=== PATIENT | female | born 1960 | race Caucasian/White ===

== ENCOUNTER 2022-10-20 10:44 | Outpatient (REF) | payer MEDICARE, MEDICAID, SELFPAY ==
--- NOTE | ~2022-10-20 | XR_ITS ---
EXAMINATION: XR LUMBOSACRAL SPINE WITH OBLIQUES CLINICAL INFORMATION: Lumbago with sciatica. COMPARISON: None available. TECHNIQUE: AP and lateral (neutral, flexion and extension) views of the lumbosacral spine are submitted. FINDINGS: There is mild bony demineralization. There is a slight lumbar levoscoliosis. At L4-L5, there is a 4 mm anterolisthesis. The remaining disc spaces are relatively well-maintained. No acute fracture or spondylolisthesis is seen. There is multi-level mild thoracic spondylosis. There is facet arthropathy at L4-L5 and L5-S1. There are aortoiliac atherosclerotic calcifications. XR/XR lumbar spine 4V min IMPRESSION: 1. There is mild degenerative disc disease at L4-L5. 2. There is facet arthropathy at L4-L5 and L5-S1. 3. There is a slight lumbar levoscoliosis.
== END 2022-10-20 10:45 | disposition home or self-care (01) ==
LOC: HO.HOSX 10:44
PROVIDERS: Visit Provider Physician Assistant
DX: M54.40 Lumbago with sciatica, unspecified side (principal); M71.30 Other bursal cyst, unspecified site; M71.9 Bursopathy, unspecified; Z79.891 Long term (current) use of opiate analgesic; Z79.899 Other long term (current) drug therapy
CPT/HCPCS: 72110; 99202

== ENCOUNTER 2022-11-09 | Outpatient (REF) | payer MEDICARE, MEDICAID, SELFPAY ==
--- NOTE | 2022-11-09 | ECG_ITS ---
Test Reason : palps, copd, preop Blood Pressure : / mmHG Vent. Rate : 088 BPM Atrial Rate : 088 BPM P-R Int : 112 ms QRS Dur : 068 ms QT Int : 374 ms P-R-T Axes : 045 050 056 degrees QTc Int : 452 ms Normal sinus rhythm Normal ECG No previous ECGs available Referred By: Dede Espinosa Electronically Signed By:Ibrahima Washington
[2022-11-09 12:15] VITALS: BP 119/66; PULSE 88; RESP 20; O2SAT 98; BMI 22.1
--- NOTE | 2022-11-09 12:43 | HO.ANESPROP2 ---
HPI - Anesthesia Eval Consult details Narrative: Pt no showed DOS 62yo F for Bilateral L4-L5 Laminectomy Lumbar Decompression,L4-L5 removal of snyoval cyst Follows [facility] for palps. Many missed appointments. Cardiac OV sched for 11/15/22. Case reviewed with Dr Dago MOSQUERA Active Problems Active Problems: All Active Problems (Updated 11/09/22 @ 12:09 by Joan Oliva, AJ) Back pain of lumbar region with sciatica (Acute) Past Medical History Medical History (Updated 11/09/22 @ 12:09 by Joan Oliva RN) Arthritis Back pain Bursitis Chronic headaches COPD (chronic obstructive pulmonary disease) Depression Hypothyroid IBS (irritable bowel syndrome) Palpitations Surgical History Surgical History (Updated 11/09/22 @ 12:11 by Joan Oliva RN) H/O colonoscopy History of esophagogastroduodenoscopy (EGD) Hx of tonsillectomy Social History Social History Are you a primary childbirth and infant care teacher to a significant other at home: No Do you presently have visiting nurse or other home services: No Patient Tobacco Use Status: Current everyday Tobacco user Tobacco use type: Cigarette Cigarettes Per Day: 4 Years Smoked: 45 Smoked in Last 30 Days: Yes Patient Interested in Nicotine Replacement: No Use of substances other than those prescribed or required for medical reasons: No Have you been hit, kicked, punched, or otherwise hurt by someone within the past year? If so, by whom?: No Are you DNR?: No Advance Directives: No Advance Directives Information Provided: Yes (brochure) Advance Directives on File: No Recently lost weight without trying: No Nutrition Risks: No Nutritional Risk Poor oral hygiene: No (4 missing teeth-molars) Narrative Narrative: No recent illness Rare palpitations with exertion. Follows cardiology. COPD at baseline without SOB Meds Allergies Allergy/AdvReac Type Severity Reaction Status Date / Time No Known Allergies Allergy Verified 05/31/22 10:41 Home Medications Medication Instructions Recorded Confirmed Last Taken Type albuterol sulfate 90 mcg/actuation 2 puff inhalation Q4H PRN wheezing 05/31/22 11/08/22 Unknown History aerosol inhaler betamethasone valerate 0.1 % 1 appl topical BID 05/31/22 11/08/22 Unknown History topical ointment naproxen 500 mg tablet 500 mg PO BID 05/31/22 11/08/22 Unknown History methimazole 5 mg tablet 2.5 mg PO DAILY 11/08/22 11/08/22 Unknown History polyethylene glycol 3350 17 gram 17 g PO DAILY 11/08/22 11/08/22 Unknown History oral powder packet (Miralax) verapamil 100 mg capsule 24hr 100 mg PO BEDTIME 11/08/22 11/08/[address],ext.release oxycodone-acetaminophen 5 mg-325 1 tab PO QID PRN Pain 11/09/22 11/09/22 Unknown History mg tablet Exam Exam Date and Time: November 09, 2022 1243 Height,Weight and Vital Signs: Height 5 ft 3 in Weight 56.699 kg Last Vital Signs Pulse 88 11/09/22 12:15 Resp 20 11/09/22 12:15 BP 119/66 11/09/22 12:15 Pulse Ox 98 11/09/22 12:15 O2 Del Method Room Air 11/09/22 12:15 Pertinent Lab Results Pertinent Lab Results: Lab Results 11/09/22 11/09/22 Range/Units 13:11 13:11 WBC 8.4 (4.8-10.8) X10*3/uL RBC 4.58 (4.20-5.50) X10*6/uL Hgb 14.1 (12.0-16.0) g/dl Hct 42.5 (37.0-47.0) % MCV 92.8 (80.0-98.0) fL MCH 30.8 (27.0-33.0) pg MCHC 33.2 (31.0-35.0) g/dl RDW 11.9 (11.0-16.0) % Plt Count 326 (160-400) X10*3/uL MPV 11.3 (9.4-12.3) fL Absolute Nucleated RBC 0.000 (0.0-0.012) X10*3/uL Nucleated RBC % (auto) 0.0 (0.0-0.2) /100WBC Sodium 143 (135-145) mmol/L Potassium 4.6 (3.3-5.1) mmol/L Chloride 106 (96-108) mmol/L Carbon Dioxide 29 (22-29) mmol/L Anion Gap 13 (12-20) BUN 19 H (9-16) mg/dL Creatinine 0.73 (0.5-1.4) mg/dL Estim Creat Clear Calc 66.9 Estimated GFR > 60 Random Glucose 81 (60-115) mg/dL Calcium 10.1 (8.4-10.2) mg/dL Narrative Narrative: EKG 10/2022 Vent. Rate : 088 BPM ? ? Atrial Rate : 088 BPM ?? P-R Int : 112 ms? QRS Dur : 068 ms ? ? QT Int : 374 ms ? ? ? P-R-T Axes : 045 050 056 degrees ?? QTc Int : 452 ms ? Normal sinus rhythm Normal ECG No previous ECGs available ? Airway Mallampati Class: I TM Dist: >3cm Neck ROM: Full Loose/Missing/Broken Teeth: Yes (4 x molars missing) Heart: RRR Lungs: CTAB Assessment and Plan Assessment Anesthesia Assessment: Anesthesia Plan Discussed, Smoking Cess. Discussed and PAT Visit
[2022-11-09 13:47] LABS: Hematocrit 42.5 % (37.0-47.0); Hemoglobin 14.1 g/dl (12.0-16.0); Mean Corpuscular HGB Conc 33.2 g/dl (31.0-35.0); Mean Corpuscular Hemoglobin 30.8 pg (27.0-33.0); Mean Corpuscular Volume 92.8 fL (80.0-98.0); Mean Platelet Volume 11.3 fL (9.4-12.3); Platelet Count 326 X10*3/uL (160-400); Red Blood Count 4.58 X10*6/uL (4.20-5.50); Red Cell Distribution Width 11.9 % (11.0-16.0); White Blood Count 8.4 X10*3/uL (4.8-10.8)
[2022-11-09 14:10] LABS: Anion Gap 13 (12-20); Blood Urea Nitrogen 19 mg/dL (9-16); Calcium 10.1 mg/dL (8.4-10.2); Carbon Dioxide 29 mmol/L (22-29); Chloride 106 mmol/L (96-108); Creatinine Clr Calc Pharmacy 66.9; Estimated Glomerular Filt Rate > 60; Glucose Random 81 mg/dL (60-115); Potassium 4.6 mmol/L (3.3-5.1); Sodium 143 mmol/L (135-145)
== END 2022-11-09 00:01 ==
LOC: HO.PAT
PROVIDERS: Nurse Practitioner; PCP Internal Medicine; Visit Provider Neurological Surgery
DX: Z01.818 Encounter for other preprocedural examination (principal); M54.40 Lumbago with sciatica, unspecified side
CPT/HCPCS: 36415; 80048; 85027; 93005

== ENCOUNTER 2023-04-11 14:33 | Outpatient (AMB) | payer MEDICARE, MEDICAID, SELFPAY ==
--- NOTE | 2023-04-11 14:43 | HO.SPINEOV ---
Intake Intake Visit Reasons: discuss surgery Intake Note: Ms. Garcia is here today to discuss surgery. Production Assembly Supervisor Required: No Allergies No Known Allergies Allergy (Verified 05/31/22 10:41) Assessment & Plan Assessment & Plan (1) Back pain of lumbar region with sciatica: Code(s): M54.40 - Lumbago with sciatica, unspecified side (2) Synovial cyst of lumbar facet joint: Code(s): M71.38 - Other bursal cyst, other site Plan Dear Colleague On 04/11/2023, I saw for preoperative visit Marielos Garcia. She has a large synovial cyst arising from the left L4-5 facet joint, which obliterates the spinal canal. She was originally scheduled to undergo surgery in October which had to be postponed. She states that her symptoms have somewhat improved. It is merely back pain currently. She wonders if the cyst resolved. I do think it's a good idea ear to have a new MRI to make sure that the cyst is still present before we schedule a surgical date. I will see the patient after the MRI is done to finalize the plan. Adrian Agarwal MD, PhD Spine Fellowship Trained Neurosurgeon Director, [facility] Orders: Orders MR lumbar spine wo con Today M54.40 - Lumbago with sciatica, unspecified side, M71.38 - Other bursal cyst, other site Coding Level of Care Code Est Pt Level 2 (49668) Diagnoses Back pain of lumbar region with sciatica M54.40 Synovial cyst of lumbar facet joint M71.38
== END 2023-04-11 14:52 | disposition home or self-care (01) ==
PROVIDERS: PCP Internal Medicine; Visit Provider Neurological Surgery
DX: M54.40 Lumbago with sciatica, unspecified side (principal); M71.38 Other bursal cyst, other site
CPT/HCPCS: 99212

== ENCOUNTER → 2023-04-11 14:33 | Outpatient (BNVA) | payer OTHER, SELFPAY | PROVIDERS: PCP Internal Medicine; Visit Provider Neurological Surgery | DX: M54.40 Lumbago with sciatica, unspecified side (principal); M71.38 Other bursal cyst, other site | CPT/HCPCS: 99212 ==

== ENCOUNTER 2023-05-19 14:23 | Outpatient (REF) | payer MEDICARE, SELFPAY ==
--- NOTE | ~2023-05-19 | MR_ITS ---
EXAMINATION: MR LUMBAR SPINE WITHOUT CONTRAST CLINICAL INFORMATION: Facet joint cyst. COMPARISON: Lumbar spine radiographs from 10/20/2022. TECHNIQUE: MRI of the lumbar spine was obtained using routine sequences without contrast. FINDINGS: Degenerative grade 1 anterolisthesis of L4 on L5. Otherwise, normal anatomic alignment. Moderate degenerative disc disease at L4-L5. Mild degenerative disc disease at all additional levels. Associated mild mixed Modic type discogenic endplate changes. Moderate marrow edema within the posterior elements of L4-S1 consistent with degenerative stress reaction. No additional suspicious marrow edema. The vertebral body heights are well-maintained. The conus medullaris terminates at the level of L2. Slight prominence of the central spinal canal at the levels of T11-L1, measuring up to 0.1 cm in diameter without overt syrinx formation. Otherwise, the distal spinal cord is normal in appearance. No significant abnormalities of the paraspinal musculature. Limited evaluation of the intra-abdominal structures without significant abnormalities. The abdominal aorta is of normal contour and caliber. AXIAL SPINAL LEVELS: L1-L2: Shallow diffuse disc bulge. There is mild left and no right facet joint arthropathy. There is no neural foraminal stenosis. There is no spinal canal stenosis. L2-L3: Mild diffuse disc bulge with superimposed shallow left foraminal disc protrusion. There is mild bilateral facet joint arthropathy. There is mild bilateral neural foraminal stenosis. There is no spinal canal stenosis. L3-L4: Shallow diffuse disc bulge. There is moderate left and mild right facet joint arthropathy. There is mild bilateral neural foraminal stenosis. There is no spinal canal stenosis. L4-L5: Moderate diffuse disc bulge exacerbated by uncovering from anterolisthesis. There is severe bilateral facet joint arthropathy with ligamentum flavum hypertrophy. There is a 0.3 cm T2 hyperintense synovial cyst medial to the right facet joint. There is a 0.15 cm faintly T2 hyperintense synovial cyst medial to the left facet joint. There is moderate bilateral neural foraminal stenosis. There is stenosis of the subarticular zones with mild spinal canal stenosis centrally. L5-S1: Shallow diffuse disc bulge. There is moderate left and mild right facet joint arthropathy. There is mild bilateral neural foraminal stenosis. There is no spinal canal stenosis. MR/MR lumbar spine wo con IMPRESSION: Moderate multilevel degenerative spondyloarthropathy of the lumbar spine as described in detail above. Most notably, there is grade 1 anterolisthesis of L4 on L5 associated with advanced facet joint arthropathy at this level. Associated stenoses of the subarticular zones and mild spinal canal stenosis centrally at L4-L5. There are 2 small synovial cysts associated with the bilateral L4-L5 facet joints. Otherwise, mild to moderate neural foraminal stenoses from L2-S1. No additional spinal canal stenosis or nerve root compression. Slight prominence of the central spinal canal at the levels of T11-L1, measuring up to 0.1 cm in diameter without overt syrinx formation.
== END 2023-05-19 14:24 | disposition home or self-care (01) ==
LOC: HO.MRI 14:23
PROVIDERS: PCP Internal Medicine; Visit Provider Neurological Surgery
DX: M71.38 Other bursal cyst, other site (principal); M54.40 Lumbago with sciatica, unspecified side
CPT/HCPCS: 72148

== ENCOUNTER 2023-06-13 14:04 | Outpatient (AMB) | payer MEDICARE, SELFPAY ==
--- NOTE | 2023-06-13 14:08 | A.SPINEOV_ITS ---
Intake Intake Visit Reasons: Discuss MRI results Intake Note: Ms. Garcia is here today to discuss the results of her MRI. Sales Service Assistant Required: No Allergies No Known Allergies Allergy (Verified 05/31/22 10:41) Assessment & Plan Assessment & Plan (1) Synovial cyst of lumbar facet joint: Code(s): M71.38 - Other bursal cyst, other site (2) Back pain of lumbar region with sciatica: Code(s): M54.40 - Lumbago with sciatica, unspecified side Plan Dear colleague, On 06/14/2023, I saw for re-evaluation Marielos Garcia. She is suffering from back pain and neurogenic claudication. The last time I saw her she had improvement of her back pain and therefore she was wondering if the synovial cyst popped. We obtain a new MRI of the lumbar spine which unfortunately still shows a large extradural mass obliterating the spinal canal and causing severe spinal stenosis and compression of the nerve roots. On questioning, she still suffers from a fair amount of neurogenic claudication symptoms. She can hardly walk or stand and constantly has to sit down. We therefore decided to book her for a removal of the extradural mass(synovial cyst) to decompress the spinal canal. The procedure complications were explained. She is scheduled for 09/10/2023. I spent 30 minutes in this consult in preparation and discussing the new images and surgical plan Thank you for allowing me take care of your patient. Adrian Agarwal MD, PhD Spine Fellowship Trained Neurosurgeon Director, [facility] Coding Level of Care Code Est Pt Level 4 (16983) Diagnoses Synovial cyst of lumbar facet joint M71.38 Back pain of lumbar region with sciatica M54.40
== END 2023-06-13 14:46 | disposition home or self-care (01) ==
PROVIDERS: PCP Internal Medicine; Visit Provider Neurological Surgery
DX: M71.38 Other bursal cyst, other site (principal); M54.40 Lumbago with sciatica, unspecified side
CPT/HCPCS: 99214

== ENCOUNTER → 2023-06-13 14:04 | Outpatient (BNVA) | payer MEDICARE, SELFPAY | PROVIDERS: PCP Internal Medicine; Visit Provider Neurological Surgery | DX: M71.38 Other bursal cyst, other site (principal); M54.40 Lumbago with sciatica, unspecified side | CPT/HCPCS: 99212 ==

== ENCOUNTER 2023-11-14 05:48 | Day surgery (SDC) | payer OTHER, SELFPAY ==
[2023-09-04 12:13] VITALS: BP 141/66; PULSE 82; RESP 20; O2SAT 100; BMI 22.4
--- NOTE | 2023-11-13 13:30 | P.CONAN_ITS ---
HPI - Anesthesia Eval Consult details Narrative: 63yo F for Right L4-5 Resection of Synovial Cyst Medically cleared via telehealth 09/2023 Cardiac cleared via office visit 01/2023 MRI with white matter changes. Noted by neurosurgeon. Recent cocaine use. Utox DOS. PMFSH Active Problems Active Problems: All Active Problems Synovial cyst of lumbar facet joint (Acute) Back pain of lumbar region with sciatica (Acute) Past Medical History Medical History Pulmonary nodules Back pain Depression Arthritis Palpitations Bursitis IBS (irritable bowel syndrome) Hypothyroid Chronic headaches COPD (chronic obstructive pulmonary disease) Surgical History Surgical History History of esophagogastroduodenoscopy (EGD) H/O colonoscopy Hx of tonsillectomy Social History Social History Are you a primary palliative care nurse to a significant other at home: No Do you presently have visiting nurse or other home services: No Patient Tobacco Use Status: Former Tobacco user Quit Date: 09/03/23 Tobacco use type: Cigarette Cigarettes Per Day: 3 Years Smoked: 46 Second Hand Smoke Exposure: No Meds Allergies Allergy/AdvReac Type Severity Reaction Status Date / Time No Known Allergies Allergy Verified 05/31/22 10:41 Home Medications ?Medication ?Instructions ?Recorded ?Confirmed ?Last Taken ?Type albuterol sulfate 90 mcg/actuation 2 puff inhalation Q4H PRN wheezing 05/31/22 08/31/23 Unknown History aerosol inhaler betamethasone valerate 0.1 % 1 appl topical BID 05/31/22 08/31/23 Unknown History topical ointment polyethylene glycol 3350 17 gram 17 g PO DAILY 11/08/22 08/31/23 Unknown History oral powder packet (Miralax) verapamil 100 mg capsule 24hr 100 mg PO BEDTIME 11/08/22 08/31/[address],ext.release oxycodone-acetaminophen 5 mg-325 1 tab PO QID PRN Pain 11/09/22 09/04/23 Unknown History mg tablet Exam Height,Weight and Vital Signs: Height 5 ft 3 in Weight 57.3 kg Last Vital Signs Pulse 82 09/04/23 12:13 Resp 20 09/04/23 12:13 BP 141/66 H 09/04/23 12:13 Pulse Ox 100 09/04/23 12:13 O2 Del Method Room Air 09/04/23 12:13 Narrative Narrative: EKG 2022 SR with short IA @ 88 Possible LAE ECHO 2020 1. Nml LV size and wall thickness. No RWMA. 2. Nml LV sys function. LVEF 55-60%. E-A reversal consistent with mild diastolic relaxation abn. 3. RV nl in size and systolic function 4. No signif valve disease Assessment and Plan Assessment Anesthesia Assessment: Chart Reviewed
[2023-11-14] VITALS (8 sets, daily range): BP systolic 131–151; BP diastolic 62–90; PULSE 78–89; RESP 16; TEMP 36.1–37.2; O2SAT 96–99; BMI 22.9
--- NOTE | ~2023-11-14 | FL_ITS ---
EXAMINATION: XR FLUOROSCOPY WITH IMAGES CLINICAL INFORMATION: L4-L5 resection of synovial cyst COMPARISON: None available. TECHNIQUE: Fluoroscopy Supervised By: Dr. Agarwal. Fluoroscopy Time: 2.9 seconds. Cumulative Dose: 0.8673 mGy. DAP: 0.2463 Gycm2. Images: 1. FINDINGS: Fluoroscopic guidance provided for procedure performed by Dr. Agarwal. Surgical hardware overlies the lower lumbar spine on image provided. Please refer to operative report for more detailed evaluation. FL/FL guidance in OR IMPRESSION: Fluoroscopic guidance provided for procedure performed by Dr. Agarwal Please refer to operative report for more detailed evaluation.
[2023-11-14] MEDS: methocarbamoL 750 MG TABLET PO (06:48)
[2023-11-14] MEDS: Lactated Ringers 1,000 ML 100 ML IVCONT (06:48)
[2023-11-14] MEDS: Gabapentin 300 MG CAPSULE PO (06:48)
[2023-11-14 06:53] LABS: Amphetamine Screen Urine Not Detected (Not Detect); Barbiturates, Urine Not Detected (Not Detect); Benzodiazepines Screen Urine Not Detected (Not Detect); Buprenorphine Scr Not Detected (Not Detect); Cannabinoid Screen Urine Not Detected (Not Detect); Cocaine Screen Urine POSITIVE (Not Detect); Fentanyl, urine Not Detected (Not Detect); Methadone Screen, Urine Not Detected (Not Detect); Opiate Screen Urine Not Detected (Not Detect); Oxycodone Screen Urine Not Detected (Not Detect); Phencyclidine Screen Urine Not Detected (Not Detect)
--- NOTE | 2023-11-14 06:57 | MHC.SHP ---
Pre-Procedural Eval Section A - 24 Hr Update-Section A only Date of Service: 11/14/23 Section B - Complete if H&P > 30 days Chief Complaint: Lumbago with sciatica,Other bursal cyst, other sit Allergies: Allergies Allergy/AdvReac Type Severity Reaction Status Date / Time No Known Allergies Allergy Verified 05/31/22 10:41 Review of Systems Sugical H&P ROS: Negative: Constitution, Cardiovascular, Respiratory, Neurological, Psychiatric, Hem-Onc, Allergic/Immunologic, Gastrointestinal, Genitourinary, Musculoskeletal, Integumentary, Endocrine and Eyes/Ears/Nose/Throat Exam Surgical H&P Exam: Not Evaluated: HEENT, Not Evaluated: Heart, Not Evaluated: Lungs, Not Evaluated: Extremities, Not Evaluated: Abdomen, Not Evaluated: Skin and Not Evaluated: Neurological Plan I have reviewed the history and physical and performed a pertinent physical examination on my patient. No changes have occurred unless specified. The plan remains the same, L4-5 lumbar decompression, synovial cyst resection. Time Spent With Patient Time: Total time managing care of this patient today _10__ minutes.
--- NOTE | 2023-11-14 07:08 | PC.NURSE ---
Patient urine tox positive for cocaine, Dr. Narvaez Anesthesiologist aware. Dr. Agarwal aware. no new orders at this time.
--- NOTE | 2023-11-14 07:26 | P.CONAN_ITS ---
COUNTS INCLUDE 234 BEDS AT THE [facility] Active Problems Active Problems: All Active Problems Synovial cyst of lumbar facet joint (Acute) Back pain of lumbar region with sciatica (Acute) Past Medical History Medical History Pulmonary nodules Back pain Depression Arthritis Palpitations Bursitis IBS (irritable bowel syndrome) Hypothyroid Chronic headaches COPD (chronic obstructive pulmonary disease) Functional capacity: independent ambulation Patient : No Family History Family history of problems with anesthesia: No Surgical History Surgical History History of esophagogastroduodenoscopy (EGD) H/O colonoscopy Hx of tonsillectomy History of Problems with Anesthesia: No Social History Social History Are you a primary customer care associate to a significant other at home: No Do you presently have visiting nurse or other home services: No Patient Tobacco Use Status: Former Tobacco user Quit Date: 09/03/23 Tobacco use type: Cigarette Cigarettes Per Day: 3 Years Smoked: 46 Smoked in Last 30 Days: Yes Patient Interested in Nicotine Replacement: No Second Hand Smoke Exposure: No Use of substances other than those prescribed or required for medical reasons: No Substance Use Type Other:: last cocaine 3 weeks ago-states quit 09/03/23 Substance Use Frequency: Occasionally Have you been hit, kicked, punched, or otherwise hurt by someone within the past year? If so, by whom?: No Are you DNR?: No Advance Directives: No Advance Directives Information Provided: Yes Advance Directives on File: No Recently lost weight without trying: No Eating poorly because of decreased appetite: No Nutrition Risks: No Nutritional Risk Poor oral hygiene: No (4 missing teeth) Meds Allergies Allergy/AdvReac Type Severity Reaction Status Date / Time No Known Allergies Allergy Verified 05/31/22 10:41 Active Medications: Current Medications Albuterol Sulfate (Albuterol Sulfate (0.083%) 2.5 Mg/3 Ml Vial.Neb) 2.5 mg INHALE ONCE PRN PRN Reason: Shortness of Breath/Wheezing Lactated Ringer's (Lr) 1,000 mls @ 100 mls/hr IVCONT .Q10H KEVIN Last Admin: 11/14/23 06:48 Dose: 100 mls/hr Home Medications ?Medication ?Instructions ?Recorded ?Confirmed ?Last Taken ?Type albuterol sulfate 90 mcg/actuation 2 puff inhalation Q4H PRN wheezing 05/31/22 08/31/23 Unknown History aerosol inhaler betamethasone valerate 0.1 % 1 appl topical BID 05/31/22 08/31/23 Unknown History topical ointment polyethylene glycol 3350 17 gram 17 g PO DAILY 11/08/22 08/31/23 Unknown History oral powder packet (Miralax) verapamil 100 mg capsule 24hr 100 mg PO BEDTIME 11/08/22 08/31/[address],ext.release oxycodone-acetaminophen 5 mg-325 1 tab PO QID PRN Pain 11/09/22 09/04/23 Unknown History mg tablet Exam Height,Weight and Vital Signs: Height 5 ft 3 in Weight 58.57 kg Last Vital Signs Temp 98.9 F 11/14/23 06:29 Pulse 78 11/14/23 06:29 Resp 16 11/14/23 06:29 BP 149/72 H 11/14/23 06:29 Pulse Ox 99 11/14/23 06:29 O2 Del Method Room Air 11/14/23 06:29 Pertinent Lab Results Pertinent Lab Results: Laboratory Tests 11/14/23 06:25 Urine Opiates Screen Not Detected Ur Buprenorphine Scrn Not Detected Ur Oxycodone Screen Not Detected Urine Methadone Screen Not Detected Urine Fentanyl Screen Not Detected Ur Barbiturates Screen Not Detected Ur Phencyclidine Scrn Not Detected Ur Amphetamines Screen Not Detected U Benzodiazepines Scrn Not Detected Urine Cocaine Screen POSITIVE H U Marijuana (THC) Screen Not Detected Airway Mallampati Class: II TM Dist: >3cm Neck ROM: Full Heart: RRR Lungs: CTA Assessment and Plan Assessment Anesthesia Assessment: Anesthesia Plan Discussed and Smoking Cess. Discussed Final Anesthetic Review Family History of Problems with Anesthesia: No History of Problems with Anesthesia: No NPO: Yes ASA Class: II Final Preanesthetic Review: Meds/Allgs Chart Reviewed, Consent Obtained/Reviewed and Anes Risks/Benef Reviewed Patient Risk: Intermediate Procedure Risk: Intermediate Anesthetic Plan Anesthetic Plan: GA Disposition: Standard PACU
--- NOTE | 2023-11-14 09:09 | P.OP_ITS ---
Operative Note Operative Note Date of Service: 11/14/23 Narrative: Preoperative Diagnosis: Extradural benign mass (synovial cyst) compressing the left L5 nerve root Operation: Left L4-5 Laminotomy for removal of extradural benign mass with use of microscope Consent Informed Consent was obtained for this operation. I have explained the nature, purpose and benefits of the operation. I have discussed the risks and benefit of the operation including possible complications or adverse events with patient/family. Alternative(s) were discussed with the patient with their relative benefits and risks as well as the consequences of not accepting the operation were included in obtaining consent. Surgeon: ABDI CERVANTES MD, PHD Procedure Assisted By: Gurdeep roman Description of Procedure This patient is suffering pain radiating down her left hip and thigh. She also has back pain. Her history has changed multiple times during visits. I made clear to the patient that this surgery is not for back pain. It might help for her left leg pain. MRI shows a large extra dural benign mass compressing the L5 nerve root. The patient was offered a removal of the mass to decompress the nervous structure. The procedure complications were explained. The patient was consented. The patient was brought to the operating room and endotracheally intubated. The patient was turned in prone position on the Bossman frame. Prep and drape was done followed by timeout. Physician professional nursing assistant provided access. A mid lumbar incision was made followed by release of the paravertebral muscle on the left side to expose the L4-5 lamina and facet joint. An intraoperative x-ray was obtained to confirm the correct level. The microscope was brought in. I took over the procedure. The high-speed drill was used to do a L4-5 laminotomy. The flavum ligament was opened to expose the underlying thecal sac and start of the [] nerve root. The view was obscured by a large cystic mass that was scarred to the thecal sac and L5 nerve root. I carefully resected the mass from the nervous structures and create a plane after which I was able to remove the mass from the thecal sac and L5 nerve root. Most likely we are dealing with a synovial cyst. A long the nerve root could be easily passed, a sign of adequate decompression of the nerve root . The microscope was removed. Hemostasis was done. Incision was closed in 2 layers. Steri-Strips were used to approximate incision. An OpSite with Tegaderm was used to cover the incision. All sponge needle counts were correct. Patient was extubated and transported in stable is to recovery room. Anesthesia: General Estimated Blood Loss (ml): Minimal Duration of Surgery: Under 60 Minutes Postoperative Plan: Discharge to home
--- NOTE | 2023-11-14 09:10 | PM.DS ---
DS: Providers Provider Date of Service: 11/14/23 Primary care physician: Dimas Mcnair III, MD DS: Summary Time Attestation Discharge Coordination Time (in mins): 15 Quality: Safe Use of Opioids Does Pt have an Active Cancer Diagnosis on the Problem List?: No Quality: Stroke Does the patient have a stroke diagnosis?: No Physical Exam Vital Signs: Vital Signs: Last Vital Signs Temp 98.9 F 11/14/23 06:29 Pulse 78 11/14/23 06:29 Resp 16 11/14/23 06:29 BP 149/72 H 11/14/23 06:29 Pulse Ox 99 11/14/23 06:29 O2 Del Method Room Air 11/14/23 06:29 BMI result Body Mass Index 22.9 DS: Data Data Completed and Pending Labs on day of discharge: Laboratory Results - last 24 hr 11/14/23 06:25 Urine Opiates Screen Not Detected Ur Buprenorphine Scrn Not Detected Ur Oxycodone Screen Not Detected Urine Methadone Screen Not Detected Urine Fentanyl Screen Not Detected Ur Barbiturates Screen Not Detected Ur Phencyclidine Scrn Not Detected Ur Amphetamines Screen Not Detected U Benzodiazepines Scrn Not Detected Urine Cocaine Screen POSITIVE H U Marijuana (THC) Screen Not Detected Discharge Plan Discharge Patient Disposition: Home, Self-Care Referrals: Dimas Mcnair III, MD [Primary Care Provider] - 1 Week Discharge Medications: New hydrocodone-acetaminophen 5-325 mg tablet 1 tab PO Q6H PRN (Reason: severe pain (scale score 7-10)) Qty: 30 0RF Rx Instructions: Partial Fill upon patient request. No Action polyethylene glycol 3350 [Miralax] 17 gram Powder In Packet 17 g PO DAILY verapamil 100 mg capsule, [address] 100 mg PO BEDTIME oxycodone-acetaminophen 5-325 mg tablet 1 tab PO QID PRN (Reason: Pain) betamethasone valerate 0.1 % ointment 1 appl topical BID albuterol sulfate 90 mcg/actuation HFA aerosol inhaler 2 puff inhalation Q4H PRN (Reason: wheezing) Discharge Orders: Discharge Order (Routine); Ordered 11/14/23 Ordered By: Ryan Pimentel Diet: Advance to usual diet Activity on Discharge: As tolerated Activity Restrictions/Additional Instructions: After your spinal surgery we ask you to observe the following restrictions/guidelines: Activity: It is normal to feel some discomfort as you increase your activity, but that will improve with time. We ask you avoid heavy lifting or acitivities that cause pain. As a general rule, 8lbs is a safe limit for lifting right after surgery. Walk as much as you feel comfortable but not to exhaustion. You will feel extra tired the first few days after surgery. Stay well hydrated. It is OK to walk up and down stairs You may return to driving when you are off narcotics (such as vicodin, oxycodone, dilaudid, etc), and you are back to normal functional capacity. If you have any concerns please check with office before driving. Return to work is specific to each patient and each surgery, so please speak with your doctor/PA at first follow up. Please bring paperwork such as FMLA at that time if you need it filled out. Medications: We will give you a short supply of narcotics after surgery (usually one weeks worth). If you need more please call the office but do not use more than prescribed. You will need to give our office 48 hours notice if you need narcotics refilled and we do not fill narcotics on weekends or evenings. If you are on a narcotic, it is a good idea to take a stool softener such as colace or senna to avoid constipation If you take blood thinner such as aspirin, Plavix, Coumadin, Effient, Eliquis etc for conditions such as Afib, DVT, Pulmonary embolus, coronary disease, stents etc please speak with your surgeon about specific details as to when you can resume these medications. You can resume NSAIDs on post op day 1 (eg: Motrin, Naproxen, etc). Follow up: Please call the office, , after surgery to arrange a 3 week follow up for wound check. Wound Care: You may remove your dressing on the first day after surgery. ?You may ?leave open to air. Please do not remove the steri strips underneath. they will fall off on their own in one week. IT IS NORMAL FOR THE WOUND TO OOZE OR BE BLOODY FOR A FEW DAYS AFTER SURGERY. ?IF THIS HAPPENS JUST PLACE NEW DRESSING OVER IT TO AVOID STAINING CLOTHES. You may shower on post op day # 1 We ask that you do not let the water soak the wound. If it does get wet, just towel dry lightly. Please do not scrub your incision or place any type of chemical/ointment on the wound. No tub baths, pools or jacuzzis for one month. If you have any leaking or redness from your wound, or fevers, please call the office. Print Language: Japanese
== END 2023-11-14 10:54 | disposition home or self-care (01) ==
PROVIDERS: Nurse Practitioner; PCP Internal Medicine; Visit Provider Neurological Surgery
PROC: (CPT 63267; principal; 2023-11-14 07:30)
DX: M71.38 Other bursal cyst, other site (principal); M54.40 Lumbago with sciatica, unspecified side; M25.552 Pain in left hip; M79.652 Pain in left thigh; R26.2 Difficulty in walking, not elsewhere classified; G89.29 Other chronic pain; R51.9 Headache, unspecified; R90.82 White matter disease, unspecified; J44.9 Chronic obstructive pulmonary disease, unspecified; R91.8 Other nonspecific abnormal finding of lung field; F14.90 Cocaine use, unspecified, uncomplicated; Z79.899 Other long term (current) drug therapy; F17.210 Nicotine dependence, cigarettes, uncomplicated
CPT/HCPCS: 63267; 80307; J0131; J0690; J1100; J1170; J1596; J1885; J2250; J2371; J2405; J2704; J3010

== ENCOUNTER → 2023-11-14 05:48 | Outpatient (BNV) | payer OTHER, SELFPAY | PROVIDERS: PCP Internal Medicine; Visit Provider Neurological Surgery | DX: M71.38 Other bursal cyst, other site (principal); M54.40 Lumbago with sciatica, unspecified side | CPT/HCPCS: 63267; 99499 ==

== ENCOUNTER 2023-12-07 14:34 | Outpatient (AMB) | payer OTHER, SELFPAY ==
--- NOTE | 2023-12-07 14:38 | HO.SPINEOV ---
Intake Visit Reasons: 1st post op Intake Note: Ms. Garcia is here today for her 1st Post-op appointment. 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 She is 3 weeks out from her left L4-5 decompression removal synovial cyst. She is pleased with how the surgery went in the improvement in her pain. Her wound is healed up nicely. At this point, the main thing that is bothering her now that the radiculopathy is improved is the left hip pain. She has been battling with this for years and has been followed by [facility] for years. There is an old x-ray done at [place] from 2022 showing a severely arthritic hip on the left side. She knows she is likely going to need a hip replacement. She currently does not have an orthopedic surgeon that she follows with. I offered to get her an updated x-ray and I told her she can see who can handle any surgery she might need down the road. She has not sure if she is ready to undergo the hip replacement yet but I told her would be meaningful just have a conversation with him and establish care. From the standpoint of her back, she has no restrictions and can follow up with us on an as-needed basis. Gurdeep Agarwal MD, PhD [facility] Orders: Orders XR hip LT min 2V Today M16.12 - Unilateral primary osteoarthritis, left hip Referrals Orthopedics Referral M16.12 - Unilateral primary osteoarthritis, left hip Coding Level of Care Code Global (27608) Diagnoses Arthritis of left hip M16.12 Synovial cyst of lumbar facet joint M71.38
== END 2023-12-07 15:00 | disposition home or self-care (01) ==
PROVIDERS: PCP Internal Medicine; Visit Provider Physician Assistant
DX: M16.12 Unilateral primary osteoarthritis, left hip (principal); M71.38 Other bursal cyst, other site
CPT/HCPCS: 99024

== ENCOUNTER 2023-12-07 14:34 | Outpatient (REF) | payer OTHER, SELFPAY | END 2023-12-07 14:35 | disposition home or self-care (01) | LOC: HO.HOSX 14:34 | PROVIDERS: PCP Internal Medicine; Visit Provider Physician Assistant | DX: M16.12 Unilateral primary osteoarthritis, left hip (principal); Z47.89 Encounter for other orthopedic aftercare; Z87.2 Personal history of diseases of the skin and subcutaneous tissue; Z87.39 Personal history of other diseases of the musculoskeletal system and connective tissue | CPT/HCPCS: 99212 ==

== ENCOUNTER 2024-01-04 06:33 | Outpatient (REF) | payer OTHER, SELFPAY | END 2024-01-04 06:34 | disposition home or self-care (01) | LOC: HO.HOSX 06:33 | PROVIDERS: Visit Provider Orthopaedic Surgery | DX: Z13.89 Encounter for screening for other disorder (principal) ==

== ENCOUNTER 2024-04-10 13:04 | Outpatient (AMB) | payer MEDICARE, SELFPAY ==
--- NOTE | 2024-04-10 13:17 | A.OFFVIS_ITS ---
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 Patient was referred by Family Physiatry- Dr. Rai. Hx of L4-5 Laminotomy with good relief. She continues to have left hip pain s/p back procedure, has tried an intra-articular steroid injection in the past with no relief. She is taking Percocet PRN pain. Her pain is felt on the lateral aspect and posterior aspect of the hip. She has pain all the time but worsened with laying on. She is looking to discuss possible BUDDY. 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 Patient was referred by Family Physiatry- Dr. Rai. Hx of L4-5 Laminotomy with good relief. She continues to have left hip pain s/p back procedure, has tried an intra-articular steroid injection in the past with minimal relief. She is taking Percocet PRN pain. Her pain is felt on the lateral aspect and posterior aspect of the hip. She has pain all the time but worsened with laying on. She is looking to discuss possible BUDDY. She describes pain with almost all activities. The pain is in her left groin. She did have temporary relief from an intra-articular injection but it was not sustained. [facility], [facility] Medical History Pulmonary nodules Back pain Depression Arthritis Palpitations Bursitis IBS (irritable bowel syndrome) Hypothyroid Chronic headaches COPD (chronic obstructive pulmonary disease) Surgical History History of esophagogastroduodenoscopy (EGD) H/O colonoscopy Hx of tonsillectomy Social History Are you a primary behavioral health care manager to a significant other at home: No Do you presently have visiting nurse or other home services: No Patient Tobacco Use Status: Former Tobacco user Tobacco use type: Cigarette Cigarettes Per Day: 3 Years Smoked: 46 Second Hand Smoke Exposure: No Physical Exam Vital Signs: BMI result Body Mass Index 21.3 Extrem Other: Gait antalgia with positive Trendelenburg gait. Impingement test positive on the left. She has excellent range of motion on the right and this is restricted internally on the left with reproducible groin pain. Results Reviewed Results Reviewed: Left hip osteoarthritis, severe Assessment & Plan Assessment & Plan (1) Arthritis of left hip: Code(s): M16.12 - Unilateral primary osteoarthritis, left hip Category: Medical Plan: This is a very pleasant 63-year-old active and healthy woman with severe osteoarthritis of the left hip. Her quality of life is severely diminished and I recommend hip arthroplasty.I discussed the risks benefits and alternatives including but not limited to the risk of pain, infection, stiffness, need for further surgery as well as potential medical complications such as blood clots, pulmonary embolism and cardiac complications. I discussed with her the timeframe and our preoperative requirements including dental health. I think she will require some dental extractions prior to surgery. I discussed this with her. I will have her speak with our nurse navigator and begin the preoperative clearance process. Coding Level of Care Code New Pt Level 4 (32708) Diagnoses Arthritis of left hip M16.12
[2024-04-10 13:19] VITALS: BMI 21.3
== END 2024-04-10 13:59 | disposition home or self-care (01) ==
PROVIDERS: PCP Internal Medicine; Visit Provider Orthopaedic Surgery
DX: M16.12 Unilateral primary osteoarthritis, left hip (principal)
CPT/HCPCS: 99204

== ENCOUNTER → 2024-04-10 13:04 | Outpatient (BNVA) | payer OTHER, SELFPAY | PROVIDERS: PCP Internal Medicine; Visit Provider Orthopaedic Surgery | DX: M16.12 Unilateral primary osteoarthritis, left hip (principal) | CPT/HCPCS: 99202 ==

== ENCOUNTER 2024-06-30 08:51 | Outpatient (REF) | payer MEDICARE, SELFPAY | END 2024-06-30 08:52 | disposition home or self-care (01) | LOC: HO.HOSX 08:51 | PROVIDERS: Visit Provider Physician Assistant | DX: Z13.89 Encounter for screening for other disorder (principal) ==

== ENCOUNTER → 2024-07-01 13:02 | Outpatient (BNVA) | payer MEDICARE, SELFPAY | PROVIDERS: PCP Internal Medicine | DX: Z01.818 Encounter for other preprocedural examination (principal) ==

== ENCOUNTER 2024-07-22 13:20 | Outpatient (REF) | payer MEDICARE, SELFPAY ==
--- NOTE | ~2024-07-22 | XR_ITS ---
EXAMINATION: AP pelvis and left hip 3 views. CLINICAL INDICATION: Left hip pain. COMPARISON: MRI lumbar spine 05/19/2023. FINDINGS: AP pelvis: There is AP view of the pelvis reveals severe loss of left hip joint with subchondral cystic changes. The right hip joint space and the articular surface of the right femoral head and the acetabulum is normal. SI joints are symmetrical. No lytic or sclerotic process involving the pelvic bones. Left: AP and frog-leg views left hip reveal severe loss of left hip joint space with subchondral cystic changes along the acetabulum and the femoral head consistent with advanced degenerative changes. There are no loose bodies seen. There is moderate and is about along the medial femoral head. There are no loose bodies. The soft tissues are normal. XR/XR hip LT min 2V w/wo pel IMPRESSION: Advanced degenerative arthritic changes left hip joint with subchondral cystic changes and periarticular spurring. No acute fracture seen. Electronically signed by: Daren Lane MD 07/22/2024 02:07 PM AIDA
== END 2024-07-22 13:21 | disposition home or self-care (01) ==
LOC: HO.XRAY 13:20
PROVIDERS: PCP Internal Medicine; Visit Provider Physician Assistant
DX: M25.552 Pain in left hip (principal)
CPT/HCPCS: 73502

== ENCOUNTER → 2024-07-22 13:25 | Outpatient (BNV) | payer MEDICARE, SELFPAY | PROVIDERS: PCP Internal Medicine; Visit Provider Radiology Diagnostic Radiology | DX: M25.552 Pain in left hip (principal) | CPT/HCPCS: 73502 ==

== ENCOUNTER 2024-08-07 10:15 | Outpatient (AMB) | payer MEDICARE, SELFPAY ==
--- NOTE | 2024-08-07 10:18 | A.OFFVIS_ITS ---
Vital Signs 08/07/24 10:30 Height 5 ft 3 in Weight 120 lb BMI 21.3 Intake Visit Reasons: Pre-Op: L BUDDY w/NE 08/12/24 Intake Note: Marielos is a 64 year old female who presents today for a preoperative LT BUDDY, DOS 08/12/24 NE. Pain management agreement reviewed and signed. Allergies No Known Allergies Allergy (Verified 08/07/24 10:30) Medication List - Last Reconciled 08/07/24 by Mariely Preston PA-C albuterol sulfate 90 mcg/actuation 2 puffs inhalation Q4H PRN betamethasone valerate 0.1% 1 appl topical BID PRN oxycodone-acetaminophen 5-325 mg 1 tab PO QID PRN verapamil ER 100 mg PO BEDTIME walker Folding Front wheeled walker DURATION 99 DAYS HPI Comments Details: Ms Garcia presents to the office today for preop visit. She is scheduled for left total hip arthroplasty with Dr. Porras. She continues to have ongoing pain and difficulty with ambulation in the left hip, which is affecting her quality of life; therefore, she has elected to move forward with surgery. [facility] Medical History (Updated 07/22/24 @ 12:27 by Solange Gar RN) Hypercholesteremia Vitamin D deficiency Trochanteric bursitis of left hip Subclinical hyperthyroidism Mild emphysema Thyroid nodule History of headache Skin lesion Psoriasis Bacterial vaginosis Left groin pain Cocaine use Tubular adenoma of breast Pulmonary nodules Back pain Depression Arthritis Palpitations Bursitis IBS (irritable bowel syndrome) Hypothyroid Chronic headaches COPD (chronic obstructive pulmonary disease) Surgical History History of lumbar surgery History of esophagogastroduodenoscopy (EGD) H/O colonoscopy Hx of tonsillectomy Social History Are you a primary career and technology education teacher to a significant other at home: No Do you presently have visiting nurse or other home services: Yes (nurse twice a year) Patient Tobacco Use Status: Current everyday Tobacco user Tobacco use type: Cigarette Cigarettes Per Day: 3 Years Smoked: 46 Second Hand Smoke Exposure: No Review of Systems Const All systems reviewed & are unremarkable except as noted in HPI and below Physical Exam Vital Signs: BMI result Body Mass Index 21.3 Const General: cooperative, healthy appearing, comfortable, no acute distress, well developed and alert Orientation/consciousness: patient oriented x3 HEENT Head: Yes normal to inspection, Yes normocephalic and Yes atraumatic Eyes General: appearance normal, both eyes and all related structures Neck Neck: Yes normal visual inspection and Yes no lymphadenopathy Resp Effort & Inspection: normal respiratory effort and able to speak in complete sentences Cardio Rate: regular rate Peripheral pulses: Peripheral pulses 2+ throughout GI Inspection: Yes normal to inspection Palpation (GI): Soft to palpation Skin General skin exam: no rashes or lesions noted Neuro General: patient oriented x3 Extrem Other: No open wounds or abraisons. Gait antalgia with positive Trendelenburg gait. Impingement test positive on the left. She has excellent range of motion on the right and this is restricted internally on the left with reproducible groin pain. Psych Appearance: grossly normal Mental Status: mental status grossly normal Results Reviewed Results Reviewed: Xrays were obtained in the office today and personally reviewed by me of the left hip for pre op planning. Assessment & Plan Assessment & Plan (1) Arthritis of left hip: Code(s): M16.12 - Unilateral primary osteoarthritis, left hip Category: Medical Plan: I discussed in detail the procedure and what to expect pre and post operatively. We discussed the risks, benefits and alternatives to the surgery as well as the rehabilitation course. The risks; which include, but are not limited to infection, bleeding, nerve injury, ongoing pain, swelling, and stiffness, perioperative risk of injury to bones and soft tissues, and blood clots. I?ve answered all questions and with their understanding they have consented to move forward with Left total hip arthroplasty with Dr. Porras Orders: Orders XR hip LT min 2V Today M25.552 - Pain in left hip Medications: Refilled walker Folding Front wheeled walker DURATION 99 DAYS 1 ea 0RF DURATION 99 DAYS M16.12 - Unilateral primary osteoarthritis, left hip Coding Level of Care Code Est Pt Level 3 (52145) Complex EM visit Add On G2211 Diagnoses Arthritis of left hip M16.12
[2024-08-07 10:30] VITALS: BMI 21.3
== END 2024-08-07 10:45 | disposition home or self-care (01) ==
PROVIDERS: PCP Internal Medicine; Visit Provider Physician Assistant
DX: M16.12 Unilateral primary osteoarthritis, left hip (principal)
CPT/HCPCS: 99213; G2211

== ENCOUNTER → 2024-08-07 10:21 | Outpatient (BNV) | payer MEDICARE, SELFPAY | PROVIDERS: Visit Provider Radiology Diagnostic Radiology | DX: M16.12 Unilateral primary osteoarthritis, left hip (principal) | CPT/HCPCS: 73502 ==

== ENCOUNTER 2024-08-07 13:54 | Outpatient (REF) | payer MEDICARE, SELFPAY ==
--- NOTE | ~2024-08-07 | XR_ITS ---
EXAMINATION: XR HIP 2 OR MORE VIEWS LEFT HISTORY: M25.552 - Pain in left hip COMPARISON: Comparison is made with the prior examination dated 07/22/2024. FINDINGS: A single AP view of the pelvis and two views of the left hip are submitted. Osseous mineralization is normal. There is no fracture or dislocation. There is severe osteoarthritis with joint space narrowing, osteophyte formation, and subchondral cyst formation. The soft tissues are unremarkable. XR/XR hip LT min 2V IMPRESSION: Severe osteoarthritis of the left hip as described. Electronically signed by: Iraj Isaac MD 08/07/2024 02:49 PM AIDA
--- OUTSIDE RECORDS SUMMARY | 2024-08-08 15:36 | XMS_ITS | Clinical Summary ---
Author Organization [facility] Address [address] [place] [address] Care Team Providers Care Compliance Field Technician Name Role Phone Dimas Mcnair MD Primary Care Provider [phone] Allergies No known active allergies Medications Medication Sig Dispensed Refills Start Date End Date Status naproxen (NAPROSYN) 500 MG tablet Take 500 mg by mouth 2 (two) times a day with meals. 0 Active methIMAzole (TAPAZOLE) tablet 5 mg Take 5 mg by mouth 3 (three) times a day. 0 Active hyoscyamine (LEVSIN/SL) 0.125 MG SL tablet Take 0.125 mg by mouth every 4 (four) hours as needed for cramping. 0 Active verapamil (CALAN) 80 MG tablet Take 100 mg by mouth. 0 Active albuterol 108 (90 Base) MCG/ACT inhaler Inhale 2 puffs into the lungs every 6 (six) hours as needed for wheezing. 0 Active meloxicam (MOBIC) 15 MG tablet TAKE 1 TABLET BY MOUTH DAILY NEEDED FOR PAIN. 30 tablet 0 06/20/2022 Active Family History Medical History Relation Name Comments Cancer Brother Cancer Daughter Cancer Father Cancer Maternal Grandmother Relation Name Status Comments Brother Daughter Father Maternal Grandmother Social History Tobacco Use Types Packs/Day Years Used Date Smoking Tobacco: Every Day Cigarettes 0.3 15 Smokeless Tobacco: Never Tobacco Cessation:Ready to Q uit: No; Counseling Given: No Alcohol Use Standard Drinks/Week Comments Not Currently 0 (1 standard drink = 0.6 oz pur e alcohol) Sex and Gender Information Value Date Recorded Sex Assigned at Not on file Gender Identity Not on file Sexual Orientation Not on file Job Start Date Occupation Industry Not on file Not on file Not on file Last Filed Vital Signs Vital Sign Reading Time Taken Comments Blood Pressure 136/75 11/14/2021 11:38 AM EDT Pulse 82 11/14/2021 11:38 AM EDT Temperature 36.5 ??C (97.7 ??F) 11/14/2021 11:38 AM E DT Respiratory Rate - - Oxygen Saturation 98% 11/14/2021 11:38 AM EDT Inhaled Oxygen Concentration - - Weight 51.3 kg (113 lb) 11/11/2021 1:50 PM EDT Height 162.6 cm (5' 4 ) 11/11/2021 1:50 PM EDT Body Mass Index 19.4 11/11/2021 1:50 PM EDT Plan of Treatment Health Maintenance Due Date Last Done Comments Hepatitis C Screening 1961 COVID-19 Vaccine (#1) 1961 Pneumococcal Vaccine (1 of 2 - PCV) 1967 Depression Screening 1973 Preventative Health Evaluation 1979 DTap / Tdap / Td (1 - Tdap) 1980 Cervical Cancer Screening (P ap Smear) 1982 Colon Cancer Screening (Colonoscopy) 2006 Breast Cancer Screening (Mammogram) 2011 Shingrix-Zoster Vaccine (1 of 2) 2011 Influenza Vaccine (#1) 2024 RSV Adult > 60+ Yrs or Pregn ant (1 - 1-dose 75+ series) 2036 Hepatitis B Vaccines Aged Out No long er eligible based on patient's age to complete this topic RSV Ped < 20 months Aged Out No longe r eligible based on patient's age to complete this topic Care Teams Compliance Field Technician Relationship Specialty Start Date End Date Dimas Mcnair MD PCP - General Internal Medicine 10/28/21
--- OUTSIDE RECORDS SUMMARY | 2024-08-08 15:37 | XMS_ITS | Encounter Summary ---
Author Organization [facility] Address [address] [place] [address] Care Team Providers Care End User Consultant Name Role Phone Dimas Mcnair MD Primary Care Provider [phone] Reason for Visit * Cardiac Stress Testing (Routine) - Authorized Specialty Diagnoses / Procedures Referred By Contac t Referred To Contact Cardiology Diagnoses Chest pain, unspecified type Procedures Nuclear stress test with myocardial perfusion SD MYOCARDIAL PERFUSION IMAGING TOMOGRAPHIC MULTI STUDIES AT REST OR STRESS SD MYOCARDIAL PERFUSION IMAGING TOMOGRAPHIC SINGLE STUDY AT REST OR STRESS SD CARDIOVASCULAR STRESS TEST GLOBAL SD CV TMST/BIKE MAX/SUBMAX CONTINUOUS ECG MON/PHARM STRESS SUPVSR ONLY SD CV STRESS TEST/BIKE CONT ECG MON/PHARM STRESS INTERP & REPORT ONLY SD TEST STRESS CARDIOVASCULAR TRACING ONLY Dimas Mcnair MD [address] [place] [address] [facility] Referral ID Status Reason Start Date Expiration Date V isits Requested Visits Authorized [id number] Authorized 07/02/2024 12/29/2024 3 3 Encounter Details Date Type Department Care Team (Latest Contact Info) Description 07/23/2024 12:00 PM EST Ancillary Procedure [facility] [address] [place] [address] Chest pain, unspecified type Social History Tobacco Use Types Packs/Day Years Used Date Smoking Tobacco: Every Day Cigarettes Smokeless Tobacco: Never Alcohol Use Standard Drinks/Week Comments Yes 0 (1 standard drink = 0.6 oz pur e alcohol) Sex and Gender Information Value Date Recorded Sex Assigned at Female 05/17/2024 3:04 PM EDT Gender Identity Female 05/17/2024 3:04 PM EDT Sexual Orientation Straight 05/17/2024 3: 04 PM EDT Job Start Date Occupation Industry Not on file Not on file Not on file documented as of this encounter Last Filed Vital Signs Vital Sign Reading Time Taken Comments Blood Pressure 148/90 07/23/2024 12:32 PM EST Pulse - - Temperature - - Respiratory Rate - - Oxygen Saturation - - Inhaled Oxygen Concentration - - Weight 54.4 kg (120 lb) 07/23/2024 12:16 PM EST Height 160 cm (5' 3 ) 07/23/2024 12:16 PM EST Body Mass Index 21.26 07/23/2024 12:16 PM EST documented in this encounter Plan of Treatment Not on file documented as of this encounter Procedures Procedure Name Priority Date/Time Associated Diagnosis Comments NM DOBUTAMINE STRESS TEST W/ MYOCARDIAL PERFUSION Routine 07/29/2024 3:35 PM EST Chest pain, unspecified type documented in this encounter Results * NM DOBUTAMINE STRESS TEST W/ MYOCARDIAL PERFUSION (07/29/2024 3:35 PM EST) Exercise/injec tion duration (min) 0 CV PACS STRESS Exercise/injec tion duration (sec) 51 CV PACS STRESS Peak SBP 150 mmHg CV PACS STRESS Peak DBP 80 mmHg CV PACS STRESS Peak HR 129 bpm CV PACS STRESS Baseline HR 93 bpm CV PACS STRESS Baseline SBP 142 mmHg CV PACS STRESS Baseline DBP 74 mmHg CV PACS STRESS Estimated workload 1.0 METS CV PACS STRESS Percent HR 82 % CV PACS STRESS Rate Pressure Product 19,350.0 mmHg*bpm CV PACS STRESS Target HR 133 bpm CV PACS STRESS TID 0.97 CV PACS STRESS Nuc Stress EF 88 % CV PAC S STRESS Nuc Rest EF 72 % CV PACS STRESS BSA 1.56 m2 CV PACS STRESS Anatomical Region Laterality Modality Nuclear Medicine 07/29/2024 1:01 PM EST 07/29/2024 1:27 PM EST Impressions 07/30/2024 11:15 PM EST 1. ??Abnormal pharmacological nuclear stress test. 2. Symptoms: No chest pain during the regadenoson infusion 3. Stress ECG: The patient developed 0.5 mm - [address] segment depressions in the inferior leads during the regadenoson infusion which is borderline diagnostic for ischemia. 4. Myocardial perfusion imaging: - Myocardial perfusion imaging revealed a small in size and mild in intensity reversible perfusion defect in the basal inferior wall, which is suggestive of ischemia. - No evidence of an infarct on the myocardial perfusion images. 5. TID was normal at 0.97. 6. Gated images revealed normal LV wall motion and thickening; with a normal LV systolic function (LVEF 72%). 7. ??There is evidence of coronary artery calcification in the LAD which was noted on the CT scan images obtained for attenuation correction. Narrative 07/30/2024 11:15 PM EST Stress Findings A pharmacological stress test was performed using regadenoson, 0.4 mg IV over 10-15 seconds, followed by radiopharmacological injection 10 seconds post infusion. Total stress time was 0 min and 51 sec. The patient reached the end of the protocol. Blood pressure demonstrated a normal response. Heart rate demonstrated a normal response. The patient reported nausea during the stress test. Symptoms resolved quickly in recovery. ECG 64 yo female preoperative evaluation prior to planned hip surgery. Atypical chest pain. A dobutamine nuclear stress test was ordered by PCP, however patient has no contraindication to regadenoson. The ECG shows normal sinus rhythm There were no arrhythmias during stress. Stress EKG showed 0.5 mm - [address] segment depressions in the inferior leads which are borderline diagnostic for ischemia. There were no arrhythmias during recovery. The result of the stress ECG was borderline diagnostic for ischemia. Nuclear Study Quality Study technique: MPI, SPECT, multi, rest and stress, 1 day and MPI, SPECT, multi, rest and stress, 2 day. Overall image quality is good. CT attenuation correction was utilized. No radiopharmaceutical dose was extravasated. Stress Function Comments Stress ejection fraction is 88%. Rest Function Comments Resting ejection fraction was 72%. Stress Combined Conclusion SCAN FINDINGS: Nuclear imaging of the left ventricle reveals normal cavity size at rest with no change with stress imaging. Myocardial perfusion imaging of the left ventricle reveals a small in size and moderate intensity reversible perfusion defect in the basal inferior wall. No fixed perfusion defects. Gated SPECT imaging was performed which demonstrated normal LV function and thickening with a calculated LVEF of 72% CT Findings There is evidence of coronary artery calcification in the LAD which was noted on the CT scan images obtained for attenuation correction. Perfusion Scoring Resting Summed Score: 0 Percent Normal: 0.00% The left ventricular perfusion is normal. Perfusion Scoring Stress Summed Score: 1 Percent Normal: 1.47% Mild count reduction in the following segments: basal inferior. All other segments are normal. Perfusion Scores: SRS Score: 0 Percentage Abnormal: 0.00% Perfusion Scores: SSS Score: 1 Percentage Abnormal: 1.47% Perfusion Scores: SDS Score: 1 Percentage Abnormal: 1.47% Dimas Mcnair MD CV STRESS PROCEDURES documented in this encounter Visit Diagnoses Diagnosis Chest pain, unspecified type documented in this encounter Administered Medications Inactive Administered Medications - up to 3 most recent administrations Medication Order MAR Action Action Date Dose Rate Site TC-99M tetrofosmin P radio-isotope injection 10.1 millicurie 10.1 millicurie, intravenous, Once in imaging, Starting on Sun07/23/24 at 1227, For 1 dose Given 07/23/2024 12:28 PM EST 10.1 millicuries Right Antecubital documented in this encounter Care Teams End User Consultant Relationship Specialty Start Date End Date Dimas Mcnair MD [address] [place] [id number] PCP - General Internal Medicine 05/17/24 documented as of this encounter
--- OUTSIDE RECORDS SUMMARY | 2024-08-08 15:37 | XMS_ITS | Encounter Summary ---
Author Organization [facility] Address [address] [place] [address] Care Team Providers Care Nail Welter Name Role Phone Neli Gutierrez MD Primary Care Provider Unavail able Dimas Mcnair MD Primary Care Provider [phone] Vel Merino PA-C Unavailable [phone] Encounter Details Date Type Department Care Team Description 12/21/2016 Transfer Records Medical Records [address] [place] [address] Abstract, Provider Social History Tobacco Use Types Packs/Day Years Used Date Smoking Tobacco: Every Day Cigarettes 0.1 40 Alcohol Use Standard Drinks/Week Comments Yes 0 (1 standard drink = 0.6 oz pur e alcohol) occasional Sex Assigned at Date Recorded Not on file Job Start Date Occupation Industry Not on file Not on file Not on file documented as of this encounter Plan of Treatment Not on file documented as of this encounter Visit Diagnoses Not on filedocumented in this encounter Care Teams Nail Welter Relationship Specialty Start Date End Date Neli Gutierrez MD PCP - General Internal Medicine 12/13/16 03/31/19 Dimas Mcnair MD [address] [place] [address] PCP - General Internal Medicine 04/01/19 Vel Merino PA-C [address] [place] [phone] Specialist Thoracic Surgery 04/09/24 documented as of this encounter
--- OUTSIDE RECORDS SUMMARY | 2024-08-08 15:37 | XMS_ITS | Encounter Summary ---
Author Organization [facility] Address [address] [place] [address] Care Team Providers Care Polymer Engineer Name Role Phone Dimas Mcnair MD Primary Care Provider [phone] Reason for Visit * Cardiac Stress Testing (Routine) - Authorized Specialty Diagnoses / Procedures Referred By Contac t Referred To Contact Cardiology Diagnoses Chest pain, unspecified type Procedures Nuclear stress test with myocardial perfusion IN MYOCARDIAL PERFUSION IMAGING TOMOGRAPHIC MULTI STUDIES AT REST OR STRESS IN MYOCARDIAL PERFUSION IMAGING TOMOGRAPHIC SINGLE STUDY AT REST OR STRESS IN CARDIOVASCULAR STRESS TEST GLOBAL IN CV TMST/BIKE MAX/SUBMAX CONTINUOUS ECG MON/PHARM STRESS SUPVSR ONLY IN CV STRESS TEST/BIKE CONT ECG MON/PHARM STRESS INTERP & REPORT ONLY IN TEST STRESS CARDIOVASCULAR TRACING ONLY Dimas Mcnair MD [address] [place] [address] [facility] Referral ID Status Reason Start Date Expiration Date V isits Requested Visits Authorized [id number] Authorized 07/02/2024 12/29/2024 3 3 Encounter Details Date Type Department Care Team (Late st Contact Info) Description 07/29/2024 12:00 PM EST Ancillary Procedure [facility] - [address] [place] [address] Social History Tobacco Use Types Packs/Day Years [...] Sign Reading Time Taken Comments Blood Pressure 142/74 07/29/2024 1:01 PM EST Pulse - - Temperature - - Respiratory Rate - - Oxygen Saturation - - Inhaled Oxygen Concentration - - Weight 54.4 kg (120 lb) 07/29/2024 12:41 PM EST Height 160 cm (5' 3 ) 07/29/2024 12:41 PM EST Body Mass Index 21.26 07/29/2024 12:41 PM EST documented in this encounter Plan of Treatment Not on file documented as of this encounter Procedures Procedure Name Priority Date/Time Associated Diagnosis Comments NM DOBUTAMINE STRESS TEST W/ MYOCARDIAL PERFUSION Routine 07/29/2024 3:35 PM EST Chest pain, unspecified type documented in this encounter Visit Diagnoses Not on filedocumented in this encounter Administered Medications Inactive Administered Medications - up to 3 most recent administrations Medication Order MAR Action Action Date Dose Rate Site regadenoson (LEXISCAN) injection 0.4 mg 0.4 mg, intravenous, Once in imaging, Starting on Sun07/29/24 at 1315, For 1 dose Given 07/29/2024 3:47 PM EST 0.4 mg TC-99M tetrofosmin P radio-isotope injection 29 millicurie 29 millicurie, intravenous, Once in imaging, Starting on Sun07/29/24 at 1315, For 1 dose Given 07/29/2024 1:15 PM EST 29 millicuries Left Antecubital documented in this encounter Care Teams Polymer Engineer Relationship Specialty Start Date End Date Dimas Mcnair MD [address] [place] [id number] PCP - General Internal Medicine 05/17/24 documented as of this encounter
--- OUTSIDE RECORDS SUMMARY | 2024-08-08 15:37 | XMS_ITS | Encounter Summary ---
Author Organization [facility] Address [address] [place] [address] Care Team Providers Care Electric Range Preparer Name Role Phone Neli Gutierrez MD Primary Care Provider Unavail Dimas Westfall MD Primary Care Provider [phone] Vel Merino PA-C Unavailable [phone] Encounter Details Date Type Department Care Team Description 02/13/2017 Telephone Gastroenterology - [address] [id number] Naseem Heller PA-C Social History Tobacco Use Types Packs/Day Years Used Date Smoking Tobacco: Every Day Cigarettes 0.1 40 Comments:5 cigs per day Alcohol Use Standard Drinks/Week Comments Yes 0 (1 standard drink = 0.6 oz pur e alcohol) occasional, h/o abuse Sex Assigned at Date Recorded Not on file Job Start Date Occupation Industry Not on file Not on file Not on file documented as of this encounter Miscellaneous Notes * Telephone Encounter - Shira Banks - 02/13/2017 1:35 PM EDT Per Naseem Heller she did speak with the patient regarding the colonoscopy to be added on. I spoke with the patient, she will need to call gastroenterology department back to reschedule whenshe knows her work schedule. A follow up with Naseem Heller will need to be rescheduled as well once the Colon/EGD are scheduled. * Telephone Encounter - Aditi Castro - 02/13/2017 12:51 PM EDT Is the patient aware that this is going to be a double procedure? * Telephone Encounter - Naseem Heller PA-C - 02/13/2017 12:42 PM EDT Pt scheduled for an EGD. She actually needs both EGD and colonoscopy. Please r/s and give her prep instructions. Thanks. documented in this encounter Plan of Treatment Not on file documented as of this encounter Visit Diagnoses Not on filedocumented in this encounter Care Teams Electric Range Preparer Relationship Specialty Start Date End Date Neli Gutierrez MD PCP - General Internal Medicine 12/13/16 03/31/19 Dimas Mcnair MD [address] [place] [id number] PCP - General Internal Medicine 04/01/19 Vel Merino PA-C [address] [place] [phone] Specialist Thoracic Surgery 04/09/24 documented as of this encounter
--- OUTSIDE RECORDS SUMMARY | 2024-08-08 15:37 | XMS_ITS | Encounter Summary ---
Author Organization [facility] Address [address] [place] [address] Care Team Providers Care Cow Tender Name Role Phone Neli Gutierrez MD Primary Care Provider Unavail Dimas Westfall MD Primary Care Provider [phone] Vel Merino PA-C Unavailable Reason for Visit * Reason Onset Date Comments Prior Authorization 04/10/2017 Encounter Details Date Type Department Care Team Description 04/10/2017 Telephone Gastroenterology - [address] [address] Stephen Stevenson MD Prior Authorization Social History Tobacco Use Types Packs/Day Years [...] encounter Miscellaneous Notes * Telephone Encounter - Lina Kurtz - 04/10/2017 12:53 PM EDT [place]- no auth required * Telephone Encounter - Isabella Amaral - 04/10/2017 9:28 AM EDT Pre-auth needed Patient is scheduled for an Colonoscopy/Endoscopy on 04/26/17 Patients insurance: Payor: [employer] / Plan: HMO $0 [place] [id number] / Product Type: HMO [id number] Appointment is with Stephen Stevenson MD Code to process pre-auth for: [id number] Location of procedure: [facility] documented in this encounter Plan of Treatment Not on file documented as of this encounter Visit Diagnoses Not on filedocumented in this encounter Care Teams Cow Tender Relationship Specialty Start Date End Date Neli Gutierrez MD PCP - General Internal Medicine 12/13/16 03/31/19 Dimas Mcnair MD [address] [place] [address] PCP - General Internal Medicine 04/01/19 Vel Merino PA-C [address] [place] [phone] Specialist Thoracic Surgery 04/09/24 documented as of this encounter
--- OUTSIDE RECORDS SUMMARY | 2024-08-08 15:38 | XMS_ITS | Encounter Summary ---
Author Organization [facility] Address [address] [place] [address] Care Team Providers Care Animal Attendants And Trainers Name Role Phone Neli Gutierrez MD Primary Care Provider [facility] Dimas Westfall MD Primary Care Provider [phone] Vel Merino PA-C Unavailable [phone] Reason for Visit * Reason Onset Date Comments TEST RESULTS 11/21/2018 result notes Encounter Details Date Type Department Care Team Description 11/21/[address] [address] Neli Gutierrez MD TEST RESULTS (result notes) Social History Tobacco Use Types Packs/Day Years Used Date Smoking Tobacco: Every Day Cigarettes 0.2 40 Smokeless Tobacco: Never Comments:3-5 cigs per day Alcohol Use Standard Drinks/Week Comments Yes 0 (1 standard drink = 0.6 oz pur e alcohol) occasional, h/o abuse Sex Assigned at Date Recorded Not on file Job Start Date Occupation Industry Not on file Not on file Not on file documented as of this encounter Miscellaneous Notes * Telephone Encounter - Rita Mcqueen M.A. - 11/21/2018 2:34 PM EDT Left message for patient to return call. Please let patient know that her x-ray of the knee was normal documented in this encounter Plan of Treatment Not on file documented as of this encounter Visit Diagnoses Not on filedocumented in this encounter Care Teams Animal Attendants And Trainers Relationship Specialty Start Date End Date Neli Gutierrez MD PCP - General Internal Medicine 12/13/16 03/31/19 Dimas Mcnair MD [address] [place] [address] PCP - General Internal Medicine 04/01/19 Vel Merino PA-C [address] [place] [phone] Specialist Thoracic Surgery 04/09/24 documented as of this encounter
--- OUTSIDE RECORDS SUMMARY | 2024-08-08 15:38 | XMS_ITS | Encounter Summary ---
Author Organization [facility] Address [address] [place] [address] Care Team Providers Care Pattern Grader Cutter Name Role Phone Neli Gutierrez MD Primary Care Provider Unavail able Dimas Mcnair MD Primary Care Provider [phone] Vel Merino PA-C Unavailable [phone] Encounter Details Date Type Department Care Team Description 03/12/2019 Orders Only Gastroenterology - [facility] [address] [facility] [address] [place] [address] Naseem Heller PA-C Social History Tobacco Use Types Packs/Day Years Used Date Smoking Tobacco: Every Day Cigarettes 0.2 40 Smokeless Tobacco: Never Comments:3-5 cigs per day, t rying to quit Alcohol Use Standard Drinks/Week Comments Yes 0 [...] on filedocumented in this encounter Care Teams Pattern Grader Cutter Relationship Specialty Start Date End Date Neli Gutierrez MD PCP - General Internal Medicine 12/13/16 03/31/19 Dimas Mcnair MD [address] [place] [phone] PCP - General Internal Medicine 04/01/19 Vel Merino PA-C [address] [facility] [address] [place] [address] Specialist Thoracic Surgery 04/09/24 documented as of this encounter
--- OUTSIDE RECORDS SUMMARY | 2024-08-08 15:38 | XMS_ITS | Encounter Summary ---
Author Organization [facility] Address [address] [place] [address] Care Team Providers Care Highway Safety Engineer Name Role Phone Neli Gutierrez MD Primary Care Provider Unavail able Dimas Mcnair MD Primary Care Provider [phone] Vel Merino PA-C Unavailable [phone] Encounter Details Date Type Department Care Team Description 11/19/2018 Chief Of Vital Statistics Report Medical Records [address] [place] [address] Hyacinth Mendez PA-C [address] [address] Social History Tobacco Use Types Packs/Day Years [...] on filedocumented in this encounter Care Teams Highway Safety Engineer Relationship Specialty Start Date End Date Neli Gutierrez MD PCP - General Internal Medicine 12/13/16 03/31/19 Dimas Mcnair MD [address] [place] [address] PCP - General Internal Medicine 04/01/19 Vel Merino PA-C [address] [phone] Specialist Thoracic Surgery 04/09/24 documented as of this encounter
--- OUTSIDE RECORDS SUMMARY | 2024-08-08 15:38 | XMS_ITS | Encounter Summary ---
Author Organization [facility] Address [address] [place] [address] Care Team Providers Care Tiedown Operator Name Role Phone Dimas Mcnair MD Primary Care Provider [phone] Vel Merino PA-C Unavailable [phone] Encounter Details Date Type Department Care Team Description 04/10/2024 [facility] Director Report Medical Records [address] [place] [address] Kem Porras MD Social History Tobacco Use Types Packs/Day Years Used Date Smoking Tobacco: Every Day Cigarettes 0.2 45 Smokeless Tobacco: Never Comments:started age 18; max 3/4 PPD; now 3-4 cigs QD (10/2023 Alcohol Use Standard Drinks/Week Comments Yes 0 (1 standard drink = 0.6 oz pure alcohol) history of abuse; 1-2 drinks per month now Education Answer Date Recorded What is the highest level of school you have completed or the highest degree you have received? GED or equivalent Sex Assigned at Date Recorded Not on file Job Start Date Occupation Industry Not on file Not on file Not on file documented as of this encounter Plan of Treatment Not on file documented as of this encounter Visit Diagnoses Not on filedocumented in this encounter Care Teams Tiedown Operator Relationship Specialty Start Date End Date Dimas Mcnair MD [address] [place] [address] [phone] PCP - General Internal Medicine 04/01/19 Vel Merino PA-C [address] [place] [phone] Specialist Thoracic Surgery 04/09/24 documented as of this encounter
--- OUTSIDE RECORDS SUMMARY | 2024-08-08 15:38 | XMS_ITS | Encounter Summary ---
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 No / Unsure 07/05/2021 10:47 AM EST documented as of this encounter Plan of Treatment Not on file documented as of this encounter Visit Diagnoses Not on filedocumented in this encounter Care Teams Manager Universal Relationship Specialty Start Date End Date Dimas Mcnair MD [address] [place] [address] PCP - General Internal Medicine 04/01/19 Vel Merino PA-C [address] [phone] Specialist Thoracic Surgery 04/09/24 documented as of this encounter
--- OUTSIDE RECORDS SUMMARY | 2024-08-08 15:38 | XMS_ITS | Encounter Summary ---
Author Organization [facility] Address [address] [place] [address] Care Team Providers Care Travel Clerk Name Role Phone Dimas Mcnair MD Primary Care Provider [phone] Vel Merino PA-C Unavailable [phone] Encounter Details Date Type Department Care Team Description 12/07/2023 Mid Level Practitioner Report Medical Records [address] [place] [address] Gurdeep Dickerson PA-C [address] [facility] [address] [place] [address] Social History Tobacco Use Types Packs/Day Years [...] on filedocumented in this encounter Care Teams Travel Clerk Relationship Specialty Start Date End Date Dimas Mcnair MD [address] [place], [place] [phone] PCP - General Internal Medicine 04/01/19 Vel Merino PA-C [address] [phone] Specialist Thoracic Surgery 04/09/24 documented as of this encounter
--- OUTSIDE RECORDS SUMMARY | 2024-08-08 15:38 | XMS_ITS | Encounter Summary ---
Author Organization [facility]ly [facility] Address [address] [place] [address] Care Team Providers Care Log Manager Name Role Phone Dimas Mcnair MD Primary Care Provider [phone] Vel Merino PA-C Unavailable [phone] Encounter Details Date Type Department Care Team Description 11/13/2023 Airplane Fueler Report Medical Records [address] [place] [id number] Adrian Agarwal MD, PHD Social History Tobacco Use Types Packs/Day Years [...] on filedocumented in this encounter Care Teams Log Manager Relationship Specialty Start Date End Date Dimas Mcnair MD [address] [place], [place] [id number] PCP - General Internal Medicine 04/01/19 Vel Merino PA-C [address] [place] [phone] Specialist Thoracic Surgery 04/09/24 documented as of this encounter
--- OUTSIDE RECORDS SUMMARY | 2024-08-08 15:38 | XMS_ITS | Encounter Summary ---
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 No / Unsure 11/09/2021 11:36 AM EDT documented as of this encounter Plan of Treatment Not on file documented as of this encounter Visit Diagnoses Not on filedocumented in this encounter Care Teams Chief Scientific Officer Relationship Specialty Start Date End Date Dimas Mcnair MD [address] [place] [phone] PCP - General Internal Medicine 04/01/19 Vel Merino PA-C [address] [phone] Specialist Thoracic Surgery 04/09/24 documented as of this encounter
--- OUTSIDE RECORDS SUMMARY | 2024-08-08 15:38 | XMS_ITS | Encounter Summary ---
Author Organization [facility] Address [address] [place] [address] Care Team Providers Care Billet Shearer Name Role Phone Dimas Mcnair MD Primary Care Provider [phone] Vel Merino PA-C Unavailable [phone] Encounter Details Date Type Department Care Team Description 07/13/2021 Orders Only Endocrinology - [address] [id number] Tonie Ceja PA-C [address] [place] [id number] Subclinical hyperthyroidism (Primary Dx) Social History Tobacco Use Types Packs/Day Years [...] on file documented as of this encounter Results * THYROID PROFILE W/TSH (09/05/2021 4:27 PM EST) TSH CASCADE 0.99 0.40 - 4.00 uIU/ml 09/05/2021 6:47 PM EST [facility] [employer] 09/05/2021 4:27 PM EST 09/05/2021 4:27 PM EST Narrative [facility] - 09/05/2021 6:47 PM EST Release to patient->Immediate Tonie Ceja PA-C LAB [facility] documented in this encounter Visit Diagnoses Diagnosis Subclinical hyperthyroidism- Primary Thyrotoxicosis without mention of goiter or other cause, without mention of thyrotoxic crisis or storm Subclinical hyperthyroidism Thyrotoxicosis without mention of goiter or other cause, without mention of thyrotoxic crisis or storm documented in this encounter Care Teams Billet Shearer Relationship Specialty Start Date End Date Dimas Mcnair MD [address] [place] [address] PCP - General Internal Medicine 04/01/19 Vel Merino PA-C [address] [place] [phone] Specialist Thoracic Surgery 04/09/24 documented as of this encounter
--- OUTSIDE RECORDS SUMMARY | 2024-08-08 15:38 | XMS_ITS | Clinical Summary ---
Author Organization [facility] [address] [facility] Address [address] [place], [place] Phone Care Team Providers Care Tank Builder Supervisor Name Role Phone Dimas Mcnair MD Primary Care Provider [phone] Allergies No known active allergies Medications Medication Sig Dispensed Refills Start Date End Date Status albuterol HFA (PROAIR HFA ; PROVENTIL HFA ; VENTOLIN HFA) 90 mcg/actuation inhaler Inhale 2 Puffs into the lungs every 6 hours as needed for Cough, Wheezing or Shortness of Breath. 10/25/2023 Active betamethasone valerate (VALISONE) 0.1 % ointment APPLY TO THE AFFECTED AREAS TWICE A DAY X 2 WEEKS THEN PRN FLARES. 05/05/2024 Active oxyCODONE-acetaminoph en (PERCOCET) 5-325 mg per tablet TAKE ONE TABLET BY MOUTH FOUR TIMES A DAY FOR 7 DAYS 09/07/2022 Active verapamil ER (VERELAN PM) 100 mg 24 hr capsule Take 1 Capsule by mouth at bedtime. 05/05/2024 Active polyethylene glycol (MIRALAX) 17 gram packet MIX 17 GRAMS IN BEVERAGE DIRECTED AND TAKE BY MOUTH ONCE DAILY 01/23/2024 Active Hospital, Clinic, or Other Facility Administered Medication Ordered Dose Route Frequency Start Date End Date Status TC-99M tetrofosmin P radio-isotope injection 10.1 millicurie 10.1 millicurie IV Once in imaging 07/23/2024 07/23/2024 Ende d regadenoson (LEXISCAN) injection 0.4 mg 0.4 mg IV Once in imaging 07/29/2024 07/29/2024 End ed TC-99M tetrofosmin P radio-isotope injection 29 millicurie 29 millicurie IV Once in imaging 07/29/2024 07/29/2024 Ended Active Problems Problem Noted Date Diagnosed Date Cocaine use 05/12/2024 Tubular adenoma 10/25/2023 Bacterial vaginosis 12/28/2022 Overview (05/12/2024): Last Assessment & Plan: Rx for Flagyl ePrescribed to pharmacy. RTO if symptoms do not improve following treatment. GC/CT collected, will treat as indicated Left groin pain 06/01/2022 Overview (05/12/2024): Last Assessment & Plan: I explained that based on her exam, this pain represents pain in the area of her inguinal ligament. It could be related to progression of her arthritis. There is no evidence of Fleet [employer] etiology of her pain. I recommended she follow up with her PCP for imaging or other recommendations and consider NSAIDs in the meantime. She agreed. Low back pain 06/01/2022 Overview (05/12/2024): Last Assessment & Plan: I referred her to her PCP for further evaluation. Psoriasis 12/20/2021 Overview (05/12/2024): Last Assessment & Plan: Referral placed to dermatology Skin lesion 12/20/2021 Overview (05/12/2024): Last Assessment & Plan: Referral placed to dermatology Palpitations 10/06/2020 Pulmonary nodules 02/12/2020 Overview (05/12/2024): Follows with thoracic surgery. CT chest 02-25-21 showed no malignancy. Chronic headache disorder 05/06/2019 Overview (05/12/2024): Childhood onset. Thyroid nodule 02/25/2019 Overview (05/12/2024): Repeat US for follow up 02/2020 Mild emphysema 11/20/2018 Overview (05/12/2024): S/p LDCT 10/2018 Subclinical hyperthyroidism 10/24/2018 OA (osteoarthritis) of hip 09/24/2018 Overview (05/12/2024): Left; follows with physiatry Trochanteric bursitis of left hip 09/24/2018 Overview (05/12/2024): Follows with physiatry s/p corticosteroid injections IBS (irritable bowel syndrome) 02/13/2017 Overview (05/12/2024): Childhood onset, alternating C/D. Vitamin D deficiency 12/29/2016 Hypercholesteremia 12/19/2016 Encounters Date Type Department Care Team Description 07/29/2024 12:00 PM EST Ancillary Procedure [facility] [address] [address] 07/23/2024 12:00 PM EST Ancillary Procedure [facility] [address] [facility] [address] [place] [address] Chest pain, unspecified type 06/19/2024 10:00 AM EST Consult Adult Medicine [address] [phone] Dimas Mcnair MD Preop examination (Primary Dx); Urinary frequency; Chest pain, unspecified type; Sore throat; Closed fracture of tooth, initial encounter; Post-nasal drip 06/03/2024 11:18 AM EST - 06/03/2024 11:59 PM EST Hospital Encounter [facility] Ultrasound [address] [place] [phone] Thyroid nodule Discharge Disposition: Home or Self Care 05/13/2024 7:03 AM EDT - 05/13/2024 11:59 PM EDT Hospital Encounter [address] [place] [phone] Aric Beard MD Discharge Disposition: Home or Self Care from Last 3 Months Immunizations Name Administration Dates Next Due Pneumococcal polysaccharide 23 valent (Pneumovax 23) 2yo and older 03/14/2022 Tdap Tetanus diptheria acell ular pertussis (Boostrix; Adacel) 7yo and older 03/14/2022 Surgical History Surgery Date Site/Laterality Comments TONSILLECTOMY PROCEDURE: HISTORICAL TONSILLECTOMY COLONOSCOPY 01/2015 PROCEDURE: OUTSIDE COLONOSCOPY; COMMENT: tubular adenoma OTHER SURGICAL HISTORY 01/2015 PROCEDURE: OUTSIDE ENDOSCOPY; COMMENT: active erosive gastritis, small hiatal hernia COLONOSCOPY 01/27 [facility] PROCEDURE: HISTORICAL COLONOSCOPY; COMMENT: adenoma and poor bowel prep; tics and hemorrhoids COLONOSCOPY 04/26/2017 PROCEDURE: HISTORICAL COLONOSCOPY; COMMENT: normal; repeat in 5 yrs ESOPHAGOGASTRODUODENOSCOPY 01/27 [facility] PROCEDURE: CT ESOPHAGOGASTRODUODENOSCOPY TRANSORAL DIAGNOSTIC; COMMENT: HH and erosive gastritis and H. pylori ESOPHAGOGASTRODUODENOSCOPY 04/26/2017 PROCEDURE: CT EGD TRANSORAL BIOPSY SINGLE/MULTIPLE; COMMENT: Normal esophagus with normal esoph. bxys; foveolar gastric hyperplasia with focal intestinal metaplasia; no H. pylori; nl duodenal bxys Medical History Medical History Date Comments Tobacco abuse DX:Tobacco abuse Vitamin D deficiency 12/29/2016 DX:Vitamin D deficiency IBS (irritable bowel syndrome) 02/13/2017 D X:IBS (irritable bowel syndrome) History of cocaine use DX:Histor y of cocaine use Hypercholesteremia 12/19/2016 DX:Hyperchole steremia History of Helicobacter pylo ri infection DX:History of Helicobacter p ylori infection; COMMENT: Normal EGD 04/2017 OA (osteoarthritis) of hip 09/24/2018 DX:OA (osteoarthritis) of hip; COMMENT: Left; follows with physiatry Trochanteric bursitis of left hip 09/24/2018 DX:Trochanteric bursitis of left hip; COMMENT: Follows with physiatry s/p corticosteroid injections Subclinical hyperthyroidism 10/24/2018 DX:S ubclinical hyperthyroidism Mild emphysema (CMS/HCC) 11/20/2018 DX:Mild emphysema (HCC); COMMENT: S/p LDCT 10/2018 Mild emphysema (CMS/HCC) 11/20/2018 DX:Mild emphysema (HCC) Thyroid nodule 02/25/2019 DX:Thyroid nodul e; COMMENT: Repeat US for follow up 02/2020 Chronic headache disorder 05/06/2019 DX:Chr onic headache disorder; COMMENT: Childhood onset. Family History Medical History Relation Name Comments Other: unknown cancer Brother x 1 Colon cancer Daughter Lung cancer Father at 56 (+sm oker) Lung cancer Maternal Grandmother (+smoke r) Coronary artery disease Mother w/ s tenting; HTN, HLD Hyperlipidemia Sister x 1 Breast cancer Neg Hx Relation Name Status Comments Brother x 1 Alive Daughter Alive Father (Age 57) Maternal Grandfather Maternal Grandmother Mother Alive Paternal Grandfather Paternal Grandmother Sister x 1 Alive Social History Tobacco Use Types Packs/Day Years [...] file Not on file Not on file Obstetrics History Last Filed Vital Signs Vital Sign Reading Time Taken Comments Blood Pressure 142/74 07/29/2024 1:01 PM EST Pulse 86 06/19/2024 10:23 AM EST Temperature 36.7 ??C (98 ??F) 06/19/2024 10:23 AM EST Respiratory Rate 12 06/19/2024 10:23 AM EST Oxygen Saturation - - Inhaled Oxygen Concentration - - Weight 54.4 kg (120 lb) 07/29/2024 12:41 PM EST Height 160 cm (5' 3 ) 07/29/2024 12:41 PM EST Body Mass Index 21.26 07/29/2024 12:41 PM EST Plan of Treatment Health Maintenance Due Date Last Done Comments Hepatitis A Vaccines (1 of 2 - Risk 2-dose series) 1980 Zoster Vaccines (1 of 2) 2011 RSV Immunization Patients 60+ Years Old (1 - Risk 60-74 years 1-dose series) 2021 Colorectal Cancer Screening: Colonoscopy 06/24/2022 04/26/2017 HIV Screening 06/24/2022 Medicare Annual Wellness Visit 06/24/2022 Social Influencers of Health Screening 06/24/2022 Pneumococcal Vaccine: Pediatrics (0 to 5 Years) and At-Risk Patients (6 to 64 Years) (2 of 2 - PCV) 03/14/2023 03/14/2022, 10/01/2008 COVID-19 Vaccine (3 - season) 2024 12/16/2020, 11/16/2020 Influenza Vaccine (#1) 2024 Breast Cancer Screening 01/02/2025 01/03/20, 12/07/2022, 11/09/2021, Additional history exists Depression Screening 05/05/2025 05/05/2024 Cervical Cancer Screening: HPV 12/20/2026 12/20/2021 Cholesterol Screening (Lipid Panel) 08/30/2027 08/30/2022, 07/17/2014 DTaP,Tdap,and Td Vaccines (4 - Td or Tdap) 03/14/2032 03/14/2022, 01/17/2014, 12/14/2000 Hepatitis C Screening Completed 12/18/2016 HIB Vaccines Aged Out No longer eligi ble based on patient's age to complete this topic HPV Vaccines Aged Out No longer eligi ble based on patient's age to complete this topic Hepatitis B Vaccines Aged Out No long er eligible based on patient's age to complete this topic IPV Vaccines Aged Out No longer eligi ble based on patient's age to complete this topic MMR Vaccines Aged Out No longer eligi ble based on patient's age to complete this topic Meningococcal ACWY Vaccine Aged Out N o longer eligible based on patient's age to complete this topic RSV Immunization Patients Under 20 months Aged Out No longer eligible based on patient's age to complete this topic Varicella Vaccines Aged Out No longer eligible based on patient's age to complete this topic Procedures Procedure Name Priority Date/Time Associated Diagnosis Comments NM DOBUTAMINE STRESS TEST W/ MYOCARDIAL PERFUSION Routine 07/29/2024 3:35 PM EST Chest pain, unspecified type EXTERNAL XRAY REPORT 07/22/2024 URINALYSIS WITH REFLEX MICROSCOPIC Routine 06/19/2024 11:17 AM EST Urinary frequency CBC WITH AUTO DIFFERENTIAL Routine 06/19/2024 11:17 AM EST Preop examination PROTHROMBIN TIME WITH INR Routine 06/19/2024 11:17 AM EST Preop examination BASIC METABOLIC PANEL Routine 06/19/2024 11:17 AM EST Pre-operative examination URINALYSIS WITH REFLEX MICROSCOPIC Routine 06/19/2024 11:17 AM EST Urinary frequency CBC AND DIFFERENTIAL Routine 06/19/2024 11:17 AM EST Preop examination CULTURE URINE Routine 06/19/2024 11:17 AM EST Urinary frequency US HEAD NECK SOFT TISSUE Routine 06/03/2024 11:44 AM EST Thyroid nodule HM DEPRESSION SCREENING Routine 05/05/2024 DIAGNOSTIC MAMMOGRAPHY WITH CAD UNILATERAL Routine 01/02/2023 3:05 PM EDT Other abnormal and inconclusive findings on diagnostic imaging of breast LIPID PANEL Routine 08/30/2022 HM HPV Routine 12/20/2021 HM COLONOSCOPY Routine 04/26/2017 HM HEPATITIS C SCREENING Routine 12/18/2016 from Last 3 Months or Most Recently Relevant to Health Maintenance Results * NM DOBUTAMINE STRESS TEST W/ [...] 1.47% Dimas Mcnair MD CV STRESS PROCEDURES * External Xray Report (07/22/2024) Anatomical Region Laterality Modality Radiographic Sarah ging Provider Onbase IMG XR PROCEDURES * Urinalysis with reflex microscopic (06/19/2024 11:17 AM EST) Specific [place] Urine 1.025 1.003 - 1.030 LAB URINALYSIS - AUTOMATED METHOD 06/19/2024 2:18 PM [facility] pH, Urine 6.0 5.0 - 8.0 pH LAB URINALYSIS - AUTOMATED METHOD 06/19/2024 2:18 PM [facility] Leukocytes, Urine Negative Negative LAB URINALYSIS - AUTOMATED METHOD 06/19/2024 2:18 PM [facility] Nitrite, Urine Negative Negative LAB URINALYSIS - AUTOMATED METHOD 06/19/2024 2:18 PM [facility] Protein, Urine Negative <=Trace mg/dL LAB URINALYSIS - AUTOMATED METHOD 06/19/2024 2:18 PM EST [facility] Glucose, Urine Negative Negative mg/dL LAB URINALYSIS - AUTOMATED METHOD 06/19/2024 2:18 PM [facility] Ketones, Urine Negative Negative mg/dL LAB URINALYSIS - AUTOMATED METHOD 06/19/2024 2:18 PM [facility] Urobilinogen, Urine 1.0 0.2 - 1.0 mg/dL LAB URINALYSIS - AUTOMATED METHOD 06/19/2024 2:18 PM [facility] Bilirubin, Urine Negative Negative LAB URINALYSIS - AUTOMATED METHOD 06/19/2024 2:18 PM [facility] Blood, Urine Negative Negative LAB URINALYSIS - AUTOMATED METHOD 06/19/2024 2:18 PM [facility] Urine Urine specimen obtained by clean catch procedure / Unknown Non-blood Collection / Unknown 06/19/2024 11:17 AM EST 06/19/2024 11:17 AM EST Dimas Mcnair MD LAB URINE ORDERABLES [facility] [address] [place] [address], * (ABNORMAL) CBC auto differential (06/19/2024 11:17 AM EST) WBC 9.9 4.8 - 10.8 K/mcL LAB HEMETOLOGY METHOD 06/19/2024 2:27 PM [facility] RBC 4.30 3.80 - 4.80 M/mcL LAB HEMETOLOGY METHOD 06/19/2024 2:27 PM [facility] Hemoglobin 13.0 11.5 - 16.0 g/dL LAB HEMETOLOGY METHOD 06/19/2024 2:27 PM [facility] Hematocrit 40.9 35.0 - 47.0 % LAB HEMETOLOGY METHOD 06/19/2024 2:27 PM [facility] MCV 94.9 79.0 - 98.0 FL LAB HEMETOLOGY METHOD 06/19/2024 2:27 PM [facility] MCH 30.2 27.0 - 32.0 pcg LAB HEMETOLOGY METHOD 06/19/2024 2:27 PM [facility] MCHC 31.8(L) 32.0 - 37.0 g/dL LAB HEMETOLOGY METHOD 06/19/2024 2:27 PM [facility] RDW 11.9 11.0 - 15.0 % LAB HEMETOLOGY METHOD 06/19/2024 2:27 PM [facility] Platelets 310 130 - 400 K/mcL LAB HEMETOLOGY METHOD 06/19/2024 2:27 PM [facility] MPV 11.9(H) 7.0 - 11.0 FL LAB HEMETOLOGY METHOD 06/19/2024 2:27 PM [facility] NRBC 0.0 <1.0 % LAB HEMETOLOGY METHOD 06/19/2024 2:27 PM [facility] NRBC Absolute 0.00 <0.10 K/mcL LAB HEMETOLOGY METHOD 06/19/2024 2:27 PM [facility] Neutrophils Relative 72.5 % LAB HEMETOLOGY METHOD 06/19/2024 2:27 PM [facility] Lymphocytes Relative 20.8 % LAB HEMETOLOGY METHOD 06/19/2024 2:27 PM [facility] Monocytes Relative 5.1 % LAB HEMETOLOGY METHOD 06/19/2024 2:27 PM [facility] Eosinophils Relative 0.7 % LAB HEMETOLOGY METHOD 06/19/2024 2:27 PM [facility] Basophils Relative 0.5 % LAB HEMETOLOGY METHOD 06/19/2024 2:27 PM EST [facility] Immature Granulocytes Relative 0.4 % LAB HEMETOLOGY METHOD 06/19/2024 2:27 PM [facility] Neutrophils Absolute 7.18(H) 1.50 - 7.00 K/mcL LAB HEMETOLOGY METHOD 06/19/2024 2:27 PM [facility] Lymphocytes Absolute 2.06 1.00 - 5.00 K/mcL LAB HEMETOLOGY METHOD 06/19/2024 2:27 PM [facility] Monocytes Absolute 0.51 0.20 - 1.00 K/mcL LAB HEMETOLOGY METHOD 06/19/2024 2:27 PM [facility] Eosinophils Absolute 0.07 0.00 - 0.50 K/mcL LAB HEMETOLOGY METHOD 06/19/2024 2:27 PM [facility] Basophils Absolute 0.05 0.00 - 0.20 K/mcL LAB HEMETOLOGY METHOD 06/19/2024 2:27 PM [facility] Immature Granulocytes Absolute 0.04(H) 0.00 - 0.03 K/mcL LAB HEMETOLOGY METHOD 06/19/2024 2:27 PM [facility] Blood Venous blood specimen / Unknown Venipuncture / Unknown 06/19/2024 11:17 AM EST 06/19/2024 11:17 AM EST Dimas Mcnair MD LAB BLOOD ORDERABLES [facility] [address] [place] [address], * Prothrombin time with INR (06/19/2024 11:17 AM EST) Protime 11.8 10.6 - 13.9 sec LAB COAGULATION METHOD 06/19/2024 2:41 PM EST [facility] INR 0.9 LAB COAGULATION METHOD 06/19/2024 2:41 PM [facility] Blood Venous blood specimen / Unknown Venipuncture / Unknown 06/19/2024 11:17 AM EST 06/19/2024 11:17 AM EST Dimas Mcnair MD LAB BLOOD ORDERABLES Performing Organization Address City/[facility]/ZIP Co de Phone Number [facility] [address] [place] [address], [place] [phone] * Culture urine (06/19/2024 11:17 AM EST) Pathologist [facility] Culture, Urine No growth 06/20/2024 11:28 AM [facility] Urine Urine specimen / Unknown Non-blood Collection / Unknown 06/19/2024 11:17 AM EST 06/19/2024 11:17 AM EST Dimas Mcnair MD LAB MICROBIOLOGY - G ENERAL ORDERABLES Performing Organization Address [facility]/ZIP Co de Phone Number [facility] [address] [place] [address], [place] [phone] * Basic metabolic panel (06/19/2024 11:17 AM EST) Sodium 142 133 - 145 mmol/L LAB CHEMISTRY METHOD 06/19/2024 3:01 PM [facility] Potassium 4.2 3.5 - 5.5 mmol/L LAB CHEMISTRY METHOD 06/19/2024 3:01 PM [facility] Chloride 108 96 - 110 mmol/L LAB CHEMISTRY METHOD 06/19/2024 3:01 PM [facility] CO2 29 21 - 32 mmol/L LAB CHEMISTRY METHOD 06/19/2024 3:01 PM [facility] Anion Gap 5 3 - 11 LAB CHEMISTRY METHOD 06/19/2024 3:01 PM [facility] Glucose 75 70 - 100 mg/dL LAB CHEMISTRY METHOD 06/19/2024 3:01 PM [facility] BUN 16 5 - 25 mg/dL LAB CHEMISTRY METHOD 06/19/2024 3:01 PM [facility] Creatinine 0.69 0.50 - 1.10 mg/dL LAB CHEMISTRY METHOD 06/19/2024 3:01 PM [facility] eGFR 98 >=60 mL/min/1. 73m2 LAB CHEMISTRY METHOD 06/19/2024 3:01 PM [facility] Comment:Calculation based on the??Chronic Kidney Disease Epidemiology Collaboration (CKD-EPI) equation refit??without adjustment for race. BUN/Creatinine Ratio 23.2 LAB CHEMISTRY METHOD 06/19/2024 3:01 PM [facility] Calcium 9.7 8.5 - 10.5 mg/dL LAB CHEMISTRY METHOD 06/19/2024 3:01 PM [facility] Blood Venous blood specimen / Unknown Venipuncture / Unknown 06/19/2024 11:17 AM EST 06/19/2024 11:17 AM EST Dimas Mcnair MD LAB BLOOD ORDERABLES [facility] [address] [place] [address], * US Head Neck Soft Tissue (06/03/2024 11:44 AM EST) Anatomical Region Laterality Modality Head and Neck Ultrasound 06/05/2024 12:4 8 PM EST Impressions 06/05/2024 12:56 PM EST Subcentimeter nodules bilaterally with spongiform appearance on the left side. -------- FINAL REPORT -------- Dictated By: Ketan Piper Dictated Date: 06/05/2024 12:48 ET Assigned Physician: Ketan Piper Reviewed and Electronically Signed By: Ketan Piper Signed Date: 06/05/2024 12:56 ET Workstation ID: [id number] Transcribed By: Self Edit Transcribed Date: 06/05/2024 12:49 ET Narrative 06/05/2024 12:56 PM EST INDICATION: Thyroid nodule FINDINGS: Ultrasound of the thyroid gland performed. No prior studies available for comparison. Right lobe measures: 5 cm x 1.7 cm x 1.8 cm Left lobe measures: ??4.6 cm x 1.4 cm x 1.7 cm Isthmus measures: 9 mm in width. Subcentimeter nodules on the right side measuring 3 to 4 mm. Within the mid to lower gland on the left side 8 mm x 7 mm x 5 mm nodule is hypoechoic with somewhat striated/multiple appearance. Similar-appearing 6 mm nodule noted superiorly. Procedure Note Ketan Piper MD - 06/05/2024 INDICATION: Thyroid nodule FINDINGS: Ultrasound of the thyroid gland performed. No prior studiesavailable for comparison. Right lobe measures: 5 cm x 1.7 cm x 1.8 cm Left lobe measures: 4.6 cm x 1.4 cm x 1.7 cm Isthmus measures: 9 mm in width. Subcentimeter nodules on the right side measuring 3 to 4 mm. Within the mid to lower gland on the left side 8 mm x 7 mm x 5 mm noduleis hypoechoic with somewhat striated/multiple appearance.Similar-appearing 6 mm nodule noted superiorly. IMPRESSION: Subcentimeter nodules bilaterally with spongiform appearance on the leftside. -------- FINAL REPORT -------- Dictated By: Ketan Piper Dictated Date: 06/05/2024 12:48 ET Assigned Physician: Ketan Piper Reviewed and Electronically Signed By: Ketan Piper Signed Date: 06/05/2024 12:56 ET Workstation ID: [id number] Transcribed By: Self Edit Transcribed Date: 06/05/2024 12:49 ET Dimas Mcnair MD IM US PROCEDURES * Depression Screening (05/05/2024) Depression Screening abstracted Historical Provider MD GAVIOTA NGUYNE E * DIAGNOSTIC MAMMOGRAPHY WITH CAD UNILATERAL (01/02/2023 3:05 PM EDT) Anatomical Region Laterality Modality Mammography 12/12/2022 9:01 AM EDT Narrative 01/02/2023 3:29 PM EDT This is a summary report. The complete report is available in the patient's medical record. If you cannot access the medical record, please contact the sending organization for a detailed fax or copy. Right breast mammogram, additional views. ??Limited right breast ultrasound. Tomosynthesis straight lateral and spot compression views of the right breast in CC and MLO projections were obtained to follow 12/07/2022 exam. Breast tissue is dense limiting sensitivity of mammography. The densitiy of concern in the medial right breast was noted confirmed on the spot compression views. ??No new suspicious abnormalities were identified. Limited ultrasound of the right breast was performed with attention to the medial breast, approached from the upper inner and lower inner quadrants. ??No cystic or solid masses or acoustic shadowing identified. ??There are regions of fibroglandular tissues as well as prominent ducts. Conclusions: No evidence of malignancy in the right breast. ??Findings were explained to the patient. ??Follow-up examination at the time of the next annual screening. BI-RADS 1, negative. Procedure Note Katherine Johnson MD - 08/20/2023 This is a summary report. The complete report is available in thepatient's medical record. If you cannot access the medical record, pleasecontact the sending organization for a detailed fax or copy. Right breast mammogram, additional views. Limited right breastultrasound. Tomosynthesis straight lateral and spot compression views of the rightbreast in CC and MLO projections were obtained to follow 12/07/2022exam. Breast tissue is dense limiting sensitivity of mammography. The densitiy of concern in the medial right breast was noted confirmed onthe spot compression views. No new suspicious abnormalities wereidentified. Limited ultrasound of the right breast was performed with attention to themedial breast, approached from the upper inner and lower inner quadrants.No cystic or solid masses or acoustic shadowing identified. There areregions of fibroglandular tissues as well as prominent ducts. Conclusions: No evidence of malignancy in the right breast. Findings wereexplained to the patient. Follow-up examination at the time of the nextannual screening. BI-RADS 1, negative. Dimas Mcnair MD IMG BI PROCEDURES * (ABNORMAL) Lipid panel (08/30/2022) [facility] LDL/HDL Ratio 4 0 - 4 Triglycerides 204(A) 0 - 150 mg/dL Cholesterol 210(A) 0 - 200 mg/dL HDL 51 40 mg/dL LDL Cholesterol 119(A) 0 - 100 mg/dL Blood Venous blood specimen / Unknown Historical Provider LAB BLOOD ORDERAB [facility] Cervical Cancer Screening: HPV (12/20/2021) [facility] Cervical Cancer Screening: HPV Abstracted ,negative Historical Provider [facility] * Colonoscopy (04/26/2017) [facility] Colonoscopy No interpreta tion,abstr acted Anatomical Region Laterality Modality Other Historical Provider [facility] * Hepatitis C Screening (12/18/2016) [facility] Hepatitis C Screening abstracted Historical Provider [facility] from Last 3 Months or Most Recently Relevant to Health Maintenance Care Teams Tank Builder Supervisor Relationship Specialty Start Date End Date Dimas Mcnair MD [address] [place] [phone] PCP - General Internal Medicine 05/17/24
--- OUTSIDE RECORDS SUMMARY | 2024-08-08 15:38 | XMS_ITS | Encounter Summary ---
Author Organization [facility] Address [address] [place] [address] Care Team Providers Care Supervisor Ditching Name Role Phone Dimas Mcnair MD Primary Care Provider [phone] Vel Merino PA-C Unavailable [phone] Encounter Details Date Type Department Care Team Description 11/11/2021 Business Doc Medical Records [address] [place] [id number] Abstract, Provider Social History Tobacco Use Types [...] on filedocumented in this encounter Care Teams Supervisor Ditching Relationship Specialty Start Date End Date Dimas Mcnair MD [address] [place] [phone] PCP - General Internal Medicine 04/01/19 Vel Merino PA-C [address] [phone] Specialist Thoracic Surgery 04/09/24 documented as of this encounter
--- OUTSIDE RECORDS SUMMARY | 2024-08-08 15:38 | XMS_ITS | Encounter Summary ---
Author Organization [facility] Address [address] [place] [address] Care Team Providers Care Computer Education Professor Name Role Phone Dimas Mcnair MD Primary Care Provider [phone] Vel Merino PA-C Unavailable [phone] Encounter Details Date Type Department Care Team Description 11/14/2023 Hospital Medical Records [address] [place] [address] [facility] Social History Tobacco Use Types Packs/Day Years [...] on filedocumented in this encounter Care Teams Computer Education Professor Relationship Specialty Start Date End Date Dimas Mcnair MD [address] [place] [address] [phone] PCP - General Internal Medicine 04/01/19 Vel Merino PA-C [address] [place] [phone] Specialist Thoracic Surgery 04/09/24 documented as of this encounter
--- OUTSIDE RECORDS SUMMARY | 2024-08-08 15:38 | XMS_ITS | Encounter Summary ---
Author Organization [facility] Address [address] [place] [address] Care Team Providers Care Pool Manager Name Role Phone Dimas Mcnair MD Primary Care Provider [phone] Vel Merino PA-C Unavailable [phone] Reason for Visit * Reason Comments E-prescribe Rx Request Encounter Details Date Type Department Care Team Description 12/12/2021 Refill Endocrinology - [address] [address] Tonie Ceja PA-C [address] [place] [address] E-prescribe Rx Request Social History Tobacco Use Types Packs/Day Years [...] encounter Miscellaneous Notes * Telephone Encounter - Vanessa Aden - 12/13/2021 10:46 AM EDT Patient would like script to be: E-PRESCRIBED/FAXED TO PHARMACY WHEN WAS THE PATIENT'S LAST APPOINTMENT IN ADULT MEDICINE? 07/05/21 WHEN WAS THE LAST TIME THE PATIENT SAW THEIR PCP? Same as above Does patient have an upcoming appointment? (THE MEDICATION REQUESTED IS ON THE MED LIST ABOVE) All of the medications requested were on the CURRENT MEDS list Did you check the Pharmacy information above?: YES Patient wants: 90 -day supply Is this a mail order prescription request ? NO If the refill is from a FAXED refill request what is the RX # listed on the fax? N/A Patients current insurance carrier is: Payor: MEDICARE-[employer] / Plan[place] / Product Type: MEDICARE [id number] documented in this encounter Plan of Treatment Not on file documented as of this encounter Visit Diagnoses Not on filedocumented in this encounter Care Teams Pool Manager Relationship Specialty Start Date End Date Dimas Mcnair MD [address] [place] [address] PCP - General Internal Medicine 04/01/19 Vel Merino PA-C [address] [place] [phone] Specialist Thoracic Surgery 04/09/24 documented as of this encounter
--- OUTSIDE RECORDS SUMMARY | 2024-08-08 15:38 | XMS_ITS | Encounter Summary ---
Author Organization [facility] Address [address] [place] [address] Care Team Providers Care Bookseamer Blindstitch Name Role Phone Dimas Mcnair MD Primary Care Provider [phone] Vel Merino PA-C Unavailable [phone] Encounter Details Date Type Department Care Team Description 04/10/2024 Orders Only [facility] Lung Screening Program [facility] [address] [facility] [address] [place] [phone] Aditya Zavala MD 299 [facility] [place] [address] [place] [address] [phone] Encounter for screening for lung cancer Social History Tobacco Use Types Packs/Day Years [...] Procedure Name Priority Date/Time Associated Diagnosis Comments CT LOW DOSE LUNG SCREEN ANNUAL Routine 04/09/2024 Encounter for screening for lung cancer documented in this encounter Results * CT LOW DOSE LUNG SCREEN ANNUAL (04/09/2024) Aditya Zavala MD CT SCANS documented in this encounter Visit Diagnoses Diagnosis Encounter for screening for lung cancer documented in this encounter Care Teams Bookseamer Blindstitch Relationship Specialty Start Date End Date Dimas Mcnair MD [address] [place] [address] PCP - General Internal Medicine 04/01/19 Vel Merino PA-C [address] [place] [phone] Specialist Thoracic Surgery 04/09/24 documented as of this encounter
--- OUTSIDE RECORDS SUMMARY | 2024-08-08 15:38 | XMS_ITS | Encounter Summary ---
Author Organization [facility] Address [address] [place] [address] Care Team Providers Care Care Technician Name Role Phone Dimas Mcnair MD Primary Care Provider [phone] Vel Merino PA-C Unavailable [phone] Encounter Details Date Type Department Care Team Description 11/14/2023 Hospital Medical Records [address] [place] [address] Adrian Agarwal MD, PHD Social History Tobacco [...] on filedocumented in this encounter Care Teams Care Technician Relationship Specialty Start Date End Date Dimas Mcnair MD [address] [place], [place] [phone] PCP - General Internal Medicine 04/01/19 Vel Merino PA-C [address] [place] [phone] Specialist Thoracic Surgery 04/09/24 documented as of this encounter
--- OUTSIDE RECORDS SUMMARY | 2024-08-08 15:39 | XMS_ITS | Encounter Summary ---
Author Organization [facility] Address [address] [place] [address] Care Team Providers Care Shell Trim Operator Name Role Phone Dimas Mcnair MD Primary Care Provider [phone] Vel Merino PA-C Unavailable [phone] Encounter Details Date Type Department Care Team Description 04/26/2023 Ear Machine Operator Report Medical Records [address] [place] [address] Hammad Alanis PA-C Social History Tobacco Use Types Packs/Day [...] on filedocumented in this encounter Care Teams Shell Trim Operator Relationship Specialty Start Date End Date Dimas Mcnair MD [address] [place], [place] [phone] PCP - General Internal Medicine 04/01/19 Vel Merino PA-C [address] [place] [phone] Specialist Thoracic Surgery 04/09/24 documented as of this encounter
--- OUTSIDE RECORDS SUMMARY | 2024-08-08 15:39 | XMS_ITS | Encounter Summary ---
Author Organization [facility] Address [address] [place] [address] Care Team Providers Care Database Report Writer Name Role Phone Dimas Mcnair MD Primary Care Provider [phone] Vel Merino PA-C Unavailable [phone] Encounter Details Date Type Department Care Team Description 03/14/2021 Orders Only Adult Medicine [address] [phone] Tonie Ceja PA-C [address] [place] [address] [phone] Subclinical hyperthyroidism (Primary Dx) Social History Tobacco Use Types Packs/Day Years Used Date Smoking Tobacco: Every Day Cigarettes 0.2 40 Smokeless Tobacco: Never Comments:4-5 cigs per day, t rying to quit [...] have Coronavirus / COVID-19? No / Unsure 03/11/2021 1:20 PM EDT documented as of this encounter Plan of Treatment Not on file documented as of this encounter Results * (ABNORMAL) THYROID PROFILE W/TSH (07/05/2021 11:19 AM EST) TSH CASCADE 0.31(L) 0.40 - 4.00 uIU/ml 07/05/2021 3:34 PM EST [facility] 07/05/2021 11:1 9 AM EST 07/05/2021 11:19 AM EST Narrative [facility] - 07/05/2021 3:34 PM EST Release to patient->Immediate Tonie Ceja PA-C LAB [facility] documented in this encounter Visit Diagnoses Diagnosis Subclinical hyperthyroidism- Primary Thyrotoxicosis without mention of goiter or other cause, without mention of thyrotoxic crisis or storm Subclinical hyperthyroidism Thyrotoxicosis without mention of goiter or other cause, without mention of thyrotoxic crisis or storm documented in this encounter Care Teams Database Report Writer Relationship Specialty Start Date End Date Dimas Mcnair MD [address] [place] [address] PCP - General Internal Medicine 04/01/19 Vel Merino PA-C [address] [place] [phone] Specialist Thoracic Surgery 04/09/24 documented as of this encounter
--- OUTSIDE RECORDS SUMMARY | 2024-08-08 15:39 | XMS_ITS | Encounter Summary ---
Author Organization [facility] Address [address] [place] [address] Care Team Providers Care Isolation Washer Name Role Phone Dimas Mcnair MD Primary Care Provider Vel Merino PA-C Unavailable [phone] Encounter Details Date Type Department Care Team Description 02/22/2023 Crop Grain Or Livestock Farm Manager Report Medical Records [address] [place] [address] Hammad Alanis PA-C Social History Tobacco Use [...] suspected to have Coronavirus/COVID-19? No / Unsure 02/06/2023 12:58 PM EDT documented as of this encounter Plan of Treatment Not on file documented as of this encounter Visit Diagnoses Not on filedocumented in this encounter Care Teams Isolation Washer Relationship Specialty Start Date End Date Dimas Mcnair MD [address] [place] [address] PCP - General Internal Medicine 04/01/19 Vel Merino PA-C [address] [place] [phone] Specialist Thoracic Surgery 04/09/24 documented as of this encounter
--- OUTSIDE RECORDS SUMMARY | 2024-08-08 15:39 | XMS_ITS | Encounter Summary ---
Author Organization [facility] Address [address] [place] [address] Care Team Providers Care Convertible Power Shovel Operator Name Role Phone Dimas Mcnair MD Primary Care Provider Vel Merino PA-C Unavailable [phone] Encounter Details Date Type Department Care Team Description 03/29/2020 Wedding Photographer Report Medical Records [address] [place] [address] Social History Tobacco Use Types Packs/Day Years [...] have Coronavirus / COVID-19? No / Unsure 03/31/2020 11:28 AM EDT documented as of this encounter Plan of Treatment Not on file documented as of this encounter Visit Diagnoses Not on filedocumented in this encounter Care Teams Convertible Power Shovel Operator Relationship Specialty Start Date End Date Dimas Mcnair MD [address] [place] [phone] PCP - General Internal Medicine 04/01/19 Vel Merino PA-C [address] [phone] Specialist Thoracic Surgery 04/09/24 documented as of this encounter
--- OUTSIDE RECORDS SUMMARY | 2024-08-08 15:39 | XMS_ITS | Encounter Summary ---
Author Organization [facility] Address [address] [place] [address] Care Team Providers Care Escrow Closer Name Role Phone Dimas Mcnair MD Primary Care Provider [phone] Vel Merino PA-C Unavailable [phone] Encounter Details Date Type Department Care Team Description 02/26/2021 Picture Framer Report Medical Records [address] [place] [address] [facility] [address] [place] [address] Social History Tobacco Use Types Packs/Day Years [...] have Coronavirus / COVID-19? No / Unsure 01/27/2021 10:27 AM EDT documented as of this encounter Plan of Treatment Not on file documented as of this encounter Visit Diagnoses Not on filedocumented in this encounter Care Teams Escrow Closer Relationship Specialty Start Date End Date Dimas Mcnair MD [address] [place] [address] PCP - General Internal Medicine 04/01/19 Vel Merino PA-C [address] [phone] Specialist Thoracic Surgery 04/09/24 documented as of this encounter
--- OUTSIDE RECORDS SUMMARY | 2024-08-08 15:39 | XMS_ITS | Encounter Summary ---
Author Organization [facility] Address [address] [place] [address] Care Team Providers Care Customer Retention Representative Name Role Phone Dimas Mcnair MD Primary Care Provider [phone] Vel Merino PA-C Unavailable [phone] Encounter Details Date Type Department Care Team Description 12/22/2022 Vice President Diversity Report Medical Records [address] [place] [address] Hammad Alanis PA-C Social History Tobacco Use [...] suspected to have Coronavirus/COVID-19? No / Unsure 12/07/2022 6:13 PM EDT documented as of this encounter Plan of Treatment Not on file documented as of this encounter Visit Diagnoses Not on filedocumented in this encounter Care Teams Customer Retention Representative Relationship Specialty Start Date End Date Dimas Mcnair MD [address] [place] [address] PCP - General Internal Medicine 04/01/19 Vel Merino PA-C [address] [place] [phone] Specialist Thoracic Surgery 04/09/24 documented as of this encounter
--- OUTSIDE RECORDS SUMMARY | 2024-08-08 15:39 | XMS_ITS | Encounter Summary ---
Author Organization [facility] Address [address] [place] [address] Care Team Providers Care Dog Food Shredder Operator Name Role Phone Dimas Mcnair MD Primary Care Provider [phone] Vel Merino PA-C Unavailable [phone] Encounter Details Date Type Department Care Team Description 05/31/2021 Refill Adult Medicine [address] [phone] Dimas Mcnair MD [address] [place] [address] [phone] Social History Tobacco Use Types Packs/Day Years [...] have Coronavirus / COVID-19? No / Unsure 05/10/2021 5:36 PM EDT documented as of this encounter Plan of Treatment Not on file documented as of this encounter Visit Diagnoses Not on filedocumented in this encounter Care Teams Dog Food Shredder Operator Relationship Specialty Start Date End Date Dimas Mcnair MD [address] [place] [address] PCP - General Internal Medicine 04/01/19 Vel Merino PA-C [address] [place] [phone] Specialist Thoracic Surgery 04/09/24 documented as of this encounter
--- OUTSIDE RECORDS SUMMARY | 2024-08-08 15:39 | XMS_ITS | Encounter Summary ---
Author Organization [facility] Address [address] [place] [address] Care Team Providers Care Renal Nurse Name Role Phone Dimas Mcnari MD Primary Care Provider [phone] Vel Merino PA-C Unavailable [phone] Encounter Details Date Type Department Care Team Description 05/31/2020 Orders Only Adult Medicine [facility] [address] [place] [address] Chivo Martinez MD Subclinical hyperthyroidism (Primary Dx) Social History Tobacco [...] have Coronavirus / COVID-19? No / Unsure 05/13/2020 10:32 AM EDT documented as of this encounter Plan of Treatment Not on file documented as of this encounter Results * (ABNORMAL) CBC (AUTO DIFF PLATELET) (01/27/2021 11:54 AM EDT) WHITE BLOOD COUNT 7.2 4.8 - 10.8 x10-3/uL 01/27/2021 2:46 PM EDT [facility] RED BLOOD COUNT 4.4 3.8 - 4.8 x10-6/uL 01/27/2021 2:46 PM EDT [facility] Hemoglobin 13.4 11.5 - 16.0 g/dL 01/27/2021 2:46 PM EDT [facility] Hematocrit 41.1 35 - 47 % 01/27/2021 2:46 PM EDT [facility] MEAN CORPUSCULAR VOLUME 94.5 79 - 98 fL 01/27/2021 2:46 PM EDT [facility] MEAN CORPUSCULAR HEMOGLOBIN 30.8 27 - 32 pg 01/27/2021 2:46 PM EDT [facility] MEAN CORPUSCULAR HGB CONC 32.6 32 - 37 g/dL 01/27/2021 2:46 PM EDT [facility] RED CELL DISTRIBUTION WIDTH 12.2 11 - 15 % 01/27/2021 2:46 PM EDT [facility] PLT COUNT 241 130 - 400 x10-3/uL 01/27/2021 2:46 PM EDT [facility] MEAN PLATELET VOLUME 12.0(H) 7 - 11 fL 01/27/2021 2:46 PM EDT [facility] NRBC % AUTO 0.0 <1 % 01/27/2021 2:46 PM EDT [facility] NEUTROPHILS % 58.7 % 01/27/2021 2:46 PM EDT [facility] LYMPH % 32.2 % 01/27/2021 2:46 PM EDT [facility] MONO % 7.5 % 01/27/2021 2:46 PM EDT [facility] EOS % 0.7 % 01/27/2021 2:46 PM EDT [facility] BASO % 0.6 % 01/27/2021 2:46 PM EDT [facility] IMMATURE GRANULOCYTES % 0.3 % 01/27/2021 2:46 PM EDT [facility] NRBC # AUTO 0.00 <0.1 x10-3/uL 01/27/2021 2:46 PM EDT [facility] NEUT # 4.23 1.5 - 7.0 x10-3/uL 01/27/2021 2:46 PM EDT [facility] LYMPH # 2.32 1 - 5.0 x10-3/uL 01/27/2021 2:46 PM EDT [facility] MONO # 0.54 0.2 - 1.0 x10-3/uL 01/27/2021 2:46 PM EDT [facility] EOS # 0.05 0 - 0.5 x10-3/uL 01/27/2021 2:46 PM EDT [facility] BASO # 0.04 0 - 0.2 x10-3/uL 01/27/2021 2:46 PM EDT [facility] IMMATURE GRANULOCYTES # 0.02 0 - 0.03 x10-3/uL 01/27/2021 2:46 PM EDT [facility] 01/27/2021 11:5 4 AM EDT 01/27/2021 11:54 AM EDT Chivo Martinez MD LAB [facility] * TRANSAMINASE (SGPT)(ALT) UV- (01/27/2021 11:54 AM EDT) SGPT 22 10 - 60 U/L 01/27/2021 3:05 PM EDT [facility] 01/27/2021 11:5 4 AM EDT 01/27/2021 11:54 AM EDT [facility]ivo Martinez MD [facility] * TRANSAMINASE (SGOT)(AST) UV- (01/27/2021 11:54 AM EDT) SGOT 15 10 - 42 U/L 01/27/2021 3:05 PM EDT [facility] 01/27/2021 11:5 4 AM EDT 01/27/2021 11:54 AM EDT Chivo Martinez MD LAB [facility] * TSH (01/27/2021 11:54 AM EDT) TSH 0.61 0.40 - 4.00 uIU/ml 01/27/2021 3:17 PM EDT [facility] 01/27/2021 11:5 4 AM EDT 01/27/2021 11:54 AM EDT Chivo Martinez MD LAB [facility] documented in this encounter Visit Diagnoses Diagnosis Subclinical hyperthyroidism- Primary Thyrotoxicosis without mention of goiter or other cause, without mention of thyrotoxic crisis or storm documented in this encounter Care Teams Renal Nurse Relationship Specialty Start Date End Date Dimas Mcnair MD [address] [place] [address] PCP - General Internal Medicine 04/01/19 Vel Merino PA-C [address] [place] [phone] Specialist Thoracic Surgery 04/09/24 documented as of this encounter
--- OUTSIDE RECORDS SUMMARY | 2024-08-08 15:39 | XMS_ITS | Encounter Summary ---
Author Organization [facility] Address [address] [place] [address] Care Team Providers Care Pompom Maker Name Role Phone Dimas Mcnair MD Primary Care Provider [phone] Vel Merino PA-C Unavailable [phone] Encounter Details Date Type Department Care Team Description 09/14/2020 Orders Only Radiology - [place] [address] [place], [place] [phone] Chivo Martinez MD Social History Tobacco Use Types Packs/Day [...] on filedocumented in this encounter Care Teams Pompom Maker Relationship Specialty Start Date End Date Dimas Mcnair MD [address] [place], [place] [phone] PCP - General Internal Medicine 04/01/19 Vel Merino PA-C [address] [place] [phone] Specialist Thoracic Surgery 04/09/24 documented as of this encounter
--- OUTSIDE RECORDS SUMMARY | 2024-08-08 15:39 | XMS_ITS | Encounter Summary ---
Author Organization [facility] Address [address] [place] [address] Care Team Providers Care Apartment Leasing Manager Name Role Phone Dimas Mcnair MD Primary Care Provider [phone] Vel Merino PA-C Unavailable [phone] Encounter Details Date Type Department Care Team Description 02/18/2020 Orders Only Medical Records [address] [place] [address] Caitlyn Alonzo PA Social History Tobacco Use Types Packs/Day Years [...] Procedure Name Priority Date/Time Associated Diagnosis Comments OUTSIDE VASCULAR STUDY Routine 02/13/2020 documented in this encounter Results * OUTSIDE VASCULAR STUDY (02/13/2020) Caitlyn HEATH CARDIOLOGY documented in this encounter Visit Diagnoses Not on filedocumented in this encounter Care Teams Apartment Leasing Manager Relationship Specialty Start Date End Date Dimas Mcnair MD [address] [place], [place] [phone] PCP - General Internal Medicine 04/01/19 Vel Merino PA-C [address] [place] [phone] Specialist Thoracic Surgery 04/09/24 documented as of this encounter
--- OUTSIDE RECORDS SUMMARY | 2024-08-08 15:39 | XMS_ITS | Encounter Summary ---
Author Organization [facility] Address [address] [place] [address] Care Team Providers Care Box Car Checker Name Role Phone Dimas Mcnair MD Primary Care Provider [phone] Vel Merino PA-C Unavailable [phone] Reason for Visit * Reason Comments E-prescribe Rx Request Encounter Details Date Type Department Care Team Description 08/25/2022 Refill Endocrinology - [address] [address] Tonie Ceja PA-C [address] [place] [address] E-prescribe Rx Request Social History Tobacco Use [...] encounter Miscellaneous Notes * Telephone Encounter - Estephania Meza - 08/29/2022 9:39 AM EST Patient would like script to be: E-PRESCRIBED/FAXED TO PHARMACY (THE MEDICATION REQUESTED IS ON THE MED LIST ABOVE) All of the medications requested were on the CURRENT MEDS list Did you check the Pharmacy information above?: YES Patient wants: 30 -day supply Is this a mail order prescription request ? NO If the refill is from a FAXED refill request what is the RX # listed on the fax? [id number] Patients current insurance carrier is: Payor: [employer] / Plan: [employer] / Product Type: MEDICARE [id number] documented in this encounter Plan of Treatment Not on file documented as of this encounter Visit Diagnoses Not on filedocumented in this encounter Care Teams Box Car Checker Relationship Specialty Start Date End Date Dimas Mcnair MD [address] [place] [address] [phone] PCP - General Internal Medicine 04/01/19 Vel Merino PA-C [address] [place] [phone] Specialist Thoracic Surgery 04/09/24 documented as of this encounter
--- OUTSIDE RECORDS SUMMARY | 2024-08-08 15:39 | XMS_ITS | Encounter Summary ---
Author Organization [facility] Address [address] [place] [address] Care Team Providers Care Fitness Teacher Name Role Phone Community, Pcp Primary Care Provider Neli Trujillo MD Primary Care Provider Unavail Ryan Hou MD Primary Care Provider UnavailNeli Mai MD Primary Care Provider Unavail able Dimas Mcnair MD Primary Care Provider [phone] Vel Merino PA-C Unavailable [phone] Encounter Details Date Type Department Care Team Description 01/25/2013 Hospital Medical Records [address] [place], [place] [phone] [place] [address] Social History Tobacco Use Types Packs/Day Years [...] on filedocumented in this encounter Care Teams Fitness Teacher Relationship Specialty Start Date End Date Community, Pcp PCP - General Internal Medicine 07/16/12 09/17/16 Neli Gutierrez MD PCP - General Internal Medicine 09/18/16 10/13/16 Ryan Ramos MD PCP - General Internal Medicine 10/14/16 12/12/16 Neli Gutierrez MD PCP - General Internal Medicine 12/13/16 03/31/19 Dimas Mcnair MD [address] [place] [address] PCP - General Internal Medicine 04/01/19 Vel Merino PA-C [address] [place] [phone] Specialist Thoracic Surgery 04/09/24 documented as of this encounter
--- OUTSIDE RECORDS SUMMARY | 2024-08-08 15:39 | XMS_ITS | Encounter Summary ---
Author Organization [facility] Address [address] [place] [address] Care Team Providers Care Auditor/Quality Name Role Phone Dimas Mcnair MD Primary Care Provider [phone] Vel Merino PA-C Unavailable Encounter Details Date Type Department Care Team Description 05/30/2020 Telephone Adult Medicine [address] [address] Chivo Martinez MD Social History Tobacco Use [...] AM EDT documented as of this encounter Miscellaneous Notes * Telephone Encounter - Chivo Martinez MD - 05/30/2020 5:13 PM EST I called the patient today and left a message on the machine. Patient instructed to return my call.Re: Suppressed TSH documented in this encounter Plan of Treatment Not on file documented as of this encounter Visit Diagnoses Not on filedocumented in this encounter Care Teams Auditor/Quality Relationship Specialty Start Date End Date Dimas Mcnair MD [address] [place] [address] PCP - General Internal Medicine 04/01/19 Vel Merino PA-C [address] [phone] Specialist Thoracic Surgery 04/09/24 documented as of this encounter
--- OUTSIDE RECORDS SUMMARY | 2024-08-08 15:39 | XMS_ITS | Encounter Summary ---
Author Organization [facility] Address [address] [place] [address] Care Team Providers Care High Pressure Firer Name Role Phone Dimas Mcnair MD Primary Care Provider [phone] Vel Merino PA-C Unavailable Reason for Visit * Reason Comments E-prescribe Rx Request Encounter Details Date Type Department Care Team Description 07/27/2022 Refill Endocrinology - [address] [address] Tonie Ceja PA-C [address] [place] [address] E-prescribe Rx Request Social History Tobacco Use [...] suspected to have Coronavirus/COVID-19? No / Unsure 07/04/2022 10:19 AM EST documented as of this encounter Plan of Treatment Not on file documented as of this encounter Visit Diagnoses Not on filedocumented in this encounter Care Teams High Pressure Firer Relationship Specialty Start Date End Date Dimas Mcnair MD 4 [place] [address] PCP - General Internal Medicine 04/01/19 Vel Merino PA-C [address] [phone] Specialist Thoracic Surgery 04/09/24 documented as of this encounter
--- OUTSIDE RECORDS SUMMARY | 2024-08-08 15:39 | XMS_ITS | Clinical Summary ---
Author Organization [facility] Address [address] [place] [address] Care Team Providers Care Manager Financial Services Name Role Phone Unavailable Primary Care Provider Unavailabl e Source Comments PLEASE NOTE, if this patient is a minor, it may be UNLAWFUL to discuss sensitive information that is contained in these records (such as FAMILY PLANNING, MENTAL HEALTH or SUBSTANCE ABUSE) with the minor patient's parent or other person without the patient's specific authorization.[facility] Allergies No known active allergies Medications arm brace (WRIST BRACE)Indications:Ca rpal tunnel syndrome of right wrist Kindly dispense one brace for the right wrist. Dx code 354.0 1 Each 0 06/18/20 14 Active vitamin D3 1,000 unit capsuleIndications:V itamin D deficiency Take 2 Caps by mouth once daily. 60 Cap 3 07/27/19 15 Active fish oil-dha-epa 1,200-144-216 mg per capsuleIndications:H ypertriglyceridemia Take 1 Cap by mouth 3 (three) times daily. 90 Cap 3 07/27/19 15 Active naproxen (NAPROSYN) 500 mg tabletIndications:Ch ronic back pain Take 1 Tab by mouth 2 (two) times daily with a meal. 60 Tab 1 12/19/19 15 Active methocarbamol (ROBAXIN) 500 mg tabletIndications:Ch ronic back pain Take 1 Tab by mouth 3 (three) times daily. 90 Tab 1 12/19/19 15 Active pantoprazole (PROTONIX) 40 mg EC tabletIndications:Ga stroesophageal reflux disease, esophagitis presence not specified Take 1 Tab by mouth every morning before breakfast. Swallow whole. Do not crush or chew. 30 Tab 6 11/26/19 16 Active meclizine (BONINE) 25 mg tabletIndications:Di zziness Take 1 Tab by mouth 2 (two) times daily as needed for dizziness. 60 Tab 1 11/26/19 16 Active ibuprofen (ADVIL,MOTRIN) 600 mg tabletIndications:He adache, unspecified headache type Take 1 Tab by mouth 4 (four) times daily as needed for fever, headaches or pain. 40 Tab 0 02/18/20 16 Active amitriptyline (ELAVIL) 25 mg tabletIndications:He adache, unspecified headache type Take 1 Tab by mouth nightly at bedtime. 30 Tab 0 02/18/20 16 Active betamethasone valerate (VALISONE) 0.1 % ointmentIndications: Psoriasis Apply topically 2 (two) times daily 45 g 0 10/29/19 17 Active fluoride, sodium, (SF 5000 PLUS) 1.1 % creaIndications:Toot h demineralization Apply to toothbrush and brush twice daily. Expectorate after use. Do not eat or drink 30 minutes after. Do not swallow 51 g 3 06/02/20 19 Active albuterol sulfate 90 mcg/actuation inhalerIndications:W heezing Inhale 2 Puffs into the lungs every 4 (four) hours as needed for wheezing 8 g 07/14/20 19 Active Active Problems Problem Noted Date Diagnosed Date Psoriasis 10/28/2016 History of Papanicolaou smear of cervix 01/08/20 15 Overview (01/07/2015): Done negative for squamous intraepithelial lesion and malignancy. Carpal tunnel syndrome 04/21/2014 Alcohol abuse Opiate abuse, episodic ([facility]) Social History Tobacco Use Types Packs/Day Years Used Date Smoking Tobacco: Every Day Cigarettes Smokeless Tobacco: Never Tobacco Cessation:Ready to Q uit: Yes Alcohol Use Standard Drinks/Week Comments Yes 0 (1 standard drink = 0.6 oz pur e alcohol) occassional Social Connections Answer Date Recorded Connectedness 0 04/02/2024 Financial Resource Strain Answer Date R ecorded Financial Resource Strain 0 2018 Stress Answer Date Recorded Stress 0 03/08/2019 Physical Activity Answer Date Recorded Physical Activity 0 03/08/2019 Food Insecurity Answer Date Recorded Food 0 04/10/2024 Transportation Needs Answer Date Record ed Transportation 0 03/08/2019 Housing Stability Answer Date Recorded Housing 0 03/08/2019 Safety and Environment Answer Date Maulik rded Safety 0 03/08/2019 Utilities Answer Date Recorded Utilities 0 03/08/2019 Employment Answer Date Recorded Stress 0 04/02/2024 Comments No Sex and Gender Information Value Date Recorded Sex Assigned at Female 03/25/2021 10:30 AM PDT Legal Sex Female 11:36 AM PDT Gender Identity Female 03/25/2021 10:30 AM PDT Sexual Orientation Don't know 03/25/2021 10 :30 AM PDT Last Filed Vital Signs Vital Sign Reading Time Taken Comments Blood Pressure 100/70 03/25/2021 1:09 PM EDT Pulse 90 03/25/2021 1:09 PM EDT Temperature 36.7 ??C (98.1 ??F) 03/25/2021 1:09 PM ED T Respiratory Rate 16 03/25/2021 1:09 PM EDT Oxygen Saturation 98% 03/25/2021 1:09 PM EDT Inhaled Oxygen Concentration - - Weight 50.3 kg (111 lb) 03/25/2021 1:09 PM EDT Height 160 cm (5' 3 ) 03/25/2021 1:09 PM EDT Body Mass Index 19.66 03/25/2021 1:09 PM EDT Plan of Treatment Health Maintenance Due Date Last Done Comments HPV Screening 1960 Hepatitis C Screening 1960 Pap + HPV 1960 Tobacco Cessation Counseling (#1) 1960 Tobacco Screening [address] Colonography 2006 Colonoscopy 2006 Colorectal Cancer Screening 2006 FIT/gFOBT 2006 Fecal DNA 2006 Flexible Sigmoidoscopy 2006 Imm-Zoster, Recombinant (1 of 2) 2011 Medicare Annual Wellness Visit 07/27/2015 07/27/2014 Breast Cancer Screening (Mammogram) 09/01/2015 09/01/2014, 08/20/2014 (Managed by Outside Provider) Diabetes Screening 07/17/2017 07/17/2014 Cervical Cancer Screening 12/18/2017 Pap Smear 12/18/2017 12/18/2014 Lipid Screening 07/17/2019 07/17/2014 Hypertension Screening (#1) 03/25/2022 Imm-Pneumococcal (2 of 2 - PCV) 03/14/2023 [id number] (3 - 2023- season) 2024 021, 11/16/2020 Imm-Influenza (#1) 2024 Alcohol and Drug Screen 07/16/2024 03/25/20 21, 11/26/2015, 11/26/2015 Depression Annual Screen 07/16/2024 11/26/2015 Imm-DTaP/Tdap/Td (2 - Td or Tdap) 03/14/2032 022 Cervical Ablation/Cold-Knife Conization Discontinued Cervical Cryotherapy Discontinued Colposcopy Discontinued Endometrial Biopsy Discontinued Excision/Leep Discontinued HPV Genotyping Discontinued Vaginal Pap Discontinued Vulvoscopy Discontinued Procedures Procedure Name Priority Date/Time Associated Diagnosis Comments COMPREHENSIVE METABOLIC PANEL Routine 07/17/2014 11:43 AM EST Routine adult health maintenance LIPID PANEL Routine 07/17/2014 11:43 AM EST Routine adult health maintenance from Last 3 Months or Most Recently Relevant to Health Maintenance Results * (ABNORMAL) LIPID PANEL (07/17/2014 11:43 AM EST) CHOLESTEROL 189 0 - 200 mg/dL [facility] TRIGLYCERIDES 195(H) 0 - 150 mg/dL [facility] HDL CHOLESTEROL 48 >40 mg/dL [facility] LDL CALCULATED 102(H) 0 - 100 mg/dL [facility] TC-HDLC RATIO 3.9 0 - 4.4 mg/dL [facility] Blood specimen (specimen) Blood / Unknown 07/17/2014 11:43 AM EST 07/17/2014 3:31 PM EST Narrative [facility] - 07/17/2014 6:10 PM EST [facility] [address] [place] [address] [place] ID [id number] ORD# [id number] Shaila Arredondo NP LAB - BLOOD DRAW Final Result [facility] [address] [place] [address], * COMPRE METAB PANEL (07/17/2014 11:43 AM EST) GLUCOSE 90 70 - 100 mg/dL [facility] Comment:Reference range appl icable to fasting specimens only BUN 16 5 - 25 mg/dL [facility] CREAT 0.67 0.5 - 1.1 mg/dL [facility] GLOMERULAR FILTRATION RATE > 60 [facility] Comment: If patient is -Malawian, multiply result by 1.21 Chronic Kidney Disease: < 60 ml/min/1.73 square meters Kidney Failure: < 15 ml/min/1.73 square meters SODIUM 143 133 - 145 mEq/L [facility] POTASSIUM 4.1 3.5 - 5.5 mEq/L [facility] CHLORIDE 109 96 - 110 mEq/L [facility] CO2 29 21 - 32 mEq/L [facility] ANION GAP 5 3 - 11 [facility] CALCIUM 9.7 8.5 - 10.5 mg/dL [facility] TOTAL PROTEIN 6.6 6.0 - 8.0 G/dL [facility] ALBUMIN 4.4 3.2 - 5.0 G/dL [facility] BILI, TOTAL 0.4 0.0 - 1.4 mg/dL [facility] SGOT 19 10 - 42 U/L [facility] SGPT 15 10 - 60 U/L [facility] ALK PHOS 65 42 - 121 U/L [facility] Blood specimen (specimen) Blood / Unknown 07/17/2014 11:43 AM EST 07/17/2014 3:31 PM EST Narrative [facility] - 07/17/2014 6:10 PM EST [employer] [address] [place] [address] PT ID [id number] ORD# [id number] Shaila Arnulfo JULIO LAB - BLOOD DRAW Final Result [facility] [address] [place] [address], from Last 3 Months or Most Recently Relevant to Health Maintenance [place] [facility]
--- OUTSIDE RECORDS SUMMARY | 2024-08-08 15:39 | XMS_ITS | Encounter Summary ---
Author Organization [facility] Address [address] [place] [address] Care Team Providers Care Aged Or Disabled Carer Name Role Phone Dimas Mcnair MD Primary Care Provider [phone] Vel Merino PA-C Unavailable [phone] Reason for Visit * Reason Onset Date Comments refill request 03/22/2021 Encounter Details Date Type Department Care Team Description 03/22/2021 Refill Gastroenterology - [address] [place] [phone] Naseem Heller PA-C refill request Social History Tobacco Use Types Packs/Day Years [...] PM EDT documented as of this encounter Miscellaneous Notes * Telephone Encounter - Sulema Rodriguez - 03/22/2021 4:20 PM EDT CHET 03/31/20 No future appt. 30 day supply. documented in this encounter Plan of Treatment Not on file documented as of this encounter Visit Diagnoses Not on filedocumented in this encounter Care Teams Aged Or Disabled Carer Relationship Specialty Start Date End Date Dimas Mcnair MD [address] [place] [address] PCP - General Internal Medicine 04/01/19 Vel Merino PA-C [address] [phone] Specialist Thoracic Surgery 04/09/24 documented as of this encounter
--- OUTSIDE RECORDS SUMMARY | 2024-08-08 15:39 | XMS_ITS | Encounter Summary ---
Author Organization [facility] Address [address] [place] [address] Care Team Providers Care Telecine Operator Name Role Phone Dimas Mcnair MD Primary Care Provider [phone] Vel Merino PA-C Unavailable [phone] Encounter Details Date Type Department Care Team Description 08/21/2022 Bullet Swaging Machine Operator Report Medical Records [address] [place] [address] Walter Rai DO Social History Tobacco Use Types Packs/Day Years [...] on filedocumented in this encounter Care Teams Telecine Operator Relationship Specialty Start Date End Date Dimas Mcnair MD [address] [place], [place] [phone] PCP - General Internal Medicine 04/01/19 Vel Merino PA-C [address] [place] [phone] Specialist Thoracic Surgery 04/09/24 documented as of this encounter
--- OUTSIDE RECORDS SUMMARY | 2024-08-08 15:39 | XMS_ITS | Encounter Summary ---
Author Organization [facility] Address [address] [place] [address] Care Team Providers Care Commissioning Editor Name Role Phone Dimas Mcnair MD Primary Care Provider [phone] Vel Merino PA-C Unavailable [phone] Encounter Details Date Type Department Care Team Description 09/03/2020 SCAN Medical Records [address] [place] [id number] Abstract, Provider Social History Tobacco Use Types [...] or suspected to have Coronavirus / COVID-19? Unable to assess 08/04/2020 7:07 AM EST documented as of this encounter Plan of Treatment Not on file documented as of this encounter Visit Diagnoses Not on filedocumented in this encounter Care Teams Commissioning Editor Relationship Specialty Start Date End Date Dimas Mcnair MD [address] [place] [address] PCP - General Internal Medicine 04/01/19 Vel Merino PA-C [address] [phone] Specialist Thoracic Surgery 04/09/24 documented as of this encounter
--- OUTSIDE RECORDS SUMMARY | 2024-08-08 15:39 | XMS_ITS | Encounter Summary ---
Author Organization [facility] Address [address] [place] [address] Care Team Providers Care Manager Utilization Review Name Role Phone Dimas Mcnair MD Primary Care Provider [phone] Vel Merino PA-C Unavailable [phone] Encounter Details Date Type Department Care Team Description 04/11/2023 Sales Planner Report Medical Records [address] [place] [id number] Adrian Agarwal MD, PHD Social History Tobacco [...] filedocumented in this encounter Care Teams Manager Utilization Review Relationship Specialty Start Date End Date Dimas Mcnair MD [address] [place], [place] [phone] PCP - General Internal Medicine 04/01/19 Vel Merino PA-C [address] [place] [phone] Specialist Thoracic Surgery 04/09/24 documented as of this encounter
--- OUTSIDE RECORDS SUMMARY | 2024-08-08 15:39 | XMS_ITS | Encounter Summary ---
Author Organization [facility] Address [address] [place] [address] Care Team Providers Care Sign Hanger Name Role Phone Neli Gutierrez MD Primary Care Provider Unavail able Dimas Mcnair MD Primary Care Provider Vel Merino PA-C Unavailable [phone] Encounter Details Date Type Department Care Team Description 04/24/2018 Release of Information Medical Records [address] [place] [address] Abstract, Provider Social History Tobacco Use Types [...] on filedocumented in this encounter Care Teams Sign Hanger Relationship Specialty Start Date End Date Neli Gutierrez MD PCP - General Internal Medicine 12/13/16 03/31/19 Dimas Mcnair MD [address] [place] [phone] PCP - General Internal Medicine 04/01/19 Vel Merino PA-C [address] [phone] Specialist Thoracic Surgery 04/09/24 documented as of this encounter
--- OUTSIDE RECORDS SUMMARY | 2024-08-08 15:39 | XMS_ITS | Encounter Summary ---
Author Organization [facility] Address [address] [place] [address] Care Team Providers Care Quill Stripper Name Role Phone Dimas Mcnair MD Primary Care Provider [phone] Vel Merino PA-C Unavailable [phone] Reason for Visit * Reason Comments E-prescribe Rx Request Verapamil Encounter Details Date Type Department Care Team Description 09/02/2022 Refill Cardio PVC POC [address] [address] Vel Rivers MD [address] [address] E-prescribe Rx Request (Verapamil ) Social History Tobacco Use Types Packs/Day Years [...] suspected to have Coronavirus/COVID-19? No / Unsure 08/30/2022 11:00 AM EST documented as of this encounter Miscellaneous Notes * Telephone Encounter - Elva Connie C.M.A. - 09/05/2022 1:37 PM EST Upcoming appt 10/23/2022 Franko armstrong/ Dr CASTELLANOS 11/2020 Labs 08/2022 documented in this encounter Plan of Treatment Not on file documented as of this encounter Visit Diagnoses Not on filedocumented in this encounter Care Teams Quill Stripper Relationship Specialty Start Date End Date Dimas Mcnair MD [address] [place] [address] PCP - General Internal Medicine 04/01/19 Vel Merino PA-C [address] [place] [phone] Specialist Thoracic Surgery 04/09/24 documented as of this encounter
--- OUTSIDE RECORDS SUMMARY | 2024-08-08 15:39 | XMS_ITS | Encounter Summary ---
Author Organization [facility] Address [address] [place] [address] Care Team Providers Care Power Transformer Repairer Name Role Phone Dimas Mcnair MD Primary Care Provider [phone] Vel Merino PA-C Unavailable [phone] Encounter Details Date Type Department Care Team Description 08/14/2022 Boiler Shop Mechanic Report Medical Records [address] [place] [address] Walter Rai DO Social History Tobacco Use [...] on filedocumented in this encounter Care Teams Power Transformer Repairer Relationship Specialty Start Date End Date Dimas Mcnair MD [address] [place], [place] [phone] PCP - General Internal Medicine 04/01/19 Vel Merino PA-C [address] [place] [phone] Specialist Thoracic Surgery 04/09/24 documented as of this encounter
== END 2024-08-07 13:55 | disposition home or self-care (01) ==
LOC: HO.HOSX 13:54
PROVIDERS: Visit Provider Physician Assistant
DX: Z01.818 Encounter for other preprocedural examination (principal); M25.552 Pain in left hip; M16.12 Unilateral primary osteoarthritis, left hip; R26.2 Difficulty in walking, not elsewhere classified
CPT/HCPCS: 73502; 99212

== ENCOUNTER → 2024-08-12 12:51 | Outpatient (REF) | payer MEDICARE, SELFPAY ==
--- NOTE | 2024-08-12 12:56 | CA_ITS ---
Transthoracic Echocardiogram Patient (Last, First, Middle): Marielos Garcia M Gender: Female Date of : 1960 Age: 64 Procedure Date: 08/12/2024 Procedure Type: Transthoracic Echocardiogram Location: OP Height: 160.02 cm Weight: 54.43 kg BSA: 1.56 m2 Heart Rate: bpm BP: 128 / 70 mmHg Pediatric Immunologist: TO Referring MD: Kem Porras MD Symptoms: R94.39 - Abnormal result of other cardiovascular function study Study Quality: Fair/Contrast ECG Rhythm: Sinus Conclusions: - The left ventricular systolic function is normal. The calculated ejection fraction is 57% by biplane method. - The basal inferior segment is hypokinetic. - No obvious valvular pathology seen on this study. Findings Procedure Information Contrast agent, definity, is being given per protocol without apparent complications. Left Ventricle Normal left ventricular cavity size. The left ventricular systolic function is normal. The calculated ejection fraction is 57% by biplane method. There is no evidence of regional wall motion abnormalities. Diastolic function is normal for age. There is mild septal asymmetric hypertrophy. Wall Motion Rest Echo Findings The basal inferior segment is hypokinetic. Right Ventricle Normal right ventricular cavity size and systolic function. Atria Both atria are normal in size. Aortic Valve There is a normal trileaflet aortic valve. There is mild calcification of the aortic valve. There is no aortic valve stenosis. There is no aortic valve regurgitation. Mitral Valve The mitral valve appears normal. There is no mitral valve regurgitation. There is no mitral valve stenosis. Pulmonic Valve The pulmonic valve is likely normal. Tricuspid Valve There is mild tricuspid valve regurgitation. There is no evidence of pulmonary hypertension. Great Vessels The asc aorta is normal in size. Venous The inferior vena cava is normal in size and collapses greater than 50% with inspiration. Pericardium/Pleural There is no evidence of pericardial effusion. Prior Study Comparison No prior study available for comparison. Recommendations, Care & Conclusions No obvious valvular pathology seen on this study. Measurements 2D Linear Measurements IVSd: 1.07 0.6-0.9/0.6-1.0 cm LVIDd: 4.41 3.9-5.3/4.2-5.9 cm LVIDd Index: 2.83 2.4-3.2/2.2-3.1 cm/m2 LVIDs: 2.77 2.0-3.6 cm LVPWd: 0.63 0.7-1.1 cm LA Diam: 3.30 2.7-3.8/3.0-4.0 cm LAIDs Index: 2.12 1.5-2.3 cm/m2 LV Mass: 148.03 67-162/88-224 g LV Mass Index: 94.89 43-95/49-115 g/m2 LVOT Diam: 2.00 3.0+(-)1.3 cm 2D Systolic Function EF 4C: 57.20 >55% EF 2C: 58.60 >55% EF BiP: 56.70 >55% Mitral Valve MV Pk E: 0.60 MV PK A: 0.73 MV Decel Time: 158.00 E/A: 0.80 E'Lateral: 5.44 E'Medial: 4.57 E/E' Med: 13.20 E/E' Lat: 11.10 PHT: 46.00 MVA PHT: 4.78 Decel Riley: 3.80 Aortic Valve AoV Pk Milan: 1.25 AoV Mn Milan: 0.77 AoV VTI: 0.19 AoV Pk Grad: 6.00 Aov Mn Grad: 3.00 LYNNE Cont.VTI: 2.46 LVOT LVOT Pk Milan: 1.07 LVOT Mn Milan: 0.62 LVOT VTI: 0.15 LVOT Pk Grad: 5.00 LVOT Mn Grad: 2.00 LVOT Diam: 2.00 LVOT Area: 3.14 Diastolic Function MV Pk E: 0.60 MV Pk A: 0.73 E/A: 0.80 E'Medial: 4.57 E/E' Med: 13.20 E' Laterial: 5.44 E/E' Lat: 11.10 Right Ventricle TAPSE (mm): 21.80 TVS' Milan: 12.80 Tricuspid Valve TR Pk Milan: 2.20 TR Pk Grad: 19.00 RA Press: 3.00 RVSP: 22.00 Great Vessels Aorta Sinus of Valsalva: 2.89 2.0-3.[address] Ridge: 2.38 1.7-3.4 cm Ao Asc: 2.70 2.1-3.4 cm Updated in Other Vendor System with Status of Final Osiel Long MD electronically signed on 08/13/2024 11:18:53 AM with status of Final
--- OUTSIDE RECORDS SUMMARY | 2024-08-12 13:42 | XMS_ITS | Encounter Summary ---
Author Organization [facility] Address [address] [place] [address] Care Team Providers Care Translator Deaf Name Role Phone Dimas Mcnair MD Primary Care Provider [phone] Reason for Visit * Cardiac Stress Testing (Routine) - Authorized Specialty Diagnoses / Procedures Referred By Contac t Referred To Contact Cardiology Diagnoses Chest pain, unspecified type Procedures Nuclear stress test with myocardial perfusion CT MYOCARDIAL PERFUSION IMAGING TOMOGRAPHIC MULTI STUDIES AT REST OR STRESS CT MYOCARDIAL PERFUSION IMAGING TOMOGRAPHIC SINGLE STUDY AT REST OR STRESS CT CARDIOVASCULAR STRESS TEST GLOBAL CT CV TMST/BIKE MAX/SUBMAX CONTINUOUS ECG MON/PHARM STRESS SUPVSR ONLY CT CV STRESS TEST/BIKE CONT ECG MON/PHARM STRESS INTERP & REPORT ONLY CT TEST STRESS CARDIOVASCULAR TRACING ONLY Dimas Mcnair MD [address] [place] [address] [facility] Referral ID Status Reason Start Date Expiration Date V isits Requested Visits Authorized [id number] Authorized 07/02/2024 12/29/2024 3 3 Encounter Details Date Type Department Care Team (Latest Contact Info) Description 07/23/2024 12:00 PM EST Ancillary Procedure [facility] [address] [place] [address] Chest pain, unspecified type Social [...] Antecubital documented in this encounter Care Teams Translator Deaf Relationship Specialty Start Date End Date Dimas Mcnair MD [address] [place] [address] PCP - General Internal Medicine 05/17/24 documented as of this encounter
--- OUTSIDE RECORDS SUMMARY | 2024-08-12 13:42 | XMS_ITS | Encounter Summary ---
Author Organization [facility] Address [address] [place] [address] Care Team Providers Care Fleet Administrator Name Role Phone Neli Gutierrez MD Primary Care Provider Unavail Dimas Westfall MD Primary Care Provider [phone] Vel Merino PA-C Unavailable [phone] Reason for Visit * Reason Onset Date Comments Prior Authorization 04/10/2017 Encounter Details Date Type Department Care Team Description 04/10/2017 Telephone Gastroenterology - [address] [address] Stephen Stevenson MD Prior Authorization Social History [...] an Colonoscopy/Endoscopy on 04/26/17 Patients insurance: Payor: [employer] [facility] / Plan: HMO $0 [id number] / Product Type: HMO [id number] Appointment is with Stephen Stevenson MD Code to process pre-auth for: [id number] and [id number] Location of procedure: [facility] documented in this encounter Plan of Treatment Not on file documented as of this encounter Visit Diagnoses Not on filedocumented in this encounter Care Teams Fleet Administrator Relationship Specialty Start Date End Date Neli Gutierrez MD PCP - General Internal Medicine 12/13/16 03/31/19 Dimas Mcnair MD [address] [place] [address] PCP - General Internal Medicine 04/01/19 Vel Merino PA-C [address] [place] [phone] Specialist Thoracic Surgery 04/09/24 documented as of this encounter
--- OUTSIDE RECORDS SUMMARY | 2024-08-12 13:42 | XMS_ITS | Clinical Summary ---
Author Organization [facility] [address] [facility] Address [address] [place], [place] Phone Care Team Providers Care Silverware Assembler Name Role Phone Dimas Mcnair MD Primary Care Provider [phone] Allergies No known active allergies Medications Medication [...] her arthritis. There is no evidence of Recruitment Manager etiology of her pain. I recommended she [...] Encounters Date Type Department Care Team Description 08/11/2024 Telephone Adult Medicine [address] [address] Dimas Mcnair MD doctors ([facility]) 07/29/2024 12:00 PM EST Ancillary Procedure [facility] [address] [address] 07/23/2024 12:00 PM EST Ancillary Procedure [facility] Cardiology [facility] [address] [address] Chest pain, unspecified type 06/19/2024 10:00 AM EST Consult Adult Medicine [address] [address] Dimas Mcnair MD Preop examination (Primary Dx); Urinary frequency; Chest pain, unspecified type; Sore throat; Closed fracture of tooth, initial encounter; Post-nasal drip 06/03/2024 11:18 AM EST - 06/03/2024 11:59 PM EST Hospital Encounter [facility] Ultrasound [address] [place] [phone] Thyroid nodule Discharge Disposition: Home or Self Care 05/13/2024 7:03 AM EDT - 05/13/2024 11:59 PM EDT Hospital Encounter [facility] Cardiology [facility] [address] [place] [address] Aric Beard MD Discharge Disposition: Home or [...] erosive gastritis, small hiatal hernia COLONOSCOPY 01/27 [facility] PROCEDURE: HISTORICAL COLONOSCOPY; COMMENT: adenoma and poor bowel prep; tics and hemorrhoids COLONOSCOPY 04/26/2017 PROCEDURE: HISTORICAL COLONOSCOPY; COMMENT: normal; repeat in 5 yrs ESOPHAGOGASTRODUODENOSCOPY 01/27 [facility] PROCEDURE: MO ESOPHAGOGASTRODUODENOSCOPY TRANSORAL DIAGNOSTIC; COMMENT: HH and erosive gastritis and H. pylori ESOPHAGOGASTRODUODENOSCOPY 04/26/2017 PROCEDURE: MO EGD TRANSORAL BIOPSY SINGLE/MULTIPLE; COMMENT: Normal esophagus [...] HPV Routine 12/20/2021 HM COLONOSCOPY Routine 04/26/2017 HEPATITIS C SCREENING Routine 12/18/2016 from Last [...] reflex microscopic (06/19/2024 11:17 AM EST) Specific [facility] Urine 1.025 1.003 - 1.030 LAB URINALYSIS - AUTOMATED METHOD 06/19/2024 2:18 PM EST [facility] LAB pH, Urine 6.0 5.0 - 8.0 pH LAB URINALYSIS - AUTOMATED METHOD 06/19/2024 2:18 PM EST [facility] LAB Leukocytes, Urine Negative Negative LAB URINALYSIS - AUTOMATED METHOD 06/19/2024 2:18 PM [facility] Nitrite, Urine Negative Negative LAB URINALYSIS - AUTOMATED METHOD 06/19/2024 2:18 PM [facility] Protein, Urine Negative <=Trace mg/dL LAB URINALYSIS - AUTOMATED METHOD 06/19/2024 2:18 PM [facility] Glucose, Urine Negative Negative mg/dL LAB URINALYSIS - AUTOMATED METHOD 06/19/2024 2:18 PM [facility] Ketones, Urine Negative Negative mg/dL LAB URINALYSIS - AUTOMATED METHOD 06/19/2024 2:18 PM [facility] Urobilinogen, Urine 1.0 0.2 - 1.0 mg/dL LAB URINALYSIS - AUTOMATED METHOD 06/19/2024 2:18 PM [facility] Bilirubin, Urine Negative Negative LAB URINALYSIS - AUTOMATED METHOD 06/19/2024 2:18 PM [facility] Blood, Urine Negative Negative LAB URINALYSIS - AUTOMATED METHOD 06/19/2024 2:18 PM [facility] Urine Urine specimen obtained by clean catch procedure / Unknown Non-blood Collection / Unknown 06/19/2024 11:17 AM EST 06/19/2024 11:17 AM EST Dimas Mcnair MD LAB URINE ORDERABLES [facility] [address] [place] [address], * (ABNORMAL) CBC auto differential (06/19/2024 11:17 AM EST) WBC 9.9 4.8 - 10.8 K/mcL LAB HEMETOLOGY METHOD 06/19/2024 2:27 PM [facility] RBC 4.30 3.80 - 4.80 M/mcL LAB HEMETOLOGY METHOD 06/19/2024 2:27 PM [facility] Hemoglobin 13.0 11.5 - 16.0 g/dL LAB HEMETOLOGY METHOD 06/19/2024 2:27 PM [facility] Hematocrit 40.9 35.0 - 47.0 % LAB HEMETOLOGY METHOD 06/19/2024 2:27 PM [facility] MCV 94.9 79.0 - 98.0 FL LAB HEMETOLOGY METHOD 06/19/2024 2:27 PM [facility] MCH 30.2 27.0 - 32.0 pcg LAB HEMETOLOGY METHOD 06/19/2024 2:27 PM [facility] MCHC 31.8(L) 32.0 - 37.0 g/dL LAB HEMETOLOGY METHOD 06/19/2024 2:27 PM [facility] RDW 11.9 11.0 - 15.0 % LAB HEMETOLOGY METHOD 06/19/2024 2:27 PM [facility] Platelets 310 130 - 400 K/mcL LAB HEMETOLOGY METHOD 06/19/2024 2:27 PM [facility] MPV 11.9(H) 7.0 - 11.0 FL LAB HEMETOLOGY METHOD 06/19/2024 2:27 PM [facility] NRBC 0.0 <1.0 % LAB HEMETOLOGY METHOD 06/19/2024 2:27 PM [facility] NRBC Absolute 0.00 <0.10 K/mcL LAB HEMETOLOGY METHOD 06/19/2024 2:27 PM [facility] Neutrophils Relative 72.5 % LAB HEMETOLOGY METHOD 06/19/2024 2:27 PM [facility] Lymphocytes Relative 20.8 % LAB HEMETOLOGY METHOD 06/19/2024 2:27 PM [facility] Monocytes Relative 5.1 % LAB HEMETOLOGY METHOD 06/19/2024 2:27 PM [facility] Eosinophils Relative 0.7 % LAB HEMETOLOGY METHOD 06/19/2024 2:27 PM [facility] Basophils Relative 0.5 % LAB HEMETOLOGY METHOD 06/19/2024 2:27 PM [facility] Immature Granulocytes Relative 0.4 % LAB HEMETOLOGY METHOD 06/19/2024 2:27 PM [facility] Neutrophils Absolute 7.18(H) 1.50 - 7.00 K/mcL LAB HEMETOLOGY METHOD 06/19/2024 2:27 PM [facility] Lymphocytes Absolute 2.06 1.00 - 5.00 K/mcL LAB HEMETOLOGY METHOD 06/19/2024 2:27 PM [facility] Monocytes Absolute 0.51 0.20 - 1.00 K/mcL LAB HEMETOLOGY METHOD 06/19/2024 2:27 PM [facility] Eosinophils Absolute 0.07 0.00 - 0.50 K/mcL LAB HEMETOLOGY METHOD 06/19/2024 2:27 PM [facility] Basophils Absolute 0.05 0.00 - 0.20 K/mcL LAB HEMETOLOGY METHOD 06/19/2024 2:27 PM [facility] Immature Granulocytes Absolute 0.04(H) 0.00 - 0.03 K/mcL LAB HEMETOLOGY METHOD 06/19/2024 2:27 PM [facility] Blood Venous blood specimen / Unknown Venipuncture / Unknown 06/19/2024 11:17 AM EST 06/19/2024 11:17 AM EST Dimas Mcnair MD LAB BLOOD ORDERABLES [facility] [address] [place] [address], * Prothrombin time with INR (06/19/2024 11:17 AM EST) Pathologist [facility] Protime 11.8 10.6 - 13.9 sec LAB COAGULATION METHOD 06/19/2024 2:41 PM EST [facility] INR 0.9 LAB COAGULATION METHOD 06/19/2024 2:41 PM EST [facility] Blood Venous blood specimen / Unknown Venipuncture / Unknown 06/19/2024 11:17 AM EST 06/19/2024 11:17 AM EST Dimas Mcnair MD LAB BLOOD ORDERABLES Performing Organization Address City/[facility]/ZIP Co de Phone Number [facility] [address] [place] [address], [place] [phone] * Culture urine (06/19/2024 11:17 AM EST) [facility] Culture, Urine No growth 06/20/2024 11:28 AM EST [facility] Urine Urine specimen / Unknown Non-blood Collection / Unknown 06/19/2024 11:17 AM EST 06/19/2024 11:17 AM EST Dimas Mcnair MD LAB MICROBIOLOGY - G ENERAL ORDERABLES [facility] [address] [place] [address], [place] [phone] * Basic metabolic panel (06/19/2024 11:17 AM EST) [facility] [address] Sodium 142 133 - 145 mmol/L LAB CHEMISTRY METHOD 06/19/2024 3:01 PM [facility] Potassium 4.2 3.5 - 5.5 mmol/L LAB CHEMISTRY METHOD 06/19/2024 3:01 PM [facility] Chloride 108 96 - 110 mmol/L LAB CHEMISTRY METHOD 06/19/2024 3:01 PM [facility] CO2 29 21 - 32 mmol/L LAB CHEMISTRY METHOD 06/19/2024 3:01 PM [facility] Anion Gap 5 3 - 11 LAB CHEMISTRY METHOD 06/19/2024 3:01 PM [facility] Glucose 75 70 - 100 mg/dL LAB CHEMISTRY METHOD 06/19/2024 3:01 PM [facility] BUN 16 5 - 25 mg/dL LAB CHEMISTRY METHOD 06/19/2024 3:01 PM [facility] Creatinine 0.69 0.50 - 1.10 mg/dL LAB CHEMISTRY METHOD 06/19/2024 3:01 PM [facility] eGFR 98 >=60 mL/min/1. 73m2 LAB CHEMISTRY METHOD 06/19/2024 3:01 PM [facility] Comment:Calculation based on the??Chronic Kidney Disease Epidemiology Collaboration (CKD-EPI) equation refit??without adjustment for race. BUN/Creatinine Ratio 23.2 LAB CHEMISTRY METHOD 06/19/2024 3:01 PM [facility] Calcium 9.7 8.5 - 10.5 mg/dL LAB CHEMISTRY METHOD 06/19/2024 3:01 PM [facility] Blood Venous blood specimen / Unknown Venipuncture / Unknown 06/19/2024 11:17 AM EST 06/19/2024 11:17 AM EST Dimas Mcnair MD LAB BLOOD ORDERABLES [facility] [address] [place] [address], * US Head Neck Soft Tissue (06/03/2024 [...] Signed Date: 06/05/2024 12:56 ET Workstation ID: [id number] Transcribed By: Self Edit Transcribed Date: 06/05/2024 [...] Signed Date: 06/05/2024 12:56 ET Workstation ID: [id number] Transcribed By: Self Edit Transcribed Date: 06/05/2024 12:49 ET Dimas Mcnair MD IMG US PROCEDURES * Hm Depression Screening (05/05/2024) Depression Screening abstracted Historical Provider MD GAVIOTA Poole * DIAGNOSTIC MAMMOGRAPHY WITH CAD UNILATERAL (01/02/2023 [...] BI PROCEDURES * (ABNORMAL) Lipid panel (08/30/2022) [facility] LDL/HDL Ratio 4 0 - 4 Triglycerides 204(A) 0 - 150 mg/dL Cholesterol 210(A) 0 - 200 mg/dL HDL 51 40 mg/dL LDL Cholesterol 119(A) 0 - 100 mg/dL Blood Venous blood specimen / Unknown Historical Provider LAB BLOOD ORDERAB LES [facility] Cervical Cancer Screening: HPV (12/20/2021) [facility] Cervical Cancer Screening: HPV Abstracted ,negative Historical Provider [facility] * Colonoscopy (04/26/2017) [facility] Colonoscopy No interpreta tion,abstr acted Anatomical Region Laterality Modality Other [facility] Provider [facility] * Hepatitis C Screening (12/18/2016) [facility] Hepatitis C Screening abstracted Historical Provider [facility] from Last 3 Months or Most Recently Relevant to Health Maintenance Care Teams Silverware Assembler Relationship Specialty Start Date End Date Dimas Mcnair MD [address] [place] [address] PCP - General Internal Medicine 05/17/24
--- OUTSIDE RECORDS SUMMARY | 2024-08-12 13:42 | XMS_ITS | Encounter Summary ---
Author Organization [facility] Address [address] [place] [address] Care Team Providers Care Metal Forger'S Assistant Name Role Phone Neli Gutierrez MD Primary Care Provider Unavail Dimas [place]fall MD Primary Care Provider [phone] Vel Merino PA-C Unavailable [phone] Reason for Visit * Reason Onset Date Comments Prior Authorization 02/06/2019 Encounter Details Date Type Department Care Team Description 02/06/2019 Telephone Adult Medicine [address] [address] Neli Gutierrez MD Prior Authorization Social History Tobacco Use [...] encounter Miscellaneous Notes * Telephone Encounter - Marielos Arteaga M.A. - 02/24/2019 8:49 AM EDT Medication was changed on 02/06/19 To albuterol. * Telephone Encounter - Tiffany Landin'Neill - 02/06/2019 12:41 PM EDT Pre Authorization for Medication-do not complete and send this encounter unless you have the fax from the pharmacy. Is this a Cover My Meds request: Eclectic of Medication Albuterol Sulfate 108 (90 BASE) MCG/ACT AEROSOL POWDER,BREATH ACTIVATED - PROAIRRESPI AER Dose of Medication as stated above What is the RX # from the faxed refill? [id number] How does patient take this med? Inhale 2 Puffs into the lungs every 6 hours as needed (Cough, Wheezing or Shortness of Breath). - Inhalation What Pharmacy did the fax come from: [facility] fax #: [phone] [employer] Party Information from fax: What Prescription Plan does the patient have? [employer] - [facility] BIN/PCN if applicable: not stated on fax Cardholder ID: [id number] Person Code: not stated on fax Relationship Code: not stated on fax Help desk phone: [phone] documented in this encounter Plan of Treatment Not on file documented as of this encounter Visit Diagnoses Not on filedocumented in this encounter Care Teams Metal Forger'S Assistant Relationship Specialty Start Date End Date Neli Gutierrez MD PCP - General Internal Medicine 12/13/16 03/31/19 Dimas Mcnair MD [address] [place] [address] PCP - General Internal Medicine 04/01/19 Vel Merino PA-C [address] [place] [address] Specialist Thoracic Surgery 04/09/24 documented as of this encounter
--- OUTSIDE RECORDS SUMMARY | 2024-08-12 13:42 | XMS_ITS | Encounter Summary ---
Author Organization [facility] Address [address] [place] [address] Care Team Providers Care Glue Cook Name Role Phone Neli Gutierrez MD Primary Care Provider Unavail able Dimas Mcnair MD Primary Care Provider [phone] Vel Merino PA-C Unavailable [phone] Encounter Details Date Type Department Care Team Description 03/12/2019 Orders Only Gastroenterology - [place] [address] [facility] [address] [place] [address] Naseem Heller PA-C Social History [...] on filedocumented in this encounter Care Teams Glue Cook Relationship Specialty Start Date End Date Neli Gutierrez MD PCP - General Internal Medicine 12/13/16 03/31/19 Dimas Mcnair MD [address] [place] [id number] PCP - General Internal Medicine 04/01/19 Vel Merino PA-C [address] [facility] [address] [place] [address] Specialist Thoracic Surgery 04/09/24 documented as of this encounter
--- OUTSIDE RECORDS SUMMARY | 2024-08-12 13:42 | XMS_ITS | Encounter Summary ---
Author Organization [facility] Address [address] [place] [address] Care Team Providers Care Bait Digger Name Role Phone Dimas Mcnair MD Primary Care Provider [phone] Vel Merino PA-C Unavailable [phone] Encounter Details Date Type Department Care Team Description 12/15/2021 Highway Painter Helper Report Medical Records [address] [place] [address] Gurdeep Marques MD Social History Tobacco Use [...] on filedocumented in this encounter Care Teams Bait Digger Relationship Specialty Start Date End Date Dimas Mcnair MD [address] [place] [address] PCP - General Internal Medicine 04/01/19 Vel Merino PA-C [address] [place] [address] Specialist Thoracic Surgery 04/09/24 documented as of this encounter
--- OUTSIDE RECORDS SUMMARY | 2024-08-12 13:42 | XMS_ITS | Encounter Summary ---
Author Organization [facility] Address [address] [place] [address] Care Team Providers Care Interventional Pain Physician Name Role Phone Dimas Mcnair MD Primary Care Provider [phone] Vel Merino PA-C Unavailable [phone] Reason for Visit * Reason Comments E-prescribe Rx Request Encounter Details Date Type Department Care Team Description 12/12/2021 Refill Endocrinology - [address] [address] Tonie Ceja PA-C [address] [place] [address] E-prescribe Rx Request Social History Tobacco Use [...] N/A Patients current insurance carrier is: Payor: MEDICARE-[employer] / Plan[place] / Product Type: MEDICARE [id number] documented in this encounter Plan of Treatment Not on file documented as of this encounter Visit Diagnoses Not on filedocumented in this encounter Care Teams Interventional Pain Physician Relationship Specialty Start Date End Date Dimas Mcnair MD [address] [place] [address] PCP - General Internal Medicine 04/01/19 Vel Merino PA-C [address] [place] [address] Specialist Thoracic Surgery 04/09/24 documented as of this encounter
--- OUTSIDE RECORDS SUMMARY | 2024-08-12 13:42 | XMS_ITS | Encounter Summary ---
Author Organization [facility] Address [address] [place] [address] Care Team Providers Care Cooler Service Supervisor Name Role Phone Dimas Mcnair MD Primary Care Provider [phone] Reason for Visit * Reason Onset Date Comments doctors 08/11/2024 [facility] calling Encounter Details Date Type Department Care Team ([facility] st Contact Info) Description 08/11/2024 Telephone Adult Medicine [address] [address] Dimas Mcnair MD [address] [place] [address] doctors ([facility] calling) Social History Tobacco Use Types Packs/Day Years [...] on file documented as of this encounter Progress Notes * Janelle Hall RN - 08/11/2024 10:16 AM EST Pt had a pre op clearance appointment with Dr. Mcnair on 06/19/24. During the appointment she reported chest pain. A dobutamine stress test was ordered by Dr. Mcnair. She had the stress test on 07/23/24; 64 yo female preoperative evaluation prior to planned hip surgery. Atypical chest pain. A dobutamine nuclear stress test was ordered by PCP, however patient has no contraindication to regadenoson. The ECG shows normal sinus rhythm There were no arrhythmias during stress. Stress EKG showed 0.5 mm- [address] segment depressions in the inferior leads which are borderline diagnostic for ischemia. There were no arrhythmias during recovery. The result of the stress ECG was borderline diagnostic for ischemia. Josiane, a nurse from [facility] is requesting an addendum from PCP stating that pt is clear for surgery or is not r/t stress test results. * Giuliano Diaz LPN - 08/11/2024 10:00 AM EST [facility] called see message * Angella Baltazar - 08/11/2024 8:44 AM EST [facility] CALL Which [facility] office is calling? [facility] Full name of caller: josiane The caller is A nurse Is the caller at the patients home?: no Reason for call: Nurse from [facility] is calling stating they need and addendum from Provider stating that patient is clear for surgery or isn't per her stress test results. Does caller need an urgent call back? yes Was CONTACT Telephone # obtained above?: yes Fax #: [phone] documented in this encounter Plan of Treatment Not on file documented as of this encounter Visit Diagnoses Not on filedocumented in this encounter Care Teams Cooler Service Supervisor Relationship Specialty Start Date End Date Dimas Mcnair MD [address] [place] [address] PCP - General Internal Medicine 05/17/24 documented as of this encounter
--- OUTSIDE RECORDS SUMMARY | 2024-08-12 13:42 | XMS_ITS | Clinical Summary ---
Author Organization [facility] Address [address] [place] [address] Care Team Providers Care Fur Vault Attendant Name Role Phone Dimas Mcnair MD Primary Care Provider [phone] Allergies No known active allergies Medications Medication [...] age to complete this topic Care Teams Fur Vault Attendant Relationship Specialty Start Date End Date Dimas Mcnair MD PCP - General Internal Medicine 10/28/21
--- OUTSIDE RECORDS SUMMARY | 2024-08-12 13:42 | XMS_ITS | Encounter Summary ---
Author Organization [facility] Address [address] [place] [address] Care Team Providers Care Regulatory Compliance Director Name Role Phone Dimas Mcnair MD Primary Care Provider [phone] Reason for Visit * Cardiac Stress Testing (Routine) - Authorized Specialty Diagnoses / Procedures Referred By Contac t Referred To Contact Cardiology Diagnoses Chest pain, unspecified type Procedures Nuclear stress test with myocardial perfusion FL MYOCARDIAL PERFUSION IMAGING TOMOGRAPHIC MULTI STUDIES AT REST OR STRESS FL MYOCARDIAL PERFUSION IMAGING TOMOGRAPHIC SINGLE STUDY AT REST OR STRESS FL CARDIOVASCULAR STRESS TEST GLOBAL FL CV TMST/BIKE MAX/SUBMAX CONTINUOUS ECG MON/PHARM STRESS SUPVSR ONLY FL CV STRESS TEST/BIKE CONT ECG MON/PHARM STRESS INTERP & REPORT ONLY FL TEST STRESS CARDIOVASCULAR TRACING ONLY Dimas Mcnair MD [address] [place] [address] [facility] Referral ID Status Reason Start Date Expiration Date V isits Requested Visits Authorized [id number] Authorized 07/02/2024 12/29/2024 3 3 Encounter Details Date Type Department Care Team (Late st Contact Info) Description 07/29/2024 12:00 PM EST Ancillary Procedure [facility] [address] [place] [address] Social History Tobacco Use Types [...] Antecubital documented in this encounter Care Teams Regulatory Compliance Director Relationship Specialty Start Date End Date Dimas Mcnair MD [address] [place] [address] PCP - General Internal Medicine 05/17/24 documented as of this encounter
--- OUTSIDE RECORDS SUMMARY | 2024-08-12 13:42 | XMS_ITS | Encounter Summary ---
Author Organization [facility] Address [address] [place] [address] Care Team Providers Care Electric Stove Mechanic Name Role Phone Neli Gutierrez MD Primary Care Provider Unavail able Dimas Mcnair MD Primary Care Provider [phone] Vel Merino PA-C Unavailable [phone] Encounter Details Date Type Department Care Team Description 11/19/2018 Visiting Nurse Report Medical Records [address] [place] [address] Hyacinth Mendez PA-C [address] [address] Social History Tobacco Use Types [...] filedocumented in this encounter Care Teams Electric Stove Mechanic Relationship Specialty Start Date End Date Neli Gutierrez MD PCP - General Internal Medicine 12/13/16 03/31/19 Dimas Mcnair MD [address] [place] [address] PCP - General Internal Medicine 04/01/19 Vel Merino PA-C [address] [address] Specialist Thoracic Surgery 04/09/24 documented as of this encounter
--- OUTSIDE RECORDS SUMMARY | 2024-08-12 13:42 | XMS_ITS | Clinical Summary ---
Author Organization [facility] Address [address] [place] [address] Care Team Providers Care Refrigeration Service Inspector Name Role Phone Dimas Mcnair MD Primary Care Provider [phone] Vel eMrino PA-C Unavailable [phone] Allergies No known active allergies Medications Medication Sig Dispensed Refills Start Date End Date Status oxycodone-acetamino phen (PERCOCET) 5-325 MG per tablet TAKE ONE TABLET BY MOUTH FOUR TIMES A DAY FOR 7 DAYS 0 09/07/2022 Active ALBUTEROL SULFATE 108 (90 Base) MCG/ACT Aero Soln Inhale 2 Puffs into the lungs every 6 hours as needed for Cough, Wheezing or Shortness of Breath. 8.5 g 1 10/25/2023 Active verapamil (VERELAN) 100 MG 24 hr capsule Take 1 Capsule by mouth at bedtime. 90 Capsule 1 05/05/2024 Active polyethylene glycol (GLYCOLAX) 17 GM/SCOOP powder Take 17 g by mouth daily. 510 g 1 05/05/2024 Active betamethasone valerate (VALISONE) 0.1 % ointment APPLY TO THE AFFECTED AREAS TWICE A DAY X 2 WEEKS THEN PRN FLARES. 30 g 4 05/05/2024 Active Active Problems Problem Noted Date Tubular adenoma 10/25/2023 Preoperative cardiovascular examination 02/06/2023 Bacterial vaginosis 12/28/2022 Last Assessment & Plan: Rx for Flagyl ePrescribed to pharmacy. RTO if symptoms do not improve following treatment. GC/CT collected, will treat as indicated Left groin pain 06/01/2022 Last Assessment & Plan: I explained that based on her exam, this pain represents pain in the area of her inguinal ligament. It could be related to progression of her arthritis. There is no evidence of Stove Installer etiology of her pain. I recommended she follow up with her PCP for imaging or other recommendations and consider NSAIDs in the meantime. She agreed. Low back pain 06/01/2022 Last Assessment & Plan: I referred her to her PCP for further evaluation. Psoriasis 12/20/2021 Last Assessment & Plan: Referral placed to dermatology Skin lesion 12/20/2021 Last Assessment & Plan: Referral placed to dermatology Palpitations 10/06/2020 Pulmonary nodules 02/12/2020 Overview: Follows with thoracic surgery. CT chest 02-25-21 showed no malignancy. Chronic headache disorder 05/06/2019 Overview: Childhood onset. Thyroid nodule 02/25/2019 Overview: Repeat US for follow up 02/2020 Mild emphysema 11/20/2018 Overview: S/p LDCT 10/2018 Subclinical hyperthyroidism 10/24/2018 OA (osteoarthritis) of hip 09/24/2018 Overview: Left; follows with physiatry Trochanteric bursitis of left hip 2018 Overview: Follows with physiatry s/p corticosteroid injections IBS (irritable bowel syndrome) 7 Overview: Childhood onset, alternating C/D. Vitamin D deficiency 12/29/2016 Hypercholesteremia 12/19/2016 Tobacco abuse Last Assessment & Plan: Patient states she has made the decision to quit after she finishes this pack. Encouraged to quit. History of Helicobacter pylori infection Overview: Normal EGD 04/2017 Cocaine use Resolved Problems Problem Noted Date Resolved Date Depression 12/29/2016 01/30/2017 Chronic back pain 12/29/2016 01/30/2017 Elevated fasting glucose 12/19/2016 017 Vertigo 04/26/2017 Encounters Date Type Specialty Care Team Description 05/13/2024 Cardiology Procedure Cardiology Chica l artery aneurysm (HCC) 05/13/2024 Travel from Last 3 Months Immunizations Name Administration Dates Next Due COVID-19 (Moderna) 12/16/2020,11/16/2020 Pneumoccoccal(Adult) Polysaccharide PPSV23 03/14 Tdap 03/14/2022 Family History Medical History Relation Name Comments unknown cancer Brother x 1 Cancer of the Colon Daughter Cancer of the Lung Father at 5 6 (+smoker) Cancer of the Lung Maternal Grandmother ( +smoker) CAD Mother w/ stenting; HT N, HLD Hypercholesterolemia Sister x 1 CA Breast Negative Hx Relation Name Status Comments Brother x [...] Sign Reading Time Taken Comments Blood Pressure 122/76 05/05/2024 2:34 PM EDT Pulse 84 05/05/2024 2:34 PM EDT Temperature 36.7 ??C (98.1 ??F) 05/05/2024 2:34 PM ED T Respiratory Rate 12 05/05/2024 2:34 PM EDT Oxygen Saturation 94% 02/06/2023 1:07 PM EDT Inhaled Oxygen Concentration - - Weight 56.2 kg (124 lb) 05/05/2024 2:34 PM EDT Height 160 cm (5' 3 ) 05/05/2024 2:34 PM EDT Body Mass Index 21.97 05/05/2024 2:34 PM EDT Plan of Treatment Health Maintenance Due Date Last Done Comments COLON CANCER SCREENING 04/26/2022 04/26/2017, 2014 DEPRESSION SCREEN 03/14/2023 03/14/2022, (Completed) BASELINE HEALTH EXAM 40-64 05/09/202305/09, 12/18/2016, 12/13/2016, Additional history exists MAMMOGRAM 01/03/2024 01/02/2023, 11/14, 11/09/2021, Additional history exists Covid-19 Vaccine (2022- season) 2024 12/16/2020, 11/16/2020 INFLUENZA (#1) 2024 09/24/2018 (Refu sed), 08/15/2017 (Refused) DEPRESSION SCREENING/FOLLOWUP 07/16/2024 05/05/2024, 01/24/2023, 01/03/2023, Additional history exists SOCIAL NEEDS SCREENING 07/16/2024 07/22/2020, 2018 SHINGLES VACCINE (1 of 2) 10/24/2024 Po stponed from 2011 (Other Circumstances) CERVICAL CANCER SCREENING 12/20/20242021, 01/30/2017, 12/18/2014 (External Completion), Additional history exists Lung Cancer Screening (Low Dose CT) 04/09/2025 04/09/2024, 02/25/2021, 02/21/2020, Additional history exists TOBACCO CHECK/ADVISE 10/24/2025 10/25/2023 (Completed), 06/13/2018, 03/25/2018 PNEUMOCOCCAL VACCINE FOR HIGH RISK PATIENTS (#2) 03/14/2027 03/14/2022 CHOLESTEROL SCREENING 08/30/2027 08/30/2022 , 08/30/2022, 07/05/2021, Additional history exists DTAP/TDAP/TD (3 - Td or Tdap) 03/14/2032 03/14/2022, 11/18/2011 (External Completion) HEPATITIS C SCREENING Completed 12/18/2016 Procedures Procedure Name Priority Date/Time Associated Diagnosis Comments NV DUP-SCAN ARTL SADIE ABDL/PEL/SCROT&/RPR ORGN COM Routine 05/13/2024 Renal artery aneurysm (HCC) from Last 3 Months Results * RENAL ARTERY DUPLEX (05/13/2024) Dimas Mcnair MD OUTSIDE CARDIOLOGY [facility] from Last 3 Months Care Teams Refrigeration Service Inspector Relationship Specialty Start Date End Date Dimas Mcnair MD [address] [place] [phone] PCP - General Internal Medicine 04/01/19 Vel Merino PA-C [address] [place] [phone] Specialist Thoracic Surgery 04/09/24
--- OUTSIDE RECORDS SUMMARY | 2024-08-12 13:42 | XMS_ITS | Encounter Summary ---
Author Organization [facility] Address [address] [place] [address] Care Team Providers Care House Painter Helper Name Role Phone Neli Gutierrez MD Primary Care Provider Unavail able Dimas Mcnair MD Primary Care Provider [phone] Vel Merino PA-C Unavailable [phone] Encounter Details Date Type Department Care Team Description 12/21/2016 Transfer Records Medical Records [address] [place] [address] Abstract, Provider Social History Tobacco Use Types [...] on filedocumented in this encounter Care Teams House Painter Helper Relationship Specialty Start Date End Date Neli Gutierrez MD PCP - General Internal Medicine 12/13/16 03/31/19 Dimas Mcnair MD [address] [place] [address] PCP - General Internal Medicine 04/01/19 Vel Merino PA-C [address] [place] [phone] Specialist Thoracic Surgery 04/09/24 documented as of this encounter
--- OUTSIDE RECORDS SUMMARY | 2024-08-12 13:43 | XMS_ITS | Encounter Summary ---
Author Organization [facility] Address [address] [place] [address] Care Team Providers Care Biodiesel Processing Technician Name Role Phone Dimas Mcnair MD Primary Care Provider [phone] Vel Merino PA-C Unavailable [phone] Reason for Visit * Reason Onset Date Comments Error 08/04/2020 Encounter Details Date Type Department Care Team Description 08/04/2020 Telephone Adult [address] [phone] Dimas Mcnair MD [address] [place] [phone] Error Social History Tobacco Use Types Packs/Day Years [...] on filedocumented in this encounter Care Teams Biodiesel Processing Technician Relationship Specialty Start Date End Date Dimas Mcnair MD [address] [place] [address] PCP - General Internal Medicine 04/01/19 Vel Merino PA-C [address] [place] [phone] Specialist Thoracic Surgery 04/09/24 documented as of this encounter
--- OUTSIDE RECORDS SUMMARY | 2024-08-12 13:43 | XMS_ITS | Encounter Summary ---
Author Organization [facility] Address [address] [place] [address] Care Team Providers Care Hardwood Flooring Specialist Name Role Phone Dimas Mcnair MD Primary Care Provider [phone] Vel Merino PA-C Unavailable [phone] Encounter Details Date Type Department Care Team Description 02/22/2023 Reconciliation Clerk Report Medical Records [address] [place] [address] Hammad Alanis PA-C Social History Tobacco Use [...] on filedocumented in this encounter Care Teams Hardwood Flooring Specialist Relationship Specialty Start Date End Date Dimas Mcnair MD [address] [place] [address] PCP - General Internal Medicine 04/01/19 Vel Merino PA-C [address] [place] [phone] Specialist Thoracic Surgery 04/09/24 documented as of this encounter
--- OUTSIDE RECORDS SUMMARY | 2024-08-12 13:43 | XMS_ITS | Encounter Summary ---
Author Organization [facility] Address [address] [place] [address] Care Team Providers Care Door Core Assembler Name Role Phone Neli Gutierrez MD Primary Care Provider Unavail able Dimas Mcnair MD Primary Care Provider [phone] Vel Merino PA-C Unavailable [phone] Encounter Details Date Type Department Care Team Description 04/24/2018 Release of Information Medical Records [address] [place] [id number] Abstract, Provider Social History Tobacco Use Types [...] on filedocumented in this encounter Care Teams Door Core Assembler Relationship Specialty Start Date End Date Neli Gutierrez MD PCP - General Internal Medicine 12/13/16 03/31/19 Dimas Mcnair MD [address] [place] [address] [phone] PCP - General Internal Medicine 04/01/19 eVl Merino PA-C [address] [phone] Specialist Thoracic Surgery 04/09/24 documented as of this encounter
--- OUTSIDE RECORDS SUMMARY | 2024-08-12 13:43 | XMS_ITS | Encounter Summary ---
Author Organization [facility] Address [address] [place] [address] Care Team Providers Care Accreditation Coordinator Name Role Phone Dimas Mcnair MD Primary Care Provider [phone] Vel Merino PA-C Unavailable [phone] Encounter Details Date Type Department Care Team Description 12/22/2022 Skiver Machine Operator Report Medical Records [address] [place] [address] Hammad Alanis PA-C Social History Tobacco Use [...] on filedocumented in this encounter Care Teams Accreditation Coordinator Relationship Specialty Start Date End Date Dimas Mcnair MD [address] [place] [address] PCP - General Internal Medicine 04/01/19 Vel Merino PA-C [address] [place] [phone] Specialist Thoracic Surgery 04/09/24 documented as of this encounter
--- OUTSIDE RECORDS SUMMARY | 2024-08-12 13:43 | XMS_ITS | Encounter Summary ---
Author Organization [facility] Address [address] [place] [address] Care Team Providers Care Construction Code Administrator Name Role Phone Dimas Mcnair MD Primary Care Provider [phone] Vel Merino PA-C Unavailable [phone] Encounter Details Date Type Department Care Team Description 11/14/2023 Hospital Medical Records [address] [place] [address] [facility] Social History Tobacco Use Types Packs/Day [...] on filedocumented in this encounter Care Teams Construction Code Administrator Relationship Specialty Start Date End Date Dimas Mcnair MD [address] [place] [address] [phone] PCP - General Internal Medicine 04/01/19 Vel Merino PA-C [address] [place] [phone] Specialist Thoracic Surgery 04/09/24 documented as of this encounter
--- OUTSIDE RECORDS SUMMARY | 2024-08-12 13:43 | XMS_ITS | Encounter Summary ---
Author Organization [facility] Address [address] [place] [address] Care Team Providers Care Front End Software Developer Name Role Phone Dimas Mcnair MD Primary Care Provider [phone] Vel Merino PA-C Unavailable [phone] Encounter Details Date Type Department Care Team Description 08/31/2022 Orders Only Adult Medicine [address] [phone] Yajaira Goodwin PA-C [address] [place] [address] [phone] Social History Tobacco Use Types Packs/Day Years [...] on filedocumented in this encounter Care Teams Front End Software Developer Relationship Specialty Start Date End Date Dimas Mcnair MD [address] [place] [address] PCP - General Internal Medicine 04/01/19 Vel Merino PA-C [address] [place] [phone] Specialist Thoracic Surgery 04/09/24 documented as of this encounter
--- OUTSIDE RECORDS SUMMARY | 2024-08-12 13:43 | XMS_ITS | Encounter Summary ---
Author Organization [facility] Address [address] [place] [address] Care Team Providers Care Hide Sorter Name Role Phone Dimas Mcnair MD Primary Care Provider [phone] Vel Merino PA-C Unavailable [phone] Encounter Details Date Type Department Care Team Description 02/21/2020 Dial Polisher Report Medical Records [address] [place] [address] [facility] [address] [place] [address] Social History Tobacco Use Types Packs/Day Years [...] on filedocumented in this encounter Care Teams Hide Sorter Relationship Specialty Start Date End Date Dimas Mcnair MD [address] [place] [address] PCP - General Internal Medicine 04/01/19 Vel Merino PA-C [address] [phone] Specialist Thoracic Surgery 04/09/24 documented as of this encounter
--- OUTSIDE RECORDS SUMMARY | 2024-08-12 13:43 | XMS_ITS | Encounter Summary ---
Author Organization [facility] Address [address] [place] [address] Care Team Providers Care Independent Consultant Name Role Phone Dimas Mcnair MD Primary Care Provider [phone] Vel Merino PA-C Unavailable [phone] Reason for Visit * Reason Comments E-prescribe Rx Request Encounter Details Date Type Department Care Team Description 08/25/2022 Refill Endocrinology - [address] [address] Tonie Ceja PA-C [address] [place] [address] E-prescribe Rx Request Social History Tobacco Use [...] the RX # listed on the fax? [id number] Patients current insurance carrier is: Payor: MEDICARE-VCV / Plan: MEDICARE-VCV / Product Type: MEDICARE [id number] documented in this encounter Plan of Treatment Not on file documented as of this encounter Visit Diagnoses Not on filedocumented in this encounter Care Teams Independent Consultant Relationship Specialty Start Date End Date Dimas Mcnair MD [address] [place] [address] [phone] PCP - General Internal Medicine 04/01/19 Vel Merino PA-C [address] [place] [phone] Specialist Thoracic Surgery 04/09/24 documented as of this encounter
--- OUTSIDE RECORDS SUMMARY | 2024-08-12 13:43 | XMS_ITS | Encounter Summary ---
Author Organization [facility] Address [address] [place] [address] Care Team Providers Care Broaching Machine Set Up Operator Name Role Phone Dimas Mcnair MD Primary Care Provider [phone] Vel Merino PA-C Unavailable [phone] Encounter Details Date Type Department Care Team Description 11/14/2023 Hospital Medical Records [address] [place] [address] Adrian Agarwal MD, PHD Social History Tobacco [...] on filedocumented in this encounter Care Teams Broaching Machine Set Up Operator Relationship Specialty Start Date End Date Dimas Mcnair MD [address] [place], [place] [phone] PCP - General Internal Medicine 04/01/19 Vel Merino PA-C [address] [place] [phone] Specialist Thoracic Surgery 04/09/24 documented as of this encounter
--- OUTSIDE RECORDS SUMMARY | 2024-08-12 13:43 | XMS_ITS | Encounter Summary ---
Author Organization [facility] Address [address] [place] [address] Care Team Providers Care Lead Software Test Engineer Name Role Phone Dimas Mcnair MD Primary Care Provider [phone] Vel Merino PA-C Unavailable [phone] Encounter Details Date Type Department Care Team Description 04/11/2023 Shuttle Preparation Supervisor Report Medical Records [address] [place] [address] Adrian Agarwal MD, PHD Social History Tobacco [...] on filedocumented in this encounter Care Teams Lead Software Test Engineer Relationship Specialty Start Date End Date Dimas Mcnair MD [address] [place], [place] [phone] PCP - General Internal Medicine 04/01/19 Vel Merino PA-C [address] [place] [phone] Specialist Thoracic Surgery 04/09/24 documented as of this encounter
--- OUTSIDE RECORDS SUMMARY | 2024-08-12 13:43 | XMS_ITS | Encounter Summary ---
Author Organization [facility] Address [address] [place] [address] Care Team Providers Care Buncher Machine Name Role Phone Dimas Mcnair MD Primary Care Provider [phone] Vel Merino PA-C Unavailable [phone] Encounter Details Date Type Department Care Team Description 06/13/2023 Neon Sign Erector Report Medical Records [address] [place] [address] Adrian Agarwal MD, PHD Social History Tobacco [...] on filedocumented in this encounter Care Teams Buncher Machine Relationship Specialty Start Date End Date Dimas Mcnair MD [address] [place], [place] [phone] PCP - General Internal Medicine 04/01/19 Vel Merino PA-C [address] [place] [phone] Specialist Thoracic Surgery 04/09/24 documented as of this encounter
--- OUTSIDE RECORDS SUMMARY | 2024-08-12 13:43 | XMS_ITS | Encounter Summary ---
Author Organization [facility] Address [address] [place] [address] Care Team Providers Care Chair Mechanic Name Role Phone Neli Gutierrez MD Primary Care Provider Unavail able Dimas Mcnair MD Primary Care Provider [phone] Vel Merino PA-C Unavailable Encounter Details Date Type Department Care Team Description 08/16/2018 Release of Information Medical Records [address] [place] [address] Abstract, Provider Social History Tobacco Use Types [...] on filedocumented in this encounter Care Teams Chair Mechanic Relationship Specialty Start Date End Date Neli Gutierrez MD PCP - General Internal Medicine 12/13/16 03/31/19 Dimas Mcnair MD [address] [place] [address] [phone] PCP - General Internal Medicine 04/01/19 Vel Merino PA-C [address] [phone] Specialist Thoracic Surgery 04/09/24 documented as of this encounter
--- OUTSIDE RECORDS SUMMARY | 2024-08-12 13:43 | XMS_ITS | Encounter Summary ---
Author Organization [facility] Address [address] [place] [address] Care Team Providers Care Solution Maker Name Role Phone Dimas Mcnair MD Primary Care Provider [phone] Vel Merino PA-C Unavailable [phone] Encounter Details Date Type Department Care Team Description 04/10/2020 Hospital Medical Records [address] [place] [address] Social History Tobacco Use Types Packs/Day Years [...] have Coronavirus / COVID-19? No / Unsure 04/06/2020 10:18 AM EDT documented as of this encounter Plan of Treatment Not on file documented as of this encounter Procedures Procedure Name Priority Date/Time Associated Diagnosis Comments OUTSIDE EKG Routine 04/10/2020 OUTSIDE PLAIN FILM Routine 04/10/2020 OUTSIDE LAB Routine 04/10/2020 documented in this encounter Results * OUTSIDE PLAIN FILM (04/10/2020) Provider Abstract RADIOLOGY * OUTSIDE LAB (04/10/2020) Provider Abstract LAB * OUTSIDE EKG (04/10/2020) Provider Abstract CARDIOLOGY documented in this encounter Visit Diagnoses Not on filedocumented in this encounter Care Teams Solution Maker Relationship Specialty Start Date End Date Dimas Mcnair MD [address] [place] [address] PCP - General Internal Medicine 04/01/19 Vel Merino PA-C [address] [phone] Specialist Thoracic Surgery 04/09/24 documented as of this encounter
--- OUTSIDE RECORDS SUMMARY | 2024-08-12 13:43 | XMS_ITS | Encounter Summary ---
Author Organization [facility] Address [address] [place] [address] Care Team Providers Care Tablet Repair Name Role Phone Dimas Mcnair MD Primary Care Provider [phone] Vel Merino PA-C Unavailable [phone] Encounter Details Date Type Department Care Team Description 08/14/2022 Nutrition Worker Report Medical Records [address] [place] [address] Walter Rai DO Social History Tobacco Use [...] on filedocumented in this encounter Care Teams Tablet Repair Relationship Specialty Start Date End Date Dimas Mcnair MD [address] [place], [place] [phone] PCP - General Internal Medicine 04/01/19 Vel Merino PA-C [address] [place] [phone] Specialist Thoracic Surgery 04/09/24 documented as of this encounter
--- OUTSIDE RECORDS SUMMARY | 2024-08-12 13:43 | XMS_ITS | Encounter Summary ---
Author Organization [facility] Address [address] [place] [address] Care Team Providers Care Chief Nursing Officer Name Role Phone Community, Pcp Primary Care Provider Neli Trujillo MD Primary Care Provider Unavail Ryan Hou MD Primary Care Provider UnavailNeli Mai MD Primary Care Provider Unavail able Dimas Mcnair MD Primary Care Provider [phone] Vel Merino PA-C Unavailable [phone] Encounter Details Date Type Department Care Team Description 01/25/2013 Hospital Medical Records [address] [place], [place] [phone] [place] [address] Social History Tobacco Use Types Packs/Day Years [...] filedocumented in this encounter Care Teams Chief Nursing Officer Relationship Specialty Start Date End Date Community, Pcp PCP - General Internal Medicine 07/16/12 09/17/16 Neli Gutierrez MD PCP - General Internal Medicine 09/18/16 10/13/16 Ryan Ramos MD PCP - General Internal Medicine 10/14/16 12/12/16 Neli Gutierrez MD PCP - General Internal Medicine 12/13/16 03/31/19 Dimas Mcnair MD [address] [place] [address] PCP - General Internal Medicine 04/01/19 Vel Merino PA-C [address] [place] [phone] Specialist Thoracic Surgery 04/09/24 documented as of this encounter
--- OUTSIDE RECORDS SUMMARY | 2024-08-12 13:43 | XMS_ITS | Encounter Summary ---
Author Organization [facility] Address [address] [place] [address] Care Team Providers Care Photo Finish Photographer Name Role Phone Dimas Mcnair MD Primary Care Provider [phone] Vel Merino PA-C Unavailable [phone] Encounter Details Date Type Department Care Team Description 05/30/2020 Telephone Adult Medicine [address] [address] Chivo Martinez MD Social History Tobacco Use [...] on filedocumented in this encounter Care Teams Photo Finish Photographer Relationship Specialty Start Date End Date Dimas Mcnair MD [address] [place] [address] PCP - General Internal Medicine 04/01/19 Vel Merino PA-C [address] [phone] Specialist Thoracic Surgery 04/09/24 documented as of this encounter
--- OUTSIDE RECORDS SUMMARY | 2024-08-12 13:43 | XMS_ITS | Encounter Summary ---
Author Organization [facility] Address [address] [place] [address] Care Team Providers Care Small Arms Artillery Repairer Name Role Phone Dimas Mcnair MD Primary Care Provider [phone] Vel Merino PA-C Unavailable [phone] Encounter Details Date Type Department Care Team Description 02/26/2021 Materials Engineering Technician Report Medical Records [address] [place] [address] [facility] [address] [place] [address] Social History Tobacco Use Types Packs/Day Years [...] on filedocumented in this encounter Care Teams Small Arms Artillery Repairer Relationship Specialty Start Date End Date Dimas Mcnair MD [address] [place] [address] PCP - General Internal Medicine 04/01/19 Vel Merino PA-C [address] [phone] Specialist Thoracic Surgery 04/09/24 documented as of this encounter
--- OUTSIDE RECORDS SUMMARY | 2024-08-12 13:43 | XMS_ITS | Encounter Summary ---
Author Organization [facility] Address [address] [place] [address] Care Team Providers Care Asbestos Surveyor Name Role Phone Dimas Mcnair MD Primary Care Provider [phone] Vel Merino PA-C Unavailable [phone] Encounter Details Date Type Department Care Team Description 05/31/2020 Orders Only Adult Medicine [facility] [address] [place] [address] Chivo Martinez MD Subclinical hyperthyroidism (Primary Dx) [...] 10.8 x10-3/uL 01/27/2021 2:46 PM EDT [facility] RED BLOOD COUNT 4.4 3.8 - 4.8 x10-6/uL 01/27/2021 2:46 PM EDT [facility] Hemoglobin 13.4 11.5 - 16.0 g/dL 01/27/2021 2:46 PM EDT [facility] Hematocrit 41.1 35 - 47 % 01/27/2021 2:46 PM EDT [facility] MEAN CORPUSCULAR VOLUME 94.5 79 - 98 fL 01/27/2021 2:46 PM EDT [facility] MEAN CORPUSCULAR HEMOGLOBIN 30.8 27 - 32 pg 01/27/2021 2:46 PM EDT [facility] CORPUSCULAR HGB CONC 32.6 32 - 37 g/dL 01/27/2021 2:46 PM EDT [facility] RED CELL DISTRIBUTION WIDTH 12.2 11 - 15 % 01/27/2021 2:46 PM EDT [facility] PLT COUNT 241 130 - 400 x10-3/uL 01/27/2021 2:46 PM [facility]T [facility] MEAN PLATELET VOLUME 12.0(H) 7 - 11 fL 01/27/2021 2:46 PM EDT [facility] NRBC % AUTO 0.0 <1 % 01/27/2021 2:46 PM EDT [facility] NEUTROPHILS % 58.7 % 01/27/2021 2:46 PM EDT [facility] LYMPH % 32.2 % 01/27/2021 2:46 PM EDT [facility] MONO % 7.5 % 01/27/2021 2:46 PM EDT [facility] EOS % 0.7 % 01/27/2021 2:46 PM EDT [facility] BASO % 0.6 % 01/27/2021 2:46 PM EDT [facility] IMMATURE GRANULOCYTES % 0.3 % 01/27/2021 2:46 PM EDT [facility] NRBC # AUTO 0.00 <0.1 x10-3/uL 01/27/2021 2:46 PM EDT [facility] NEUT # 4.23 1.5 - 7.0 x10-3/uL 01/27/2021 2:46 PM EDT [facility] LYMPH # 2.32 1 - 5.0 x10-3/uL [...] AM EDT 01/27/2021 11:54 AM EDT Chivo Martniez MD LAB [facility] * TRANSAMINASE (SGPT)(ALT) UV- (01/27/2021 11:54 AM EDT) SGPT 22 10 - 60 U/L 01/27/2021 3:05 PM EDT [facility] 01/27/2021 11:5 4 AM EDT 01/27/2021 11:54 AM EDT [facility]ivo Martinez [facility] * TRANSAMINASE (SGOT)(AST) UV- (01/27/2021 11:54 AM EDT) SGOT 15 10 - 42 U/L 01/27/2021 3:05 PM EDT [facility] 01/27/2021 11:5 4 AM EDT 01/27/2021 11:54 AM EDT Chivo Martinez MD LAB [facility] * TSH (01/27/2021 11:54 AM EDT) TSH 0.61 0.40 - 4.00 uIU/ml 01/27/2021 3:17 PM EDT [facility] 01/27/2021 11:5 4 AM EDT 01/27/2021 11:54 AM EDT Chivo Martinez MD LAB [facility] documented in this encounter Visit Diagnoses Diagnosis Subclinical hyperthyroidism- Primary Thyrotoxicosis without mention of goiter or other cause, without mention of thyrotoxic crisis or storm documented in this encounter Care Teams Asbestos Surveyor Relationship Specialty Start Date End Date Dimas Mcnair MD [address] [place] [address] PCP - General Internal Medicine 04/01/19 Vel Merino PA-C [address] [place] [phone] Specialist Thoracic Surgery 04/09/24 documented as of this encounter
--- OUTSIDE RECORDS SUMMARY | 2024-08-12 13:43 | XMS_ITS | Clinical Summary ---
Author Organization [facility] Address [address] [place] [address] Care Team Providers Care Maple Products Maker Name Role Phone Unavailable Primary Care Provider [...] syndrome 04/21/2014 Alcohol abuse Opiate abuse, episodic ([facility]) Social History Tobacco Use Types Packs/Day Years [...] Imm-Pneumococcal (2 of 2 - PCV) 03/14/2023 [id number] (3 - 2023- season) 2024 021, 11/16/2020 [...] EST) CHOLESTEROL 189 0 - 200 mg/dL [facility] TRIGLYCERIDES 195(H) 0 - 150 mg/dL [facility] HDL CHOLESTEROL 48 >40 mg/dL [facility] LDL CALCULATED 102(H) 0 - 100 mg/dL [facility] TC-HDLC RATIO 3.9 0 - 4.4 mg/dL [facility] Blood specimen (specimen) Blood / Unknown 07/17/2014 11:43 AM EST 07/17/2014 3:31 PM EST Narrative [facility] [place] 07/17/2014 6:10 PM EST [employer] [address] [place] [address] PT ID [id number] ORD# [id number] Shaila Arredondo NP LAB - BLOOD DRAW Final Result [facility] [address] [place] [address], * COMPRE METAB PANEL (07/17/2014 11:43 AM EST) GLUCOSE 90 70 - 100 mg/dL [facility] Comment:Reference range appl icable to fasting specimens only BUN 16 5 - 25 mg/dL [facility] CREAT 0.67 0.5 - 1.1 mg/dL [facility] GLOMERULAR FILTRATION RATE > [address] [facility] Comment: If patient is -Canadian, multiply result by 1.21 Chronic Kidney Disease: < 60 ml/min/1.73 square meters Kidney Failure: < 15 ml/min/1.73 square meters SODIUM 143 133 - 145 mEq/L [facility] POTASSIUM 4.1 3.5 - 5.5 mEq/L [facility] CHLORIDE 109 96 - 110 mEq/L [facility] CO2 29 21 - 32 mEq/L [facility] ANION GAP 5 3 - [address] [facility] CALCIUM 9.7 8.5 - 10.5 mg/dL [facility] TOTAL PROTEIN 6.6 6.0 - 8.0 G/dL [facility] ALBUMIN 4.4 3.2 - 5.0 G/dL [facility] BILI, TOTAL 0.4 0.0 - 1.4 mg/dL [facility] SGOT 19 10 - 42 U/L [facility] SGPT 15 10 - 60 U/L [facility] ALK PHOS 65 42 - 121 U/L [facility] Blood specimen (specimen) Blood / Unknown 07/17/2014 11:43 AM EST 07/17/2014 3:[address] [facility] - 07/17/2014 6:10 PM EST [employer] [address] [place] [address] PT ID [id number] ORD# [id number] Shaila Arnulfo JULIO LAB - BLOOD DRAW Final Result [facility] [address] [place] [address], from Last 3 Months or Most Recently Relevant to Health Maintenance Insurance [place] TREPLACED BY [facility]
--- OUTSIDE RECORDS SUMMARY | 2024-08-12 13:43 | XMS_ITS | Encounter Summary ---
Author Organization [facility] Address [address] [place] [address] Care Team Providers Care Company Truck Driver Name Role Phone Dimas Mcnair MD Primary Care Provider [phone] Vel Merino PA-C Unavailable [phone] Encounter Details Date Type Department Care Team Description 09/03/2020 SCAN Medical Records [address] [place] [id number] Abstract, Provider Social History Tobacco Use Types [...] on filedocumented in this encounter Care Teams Company Truck Driver Relationship Specialty Start Date End Date Dimas Mcnair MD [address] [place] [address] PCP - General Internal Medicine 04/01/19 Vel Merino PA-C [address] [phone] Specialist Thoracic Surgery 04/09/24 documented as of this encounter
--- OUTSIDE RECORDS SUMMARY | 2024-08-12 13:43 | XMS_ITS | Encounter Summary ---
Author Organization [facility] Address [address] [place] [address] Care Team Providers Care Sleeve Setter Lockstitch Name Role Phone Dimas Mcnair MD Primary Care Provider [phone] Vel Merino PA-C Unavailable [phone] Encounter Details Date Type Department Care Team Description 01/05/2023 Party Plan Sales Consultant Report Medical Records [address] [place] [address] Walter Rai DO Social History Tobacco Use [...] suspected to have Coronavirus/COVID-19? No / Unsure 01/02/2023 2:58 PM EDT documented as of this encounter Plan of Treatment Not on file documented as of this encounter Visit Diagnoses Not on filedocumented in this encounter Care Teams Sleeve Setter Lockstitch Relationship Specialty Start Date End Date Dimas Mcnair MD [address] [place] [address] PCP - General Internal Medicine 04/01/19 Vel Merino PA-C [address] [phone] Specialist Thoracic Surgery 04/09/24 documented as of this encounter
--- OUTSIDE RECORDS SUMMARY | 2024-08-12 13:43 | XMS_ITS | Encounter Summary ---
Author Organization [facility] Address [address] [place] [address] Care Team Providers Care Ring Sewer Name Role Phone Neli Gutierrez MD Primary Care Provider Unavail able Dimas Mcnair MD Primary Care Provider [phone] Vel Merino PA-C Unavailable [phone] Encounter Details Date Type Department Care Team Description 12/15/2016 Release of Information Medical Records [address] [place] [address] Abstract, Provider Social History Tobacco Use Types [...] on filedocumented in this encounter Care Teams Ring Sewer Relationship Specialty Start Date End Date Neli Gutierrez MD PCP - General Internal Medicine 12/13/16 03/31/19 Dimas Mcnair MD [address] [place] [address] PCP - General Internal Medicine 04/01/19 Vel Merino PA-C [address] [place] [phone] Specialist Thoracic Surgery 04/09/24 documented as of this encounter
--- OUTSIDE RECORDS SUMMARY | 2024-08-12 13:43 | XMS_ITS | Encounter Summary ---
Author Organization [facility] Address [address] [place] [address] Care Team Providers Care Tin Worker Name Role Phone Dimas Mcnair MD Primary Care Provider [phone] Vel Merino PA-C Unavailable [phone] Reason for Visit * Reason Comments E-prescribe Rx Request Encounter Details Date Type Department Care Team Description 07/27/2022 Refill Endocrinology - [address] [address] Tonie Ceja PA-C [address] [place] [address] E-prescribe Rx Request Social History Tobacco Use [...] on filedocumented in this encounter Care Teams Tin Worker Relationship Specialty Start Date End Date Dimas Mcnair MD [address] [place] [address] PCP - General Internal Medicine 04/01/19 Vel Merino PA-C [address] [phone] Specialist Thoracic Surgery 04/09/24 documented as of this encounter
--- OUTSIDE RECORDS SUMMARY | 2024-08-12 13:43 | XMS_ITS | Encounter Summary ---
Author Organization [facility] Address [address] [place] [address] Care Team Providers Care Blow Torch Burner Name Role Phone Dimas Mcnair MD Primary Care Provider [phone] Vel Merino PA-C Unavailable [phone] Encounter Details Date Type Department Care Team Description 07/13/2021 Orders Only Endocrinology - [address] [id number] Tonie Ceja PA-C [address] [place] [address] Subclinical hyperthyroidism (Primary Dx) Social History Tobacco [...] 4.00 uIU/ml 09/05/2021 6:47 PM EST [facility] 09/05/2021 4:27 PM EST 09/05/2021 4:27 PM EST Narrative [facility] - 09/05/2021 6:47 PM EST Release to patient->Immediate Tonie Ceja PA-C LAB [facility] documented in this encounter Visit Diagnoses Diagnosis Subclinical hyperthyroidism- Primary Thyrotoxicosis without mention of goiter or other cause, without mention of thyrotoxic crisis or storm Subclinical hyperthyroidism Thyrotoxicosis without mention of goiter or other cause, without mention of thyrotoxic crisis or storm documented in this encounter Care Teams Blow Torch Burner Relationship Specialty Start Date End Date Dimas Mcnair MD [address] [place] [address] PCP - General Internal Medicine 04/01/19 Vel Merino PA-C [address] [place] [phone] Specialist Thoracic Surgery 04/09/24 documented as of this encounter
== END ==
LOC: HO.CARD 12:51
PROVIDERS: Visit Provider Orthopaedic Surgery
DX: R94.39 Abnormal result of other cardiovascular function study (principal)
CPT/HCPCS: 93306; Q9957

== ENCOUNTER 2024-08-19 13:53 | Outpatient (AMB) | payer MEDICARE, SELFPAY ==
--- NOTE | 2024-08-19 13:54 | A.OFFVIS_ITS ---
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 She needs preoperative risk stratification for hip surgery. Apparently, PCP had ordered a stress test which was abnormal but we do not have the actual results. Patient denies any history of coronary disease or myocardial infarction or cardiomyopathy. It seems that she has seen [facility] in the past for palpitations. Per notes, noted have PACs and it seems that she is on verapamil for that. Currently, she gets occasional palpitations but she is also describing nonspecific chest discomfort. Asked her numerous times and it is difficult to say if she is mainly talking about palpitations versus some discomfort. However, nothing clearly exertional. History of smoking. She also intermittently used some cocaine. She states she has used once the last 3 months or so. [facility] Medical History (Updated 08/19/24 @ 14:50 by Osiel Long MD) Hypercholesteremia Vitamin D deficiency Trochanteric bursitis of left hip Subclinical hyperthyroidism Mild emphysema Thyroid nodule History of headache Skin lesion Psoriasis Bacterial vaginosis Left groin pain Cocaine use Tubular adenoma of breast Pulmonary nodules Back pain Depression Arthritis Palpitations Bursitis IBS (irritable bowel syndrome) Hypothyroid Chronic headaches COPD (chronic obstructive pulmonary disease) Surgical History History of lumbar surgery History of esophagogastroduodenoscopy (EGD) H/O colonoscopy Hx of tonsillectomy Family History (Updated 08/19/24 @ 14:12 by Aicha Fulton) Brother Heart attack Mother High blood pressure Father Lung cancer Social History (Updated 08/19/24 @ 14:12 by Aicha Fulton) Are you a primary adult daycare coordinator to a significant other at home: No Do you presently have visiting nurse or other home services: No Alcohol intake: current Alcohol intake frequency: holidays/special occasions only Patient Tobacco Use Status: Current someday Tobacco user Tobacco use type: Cigarette Cigarettes Per Day: 3 Years Smoked: 46 Second Hand Smoke Exposure: No Review of Systems Const Denies weakness ENT Denies dizziness Card Denies chest pain, Denies chest pain with activity, Denies syncope, Denies rapid heart rate, Denies pedal edema, Denies edema, Denies leg edema, Denies lightheadedness, Reports palpitations, Denies dyspnea, Denies dyspnea on exert ion and Denies orthopnea Resp Denies cough, Denies dyspnea and Denies dyspnea on exertion GI Denies hematochezia and Denies change in stool character Musc Denies abnormal gait, Denies muscle cramps, Denies muscle weakness, Denies numbness, Denies radiating pain into limb and Denies tingling Neuro Denies abnormal gait, Denies dizziness, Denies syncope, Denies numbness, Denies tingling and Denies weakness Endo Reports palpitations Physical Exam Vital Signs: Last Vital Signs Pulse 95 08/19/24 13:57 BP 138/78 08/19/24 13:57 BMI result Body Mass Index 20.7 Const General: comfortable and no acute distress Orientation/consciousness: patient oriented x3 HEENT Other: Unremarkable Head: Yes normal to inspection Neck Neck: Yes normal visual inspection Chest Chest palpation & inspection: normal inspection of the chest Resp Auscultation: clear to auscultation bilaterally Cardio Palpation: normal PMI Heart sounds: S1 normal heart sound present, S2 normal heart sound present, no gallops, no murmurs and no rubs GI Palpation (GI): Soft to palpation Back/Spine/Pelvis Other: unremarkable Skin General skin exam: no rashes or lesions noted Neuro General: patient oriented x3 Extrem General: Yes normal to inspection Psych Mental Status: mental status grossly normal Office Procedures EKG Details: EKG with underlying sinus rhythm at 95/Min; inferior as well as anterolateral ST depression; [place]. [id number], Complete Assessment & Plan Assessment & Plan (1) Preoperative cardiovascular examination: Code(s): Z01.810 - Encounter for preprocedural cardiovascular examination Category: Medical Plan EKG shows sinus rhythm and inferior/anterolateral ST depression. Unclear etiology. In the echocardiogram, LVEF 57%. Basal inferior hypokinesis. In the nuclear stress from Jasmin, there is description of LAD calcification; small size, moderate intensity reversible basal inferior defect. In the Lexiscan portion, horizontal ST depression in inferior leads. Overall, suspect underlying CAD. Recommend diagnostic catheterization. Will try to expedite as she has ortho surgery coming up, but not clear if manufacturing laborer schedule will permit, but will try. Orders: Orders Cardiac Cath LT Diagnostic Today I25.10 - Atherosclerotic heart disease of [place] coronary artery without angina pectoris, Z01.810 - Encounter for preprocedural cardiovascular examination Basic Metabolic Panel Today Z01.810 - Encounter for preprocedural cardiovascular examination Prothrombin Time INR Today I25.10 - Atherosclerotic heart disease of [place] coronary artery without angina pectoris, Z01.810 - Encounter for preprocedural cardiovascular examination Complete Blood Count no Diff Today Z01.810 - Encounter for preprocedural cardiovascular examination Coding Level of Care Code New Pt Level 5 (82470) Diagnoses Preoperative cardiovascular examination Z01.810 CPT Codes EKG - CPT: 83584-[id number], Complete ([id number])
[2024-08-19 13:57] VITALS: BP 138/78; PULSE 95; BMI 20.7
--- OUTSIDE RECORDS SUMMARY | 2024-08-19 14:02 | XMS_ITS | Encounter Summary ---
Author Organization [facility] Address [address] [place] [address] Care Team Providers Care Welding Supervisor Name Role Phone Dimas Mcnair MD Primary Care Provider [phone] Vel Merino PA-C Unavailable [phone] Encounter Details Date Type Department Care Team Description 01/26/2022 Orders Only [facility] Lung Screening Program [place] [address] [facility] [address] [place] [id number] Aditya Zavala MD [address] [facility] [address] [place] [address] [phone] History of tobacco use, presenting hazards to health (Primary Dx) Social History Tobacco Use Types [...] suspected to have Coronavirus/COVID-19? No / Unsure 01/23/2022 3:46 PM EDT documented as of this encounter Plan of Treatment Not on file documented as of this encounter Visit Diagnoses Diagnosis History of tobacco use, presenting hazards to health- Primary Personal history of tobacco use, presenting hazards to health documented in this encounter Care Teams Welding Supervisor Relationship Specialty Start Date End Date Dimas Mcnair MD [address] [place] [address] PCP - General Internal Medicine 04/01/19 Vel Merino PA-C [address] [place] [phone] Specialist Thoracic Surgery 04/09/24 documented as of this encounter
--- OUTSIDE RECORDS SUMMARY | 2024-08-19 14:02 | XMS_ITS | Encounter Summary ---
Author Organization [facility] Address [address] [place] [address] Care Team Providers Care Head Teacher Name Role Phone Dimas Mcnair MD Primary Care Provider [phone] Vel Merino PA-C Unavailable [phone] Reason for Visit * Reason Comments E-prescribe Rx Request Encounter Details Date Type Department Care Team Description 08/25/2022 Refill Endocrinology - [address] [address] Tonie Ceja PA-C [address] [place] [address] E-prescribe Rx Request Social History Tobacco Use [...] the RX # listed on the fax? [id number] Patients current insurance carrier is: Payor: MEDICARE-easyfolio / Plan: MEDICARE-easyfolio / Product Type: MEDICARE [id number] documented in this encounter Plan of Treatment Not on file documented as of this encounter Visit Diagnoses Not on filedocumented in this encounter Care Teams Head Teacher Relationship Specialty Start Date End Date Dimas Mcnair MD [address] [place] [phone] PCP - General Internal Medicine 04/01/19 Vel Merino PA-C [address] [place] [phone] Specialist Thoracic Surgery 04/09/24 documented as of this encounter
--- OUTSIDE RECORDS SUMMARY | 2024-08-19 14:02 | XMS_ITS | Encounter Summary ---
Author Organization [facility] Address [address] [place] [address] Care Team Providers Care Call Center Specialist Name Role Phone Dimas Mcnair MD Primary Care Provider [phone] Vel Merino PA-C Unavailable [phone] Encounter Details Date Type Department Care Team Description 11/14/2023 Hospital Medical Records [address] [place] [address] [facility] Social History Tobacco Use Types Packs/Day Years [...] on filedocumented in this encounter Care Teams Call Center Specialist Relationship Specialty Start Date End Date Dimas Mcnair MD [address] [place] [address] [phone] PCP - General Internal Medicine 04/01/19 eVl Merino PA-C [address] [place] [phone] Specialist Thoracic Surgery 04/09/24 documented as of this encounter
--- OUTSIDE RECORDS SUMMARY | 2024-08-19 14:02 | XMS_ITS | Encounter Summary ---
Author Organization [facility] Address [address] [place] [address] Care Team Providers Care Screen Repairer Crusher Name Role Phone Dimas Mcnair MD Primary Care Provider [phone] Vel Merino PA-C Unavailable [phone] Encounter Details Date Type Department Care Team Description 11/11/2021 Business Doc Medical Records [address] [place] [address] Abstract, Provider Social History Tobacco Use Types [...] on filedocumented in this encounter Care Teams Screen Repairer Crusher Relationship Specialty Start Date End Date Dimas Mcnair MD [address] [place] [address] PCP - General Internal Medicine 04/01/19 Vel Merino PA-C [address] [phone] Specialist Thoracic Surgery 04/09/24 documented as of this encounter
--- OUTSIDE RECORDS SUMMARY | 2024-08-19 14:02 | XMS_ITS | Encounter Summary ---
Author Organization [facility] Address [address] [place] [address] Care Team Providers Care Metal Fabrication Supervisor Name Role Phone Neli Gutierrez MD Primary Care Provider Unavail Dimas Westfall MD Primary Care Provider [phone] Vel Merino PA-C Unavailable [phone] Reason for Visit * Reason Onset Date Comments APPOINTMENT 04/26/2017 Encounter Details Date Type Department Care Team Description 04/26/2017 Telephone Gastroenterology - [address] [phone] [place] MD APPOINTMENT Social History Tobacco Use Types Packs/Day Years [...] encounter Miscellaneous Notes * Telephone Encounter - Rosie Smallwood RN - 04/26/2017 12:14 PM EDT GI schedulers please call pt for requested follow-up appt per Dr. Stevenson after colonscopy with Cam. Thank you. documented in this encounter Plan of Treatment Not on file documented as of this encounter Visit Diagnoses Not on filedocumented in this encounter Care Teams Metal Fabrication Supervisor Relationship Specialty Start Date End Date Neli Gutierrez MD PCP - General Internal Medicine 12/13/16 03/31/19 Dimas Mcnair MD [address] [place] [address] PCP - General Internal Medicine 04/01/19 Vel Merino PA-C [address] [place] [phone] Specialist Thoracic Surgery 04/09/24 documented as of this encounter
--- OUTSIDE RECORDS SUMMARY | 2024-08-19 14:02 | XMS_ITS | Encounter Summary ---
Author Organization Formerly [facility] Address [address] [place] [address] Care Team Providers Care Color Maker Dyer Name Role Phone Dimas Mcnair MD Primary Care Provider [phone] Vel Merino PA-C Unavailable [phone] Encounter Details Date Type Department Care Team Description 04/11/2023 Funds Transfer Clerk Report Medical Records [address] [place] [phone] Adrian Agarwal MD, PHD Social History Tobacco [...] on filedocumented in this encounter Care Teams Color Maker Dyer Relationship Specialty Start Date End Date Dimas Mcnair MD [address] [place], [place] [phone] PCP - General Internal Medicine 04/01/19 Vel Merino PA-C [address] [place] [address] Specialist Thoracic Surgery 04/09/24 documented as of this encounter
--- OUTSIDE RECORDS SUMMARY | 2024-08-19 14:02 | XMS_ITS | Clinical Summary ---
Author Organization [facility] Address [address] [place], [place] Phone Care Team Providers Care Sports Agent Name Role Phone iDmas Mcnair MD Primary Care Provider [phone] Allergies No known active allergies Medications Medication [...] her arthritis. There is no evidence of Choker Setter etiology of her pain. I recommended she [...] Care Team Description 08/11/2024 Telephone Adult Medicine [address] [address] Dimas Mcnair MD doctors ([facility]) 07/29/2024 12:00 PM EST Ancillary Procedure [facility] [address] [address] 07/23/2024 12:00 PM EST Ancillary Procedure [facility] [address] [address] Chest pain, unspecified type 07/22/2024 Telephone [facility] [place] [address] [place] [address] Dimas Mcnair MD Medical Records 06/19/2024 10:00 AM EST Consult Adult Medicine [address] [phone] Dimas Mcnair MD Preop examination (Primary Dx); Urinary frequency; Chest pain, unspecified type; Sore throat; Closed fracture of tooth, initial encounter; Post-nasal drip 06/03/2024 11:18 AM EST - 06/03/2024 11:59 PM EST Hospital Encounter [facility] Ultrasound [address] [place] [address] Thyroid nodule Discharge Disposition: Home or Self Care from [...] erosive gastritis, small hiatal hernia COLONOSCOPY 01/27 [facility] PROCEDURE: HISTORICAL COLONOSCOPY; COMMENT: adenoma and poor bowel prep; tics and hemorrhoids COLONOSCOPY 04/26/2017 PROCEDURE: HISTORICAL COLONOSCOPY; COMMENT: normal; repeat in 5 yrs ESOPHAGOGASTRODUODENOSCOPY 01/27 [facility] PROCEDURE: DC ESOPHAGOGASTRODUODENOSCOPY TRANSORAL DIAGNOSTIC; COMMENT: HH and erosive gastritis and H. pylori ESOPHAGOGASTRODUODENOSCOPY 04/26/2017 PROCEDURE: DC EGD TRANSORAL BIOPSY SINGLE/MULTIPLE; COMMENT: Normal esophagus [...] 07/29/2024 12:41 PM EST Plan of Treatment Upcoming Encounters Date Type Department Care Team (Late st Contact Info) Description 11/03/2024 1:30 PM EDT Consult Vascular Surgery - [place] [address] [facility] [address] [place] [address] Areli Petty PA 300 [facility] [address] [place] [address] (work) Health Maintenance Due Date Last Done Comments [...] - PCV) 03/14/2023 03/14/2022, 10/01/2008 COVID-19 Vaccine ( - season) 2024 12/16/2020, 11/16/2020 Influenza Vaccine (#1) 2024 Breast Cancer Screening 01/02/2025 01/03/20 23, 12/07/2022, 11/09/2021, Additional history exists Depression Screening [...] reflex microscopic (06/19/2024 11:17 AM EST) Specific [place] Urine 1.025 1.003 - 1.030 LAB URINALYSIS - AUTOMATED METHOD 06/19/2024 2:18 PM EST [facility] pH, Urine 6.0 5.0 - 8.0 pH LAB URINALYSIS - AUTOMATED METHOD 06/19/2024 2:18 PM [facility] Leukocytes, Urine Negative Negative LAB URINALYSIS - AUTOMATED METHOD 06/19/2024 2:18 PM [facility] Nitrite, Urine Negative Negative LAB URINALYSIS - AUTOMATED METHOD 06/19/2024 2:18 PM [facility] Protein, Urine Negative <=Trace mg/dL LAB URINALYSIS - AUTOMATED METHOD 06/19/2024 2:18 PM [facility] Glucose, Urine Negative Negative mg/dL LAB URINALYSIS - AUTOMATED METHOD 06/19/2024 2:18 PM [facility] Ketones, Urine Negative Negative mg/dL LAB URINALYSIS - AUTOMATED METHOD 06/19/2024 2:18 PM [facility] Urobilinogen, Urine 1.0 0.2 - 1.0 mg/dL LAB URINALYSIS - AUTOMATED METHOD 06/19/2024 2:18 PM [facility] Bilirubin, Urine Negative Negative LAB URINALYSIS - AUTOMATED METHOD 06/19/2024 2:18 PM [facility] Blood, Urine Negative Negative LAB URINALYSIS - AUTOMATED METHOD 06/19/2024 2:18 PM [facility] Urine Urine specimen obtained by clean catch procedure / Unknown Non-blood Collection / Unknown 06/19/2024 11:17 AM EST 06/19/2024 11:17 AM EST Dimas Mcnair MD LAB URINE ORDERABLES [facility] [address] [place] [address], * (ABNORMAL) CBC auto differential (06/19/2024 11:17 AM EST) WBC 9.9 4.8 - 10.8 K/mcL LAB HEMETOLOGY METHOD 06/19/2024 2:27 PM [facility] RBC 4.30 3.80 - 4.80 M/mcL LAB HEMETOLOGY METHOD 06/19/2024 2:27 PM [facility] Hemoglobin 13.0 11.5 - 16.0 g/dL LAB HEMETOLOGY METHOD 06/19/2024 2:27 PM [facility] Hematocrit 40.9 35.0 - 47.0 % LAB HEMETOLOGY METHOD 06/19/2024 2:27 PM [facility] MCV 94.9 79.0 - 98.0 FL LAB HEMETOLOGY METHOD 06/19/2024 2:27 PM [facility] MCH 30.2 27.0 - 32.0 pcg LAB HEMETOLOGY METHOD 06/19/2024 2:27 PM [facility] MCHC 31.8(L) 32.0 - 37.0 g/dL LAB HEMETOLOGY METHOD 06/19/2024 2:27 PM [facility] RDW 11.9 11.0 - 15.0 % LAB HEMETOLOGY METHOD 06/19/2024 2:27 PM [facility] Platelets 310 130 - 400 K/mcL LAB HEMETOLOGY METHOD 06/19/2024 2:27 PM [facility] MPV 11.9(H) 7.0 - 11.0 FL LAB HEMETOLOGY METHOD 06/19/2024 2:27 PM [facility] NRBC 0.0 <1.0 % LAB HEMETOLOGY METHOD 06/19/2024 2:27 PM [facility] NRBC Absolute 0.00 <0.10 K/mcL LAB HEMETOLOGY METHOD 06/19/2024 2:27 PM [facility] Neutrophils Relative 72.5 % LAB HEMETOLOGY METHOD 06/19/2024 2:27 PM [facility] Lymphocytes Relative 20.8 % LAB HEMETOLOGY METHOD 06/19/2024 2:27 PM [facility] Monocytes Relative 5.1 % LAB HEMETOLOGY METHOD 06/19/2024 2:27 PM [facility] Eosinophils Relative 0.7 % LAB HEMETOLOGY METHOD 06/19/2024 2:27 PM [facility] Basophils Relative 0.5 % LAB HEMETOLOGY METHOD 06/19/2024 2:27 PM [facility] Immature Granulocytes Relative 0.4 % LAB HEMETOLOGY METHOD 06/19/2024 2:27 PM [facility] Neutrophils Absolute 7.18(H) 1.50 - 7.00 K/mcL LAB HEMETOLOGY METHOD 06/19/2024 2:27 PM [facility] Lymphocytes Absolute 2.06 1.00 - 5.00 K/mcL LAB HEMETOLOGY METHOD 06/19/2024 2:27 PM [facility] Monocytes Absolute 0.51 0.20 - 1.00 K/mcL LAB HEMETOLOGY METHOD 06/19/2024 2:27 PM [facility] Eosinophils Absolute 0.07 0.00 - 0.50 K/mcL LAB HEMETOLOGY METHOD 06/19/2024 2:27 PM [facility] Basophils Absolute 0.05 0.00 - 0.20 K/mcL LAB HEMETOLOGY METHOD 06/19/2024 2:27 PM [facility] Immature Granulocytes Absolute 0.04(H) 0.00 - 0.03 K/mcL LAB HEMETOLOGY METHOD 06/19/2024 2:27 PM [facility] Blood Venous blood specimen / Unknown Venipuncture / Unknown 06/19/2024 11:17 AM EST 06/19/2024 11:17 AM EST Dimas Mcnair MD LAB BLOOD ORDERABLES [facility] [address] [place] [address], * Prothrombin time with INR (06/19/2024 11:17 AM EST) Pathologist [facility] Protime 11.8 10.6 - 13.9 sec LAB COAGULATION METHOD 06/19/2024 2:41 PM EST [facility] INR 0.9 LAB COAGULATION METHOD 06/19/2024 2:41 PM EST [facility] Blood Venous blood specimen / Unknown Venipuncture / Unknown 06/19/2024 11:17 AM EST 06/19/2024 11:17 AM EST Dimas Mcnair MD LAB BLOOD ORDERABLES Performing Organization Address City/[facility]/ZIP Co de Phone Number [facility] [address] [place] [address], * Culture urine (06/19/2024 11:17 AM EST) [facility] Culture, Urine No growth 06/20/2024 11:28 AM EST [facility] Urine Urine specimen / Unknown Non-blood Collection / Unknown 06/19/2024 11:17 AM EST 06/19/2024 11:17 AM EST Dimas Mcnair MD LAB MICROBIOLOGY - G ENERAL ORDERABLES [facility] [address] [place] [address], [place] [phone] * Basic metabolic panel (06/19/2024 11:17 AM EST) [facility] Sodium 142 133 - 145 mmol/L LAB CHEMISTRY METHOD 06/19/2024 3:01 PM EST [facility] Potassium 4.2 3.5 - 5.5 mmol/L LAB CHEMISTRY METHOD 06/19/2024 3:01 PM [facility] Chloride 108 96 - 110 mmol/L LAB CHEMISTRY METHOD 06/19/2024 3:01 PM [facility] CO2 29 21 - 32 mmol/L LAB CHEMISTRY METHOD 06/19/2024 3:01 PM [facility] Anion Gap 5 3 - 11 LAB CHEMISTRY METHOD 06/19/2024 3:01 PM [facility] Glucose 75 70 - 100 mg/dL LAB CHEMISTRY METHOD 06/19/2024 3:01 PM [facility] BUN 16 5 - 25 mg/dL LAB CHEMISTRY METHOD 06/19/2024 3:01 PM [facility] Creatinine 0.69 0.50 - 1.10 mg/dL LAB CHEMISTRY METHOD 06/19/2024 3:01 PM [facility] eGFR 98 >=60 mL/min/1. 73m2 LAB CHEMISTRY METHOD 06/19/2024 3:01 PM [facility] Comment:Calculation based on the??Chronic Kidney Disease Epidemiology Collaboration (CKD-EPI) equation refit??without adjustment for race. BUN/Creatinine Ratio 23.2 LAB CHEMISTRY METHOD 06/19/2024 3:01 PM [facility] Calcium 9.7 8.5 - 10.5 mg/dL LAB CHEMISTRY METHOD 06/19/2024 3:01 PM [facility] Blood Venous blood specimen / Unknown Venipuncture / Unknown 06/19/2024 11:17 AM EST 06/19/2024 11:17 AM EST Dimas Mcnair MD LAB BLOOD ORDERABLES [facility] [address] [place] [address], * US Head Neck Soft Tissue (06/03/2024 [...] Signed Date: 06/05/2024 12:56 ET Workstation ID: [id number] Transcribed By: Self Edit Transcribed Date: 06/05/2024 [...] Signed Date: 06/05/2024 12:56 ET Workstation ID: [id number] Transcribed By: Self Edit Transcribed Date: 06/05/2024 12:49 ET Dimas Mcnair MD IMG US PROCEDURES * Depression Screening (05/05/2024) Depression Screening abstracted Historical Provider MD GAVIOTA NGUYEN E * DIAGNOSTIC MAMMOGRAPHY WITH CAD UNILATERAL [...] BI PROCEDURES * (ABNORMAL) Lipid panel (08/30/2022) [facility] LDL/HDL Ratio 4 0 - 4 Triglycerides 204(A) 0 - 150 mg/dL Cholesterol 210(A) 0 - 200 mg/dL HDL 51 40 mg/dL LDL Cholesterol 119(A) 0 - 100 mg/dL Blood Venous blood specimen / Unknown Historical Provider LAB BLOOD ORDERAB [facility] Cervical Cancer Screening: HPV (12/20/2021) [facility] Cervical Cancer Screening: HPV Abstracted ,negative Historical Provider MD GAVIOTA NGUYEN * Colonoscopy (04/26/2017) [facility] Colonoscopy No interpreta tion,abstr acted Anatomical Region Laterality Modality Other Historical Provider MD GAVIOTA NGUYEN * Hepatitis C Screening (12/18/2016) [facility] Hepatitis C Screening abstracted Historical Provider MD GAVIOTA Poole from Last 3 Months or Most Recently Relevant to Health Maintenance Care Teams Sports Agent Relationship Specialty Start Date End Date Dimas Mcnair MD [address] [place] [phone] PCP - General Internal Medicine 05/17/24
--- OUTSIDE RECORDS SUMMARY | 2024-08-19 14:02 | XMS_ITS | Encounter Summary ---
Author Organization [facility] Address [address] [place] [address] Care Team Providers Care Manufacturing Production Manager Name Role Phone Neli Gutierrez MD Primary Care Provider Unavail able Dimas Mcnair MD Primary Care Provider [phone] Vel Merino PA-C Unavailable [phone] Encounter Details Date Type Department Care Team Description 03/19/2019 Release of Information Medical Records [address] [place] [id number] Abstract, Provider Social History Tobacco Use Types [...] on filedocumented in this encounter Care Teams Manufacturing Production Manager Relationship Specialty Start Date End Date Neli Gutierrez MD PCP - General Internal Medicine 12/13/16 03/31/19 Dimas Mcnair MD [address] [place] [address] PCP - General Internal Medicine 04/01/19 Vel Merino PA-C [address] [phone] Specialist Thoracic Surgery 04/09/24 documented as of this encounter
--- OUTSIDE RECORDS SUMMARY | 2024-08-19 14:02 | XMS_ITS | Encounter Summary ---
Author Organization [facility] Address [address] [place] [address] Care Team Providers Care Logistics Planner Name Role Phone Dimas Mcnair MD Primary Care Provider [phone] Reason for Visit * Cardiac Stress Testing (Routine) - Authorized Specialty Diagnoses / Procedures Referred By Contac t Referred To Contact Cardiology Diagnoses Chest pain, unspecified type Procedures Nuclear stress test with myocardial perfusion UT MYOCARDIAL PERFUSION IMAGING TOMOGRAPHIC MULTI STUDIES AT REST OR STRESS UT MYOCARDIAL PERFUSION IMAGING TOMOGRAPHIC SINGLE STUDY AT REST OR STRESS UT CARDIOVASCULAR STRESS TEST GLOBAL UT CV TMST/BIKE MAX/SUBMAX CONTINUOUS ECG MON/PHARM STRESS SUPVSR ONLY UT CV STRESS TEST/BIKE CONT ECG MON/PHARM STRESS INTERP & REPORT ONLY UT TEST STRESS CARDIOVASCULAR TRACING ONLY Dimas Mcnair MD [address] [place] [address] [facility] Referral ID Status Reason Start Date Expiration Date V isits Requested Visits Authorized [id number] Authorized 07/02/2024 12/29/2024 3 3 Encounter Details Date Type Department Care Team (Late st Contact Info) Description 07/29/2024 12:00 PM EST Ancillary Procedure [facility] [address] [place] [address] Social History Tobacco Use Types [...] documented in this encounter Plan of Treatment Upcoming Encounters Date Type Department Care Team (Late st Contact Info) Description 11/03/2024 1:30 PM EDT Consult Vascular Surgery - [place] [address] [facility] [address] [place] [phone] Areli Petty PA 300 [facility] [address] [place] [address] documented as of this encounter Procedures Procedure [...] Antecubital documented in this encounter Care Teams Logistics Planner Relationship Specialty Start Date End Date Dimas Mcnair MD [address] [place] [address] PCP - General Internal Medicine 05/17/24 documented as of this encounter
--- OUTSIDE RECORDS SUMMARY | 2024-08-19 14:02 | XMS_ITS | Encounter Summary ---
Author Organization [facility] Address [address] [place] [address] Care Team Providers Care Bag Sorter Name Role Phone Dimas Mcnair MD Primary Care Provider [phone] Vel Merino PA-C Unavailable [phone] Encounter Details Date Type Department Care Team Description 11/14/2023 Hospital Medical Records [address] [place] [address] Adrian Agarwal MD, PHD Social History Tobacco [...] on filedocumented in this encounter Care Teams Bag Sorter Relationship Specialty Start Date End Date Dimas Mcnair MD [address] [place], [place] [phone] PCP - General Internal Medicine 04/01/19 Vel Merino PA-C [address] [place] [phone] Specialist Thoracic Surgery 04/09/24 documented as of this encounter
--- OUTSIDE RECORDS SUMMARY | 2024-08-19 14:02 | XMS_ITS | Encounter Summary ---
Author Organization [facility] Address [address] [place] [address] Care Team Providers Care Joint Runner Name Role Phone Dimas Mcnair MD Primary Care Provider [phone] Vel Merino PA-C Unavailable [phone] Encounter Details Date Type Department Care Team Description 03/14/2021 Orders Only Adult Medicine [address] [phone] Tonie Ceja PA-C [address] [place] [phone] Subclinical hyperthyroidism (Primary Dx) Social History Tobacco [...] storm documented in this encounter Care Teams Joint Runner Relationship Specialty Start Date End Date Dimas Mcnair MD [address] [place] [address] PCP - General Internal Medicine 04/01/19 Vel Merino PA-C [address] [place] [phone] Specialist Thoracic Surgery 04/09/24 documented as of this encounter
--- OUTSIDE RECORDS SUMMARY | 2024-08-19 14:02 | XMS_ITS | Encounter Summary ---
Author Organization [facility] Address [address] [place] [address] Care Team Providers Care Stock Checker Name Role Phone Dimas Mcnair MD Primary Care Provider [phone] Vel Merino PA-C Unavailable [phone] Encounter Details Date Type Department Care Team Description 04/26/2023 Supplies Packer Report Medical Records [address] [place] [address] Hammad Alanis PA-C Social History Tobacco Use [...] on filedocumented in this encounter Care Teams Stock Checker Relationship Specialty Start Date End Date Dimas Mcnair MD [address] [place], [place] [phone] PCP - General Internal Medicine 04/01/19 Vel Merino PA-C [address] [place] [phone] Specialist Thoracic Surgery 04/09/24 documented as of this encounter
--- OUTSIDE RECORDS SUMMARY | 2024-08-19 14:02 | XMS_ITS | Encounter Summary ---
Author Organization [facility] Address [address] [place] [address] Care Team Providers Care Bioanalyst Name Role Phone Dimas Mcnair MD Primary Care Provider [phone] Vel Merino PA-C Unavailable [phone] Reason for Visit * Reason Onset Date Comments refill request 03/22/2021 Encounter Details Date Type Department Care Team Description 03/22/2021 Refill Gastroenterology - [address] [place] [address] [place] [phone] Naseem Heller PA-C refill request Social History [...] on filedocumented in this encounter Care Teams Bioanalyst Relationship Specialty Start Date End Date Dimas Mcnair MD [address] [place] [address] PCP - General Internal Medicine 04/01/19 Vel Merino PA-C [address] [phone] Specialist Thoracic Surgery 04/09/24 documented as of this encounter
--- OUTSIDE RECORDS SUMMARY | 2024-08-19 14:02 | XMS_ITS | Encounter Summary ---
Author Organization [facility] Address [address] [place] [address] Care Team Providers Care Bag Loader Machine Operator Name Role Phone Dimas Mcnair MD Primary Care Provider [phone] Reason for Visit * Cardiac Stress Testing (Routine) - Authorized Specialty Diagnoses / Procedures Referred By Contac t Referred To Contact Cardiology Diagnoses Chest pain, unspecified type Procedures Nuclear stress test with myocardial perfusion ID MYOCARDIAL PERFUSION IMAGING TOMOGRAPHIC MULTI STUDIES AT REST OR STRESS ID MYOCARDIAL PERFUSION IMAGING TOMOGRAPHIC SINGLE STUDY AT REST OR STRESS ID CARDIOVASCULAR STRESS TEST GLOBAL ID CV TMST/BIKE MAX/SUBMAX CONTINUOUS ECG MON/PHARM STRESS SUPVSR ONLY ID CV STRESS TEST/BIKE CONT ECG MON/PHARM STRESS INTERP & REPORT ONLY ID TEST STRESS CARDIOVASCULAR TRACING ONLY Dimas Mcnair MD [address] [place] [address] [facility] Referral ID Status Reason Start Date Expiration Date V isits Requested Visits Authorized [id number] Authorized 07/02/2024 12/29/2024 3 3 Encounter Details Date Type Department Care Team (Latest Contact Info) Description 07/23/2024 12:00 PM EST Ancillary Procedure [facility] [address] [place] [address] Chest pain, unspecified type Social [...] 1:30 PM EDT Consult Vascular Surgery - [place] [address] [place] [address] Areli Petty PA [address] [place] [address] documented as of this encounter Procedures Procedure [...] Antecubital documented in this encounter Care Teams Bag Loader Machine Operator Relationship Specialty Start Date End Date Dimas Mcnair MD [address] [place] [address] PCP - General Internal Medicine 05/17/24 documented as of this encounter
--- OUTSIDE RECORDS SUMMARY | 2024-08-19 14:02 | XMS_ITS | Encounter Summary ---
Author Organization [facility] Address [address] [place] [address] Care Team Providers Care Carriage Setter Name Role Phone Dimas Mcnair MD Primary Care Provider [phone] Vel Merino PA-C Unavailable [phone] Reason for Visit * Reason Onset Date Comments TEST RESULTS 09/18/2022 Encounter Details Date Type Department Care Team Description 09/18/2022 Telephone Adult Medicine [address] [phone] Js Melissa PA-C [address] [place] [phone] TEST RESULTS Social History Tobacco Use Types Packs/Day Years [...] suspected to have Coronavirus/COVID-19? No / Unsure 09/15/2022 10:00 AM EST documented as of this encounter Miscellaneous Notes * Telephone Encounter - Malissa Christopher M.A. - 09/18/2022 8:53 AM EST Read Js's message to pt. She understands. * Telephone Encounter - Js Melissa PA-C - 09/18/2022 7:48 AM EST Please call pt. Inform her while the x-ray does show significant arthritis, there was no fracture or dislocation. She should continue to follow up with orthopedics. documented in this encounter Plan of Treatment Not on file documented as of this encounter Visit Diagnoses Not on filedocumented in this encounter Care Teams Carriage Setter Relationship Specialty Start Date End Date Dimas Mcnair MD [address] [place] [address] PCP - General Internal Medicine 04/01/19 Vel Merino PA-C [address] [place] [phone] Specialist Thoracic Surgery 04/09/24 documented as of this encounter
--- OUTSIDE RECORDS SUMMARY | 2024-08-19 14:02 | XMS_ITS | Encounter Summary ---
Author Organization [facility] Address [address] [place] [address] Care Team Providers Care Senior Etl Developer Name Role Phone Dimas Mcnair MD Primary Care Provider [phone] Vel Merino PA-C Unavailable [phone] Reason for Visit * Reason Onset Date Comments Error 08/04/2020 Encounter Details Date Type Department Care Team Description 08/04/2020 Telephone Adult [address] [phone] Dimas Mcnair MD [address] [place] [phone] Error Social History Tobacco Use Types [...] on filedocumented in this encounter Care Teams Senior Etl Developer Relationship Specialty Start Date End Date Dimas Mcnair MD [address] [place] [address] PCP - General Internal Medicine 04/01/19 Vel Merino PA-C [address] [place] [phone] Specialist Thoracic Surgery 04/09/24 documented as of this encounter
--- OUTSIDE RECORDS SUMMARY | 2024-08-19 14:02 | XMS_ITS | Encounter Summary ---
Author Organization [facility] Address [address] [place] [address] Care Team Providers Care Ceramic Painter Name Role Phone Dimas Mcnair MD Primary Care Provider [phone] Vel Merino PA-C Unavailable [phone] Encounter Details Date Type Department Care Team Description 05/31/2021 Refill Adult Medicine [address] [phone] Dimas Mcnair MD [address] [place] [address] [phone] Social History Tobacco Use Types Packs/Day Years [...] on filedocumented in this encounter Care Teams Ceramic Painter Relationship Specialty Start Date End Date Dimas Mcnair MD [address] [place] [address] PCP - General Internal Medicine 04/01/19 Vel Merino PA-C [address] [place] [phone] Specialist Thoracic Surgery 04/09/24 documented as of this encounter
--- OUTSIDE RECORDS SUMMARY | 2024-08-19 14:02 | XMS_ITS | Encounter Summary ---
Author Organization [facility] Address [address] [place] [address] Care Team Providers Care Senior Reactor Operator Name Role Phone Neli Gutierrez MD Primary Care Provider Unavail Dimas Westfall MD Primary Care Provider [phone] Vel Merino PA-C Unavailable [phone] Reason for Visit * Reason Onset Date Comments REFERRAL 12/25/2016 obgyn Encounter Details Date Type Department Care Team Description 12/25/2016 Telephone Adult Medicine [address] [phone] Neli Gutierrez MD REFERRAL (obgyn) Social History Tobacco Use Types Packs/Day Years [...] encounter Miscellaneous Notes * Telephone Encounter - Dinora Nguyen - 12/26/2016 2:18 PM EDT Patient stopped by the [facility] office today and scheduled her annual exam. * Telephone Encounter - Elisabet Hirsch - 12/25/2016 2:40 PM EDT FYI to referring provider; We have attempted to contact this patient for the order placed to see [facility] for routine exam, however, patient has not responded to any of our attempts and for this reason patients order will be closed. If patient changes her mind please have her contact [facility] for an appointment Thank you documented in this encounter Plan of Treatment Not on file documented as of this encounter Visit Diagnoses Not on filedocumented in this encounter Care Teams Senior Reactor Operator Relationship Specialty Start Date End Date Neli Gutierrez MD PCP - General Internal Medicine 12/13/16 03/31/19 Dimas Mcnair MD [address] [place] [address] PCP - General Internal Medicine 04/01/19 Vel Merino PA-C [address] [place] [phone] Specialist Thoracic Surgery 04/09/24 documented as of this encounter
--- OUTSIDE RECORDS SUMMARY | 2024-08-19 14:02 | XMS_ITS | Encounter Summary ---
Author Organization [facility] Address [address] [place] [address] Care Team Providers Care Ventilating Equipment Installer Name Role Phone Dimas Mcnair MD Primary Care Provider [phone] Vel Merino PA-C Unavailable [phone] Encounter Details Date Type Department Care Team Description 11/14/2021 Electrician Marine Report Medical Records [address] [place] [address] Sulaiman Duron MD Social History Tobacco Use [...] on filedocumented in this encounter Care Teams Ventilating Equipment Installer Relationship Specialty Start Date End Date Dimas Mcnair MD [address] [place] [address] PCP - General Internal Medicine 04/01/19 Vel Merino PA-C [address] [phone] Specialist Thoracic Surgery 04/09/24 documented as of this encounter
--- OUTSIDE RECORDS SUMMARY | 2024-08-19 14:02 | XMS_ITS | Encounter Summary ---
Author Organization [facility] Address [address] [place] [address] Care Team Providers Care Technical Services Librarian Name Role Phone Dimas Mcnair MD Primary Care Provider [phone] Vel Merino PA-C Unavailable [phone] Encounter Details Date Type Department Care Team Description 04/17/2024 Soccer Referee Report Medical Records [address] [place] [address] [facility] Social History Tobacco Use Types Packs/Day Years [...] on filedocumented in this encounter Care Teams Technical Services Librarian Relationship Specialty Start Date End Date Dimas Mcnair MD [address] [place], [place] [phone] PCP - General Internal Medicine 04/01/19 Vel Merino PA-C [address] [place] [phone] Specialist Thoracic Surgery 04/09/24 documented as of this encounter
--- OUTSIDE RECORDS SUMMARY | 2024-08-19 14:02 | XMS_ITS | Encounter Summary ---
Author Organization [facility] Address [address] [place] [address] Care Team Providers Care Split Leather Mosser Name Role Phone Dimas Mcnair MD Primary Care Provider [phone] Vel Merino PA-C Unavailable [phone] Encounter Details Date Type Department Care Team Description 08/31/2022 Orders Only Adult Medicine [address] [phone] Yajaira Goodwin PA-C [address] [place] [address] [phone] Social History Tobacco Use Types Packs/Day Years [...] on filedocumented in this encounter Care Teams Split Leather Mosser Relationship Specialty Start Date End Date Dimas Mcnair MD [address] [place] [address] PCP - General Internal Medicine 04/01/19 Vel Merino PA-C [address] [place] [phone] Specialist Thoracic Surgery 04/09/24 documented as of this encounter
--- OUTSIDE RECORDS SUMMARY | 2024-08-19 14:02 | XMS_ITS | Encounter Summary ---
Author Organization [facility] Address [address] [place] [address] Care Team Providers Care Online Merchandising Specialist Name Role Phone Dimas Mcnair MD Primary Care Provider Vel Merino PA-C Unavailable [phone] Encounter Details Date Type Department Care Team Description 12/07/2023 Guest Relations Representative Report Medical Records [address] [place] [address] Gurdeep Dickerson PA-C [address] [facility] [address] [place] [address] Social History Tobacco Use Types Packs/Day Years [...] on filedocumented in this encounter Care Teams Online Merchandising Specialist Relationship Specialty Start Date End Date Dimas Mcnair MD [address] [place], [place] [phone] PCP - General Internal Medicine 04/01/19 Vel Merino PA-C [address] [phone] Specialist Thoracic Surgery 04/09/24 documented as of this encounter
--- OUTSIDE RECORDS SUMMARY | 2024-08-19 14:02 | XMS_ITS | Encounter Summary ---
Author Organization [facility] Address [address] [place] [address] Care Team Providers Care Family Medicine Physician Assistant Name Role Phone Dimas Mcnair MD Primary Care Provider [phone] Vel Merino PA-C Unavailable Encounter Details Date Type Department Care Team Description 05/30/2020 Telephone Adult Medicine [address] [address] Chivo Martinez MD Social History Tobacco Use [...] on filedocumented in this encounter Care Teams Family Medicine Physician Assistant Relationship Specialty Start Date End Date Dimas Mcnair MD [address] [place] [address] PCP - General Internal Medicine 04/01/19 Vel Merino PA-C [address] [phone] Specialist Thoracic Surgery 04/09/24 documented as of this encounter
--- OUTSIDE RECORDS SUMMARY | 2024-08-19 14:02 | XMS_ITS | Encounter Summary ---
Author Organization [facility] Address [address] [place] [address] Care Team Providers Care Criminal Defense Lawyer Name Role Phone Dimas Mcnair MD Primary Care Provider [phone] Vel Merino PA-C Unavailable [phone] Reason for Visit * Reason Comments E-prescribe Rx Request Encounter Details Date Type Department Care Team Description 12/12/2021 Refill Endocrinology - [address] [address] Tonie Ceja PA-C [address] [place] [address] E-prescribe Rx Request Social History Tobacco Use [...] N/A Patients current insurance carrier is: Payor: MEDICARE-[employer] / [place] / Product Type: MEDICARE [id number] documented in this encounter Plan of Treatment Not on file documented as of this encounter Visit Diagnoses Not on filedocumented in this encounter Care Teams Criminal Defense Lawyer Relationship Specialty Start Date End Date Dimas Mcnair MD [address] [place] [address] PCP - General Internal Medicine 04/01/19 Vel Merino PA-C [address] [place] [phone] Specialist Thoracic Surgery 04/09/24 documented as of this encounter
--- OUTSIDE RECORDS SUMMARY | 2024-08-19 14:02 | XMS_ITS | Encounter Summary ---
Author Organization [facility] Address [address] [place] [address] Care Team Providers Care Tax Director Name Role Phone Dimas Mcnair MD Primary Care Provider [phone] Reason for Visit * Reason Onset Date Comments doctors 08/11/2024 [facility] calling Encounter Details Date Type Department Care Team ([facility] st Contact Info) Description 08/11/2024 Telephone Adult Medicine [address] [address] Dimas Mcnair MD [address] [place] [address] doctors ([facility] calling) Social History Tobacco Use Types Packs/Day [...] diagnostic for ischemia. Josiane, a nurse from [facility] is requesting an addendum from PCP stating that pt is clear for surgery or is not r/t stress test results. * Giuliano Diaz LPN - 08/11/2024 10:00 AM EST [facility] called see message * Angella Baltazar - 08/11/2024 8:44 AM EST [facility] CALL Which [facility] office is calling? [facility] Full name of caller: josiane The caller is A nurse Is the caller at the patients home?: no Reason for call: Nurse from [facility] is calling stating they need and addendum from Provider stating that patient is clear for surgery or isn't per her stress test results. Does caller need an urgent call back? yes Was CONTACT Telephone # obtained above?: yes Fax #: [phone] documented in this encounter Plan of Treatment Upcoming Encounters Date Type Department Care Team (Late st Contact Info) Description 11/03/2024 1:30 PM EDT Consult Vascular Surgery - [place] [address] [place] [phone] Areli Petty PA [address] [place] [address] documented as of this encounter Visit Diagnoses Not on filedocumented in this encounter Care Teams Tax Director Relationship Specialty Start Date End Date Dimas Mcnair MD [address] [place] [address] PCP - General Internal Medicine 05/17/24 documented as of this encounter
--- OUTSIDE RECORDS SUMMARY | 2024-08-19 14:02 | XMS_ITS | Encounter Summary ---
Author Organization [facility] Address [address] [place] [address] Care Team Providers Care Wafer Batter Mixer Name Role Phone Neli Gutierrez MD Primary Care Provider Unavail Dimas Westfall MD Primary Care Provider [phone] Vel Merino PA-C Unavailable [phone] Encounter Details Date Type Department Care Team Description 02/13/2017 Telephone Gastroenterology - [address] [phone] Naseem Heller PA-C Social History Tobacco Use [...] on filedocumented in this encounter Care Teams Wafer Batter Mixer Relationship Specialty Start Date End Date Neli Gutierrez MD PCP - General Internal Medicine 12/13/16 03/31/19 Dimas Mcnair MD [address] [place] [address] PCP - General Internal Medicine 04/01/19 Vel Merino PA-C [address] [place] [phone] Specialist Thoracic Surgery 04/09/24 documented as of this encounter
--- OUTSIDE RECORDS SUMMARY | 2024-08-19 14:02 | XMS_ITS | Clinical Summary ---
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 Alcohol abuse Opiate abuse, episodic ([facility]) Social History Tobacco Use Types Packs/Day Years [...] Imm-Pneumococcal (2 of 2 - PCV) 03/14/2023 [id number] (3 - 2023- season) 2024 021, 11/16/2020 [...] EST) CHOLESTEROL 189 0 - 200 mg/dL [facility] TRIGLYCERIDES 195(H) 0 - 150 mg/dL [facility] HDL CHOLESTEROL 48 >40 mg/dL [facility] LDL CALCULATED 102(H) 0 - 100 mg/dL [facility] TC-HDLC RATIO 3.9 0 - 4.4 mg/dL [facility] Blood specimen (specimen) Blood / Unknown 07/17/2014 11:43 AM EST 07/17/2014 3:31 PM EST Narrative [email or web address] - 07/17/2014 6:10 PM EST Turned On Digital [address] [place] [address] PT ID [id number] ORD# [id number] Shaila Arredondo NP LAB - BLOOD DRAW Final Result [facility] [address] [place] [address], * COMPRE METAB PANEL (07/17/2014 11:43 AM EST) GLUCOSE 90 70 - 100 mg/dL [facility] Comment:Reference range appl icable to fasting specimens only BUN 16 5 - 25 mg/dL [facility] CREAT 0.67 0.5 - 1.1 mg/dL [facility] GLOMERULAR FILTRATION RATE > 60 [facility] Comment: If patient is -[place], multiply result by 1.21 Chronic Kidney Disease: < 60 ml/min/1.73 square meters Kidney Failure: < 15 ml/min/1.73 square meters SODIUM 143 133 - 145 mEq/L [facility] POTASSIUM 4.1 3.5 - 5.5 mEq/L [facility] CHLORIDE 109 96 - 110 mEq/L [facility] CO2 29 21 - 32 mEq/L [facility] ANION GAP 5 3 - 11 [facility] CALCIUM 9.7 8.5 - 10.5 mg/dL [facility] TOTAL PROTEIN 6.6 6.0 - 8.0 G/dL [facility] ALBUMIN 4.4 3.2 - 5.0 G/dL [facility] BILI, TOTAL 0.4 0.0 - 1.4 mg/dL [facility] SGOT 19 10 - 42 U/L [facility] SGPT 15 10 - 60 U/L [facility] ALK PHOS 65 42 - 121 U/L [facility] Blood specimen (specimen) Blood / Unknown 07/17/2014 11:43 AM EST 07/17/2014 3:31 PM EST Narrative [facility] - 07/17/2014 6:10 PM EST [facility] [address] [place] [address] PT ID [id number] ORD# [id number] Shaila Arnulfo JULIO LAB - BLOOD DRAW Final Result [facility] [address] [place] [address], from Last 3 Months or Most Recently Relevant to Health Maintenance Insurance ID MEDICAID MEDICARE - [place] [facility]
--- OUTSIDE RECORDS SUMMARY | 2024-08-19 14:02 | XMS_ITS | Encounter Summary ---
Author Organization [facility] Address [address] [place] [address] Care Team Providers Care Winding Inspector And Tester Name Role Phone Community, Pcp Primary Care Provider Neli Trujillo MD Primary Care Provider Unavail Ryan Hou MD Primary Care Provider UnavailNeli Mai MD Primary Care Provider Unavail able Dimas Mcnair MD Primary Care Provider [phone] Vel Merino PA-C Unavailable [phone] Encounter Details Date Type Department Care Team Description 01/25/2013 Hospital Medical Records [address] [place], [place] [phone] [place] [address] Social History Tobacco Use Types Packs/Day Years [...] on filedocumented in this encounter Care Teams Winding Inspector And Tester Relationship Specialty Start Date End Date Community, Pcp PCP - General Internal Medicine 07/16/12 09/17/16 Neli Gutierrez MD PCP - General Internal Medicine 09/18/16 10/13/16 Ryan Ramos MD PCP - General Internal Medicine 10/14/16 12/12/16 Neli Gutierrez MD PCP - General Internal Medicine 12/13/16 03/31/19 Dimas Mcnair MD [address] [place] [address] PCP - General Internal Medicine 04/01/19 Vel Merino PA-C [address] [place] [phone] Specialist Thoracic Surgery 04/09/24 documented as of this encounter
--- OUTSIDE RECORDS SUMMARY | 2024-08-19 14:02 | XMS_ITS | Encounter Summary ---
Author Organization [facility] Address [address] [place] [address] Care Team Providers Care Data Processing Mechanic Name Role Phone Dimas Mcnair MD Primary Care Provider [phone] Reason for Visit * Reason Onset Date Comments Medical Records 07/22/2024 Encounter Details Date Type Department Care Team (Late st Contact Info) Description 07/22/2024 Telephone [facility] Cardiology [facility] [address] [facility] [address] [place] [phone] Dimas Mcnair MD [address] [place] [address] Medical Records Social History Tobacco Use Types Packs/Day Years [...] as of this encounter Progress Notes * Jena Calderon - 08/18/2024 4:00 PM EST Faxed 02/06/2023 Office Note to [facility] [place] [employer] Stay Att: Brielle at [phone] on 07/22/2023 documented in this encounter Plan of Treatment Upcoming Encounters Date Type Department Care Team (Late st Contact Info) Description 11/03/2024 1:30 PM EDT Consult Vascular Surgery - [place] [address] [facility] [address] [place] [address] Areli Petty PA 300 [facility] [address] [place] [address] documented as of this encounter Visit Diagnoses Not on filedocumented in this encounter Care Teams Data Processing Mechanic Relationship Specialty Start Date End Date Dimas Mcnair MD [address] [place] [address] PCP - General Internal Medicine 05/17/24 documented as of this encounter
--- OUTSIDE RECORDS SUMMARY | 2024-08-19 14:02 | XMS_ITS | Encounter Summary ---
Author Organization [facility] Address [address] [place] [address] Care Team Providers Care Head Of Integrated Media Name Role Phone Dimas Mcnair MD Primary Care Provider [phone] Vel Merino PA-C Unavailable [phone] Encounter Details Date Type Department Care Team Description 07/13/2021 Orders Only Endocrinology - [address] [phone] Tonie Ceja PA-C [address] [place] [address] Subclinical hyperthyroidism (Primary Dx) Social History Tobacco [...] 4.00 uIU/ml 09/05/2021 6:47 PM EST [facility] 09/05/2021 4:27 PM EST 09/05/2021 4:27 PM EST Narrative [facility] - 09/05/2021 6:47 PM EST Release to patient->Immediate Tonie Ceja PA-C LAB [facility] documented in this encounter Visit Diagnoses Diagnosis Subclinical hyperthyroidism- Primary Thyrotoxicosis without mention of goiter or other cause, without mention of thyrotoxic crisis or storm Subclinical hyperthyroidism Thyrotoxicosis without mention of goiter or other cause, without mention of thyrotoxic crisis or storm documented in this encounter Care Teams Head Of Integrated Media Relationship Specialty Start Date End Date Dimas Mcnair MD [address] [place] [address] PCP - General Internal Medicine 04/01/19 Vel Merino PA-C [address] [place] [phone] Specialist Thoracic Surgery 04/09/24 documented as of this encounter
--- OUTSIDE RECORDS SUMMARY | 2024-08-19 14:02 | XMS_ITS | Encounter Summary ---
Author Organization [facility] Address [address] [place] [address] Care Team Providers Care Naphtha Washing System Operator Name Role Phone Dimas Mcnair MD Primary Care Provider [phone] Vel Merino PA-C Unavailable [phone] Encounter Details Date Type Department Care Team Description 08/08/2022 Cartridge Feeder Report Medical Records [address] [place] [address] Hammad Alanis PA-C Social History Tobacco Use [...] on filedocumented in this encounter Care Teams Naphtha Washing System Operator Relationship Specialty Start Date End Date Dimas Mcnair MD [address] [place], [place] [phone] PCP - General Internal Medicine 04/01/19 Vel Merino PA-C [address] [place] [phone] Specialist Thoracic Surgery 04/09/24 documented as of this encounter
--- OUTSIDE RECORDS SUMMARY | 2024-08-19 14:02 | XMS_ITS | Encounter Summary ---
Author Organization [facility] Address [address] [place] [address] Care Team Providers Care Hedis Abstractor Name Role Phone Dimas Mcnair MD Primary Care Provider [phone] Vel Merino PA-C Unavailable [phone] Encounter Details Date Type Department Care Team Description 04/10/2024 Orders Only [facility] Lung Screening Program [place] [address] [facility] [address] [place] [phone] Aditya Zavala MD 299 [facility] [place] [address] [place] [address] [id number] Encounter for screening for lung cancer Social [...] cancer documented in this encounter Care Teams Hedis Abstractor Relationship Specialty Start Date End Date Dimas Mcnair MD [address] [place] [address] PCP - General Internal Medicine 04/01/19 Vel Merino PA-C [address] [place] [phone] Specialist Thoracic Surgery 04/09/24 documented as of this encounter
--- OUTSIDE RECORDS SUMMARY | 2024-08-19 14:02 | XMS_ITS | Encounter Summary ---
Author Organization [facility] Address [address] [place] [address] Care Team Providers Care Tile Finisher Name Role Phone Dimas Mcnair MD Primary Care Provider Vel Merino PA-C Unavailable [phone] Encounter Details Date Type Department Care Team Description 02/26/2021 Dip Painter Report Medical Records [address] [place] [address] [facility] [address] [place] [address] Social History Tobacco Use Types Packs/Day Years [...] on filedocumented in this encounter Care Teams Tile Finisher Relationship Specialty Start Date End Date Dimas Mcnair MD [address] [place] [address] PCP - General Internal Medicine 04/01/19 Vel Merino PA-C [address] [phone] Specialist Thoracic Surgery 04/09/24 documented as of this encounter
--- OUTSIDE RECORDS SUMMARY | 2024-08-19 14:02 | XMS_ITS | Encounter Summary ---
Author Organization [facility] Address [address] [place] [address] Care Team Providers Care Agricultural Economics Teacher Name Role Phone Dimas Mcnair MD Primary Care Provider [phone] Vel Merino PA-C Unavailable [phone] Encounter Details Date Type Department Care Team Description 04/10/2020 Hospital Medical Records [address] [place] [address] Social History Tobacco Use Types Packs/Day Years [...] on filedocumented in this encounter Care Teams Agricultural Economics Teacher Relationship Specialty Start Date End Date Dimas Mcnair MD [address] [place] [address] PCP - General Internal Medicine 04/01/19 Vel Merino PA-C [address] [phone] Specialist Thoracic Surgery 04/09/24 documented as of this encounter
--- OUTSIDE RECORDS SUMMARY | 2024-08-19 14:02 | XMS_ITS | Clinical Summary ---
Author Organization [facility] Address [address] [place] [address] Care Team Providers Care Producer Director Name Role Phone Dimas Mcnair MD Primary Care Provider [phone] Allergies No known active allergies Medications Medication [...] age to complete this topic Care Teams Producer Director Relationship Specialty Start Date End Date Dimas Mcnair MD PCP - General Internal Medicine 10/28/21
== END 2024-08-19 14:28 | disposition home or self-care (01) ==
PROVIDERS: Visit Provider Internal Medicine
DX: I25.10 Atherosclerotic heart disease of native coronary artery without angina pectoris (principal); Z01.810 Encounter for preprocedural cardiovascular examination
CPT/HCPCS: 93010; 99214

== ENCOUNTER → 2024-08-19 13:53 | Outpatient (BNVA) | payer MEDICARE, SELFPAY | PROVIDERS: Visit Provider Internal Medicine | DX: Z01.810 Encounter for preprocedural cardiovascular examination (principal); I25.10 Atherosclerotic heart disease of native coronary artery without angina pectoris | CPT/HCPCS: 93005; 99212 ==

== ENCOUNTER 2024-08-25 08:07 | Outpatient (REF) | payer MEDICARE, SELFPAY ==
--- OUTSIDE RECORDS SUMMARY | 2024-08-25 08:17 | XMS_ITS | Clinical Summary ---
Author Organization [facility] Address [address] [place] [address] Care Team Providers Care Business Mail Entry Clerk Name Role Phone Dimas Mcnair MD Primary Care Provider [phone] Allergies No known active allergies Medications Medication [...] age to complete this topic Care Teams Business Mail Entry Clerk Relationship Specialty Start Date End Date Dimas Mcnair MD PCP - General Internal Medicine 10/28/21
--- OUTSIDE RECORDS SUMMARY | 2024-08-25 08:17 | XMS_ITS | Encounter Summary ---
Author Organization [facility] Address [address] [place] [address] Care Team Providers Care Title Searcher Name Role Phone Neli Gutierrez MD Primary Care Provider Unavail able Dimas Mcnair MD Primary Care Provider [phone] Vel Merino PA-C Unavailable Encounter Details Date Type Department Care Team Description 12/21/2016 Transfer Records Medical Records [address] [place] [address] Abstract, Provider Social History Tobacco Use Types [...] on filedocumented in this encounter Care Teams Title Searcher Relationship Specialty Start Date End Date Neli Gutierrez MD PCP - General Internal Medicine 12/13/16 03/31/19 Dimas Mcnair MD [address] [place] [address] PCP - General Internal Medicine 04/01/19 Vel Merino PA-C [address] [place] [phone] Specialist Thoracic Surgery 04/09/24 documented as of this encounter
--- OUTSIDE RECORDS SUMMARY | 2024-08-25 08:17 | XMS_ITS | Encounter Summary ---
Author Organization [facility] Address [address] [place] [address] Care Team Providers Care Meteorology Teacher Name Role Phone Neli Gutierrez MD Primary Care Provider Unavail Dimas Westfall MD Primary Care Provider [phone] Vel Merino PA-C Unavailable [phone] Reason for Visit * Reason Onset Date Comments REFERRAL 12/25/2016 obgyn Encounter Details Date Type Department Care Team Description 12/25/2016 Telephone Adult Medicine [address] [id number] Neli Gutierrez MD REFERRAL (obgyn) Social History [...] 2:18 PM EDT Patient stopped by the DENTAL APPLIANCE MECHANIC office today and scheduled her annual exam. * Telephone Encounter - Elisabet Hirsch - 12/25/2016 2:40 PM EDT FYI to referring provider; We have attempted to contact this patient for the order placed to see DENTAL APPLIANCE MECHANIC for routine exam, however, patient has not responded to any of our attempts and for this reason patients order will be closed. If patient changes her mind please have her contact DENTAL APPLIANCE MECHANIC for an appointment Thank you documented in this encounter Plan of Treatment Not on file documented as of this encounter Visit Diagnoses Not on filedocumented in this encounter Care Teams Meteorology Teacher Relationship Specialty Start Date End Date Neli Gutierrez MD PCP - General Internal Medicine 12/13/16 03/31/19 Dimas Mcnair MD [address] [place] [address] PCP - General Internal Medicine 04/01/19 Vel Merino PA-C [address] [place] [phone] Specialist Thoracic Surgery 04/09/24 documented as of this encounter
--- OUTSIDE RECORDS SUMMARY | 2024-08-25 08:17 | XMS_ITS | Encounter Summary ---
Author Organization [facility] Address [address] [place] [address] Care Team Providers Care Director Of Audiology Name Role Phone Dimas Mcnair MD Primary Care Provider [phone] Reason for Referral * Consultation (Routine) - Authorized Specialty Diagnoses / Procedures Referred By Johnie t Referred To Contact Cardiology Diagnoses Chest pain, unspecified type Abnormal stress test Dimas Mcnair MD [address] [place] [address] Phone: tel: fax: [facility] - [facility] [address] [facility] [address] [place] [phone] Phone: tel: fax: Referral ID Status Reason Start Date Expiration Date Visits Requested Visits Authorized [id number] Authorized Specialty Services Required 08/21/2024 08/21/2025 1 1 * Cardiac Stress Testing (Routine) - Authorized Specialty Diagnoses / Procedures Referred By Contac t Referred To Contact Cardiology Diagnoses Chest pain, unspecified type Procedures Nuclear stress test with myocardial perfusion MT MYOCARDIAL PERFUSION IMAGING TOMOGRAPHIC MULTI STUDIES AT REST OR STRESS MT MYOCARDIAL PERFUSION IMAGING TOMOGRAPHIC SINGLE STUDY AT REST OR STRESS MT CARDIOVASCULAR STRESS TEST GLOBAL MT CV TMST/BIKE MAX/SUBMAX CONTINUOUS ECG MON/PHARM STRESS SUPVSR ONLY MT CV STRESS TEST/BIKE CONT ECG MON/PHARM STRESS INTERP & REPORT ONLY MT TEST STRESS CARDIOVASCULAR TRACING ONLY Dimas Mcnair MD [address] [place] [address] Phone: tel: fax: [facility] Referral ID Status Reason Start Date Expiration Date V isits Requested Visits Authorized [id number] Authorized 07/02/2024 12/29/2024 3 3 Reason for Visit * Reason Comments Pre-op Exam dr. juanita porras sd 08/12 left total hip arthroplasty Encounter Details Date Type Department Care Team (Late st Contact Info) Description 06/19/2024 10:00 AM EST Consult Adult Medicine [facility] [address] [place] [address] Dimas Mcnair MD [address] [place] [address] Preop examination (Primary Dx); Urinary frequency; Chest pain, unspecified type; Sore throat; Closed fracture of tooth, initial encounter; Post-nasal drip; Abnormal stress test Social History Tobacco Use Types Packs/Day Years Used Date Smoking Tobacco: Every Day Cigarettes Smokeless Tobacco: Never Alcohol Use Standard Drinks/Week Comments Yes 0 (1 standard drink = 0.6 oz pur e alcohol) Comments No Sex and Gender Information Value Date Recorded Sex Assigned at Female 05/17/2024 3:04 PM EDT Legal Sex Female 11:38 AM EST Gender Identity Female 05/17/2024 3:04 PM EDT Sexual Orientation Straight 05/17/2024 3: 04 PM EDT documented as of this encounter Last Filed Vital Signs Vital Sign Reading Time Taken Comments Blood Pressure 128/70 06/19/2024 10:23 AM EST Pulse 86 06/19/2024 10:23 AM EST Temperature 36.7 ??C (98 ??F) 06/19/2024 10:23 AM EST Respiratory Rate 12 06/19/2024 10:23 AM EST Oxygen Saturation - - Inhaled Oxygen Concentration - - Weight 55.3 kg (122 lb) 06/19/2024 10:23 AM EST Height 157.5 cm (5' 2 ) 06/19/2024 10:23 AM EST Body Mass Index 22.31 06/19/2024 10:23 AM EST documented in this encounter Ordered Prescriptions Prescription Sig Dispense Quantity Refills Last Filled Start Date End Date penicillin v potassium (VEETID) 500 mg tablet Take 1 tablet (500 mg total) by mouth 3 (three) times a day for 10 days. 30 each 06/19/2024 06/29/2024 documented in this encounter Progress Notes * Dimas Mcnair MD - 06/19/2024 10:00 AM EST Please avoid motrin, Advil ,aleve, ibuprofen , naproxen, aspirin x 10 days prior to surgery , tylenol is ok up until the day of surgery Please take medications as prescribed the day prior to surgery Please hold all other medications/supplements on the day of surgery * Dimas Mcnair MD - 06/19/2024 10:00 AM ESTAddended by: DIMAS MCNAIR on: 08/21/2024 06:09 PM Modules accepted: Orders * Dimas Mcnair MD - 06/19/2024 10:00 AM EST Referring MD: Juanita Porras MD HPI: Ms. Garcia is a 64 y.o. year old female who is scheduled for left total hip arthoplasty on 08/12/2024. She is here today for pre-operative consultation. Her functional status is less than 4 METs as shecan walk for 10 minutes while shopping w/o chest pain or significant shortness of breath, pt ambulation limited by her hip and back pain . She has not had problems with anesthesia or bleeding. Pt with hx of palpitations pt is on verapamil Bp is 128/70 pulse 86 Pt notes chest pounding for the past few months usually in response to pain. Pt notes left sided throat pain pt has broken/infected left lower molar pt to have upcoming extraction. Pt aprox 10 days ago noted dysuria with scant urination pt has been taking cranberry juice, pt notes burning improved but still has urinary frequency ROS: GENERAL: Negative for malaise, significant weight loss and fever HEENT: See HPI RESPIRATORY: No cough, wheezing or shortness of breath CARDIOVASCULAR: See HPI : See HPI PAST MEDICAL HISTORY: Patient Active Problem List Diagnosis Date Noted Cocaine use 05/12/2024 Tubular adenoma 10/25/2023 Bacterial vaginosis 12/28/2022 Left groin pain 06/01/2022 Low back pain 06/01/2022 Psoriasis 12/20/2021 Skin lesion 12/20/2021 Palpitations 10/06/2020 Pulmonary nodules 02/12/2020 Chronic headache disorder 05/06/2019 Thyroid nodule 02/25/2019 Mild emphysema (CMS/HCC) 11/20/2018 Subclinical hyperthyroidism 10/24/2018 OA (osteoarthritis) of hip 09/24/2018 Trochanteric bursitis of left hip 09/24/2018 IBS (irritable bowel syndrome) 02/13/2017 Vitamin D deficiency 12/29/2016 Hypercholesteremia 12/19/2016 SOCIAL HISTORY: Social History Tobacco Use Smoking status: Every Day Current packs/day: 0.20 Types: Cigarettes Smokeless tobacco: Never Substance Use Topics Alcohol use: Yes FAMILY HISTORY: Family Status Relation Name Status Mother Alive Father at age 57 Sister x 1 Alive Brother x 1 Alive MGM Daughter Alive Neg Hx (Not Specified) MGF PGM PGF No partnership data on file Family History Problem Relation Name Age of Onset Coronary artery disease Mother w/ stenting; HTN, HLD Lung cancer Father at 56 (+smoker) Hyperlipidemia Sister x 1 Other (Other: unknown cancer) Brother x 1 Lung cancer Maternal Grandmother (+smoker) Colon cancer Daughter 34.00 Breast cancer Neg Hx ACTIVE MEDICATIONS: No outpatient medications have been marked as taking for the 06/19/24 encounter (Consult) with Dimas Mcnair MD. ALLERGIES: Patient has no known allergies. PHYSICAL EXAM: Blood pressure 128/70, pulse 86, temperature 36.7 ??C (98 ??F), temperature source Temporal, resp. rate 12, height 1.575 m (62 ), weight 55.3 kg (122 lb). There is no height or weight on file to calculate BMI. APPEARANCE: Alert and in no acute distress EYES: PERRLA, conjunctiva and sclera normal EARS: External ears normal. Canals clear. TMs normal. NOSE/SINUS: Positive findings: pale appearing MOUTH/THROAT: broken lower left molar some associated gingivitis post nasal exudate noted on oral pharynx HEART: RRR with normal S1 and S2, no murmurs, no gallops, no JVD appreciated LUNG: clear to auscultation bilaterally EXTREMITIES: Extremities warm and well perfused without clubbing, cyanosis, or edema LABS: No results found for: WBC , HGB , HCT , MCV No results found for: NA , K , CO2 , CL , BUN , GLU No results found for: INR , PTT Cbc and inr ordered will contact your office with any significant abnormalities Testing:acceptable EKG: no st elevation/depression no q wave RRR . ASSESSMENT AND PLAN: 1. Preop examination 2. Urinary frequency 3. Chest pain, unspecified type 4. Sore throat 5. Closed fracture of tooth, initial encounter 6. Post-nasal drip Cardiac - Ms. Garcia clinical risk factors include none and female is scheduled for a intermediate risk procedure. Her functional capacity is estimated to be less than 4 METs. She is, therefore, estimated to have an acceptablerisk for the proposed procedure. Further cardiac workup is warranted. Betablockade perioperatively is not needed. Pt with chest pain/pounding ? Related to her pain, pt cannot exercise much due to the hip so cannotassess for angina based on her physical activity, will at this time schedule dobutamine stress test Pt with throat pain pt with ? Tooth infection I will rx a course of pcn jeff cover for strep Pt recommend salt water gargle for PND this could be the cause of her sore throat Pt with dysuria now with urinary frequency Will order u/a and ucx if (+) uti will treat Pulmonary - Her pulmonary risk factors include age > 50. Early ambulation and use of incentive spirometry, when appropriate, are encouraged. Medications - Pt to hold nsaids 10 days prior to procedure Pt will take her verapamil as prescribed the night prior to surgery Pt will hold all medications/supplements on the day of surgery Please do not hesitate to contact me with any questions or concerns. Thank you for the courtesy of this consultation. Addendum 08/21/2024 Stress testing showed . Stress ECG: The patient developed 0.5 mm - [address] segment depressions in the inferior leads during the regadenoson infusion which is borderline diagnostic for ischemia. Patient has been referred to cardiology for further evaluation Dimas Mcnair MD on 06/19/2024 at 10:10 AM EST cc: No ref. provider found * Mayuri Pinto MA - 06/19/2024 10:00 AM EST Electrocardiogram performed by Shaun Pinto MA and reviewed by Dr. Dimas Mcnair MD. documented in this encounter Plan of Treatment Upcoming Encounters Date Type Department Care Team (Late st Contact Info) Description 11/03/2024 1:30 PM EDT Consult Vascular Surgery - [place] [address] [place] [address] Areli Petty PA [address] [place] [address] Scheduled Orders Name Type Priority Associated Diagnoses Orde r Schedule Prothrombin inr with partial thromboplastin times Lab Routine Preop examination 1 Occurrences starting 06/19/2024 until 06/19/2025 Scheduled Referrals Name Type Priority Associated Diagnoses Order Schedule Ambulatory referral to Cardiology Outpatient Referral Routine Chest pain, unspecified type Abnormal stress test 1 Occurrences starting 08/21/2024 until 08/21/2025 documented as of this encounter Results * NM DOBUTAMINE STRESS [...] 1.47% Dimas Mcnair MD CV STRESS PROCEDURES Final Resu lt * Culture urine (06/19/2024 11:17 AM EST) Culture, Urine No growth 06/20/2024 11:28 AM EST [facility] Urine Urine specimen / Unknown Non-blood Collection / Unknown 06/19/2024 11:17 AM EST 06/19/2024 11:17 AM EST Dimas Mcnair MD LAB MICROBIOLOGY - GENERAL [facility] Final Result [facility] [address] [place] [address], [place] [phone] documented in this encounter Visit Diagnoses Diagnosis Preop examination- Primary Unspecified pre-operative examination Urinary frequency Chest pain, unspecified type Sore throat Acute pharyngitis Closed fracture of tooth, initial encounter Post-nasal drip Postnasal drip Abnormal stress test Other nonspecific abnormal cardiovascular system function study Chest pain, unspecified type documented in this encounter Care Teams Director Of Audiology Relationship Specialty Start Date End Date Dimas Mcnair MD [address] [place] [address] PCP - General Internal Medicine 05/17/24 documented as of this encounter
--- OUTSIDE RECORDS SUMMARY | 2024-08-25 08:17 | XMS_ITS | Encounter Summary ---
Author Organization [facility] Address [address] [place] [address] Care Team Providers Care Inspector Experimental Assembly Name Role Phone Neli Gutierrez MD Primary Care Provider Unavail Dimas Westfall MD Primary Care Provider [phone] Vel Merino PA-C Unavailable [phone] Encounter Details Date Type Department Care Team Description 02/13/2017 Telephone Gastroenterology - [address] [phone] Naseem Heller PA-C Social History Tobacco Use [...] on filedocumented in this encounter Care Teams Inspector Experimental Assembly Relationship Specialty Start Date End Date Neli Gutierrez MD PCP - General Internal Medicine 12/13/16 03/31/19 Dimas Mcnair MD [address] [place] [address] PCP - General Internal Medicine 04/01/19 Vel Merino PA-C [address] [place] [phone] Specialist Thoracic Surgery 04/09/24 documented as of this encounter
--- OUTSIDE RECORDS SUMMARY | 2024-08-25 08:17 | XMS_ITS | Encounter Summary ---
Author Organization [facility] Address [address] [place] [address] Care Team Providers Care Laser Operator Name Role Phone Dimas Mcnair MD Primary Care Provider [phone] Reason for Visit * Reason Onset Date Comments doctors 08/11/2024 [facility] calling Encounter Details Date Type Department Care Team ([facility] Contact Info) Description 08/11/2024 Telephone Adult Medicine [address] [address] Dimas Mcnair MD [address] [place] [phone] doctors ([facility] calling) Social History Tobacco Use Types [...] PM EDT documented as of this encounter Progress Notes * Janelle Hall RN - 08/22/2024 8:55 AM EST Called [facility] at and spoke to a stock lifter who forwarded the call to brenda Logan new ptcoordinator. Per Doreen pt is an established pt at [facility]. Her oceanography professor is Dr. Rivers. Her referral was sent to Jenny who processes referrals for established pts. Doreen will contact Jenny. Doreen was given my direct number to provide to [facility] regarding this pt. * Janelle Hall RN - 08/22/2024 8:41 AM EST I left a message for the pt to call the office at . * Dimas Mcnair MD - 08/21/2024 6:10 PM EST I have placed the addendum pt stress test was abnormal pt was referred to cardiology on 08/01/2024 Pt will need cardiology consult prior to being cleared for surgery To that end I do not see the patient has been scheduled I placed the referral again can we please send this to the referral department to make sure pt is scheduled ayanna * Janelle Hall RN - 08/11/2024 10:16 [...] diagnostic for ischemia. Josiane, a nurse from [facility] is requesting an addendum from PCP stating that pt is clear for surgery or is not r/t stress test results. * Giuliano Diaz LPN - 08/11/2024 10:00 AM EST [facility] called see message * Angella Baltazar - 08/11/2024 8:44 AM EST [facility] CALL Which [facility] office is calling? [facility] Full name of caller: josiane The caller is A nurse Is the caller at the patients home?: no Reason for call: Nurse from [facility] is calling stating they need and addendum from Provider stating that patient is clear for surgery or isn't per her stress test results. Does caller need an urgent call back? yes Was CONTACT Telephone # obtained above?: yes Fax #: [phone] documented in this encounter Plan of Treatment Upcoming Encounters Date Type Department Care Team (Late st Contact Info) Description 11/03/2024 1:30 PM EDT Consult Vascular Surgery - [place] [address] [place] [phone] Areli Petty PA [address] [place] [address] documented as of this encounter Visit Diagnoses Not on filedocumented in this encounter Care Teams Laser Operator Relationship Specialty Start Date End Date Dimas Mcnair MD [address] [place] [address] PCP - General Internal Medicine 05/17/24 documented as of this encounter
--- OUTSIDE RECORDS SUMMARY | 2024-08-25 08:17 | XMS_ITS | Encounter Summary ---
Author Organization [facility] Address [address] [place] [address] Care Team Providers Care Box Folding Machine Operator Name Role Phone Dimas Mcnair MD Primary Care Provider [phone] Reason for Visit * Cardiac Stress Testing (Routine) - Authorized Specialty Diagnoses / Procedures Referred By Contac t Referred To Contact Cardiology Diagnoses Chest pain, unspecified type Procedures Nuclear stress test with myocardial perfusion [place] MYOCARDIAL PERFUSION IMAGING TOMOGRAPHIC MULTI STUDIES AT REST OR STRESS WI MYOCARDIAL PERFUSION IMAGING TOMOGRAPHIC SINGLE STUDY AT REST OR STRESS WI CARDIOVASCULAR STRESS TEST GLOBAL WI CV TMST/BIKE MAX/SUBMAX CONTINUOUS ECG MON/PHARM STRESS SUPVSR ONLY WI CV STRESS TEST/BIKE CONT ECG MON/PHARM STRESS INTERP & REPORT ONLY WI TEST STRESS CARDIOVASCULAR TRACING ONLY Dimas Mcnair MD [address] [place] [address] Phone: tel: fax: [facility] Referral ID Status Reason Start Date Expiration Date V isits Requested Visits Authorized [id number] Authorized 07/02/2024 12/29/2024 3 3 Encounter Details Date Type Department Care Team (Late st Contact Info) Description 07/29/2024 12:00 PM EST Ancillary Procedure [facility] - [address] [facility] [address] [place] [address] Social History Tobacco Use Types [...] 1:30 PM EDT Consult Vascular Surgery - [place] [address] [facility] [address] [place] [address] Areli Petty PA [address] [place] [address] documented as of this encounter Procedures Procedure [...] Antecubital documented in this encounter Care Teams Box Folding Machine Operator Relationship Specialty Start Date End Date Dimas Mcnair MD [address] [place] [address] PCP - General Internal Medicine 05/17/24 documented as of this encounter
--- OUTSIDE RECORDS SUMMARY | 2024-08-25 08:18 | XMS_ITS | Encounter Summary ---
Author Organization [facility] Address [address] [place] [address] Care Team Providers Care Mohs Surgeon Name Role Phone Dimas Mcnair MD Primary Care Provider [phone] Vel Merino PA-C Unavailable [phone] Reason for Visit * Reason Comments E-prescribe Rx Request Encounter Details Date Type Department Care Team Description 12/12/2021 Refill Endocrinology - [address] [address] Tonie Ceja PA-C [address] [place] [address] E-prescribe Rx Request Social History Tobacco Use [...] N/A Patients current insurance carrier is: Payor: MEDICARE-[employer] / Plan: [place] / Product Type: MEDICARE [id number] documented in this encounter Plan of Treatment Not on file documented as of this encounter Visit Diagnoses Not on filedocumented in this encounter Care Teams Mohs Surgeon Relationship Specialty Start Date End Date Dimas Mcnair MD [address] [place] [address] PCP - General Internal Medicine 04/01/19 Vel Merino PA-C [address] [place] [phone] Specialist Thoracic Surgery 04/09/24 documented as of this encounter
--- OUTSIDE RECORDS SUMMARY | 2024-08-25 08:18 | XMS_ITS | Clinical Summary ---
Author Organization [facility] [address] [facility] Address [address] [place], [place] Phone Care Team Providers Care Floor Representative Name Role Phone Dimas Mcnair MD Primary Care Provider [phone] Allergies No known active allergies Medications albuterol HFA (PROAIR HFA ; PROVENTIL HFA ; VENTOLIN HFA) 90 mcg/actuation inhaler Inhale 2 Puffs into the lungs every 6 hours as needed for Cough, Wheezing or Shortness of Breath. 4 Active betamethasone valerate (VALISONE) 0.1 % ointment APPLY TO THE AFFECTED AREAS TWICE A DAY X 2 WEEKS THEN PRN FLARES. 4 Active oxyCODONE-aceta minophen (PERCOCET) 5-325 mg per tablet TAKE ONE TABLET BY MOUTH FOUR TIMES A DAY FOR 7 DAYS 3 Active verapamil ER (VERELAN PM) 100 mg 24 hr capsule Take 1 Capsule by mouth at bedtime. 4 Active polyethylene glycol (MIRALAX) 17 gram packet MIX 17 GRAMS IN BEVERAGE DIRECTED AND TAKE BY MOUTH ONCE DAILY 4 Active Hospital, Clinic, or Other Facility Administered Medication Ordered Dose Route Frequency Start Date End Date Status regadenoson (LEXISCAN) injection 0.4 mg 0.4 mg IV Once in imaging 07/29/2024 07/29/2024 Ended TC-99M tetrofosmin P radio-isotope injection 29 millicurie [...] her arthritis. There is no evidence of Dyeing Machine Back Tender etiology of her pain. I recommended she [...] Encounters Date Type Department Care Team Description 08/22/2024 Telephone [facility] Cardiology [facility] [address] [facility] [address] [place] [address] Vel Rivers MD Referral; Pre-operative Clearance 08/19/2024 Telephone Adult Medicine [address] [address] Dimas Mcnair MD Results 08/11/2024 Telephone Adult Medicine [address] [phone] Dimas Mcnair MD doctors ([facility]) 07/29/2024 12:00 PM EST Ancillary Procedure [facility] [address] [place] [address] 07/23/2024 12:00 PM EST Ancillary Procedure [facility] [address] [place] [address] Chest pain, unspecified type 07/22/2024 Telephone [facility] Cardiology [facility] [address] [place] [address] Dimas Mcnair MD Medical Records 06/19/2024 10:00 AM EST Consult Adult Medicine [address] [phone] Dimas Mcnair MD Preop examination (Primary Dx); Urinary frequency; Chest pain, unspecified type; Sore throat; Closed fracture of tooth, initial encounter; Post-nasal drip; Abnormal stress test 06/03/2024 11:18 AM EST - 06/03/2024 11:59 PM EST Hospital Encounter [facility] Ultrasound [address] [place] [phone] Thyroid nodule Discharge Disposition: Home or Self [...] erosive gastritis, small hiatal hernia COLONOSCOPY 01/27 [facility] PROCEDURE: HISTORICAL COLONOSCOPY; COMMENT: adenoma and poor bowel prep; tics and hemorrhoids COLONOSCOPY 04/26/2017 PROCEDURE: HISTORICAL COLONOSCOPY; COMMENT: normal; repeat in 5 yrs ESOPHAGOGASTRODUODENOSCOPY 01/27 [facility] [place] PROCEDURE: AR ESOPHAGOGASTRODUODENOSCOPY TRANSORAL DIAGNOSTIC; COMMENT: HH and erosive gastritis and H. pylori ESOPHAGOGASTRODUODENOSCOPY 04/26/2017 PROCEDURE: AR EGD TRANSORAL BIOPSY SINGLE/MULTIPLE; COMMENT: Normal esophagus [...] Orientation Straight 05/17/2024 3: 04 PM EDT Obstetrics History Last Filed Vital Signs Vital [...] 1:30 PM EDT Consult Vascular Surgery - [place] [address] [place] [phone] Areli Petty PA [address] [facility] [address] [place] [address] Health Maintenance Due Date Last Done Comments Hepatitis A Vaccines (1 of 2 - Risk 2-dose series) 1980 Zoster Vaccines (1 of 2) 2011 RSV Immunization Patients 60+ Years Old (1 - Risk 60-74 years 1-dose series) 2021 Colorectal Cancer Screening: Colonoscopy 06/24/2022 04/26/2017 HIV Screening 06/24/2022 Medicare Annual Wellness Visit 06/24/2022 Social Influencers of Health Screening 06/24/2022 Pneumococcal Vaccine: 50+ Years (2 of 2 - PCV) 03/14/2023 03/14/2022, 10/01/2008 Pneumococcal Vaccine: Pediatrics (0 to 5 Years) and At-Risk Patients (6 to 64 Years) (2 of 2 - PCV) 03/14/2023 03/14/2022, 10/01/2008 COVID-19 Vaccine ( season) 2024 12/16/2020, 11/16/2020 Influenza Vaccine (#1) [...] patient's age to complete this topic Meningococcal B Vacine Aged Out No lo nger eligible based on patient's age to complete [...] imaging of breast LIPID PANEL Routine 08/30/2022 HPV Routine 12/20/2021 COLONOSCOPY Routine 04/26/2017 HEPATITIS C SCREENING Routine [...] Scores: SDS Score: 1 Percentage Abnormal: 1.47% us Dimas Mcnair MD CV STRESS PROCEDURES Final Resu lt * External Xray Report (07/22/2024) Anatomical Region Laterality Modality Radiographic Sarah ging us Provider Onbase IMG XR PROCEDURES Final Resul t * Urinalysis with reflex microscopic (06/19/2024 11:17 AM EST) Specific [place] Urine 1.025 1.003 - 1.030 LAB URINALYSIS - AUTOMATED METHOD 06/19/2024 2:18 PM [facility] pH, Urine 6.0 5.0 - 8.0 pH LAB URINALYSIS - AUTOMATED METHOD 06/19/2024 2:18 PM [facility] Leukocytes, Urine Negative Negative LAB URINALYSIS - AUTOMATED METHOD 06/19/2024 2:18 PM [facility] Nitrite, Urine Negative Negative LAB URINALYSIS - AUTOMATED METHOD 06/19/2024 2:18 PM [facility] Protein, Urine Negative <=Trace mg/dL LAB URINALYSIS - AUTOMATED METHOD 06/19/2024 2:18 PM [facility] Glucose, Urine Negative Negative mg/dL LAB URINALYSIS - AUTOMATED METHOD 06/19/2024 2:18 PM [facility] Ketones, Urine Negative Negative mg/dL LAB URINALYSIS - AUTOMATED METHOD 06/19/2024 2:18 PM [facility] Urobilinogen, Urine 1.0 0.2 - 1.0 mg/dL LAB URINALYSIS - AUTOMATED METHOD 06/19/2024 2:18 PM [facility] Bilirubin, Urine Negative Negative LAB URINALYSIS - AUTOMATED METHOD 06/19/2024 2:18 PM [facility] Blood, Urine Negative Negative LAB URINALYSIS - AUTOMATED METHOD 06/19/2024 2:18 PM [facility] Urine Urine specimen obtained by clean catch procedure / Unknown Non-blood Collection / Unknown 06/19/2024 11:17 AM EST 06/19/2024 11:17 AM EST us Dimas Mcnair MD LAB URINE ORDERABLES Final Resu lt [facility] [address] [place] [address], [place] [phone] * (ABNORMAL) CBC auto differential (06/19/2024 11:17 AM EST) WBC 9.9 4.8 - 10.8 K/mcL LAB HEMETOLOGY METHOD 06/19/2024 2:27 PM [facility] RBC 4.30 3.80 - 4.80 M/mcL LAB HEMETOLOGY METHOD 06/19/2024 2:27 PM [facility] Hemoglobin 13.0 11.5 - 16.0 g/dL LAB HEMETOLOGY METHOD 06/19/2024 2:27 PM [facility] Hematocrit 40.9 35.0 - 47.0 % LAB HEMETOLOGY METHOD 06/19/2024 2:27 PM [facility] MCV 94.9 79.0 - 98.0 FL LAB HEMETOLOGY METHOD 06/19/2024 2:27 PM [facility] MCH 30.2 27.0 - 32.0 pcg LAB HEMETOLOGY METHOD 06/19/2024 2:27 PM [facility] MCHC 31.8(L) 32.0 - 37.0 g/dL LAB HEMETOLOGY METHOD 06/19/2024 2:27 PM [facility] RDW 11.9 11.0 - 15.0 % LAB HEMETOLOGY METHOD 06/19/2024 2:27 PM [facility] Platelets 310 130 - 400 K/mcL LAB HEMETOLOGY METHOD 06/19/2024 2:27 PM [facility] MPV 11.9(H) 7.0 - 11.0 FL LAB HEMETOLOGY METHOD 06/19/2024 2:27 PM [facility] NRBC 0.0 <1.0 % LAB HEMETOLOGY METHOD 06/19/2024 2:27 PM [facility] NRBC Absolute 0.00 <0.10 K/mcL LAB HEMETOLOGY METHOD 06/19/2024 2:27 PM [facility] Neutrophils Relative 72.5 % LAB HEMETOLOGY METHOD 06/19/2024 2:27 PM [facility] Lymphocytes Relative 20.8 % LAB HEMETOLOGY METHOD 06/19/2024 2:27 PM [facility] Monocytes Relative 5.1 % LAB HEMETOLOGY METHOD 06/19/2024 2:27 PM [facility] Eosinophils Relative 0.7 % LAB HEMETOLOGY METHOD 06/19/2024 2:27 PM [facility] Basophils Relative 0.5 % LAB HEMETOLOGY METHOD 06/19/2024 2:27 PM [facility] Immature Granulocytes Relative 0.4 % LAB HEMETOLOGY METHOD 06/19/2024 2:27 PM [facility] Neutrophils Absolute 7.18(H) 1.50 - 7.00 K/mcL LAB HEMETOLOGY METHOD 06/19/2024 2:27 PM [facility] Lymphocytes Absolute 2.06 1.00 - 5.00 K/mcL LAB HEMETOLOGY METHOD 06/19/2024 2:27 PM [facility] Monocytes Absolute 0.51 0.20 - 1.00 K/mcL LAB HEMETOLOGY METHOD 06/19/2024 2:27 PM [facility] Eosinophils Absolute 0.07 0.00 - 0.50 K/mcL LAB HEMETOLOGY METHOD 06/19/2024 2:27 PM [facility] Basophils Absolute 0.05 0.00 - 0.20 K/mcL LAB HEMETOLOGY METHOD 06/19/2024 2:27 PM EST [facility] Immature Granulocytes Absolute 0.04(H) 0.00 - 0.03 K/[facility] LAB HEMETOLOGY METHOD 06/19/2024 2:27 PM EST [facility] Blood Venous blood specimen / Unknown Venipuncture / Unknown 06/19/2024 11:17 AM EST 06/19/2024 11:17 AM EST us Dimas Mcnair MD LAB BLOOD ORDERABLES Final Resu lt [facility] [address] [place] [address], [place] [phone] * Prothrombin time with INR (06/19/2024 11:17 AM EST) Protime 11.8 10.6 - 13.9 sec LAB COAGULATION METHOD 06/19/2024 2:41 PM EST [facility] INR 0.9 LAB COAGULATION METHOD 06/19/2024 2:41 PM EST [facility] Blood Venous blood specimen / Unknown Venipuncture / Unknown 06/19/2024 11:17 AM EST 06/19/2024 11:17 AM EST us Dimas Mcnair MD LAB BLOOD ORDERABLES Final Resu lt [facility] [address] [place] [address], [place] [phone] * Culture urine (06/19/2024 11:17 AM EST) Culture, Urine No growth 06/20/2024 11:28 AM EST [facility] Urine Urine specimen / Unknown Non-blood Collection / Unknown 06/19/2024 11:17 AM EST 06/19/2024 11:17 AM EST us Dimas Mcnair MD LAB MICROBIOLOGY - GENERAL JOEY DE LA ROSA Final Result [facility] [address] [place] [address], * Basic metabolic panel (06/19/2024 11:17 AM EST) Sodium 142 133 - 145 mmol/L LAB CHEMISTRY METHOD 06/19/2024 3:01 PM [facility] Potassium 4.2 3.5 - 5.5 mmol/L LAB CHEMISTRY METHOD 06/19/2024 3:01 PM [facility] Chloride 108 96 - 110 mmol/L LAB CHEMISTRY METHOD 06/19/2024 3:01 PM [facility] CO2 29 21 - 32 mmol/L LAB CHEMISTRY METHOD 06/19/2024 3:01 PM [facility] Anion Gap 5 3 - 11 LAB CHEMISTRY METHOD 06/19/2024 3:01 PM [facility] Glucose 75 70 - 100 mg/dL LAB CHEMISTRY METHOD 06/19/2024 3:01 PM [facility] BUN 16 5 - 25 mg/dL LAB CHEMISTRY METHOD 06/19/2024 3:01 PM [facility] Creatinine 0.69 0.50 - 1.10 mg/dL LAB CHEMISTRY METHOD 06/19/2024 3:01 PM [facility] eGFR 98 >=60 mL/min/1. 73m2 LAB CHEMISTRY METHOD 06/19/2024 3:01 PM [facility] Comment:Calculation based on the??Chronic Kidney Disease Epidemiology Collaboration (CKD-EPI) equation refit??without adjustment for race. BUN/Creatinine Ratio 23.2 LAB CHEMISTRY METHOD 06/19/2024 3:01 PM [facility] Calcium 9.7 8.5 - 10.5 mg/dL LAB CHEMISTRY METHOD 06/19/2024 3:01 PM EST [facility] Blood Venous blood specimen / Unknown Venipuncture / Unknown 06/19/2024 11:17 AM EST 06/19/2024 11:17 AM EST us Dimas Mcnair MD LAB BLOOD ORDERABLES Final Resu lt [facility] [address] [place] [address], [place] [phone] * US Head Neck Soft Tissue (06/03/2024 [...] Signed Date: 06/05/2024 12:56 ET Workstation ID: [id number] Transcribed By: Self Edit Transcribed Date: 06/05/2024 [...] Signed Date: 06/05/2024 12:56 ET Workstation ID: [id number] Transcribed By: Self Edit Transcribed Date: 06/05/2024 12:49 ET us Dimas Mcnair MD IMG US PROCEDURES Final Result * Depression Screening (05/05/2024) Depression Screening abstracted us Historical Provider [facility] Final Result * DIAGNOSTIC MAMMOGRAPHY WITH CAD UNILATERAL (01/02/2023 [...] negative. Dimas Mcnair MD IMG BI PROCEDURES Final Result * (ABNORMAL) Lipid panel (08/30/2022) [facility] LDL/HDL Ratio 4 0 - 4 Triglycerides 204(A) 0 - 150 mg/dL Cholesterol 210(A) 0 - 200 mg/dL HDL 51 >=40 mg/dL LDL Cholesterol 119(A) 0 - 100 mg/dL Blood Venous blood specimen / Unknown Result [facility] Historical Provider LAB BLOOD ORDERABLES Carol l Result * Cervical Cancer Screening: HPV (12/20/2021) [facility] Cervical Cancer Screening: HPV Abstracted ,negative us Historical Provider HEALTH MAINTENANCE Final Result * Colonoscopy (04/26/2017) Colonoscopy No interpreta tion,abstr acted Anatomical Region Laterality Modality Other Historical Provider HEALTH MAINTENANCE Final Result * Hepatitis C Screening (12/18/2016) Hepatitis C Screening abstracted Historical Provider HEALTH MAINTENANCE Final Result from Last 3 Months or Most Recently Relevant to Health Maintenance Insurance [employer] MED[employer]ARE [employer]VANTAGE Care Teams Floor Representative Relationship Specialty Start Date End Date Dimas Mcnair MD [address] [place] [address] PCP - General Internal Medicine 05/17/24
--- OUTSIDE RECORDS SUMMARY | 2024-08-25 08:18 | XMS_ITS | Encounter Summary ---
Author Organization [facility] Address [address] [place] [address] Care Team Providers Care Pediatric Physical Therapist Name Role Phone Neli Gutierrez MD Primary Care Provider Unavail able Dimas Mcnair MD Primary Care Provider [phone] Vel Merino PA-C Unavailable [phone] Encounter Details Date Type Department Care Team Description 11/19/2018 Risk And Insurance Manager Report Medical Records [address] [place] [address] Hyacinth Mendez PA-C [address] [address] Social History Tobacco Use Types [...] on filedocumented in this encounter Care Teams Pediatric Physical Therapist Relationship Specialty Start Date End Date Neli Gutierrez MD PCP - General Internal Medicine 12/13/16 03/31/19 Dimas Mcnair MD [address] [place] [address] PCP - General Internal Medicine 04/01/19 Vel Merino PA-C [address] [address] Specialist Thoracic Surgery 04/09/24 documented as of this encounter
--- OUTSIDE RECORDS SUMMARY | 2024-08-25 08:18 | XMS_ITS | Encounter Summary ---
Author Organization [facility] Address [address] [place] [address] Care Team Providers Care Monogram Machine Operator Name Role Phone Dimas Mcnair MD Primary Care Provider [phone] Vel Merino PA-C Unavailable [phone] Encounter Details Date Type Department Care Team Description 04/10/2024 Buyer Internship Report Medical Records [address] [place] [phone] Kem Porras MD Social History Tobacco Use [...] on filedocumented in this encounter Care Teams Monogram Machine Operator Relationship Specialty Start Date End Date Dimas Mcnair MD [address] [place] [phone] PCP - General Internal Medicine 04/01/19 Vel Merino PA-C [address] [place] [phone] Specialist Thoracic Surgery 04/09/24 documented as of this encounter
--- OUTSIDE RECORDS SUMMARY | 2024-08-25 08:18 | XMS_ITS | Encounter Summary ---
Author Organization [facility] Address [address] [place] [address] Care Team Providers Care Furnace Combustion Tester Name Role Phone Neli Gutierrez MD Primary Care Provider Unavail able Dimas Mcnair MD Primary Care Provider [phone] Vel Merino PA-C Unavailable [phone] Encounter Details Date Type Department Care Team Description 03/12/2019 Orders Only Gastroenterology - [place] [address] [facility] [address] [place] [address] Naseem Heller PA-C Social History [...] on filedocumented in this encounter Care Teams Furnace Combustion Tester Relationship Specialty Start Date End Date Neli Gutierrez MD PCP - General Internal Medicine 12/13/16 03/31/19 Dimas Mcnair MD [address] [place] [phone] PCP - General Internal Medicine 04/01/19 Vel Merino PA-C [address] [facility] [address] [place] [address] Specialist Thoracic Surgery 04/09/24 documented as of this encounter
--- OUTSIDE RECORDS SUMMARY | 2024-08-25 08:18 | XMS_ITS | Clinical Summary ---
Author Organization [facility] Address [address] [place] [address] Care Team Providers Care Snow Removal Supervisor Name Role Phone Dimas Mcnair MD Primary Care Provider [phone] Vel Merino PA-C Unavailable [phone] Allergies No known active allergies Medications Medication [...] her arthritis. There is no evidence of Press Loader etiology of her pain. I recommended she [...] Elevated fasting glucose 12/19/2016 017 Vertigo 04/26/2017 Immunizations Name Administration Dates Next Due COVID-19 [...] 11/14, 11/09/2021, Additional history exists Covid-19 Vaccine ( season) 2024 12/16/2020, 11/16/2020 INFLUENZA (#1) 2024 [...] (External Completion) HEPATITIS C SCREENING Completed 12/18/2016 Care Teams Snow Removal Supervisor Relationship Specialty Start Date End Date Dimas Mcnair MD [address] [place] [id number] PCP - General Internal Medicine 04/01/19 Vel Merino PA-C [address] [place] [phone] Specialist Thoracic Surgery 04/09/24
--- OUTSIDE RECORDS SUMMARY | 2024-08-25 08:18 | XMS_ITS | Encounter Summary ---
Author Organization [facility] Address [address] [place] [address] Care Team Providers Care Airline Stewardess Name Role Phone Dimas Mcnair MD Primary Care Provider [phone] Vel Merino PA-C Unavailable [phone] Encounter Details Date Type Department Care Team Description 11/14/2021 Vaccine Customer Representative Report Medical Records [address] [place] [id number] Sulaiman Duron MD Social History Tobacco Use [...] on filedocumented in this encounter Care Teams Airline Stewardess Relationship Specialty Start Date End Date Dimas Mcnair MD [address] [place] [address] PCP - General Internal Medicine 04/01/19 Vel Merino PA-C [address] [phone] Specialist Thoracic Surgery 04/09/24 documented as of this encounter
--- OUTSIDE RECORDS SUMMARY | 2024-08-25 08:19 | XMS_ITS | Encounter Summary ---
Author Organization [facility] Address [address] [place] [address] Care Team Providers Care Sciences Dean Name Role Phone Dimas Mcnair MD Primary Care Provider [phone] Vel Merino PA-C Unavailable [phone] Encounter Details Date Type Department Care Team Description 07/13/2021 Orders Only Endocrinology - [address] [phone] Tonie Ceja PA-C [address] [place] [address] Subclinical hyperthyroidism (Primary Dx) Social History Tobacco [...] 4.00 uIU/ml 09/05/2021 6:47 PM EST [facility] 09/05/2021 4:27 PM EST 09/05/2021 4:27 PM EST Narrative [facility] - 09/05/2021 6:47 PM EST Release to patient->Immediate Tonie Ceja PA-C LAB [employer] documented in this encounter Visit Diagnoses Diagnosis Subclinical hyperthyroidism- Primary Thyrotoxicosis without mention of goiter or other cause, without mention of thyrotoxic crisis or storm Subclinical hyperthyroidism Thyrotoxicosis without mention of goiter or other cause, without mention of thyrotoxic crisis or storm documented in this encounter Care Teams Sciences Dean Relationship Specialty Start Date End Date Dimas Mcnair MD [address] [place] [address] PCP - General Internal Medicine 04/01/19 Vel Merino PA-C [address] [place] [phone] Specialist Thoracic Surgery 04/09/24 documented as of this encounter
--- OUTSIDE RECORDS SUMMARY | 2024-08-25 08:19 | XMS_ITS | Encounter Summary ---
Author Organization [facility] Address [address] [place] [address] Care Team Providers Care Molasses Preparer Name Role Phone Dimas Mcnair MD Primary Care Provider [phone] Vel Merino PA-C Unavailable [phone] Encounter Details Date Type Department Care Team Description 11/26/2023 Orders Only Medical Records [address] [place] [address] Adrian Agarwal MD, PHD Social History Tobacco [...] Name Priority Date/Time Associated Diagnosis Comments OUTSIDE IMAGING Routine 11/14/2023 documented in this encounter Results * OUTSIDE IMAGING (11/14/2023) Adrian Agarwal MD, PHD RADIOLOGY documented in this encounter Visit Diagnoses Not on filedocumented in this encounter Care Teams Molasses Preparer Relationship Specialty Start Date End Date Dimas Mcnair MD [address] [place] [address] PCP - General Internal Medicine 04/01/19 Vel Merino PA-C [address] [place] [phone] Specialist Thoracic Surgery 04/09/24 documented as of this encounter
--- OUTSIDE RECORDS SUMMARY | 2024-08-25 08:19 | XMS_ITS | Encounter Summary ---
Author Organization [facility] Address [address] [place] [address] Care Team Providers Care Ladle Repairman Name Role Phone Neli Gutierrez MD Primary Care Provider Unavail able Dimas Mcnair MD Primary Care Provider [phone] Vel Merino PA-C Unavailable [phone] Encounter Details Date Type Department Care Team Description 12/15/2016 Release of Information Medical Records [address] [place] [address] Abstract, Provider Social History Tobacco Use Types [...] on filedocumented in this encounter Care Teams Ladle Repairman Relationship Specialty Start Date End Date eNli Gutierrez MD PCP - General Internal Medicine 12/13/16 03/31/19 Dimas Mcnair MD [address] [place] [address] PCP - General Internal Medicine 04/01/19 Vel Merino PA-C [address] [place] [phone] Specialist Thoracic Surgery 04/09/24 documented as of this encounter
--- OUTSIDE RECORDS SUMMARY | 2024-08-25 08:19 | XMS_ITS | Encounter Summary ---
Author Organization [facility] Address [address] [place] [address] Care Team Providers Care Genetic Coordinator Name Role Phone Dimas Mcnair MD Primary Care Provider [phone] Vel Merino PA-C Unavailable [phone] Encounter Details Date Type Department Care Team Description 05/31/2020 Orders Only Adult Medicine [facility] [address] [place] [address] Chivo Martinez MD Subclinical hyperthyroidism (Primary Dx) [...] 10.8 x10-3/uL 01/27/2021 2:46 PM EDT [facility] RED BLOOD COUNT 4.4 3.8 - 4.8 x10-6/uL 01/27/2021 2:46 PM EDT [facility] Hemoglobin 13.4 11.5 - 16.0 g/dL 01/27/2021 2:46 PM EDT [facility] Hematocrit 41.1 35 - 47 % 01/27/2021 2:46 PM EDT [facility] MEAN CORPUSCULAR VOLUME 94.5 79 - 98 fL 01/27/2021 2:46 PM EDT [facility] MEAN CORPUSCULAR HEMOGLOBIN 30.8 27 - 32 pg 01/27/2021 2:46 PM EDT [facility] CORPUS[facility] HGB CONC 32.6 32 - 37 g/dL 01/27/2021 2:46 PM EDT [facility] RED CELL DISTRIBUTION WIDTH 12.2 11 - 15 % 01/27/2021 2:46 PM EDT [email or web address] PLT COUNT 241 130 - 400 x10-3/uL 01/27/2021 2:46 PM EDT [email or web address] MEAN PLATELET VOLUME 12.0(H) 7 - 11 fL 01/27/2021 2:46 PM EDT [facility] NRBC % AUTO 0.0 <1 % 01/27/2021 2:46 PM EDT [facility] NEUTROPHILS % 58.7 % 01/27/2021 2:46 PM EDT [facility] LYMPH % 32.2 % 01/27/2021 2:46 PM EDT [facility] MONO % 7.5 % 01/27/2021 2:46 PM EDT [facility] EOS % 0.7 % 01/27/2021 2:46 PM EDT [facility] BASO % 0.6 % 01/27/2021 2:46 PM EDT [facility] IMMATURE GRANULOCYTES % 0.3 % 01/27/2021 2:46 PM EDT [facility] NRBC # AUTO 0.00 <0.1 x10-3/uL 01/27/2021 2:46 PM EDT [facility] NEUT # 4.23 1.5 - 7.0 x10-3/uL 01/27/2021 2:46 PM EDT [facility] LYMPH # 2.32 1 - 5.0 [...] AM EDT Chivo Martinez MD LAB [facility] * TRANSAMINASE (SGPT)(ALT) UV- (01/27/2021 11:54 AM EDT) SGPT 22 10 - 60 U/L 01/27/2021 3:05 PM EDT [facility] 01/27/2021 11:5 4 AM EDT 01/27/2021 11:54 AM EDT Chivo Martinez MD LAB [email or web address] * TRANSAMINASE (SGOT)(AST) UV- (01/27/2021 11:54 AM EDT) SGOT 15 10 - 42 U/L 01/27/2021 3:05 PM EDT [facility] 01/27/2021 11:5 4 AM EDT 01/27/2021 11:54 AM EDT Chivo Martinez MD LAB [email or web address] * TSH (01/27/2021 11:54 AM EDT) TSH 0.61 0.40 - 4.00 uIU/ml 01/27/2021 3:17 PM EDT [facility] 01/27/2021 11:5 4 AM EDT 01/27/2021 11:54 AM EDT Chivo Martinez MD LAB [facility] documented in this encounter Visit Diagnoses Diagnosis Subclinical hyperthyroidism- Primary Thyrotoxicosis without mention of goiter or other cause, without mention of thyrotoxic crisis or storm documented in this encounter Care Teams Genetic Coordinator Relationship Specialty Start Date End Date Dimas Mcnair MD [address] [place] [address] PCP - General Internal Medicine 04/01/19 Vel Merino PA-C [address] [place] [phone] Specialist Thoracic Surgery 04/09/24 documented as of this encounter
--- OUTSIDE RECORDS SUMMARY | 2024-08-25 08:19 | XMS_ITS | Encounter Summary ---
Author Organization [facility] Address [address] [place] [address] Care Team Providers Care Cell Operation Supervisor Name Role Phone Dimas Mcnair MD Primary Care Provider [phone] Vel Merino PA-C Unavailable [phone] Encounter Details Date Type Department Care Team Description 11/14/2023 Hospital Medical Records [address] [place] [address] Adrian Agarwal MD, PHD Social History Tobacco [...] on filedocumented in this encounter Care Teams Cell Operation Supervisor Relationship Specialty Start Date End Date Dimas Mcnair MD [address] [place], [place] [phone] PCP - General Internal Medicine 04/01/19 Vel Merino PA-C [address] [place] [phone] Specialist Thoracic Surgery 04/09/24 documented as of this encounter
--- OUTSIDE RECORDS SUMMARY | 2024-08-25 08:19 | XMS_ITS | Encounter Summary ---
Author Organization [facility] Address [address] [place] [address] Care Team Providers Care Credit And Collections Representative Name Role Phone Neli Gutierrez MD Primary Care Provider Unavail able Dimas Mcnair MD Primary Care Provider [phone] Vel Merino PA-C Unavailable [phone] Encounter Details Date Type Department Care Team Description 08/16/2018 Release of Information Medical Records [address] [place] [address] Abstract, Provider Social History Tobacco Use Types [...] on filedocumented in this encounter Care Teams Credit And Collections Representative Relationship Specialty Start Date End Date Neli Gutierrez MD PCP - General Internal Medicine 12/13/16 03/31/19 Dimas Mcnair MD [address] [place] [address] [phone] PCP - General Internal Medicine 04/01/19 Vel Merino PA-C [address] [phone] Specialist Thoracic Surgery 04/09/24 documented as of this encounter
--- OUTSIDE RECORDS SUMMARY | 2024-08-25 08:19 | XMS_ITS | Encounter Summary ---
Author Organization [facility] Address [address] [place] [address] Care Team Providers Care Wage Conciliator Name Role Phone Dimas Mcnair MD Primary Care Provider [phone] Vel Merino PA-C Unavailable [phone] Encounter Details Date Type Department Care Team Description 04/26/2023 Burlapper Report Medical Records [address] [place] [address] Hammad Alanis PA-C Social History Tobacco Use [...] on filedocumented in this encounter Care Teams Wage Conciliator Relationship Specialty Start Date End Date Dimas Mcnair MD [address] [place], [place] [phone] PCP - General Internal Medicine 04/01/19 Vel Merino PA-C [address] [place] [phone] Specialist Thoracic Surgery 04/09/24 documented as of this encounter
--- OUTSIDE RECORDS SUMMARY | 2024-08-25 08:19 | XMS_ITS | Encounter Summary ---
Author Organization [facility] Address [address] [place] [address] Care Team Providers Care General Dentist Name Role Phone Dimas Mcnair MD Primary Care Provider [phone] Vel Merino PA-C Unavailable [phone] Encounter Details Date Type Department Care Team Description 11/14/2023 Hospital Medical Records [address] [place] [address] [facility] Social History Tobacco Use Types Packs/Day [...] on filedocumented in this encounter Care Teams General Dentist Relationship Specialty Start Date End Date Dimas Mcnair MD [address] [place] [address] [phone] PCP - General Internal Medicine 04/01/19 Vel Merino PA-C [address] [place] [phone] Specialist Thoracic Surgery 04/09/24 documented as of this encounter
--- OUTSIDE RECORDS SUMMARY | 2024-08-25 08:19 | XMS_ITS | Encounter Summary ---
Author Organization [facility] Address [address] [place] [address] Care Team Providers Care Financial Operations Clerk Name Role Phone Community, Pcp Primary Care Provider Neli Trujillo MD Primary Care Provider Unavail Ryan Hou MD Primary Care Provider UnavailNeli Mai MD Primary Care Provider Unavail able Dimas Mcnair MD Primary Care Provider [phone] Vel Merino PA-C Unavailable [phone] Encounter Details Date Type Department Care Team Description 01/25/2013 Hospital Medical Records [address] [place], [place] [phone] [place] [address] Social History Tobacco Use Types Packs/Day Years [...] on filedocumented in this encounter Care Teams Financial Operations Clerk Relationship Specialty Start Date End Date Community, Pcp PCP - General Internal Medicine 07/16/12 09/17/16 Neli Gutierrez MD PCP - General Internal Medicine 09/18/16 10/13/16 Ryan Ramos MD PCP - General Internal Medicine 10/14/16 12/12/16 Neli Gutierrez MD PCP - General Internal Medicine 12/13/16 03/31/19 Dimas Mcnair MD [address] [place] [address] PCP - General Internal Medicine 04/01/19 Vel Merino PA-C [address] [place] [phone] Specialist Thoracic Surgery 04/09/24 documented as of this encounter
--- OUTSIDE RECORDS SUMMARY | 2024-08-25 08:20 | XMS_ITS | Encounter Summary ---
Author Organization [facility] Address [address] [place] [address] Care Team Providers Care Program Schedule Clerk Name Role Phone Dimas Mcnair MD Primary Care Provider [phone] Vel Merino PA-C Unavailable Reason for Visit * Reason Comments E-prescribe Rx Request Encounter Details Date Type Department Care Team Description 08/25/2022 Refill Endocrinology - [address] [address] Tonie Ceja PA-C [address] [place] [address] E-prescribe Rx Request Social History Tobacco Use [...] the RX # listed on the fax? [id number] Patients current insurance carrier is: Payor: MEDICARE-[employer] / Plan: MEDICARE-[employer] / Product Type: MEDICARE [id number] documented in this encounter Plan of Treatment Not on file documented as of this encounter Visit Diagnoses Not on filedocumented in this encounter Care Teams Program Schedule Clerk Relationship Specialty Start Date End Date Dimas Mcnair MD [address] [place] [address] [phone] PCP - General Internal Medicine 04/01/19 Vel Merino PA-C [address] [place] [phone] Specialist Thoracic Surgery 04/09/24 documented as of this encounter
--- OUTSIDE RECORDS SUMMARY | 2024-08-25 08:20 | XMS_ITS | Encounter Summary ---
Author Organization [facility] Address [address] [place] [address] Care Team Providers Care Senior Reservoir Engineer Name Role Phone Dimas Mcnair MD Primary Care Provider [phone] Vel Merino PA-C Unavailable [phone] Encounter Details Date Type Department Care Team Description 04/10/2020 Hospital Medical Records [address] [place] [address] Social History Tobacco Use Types Packs/Day Years [...] filedocumented in this encounter Care Teams Senior Reservoir Engineer Relationship Specialty Start Date End Date Dimas Mcnair MD [address] [place] [address] PCP - General Internal Medicine 04/01/19 Vel Merino PA-C [address] [phone] Specialist Thoracic Surgery 04/09/24 documented as of this encounter
--- OUTSIDE RECORDS SUMMARY | 2024-08-25 08:20 | XMS_ITS | Encounter Summary ---
Author Organization [facility] Address [address] [place] [address] Care Team Providers Care Edi Specialist Name Role Phone Dimas Mcnair MD Primary Care Provider [phone] Vel Merino PA-C Unavailable [phone] Encounter Details Date Type Department Care Team Description 08/14/[address] Clerk Report Medical Records [address] [place] [address] Walter Rai DO Social History Tobacco Use [...] on filedocumented in this encounter Care Teams Edi Specialist Relationship Specialty Start Date End Date Dimas Mcnair MD [address] [place], [place] [phone] PCP - General Internal Medicine 04/01/19 Vel Merino PA-C [address] [place] [phone] Specialist Thoracic Surgery 04/09/24 documented as of this encounter
--- OUTSIDE RECORDS SUMMARY | 2024-08-25 08:20 | XMS_ITS | Clinical Summary ---
Author Organization [facility] Address [address] [place] [address] Care Team Providers Care Semiconductor Package Symbol Stamper Name Role Phone Unavailable Primary Care Provider [...] Alcohol abuse Opiate abuse, episodic ([facility]) Social History Tobacco Use Types Packs/Day Years [...] Imm-Pneumococcal (2 of 2 - PCV) 03/14/2023 [id number] (3 - 2023- season) 2024 021, 11/16/2020 [...] EST) CHOLESTEROL 189 0 - 200 mg/dL [facility] TRIGLYCERIDES 195(H) 0 - 150 mg/dL [facility] HDL CHOLESTEROL 48 >40 mg/dL [facility] LDL CALCULATED 102(H) 0 - 100 mg/dL [facility] TC-HDLC RATIO 3.9 0 - 4.4 mg/dL [facility] Blood specimen (specimen) Blood / Unknown 07/17/2014 11:43 AM EST 07/17/2014 3:31 PM EST Narrative [facility] - 07/17/2014 6:10 PM EST [employer] [address] [place] [address] PT ID [id number] ORD# [id number] Sahila Arredondo NP LAB - BLOOD DRAW Final Result [facility] [address] [place] [address], * COMPRE METAB PANEL (07/17/2014 11:43 AM EST) GLUCOSE 90 70 - 100 mg/dL [facility] Comment:Reference range appl icable to fasting specimens only BUN 16 5 - 25 mg/dL [facility] CREAT 0.67 0.5 - 1.1 mg/dL [facility] GLOMERULAR FILTRATION RATE > 60 [facility] Comment: If patient is -Austrian, multiply result by 1.21 Chronic Kidney Disease: < 60 ml/min/1.73 square meters Kidney Failure: < 15 ml/min/1.73 square meters SODIUM 143 133 - 145 mEq/L [facility] POTASSIUM 4.1 3.5 - 5.5 mEq/L [facility] CHLORIDE 109 96 - 110 mEq/L [facility] CO2 29 21 - 32 mEq/L [facility] ANION GAP 5 3 - 11 [facility] CALCIUM 9.7 8.5 - 10.5 mg/dL [facility] TOTAL PROTEIN 6.6 6.0 - 8.0 G/dL [facility] ALBUMIN 4.4 3.2 - 5.0 G/dL [facility] BILI, TOTAL 0.4 0.0 - 1.4 mg/dL [facility] SGOT 19 10 - 42 U/L [facility] SGPT 15 10 - 60 U/L [facility] ALK PHOS 65 42 - 121 U/L [facility] Blood specimen (specimen) Blood / Unknown 07/17/2014 11:43 AM EST 07/17/2014 3:31 PM EST Narrative [facility] - 07/17/2014 6:10 PM EST [employer] [address] [place] [address] PT ID [id number] ORD# [id number] Shaila Arnulfo JULIO LAB - BLOOD DRAW Final Result [facility] [address] [place] [address], from Last 3 Months or Most Recently Relevant to Health Maintenance Insurance [place] - [place] [facility]
--- OUTSIDE RECORDS SUMMARY | 2024-08-25 08:20 | XMS_ITS | Encounter Summary ---
Author Organization [facility] Address [address] [place] [address] Care Team Providers Care Uniforms Sales Representative Name Role Phone Dimas Mcnair MD Primary Care Provider [phone] Vel Merino PA-C Unavailable [phone] Encounter Details Date Type Department Care Team Description 02/21/2020 Distribution Clerk Report Medical Records [address] [place] [address] [facility] [address] [place] [address] Social History Tobacco Use Types Packs/Day Years [...] on filedocumented in this encounter Care Teams Uniforms Sales Representative Relationship Specialty Start Date End Date Dimas Mcnair MD [address] [place] [address] PCP - General Internal Medicine 04/01/19 Vel Merino PA-C [address] [phone] Specialist Thoracic Surgery 04/09/24 documented as of this encounter
--- OUTSIDE RECORDS SUMMARY | 2024-08-25 08:20 | XMS_ITS | Encounter Summary ---
Author Organization [facility] Address [address] [place] [address] Care Team Providers Care Production Tool Engineer Name Role Phone Dimas Mcnair MD Primary Care Provider [phone] Vel Merino PA-C Unavailable [phone] Reason for Visit * Reason Comments E-prescribe Rx Request Encounter Details Date Type Department Care Team Description 07/27/2022 Refill Endocrinology - [address] [address] Tonie Ceja PA-C [address] [place] [address] E-prescribe Rx Request Social History Tobacco Use [...] on filedocumented in this encounter Care Teams Production Tool Engineer Relationship Specialty Start Date End Date Dimas Mcnair MD [address] [place] [address] PCP - General Internal Medicine 04/01/19 Vel Merino PA-C [address] [phone] Specialist Thoracic Surgery 04/09/24 documented as of this encounter
--- OUTSIDE RECORDS SUMMARY | 2024-08-25 08:20 | XMS_ITS | Encounter Summary ---
Author Organization [facility] Address [address] [place] [address] Care Team Providers Care Net Architect Name Role Phone Dimas Mcnair MD Primary Care Provider [phone] Vel Merino PA-C Unavailable [phone] Encounter Details Date Type Department Care Team Description 01/05/2023 Tire Stripper Report Medical Records [address] [place] [address] Walter Rai DO Social History Tobacco Use [...] on filedocumented in this encounter Care Teams Net Architect Relationship Specialty Start Date End Date Dimas Mcnair MD [address] [place] [address] PCP - General Internal Medicine 04/01/19 Vel Merino PA-C [address] [phone] Specialist Thoracic Surgery 04/09/24 documented as of this encounter
--- OUTSIDE RECORDS SUMMARY | 2024-08-25 08:20 | XMS_ITS | Encounter Summary ---
Author Organization [facility] Address [address] [place] [address] Care Team Providers Care Barrel Endshake Adjuster Name Role Phone Dimas Mcnair MD Primary Care Provider [phone] Reason for Visit * Reason Onset Date Comments Medical Records 07/22/2024 Encounter Details Date Type Department Care Team (Late st Contact Info) Description 07/22/2024 Telephone [facility] Cardiology [facility] [address] [facility] [address] [place] [phone] Dimas Mcnair MD [address] [place] [address] Medical Records Social History Tobacco Use Types [...] EST Faxed 02/06/2023 Office Note to Elle Renwick Stay Att: Brielle at [phone] on 07/22/2023 documented in this encounter Plan of Treatment Upcoming Encounters Date Type Department Care Team (Late st Contact Info) Description 11/03/2024 1:30 PM EDT Consult Vascular Surgery - [place] [address] [place] [address] Areli Petty PA [address] [facility] [address] [place] [address] documented as of this encounter Visit Diagnoses Not on filedocumented in this encounter Care Teams Barrel Endshake Adjuster Relationship Specialty Start Date End Date Dimas Mcnair MD [address] [place] [address] PCP - General Internal Medicine 05/17/24 documented as of this encounter
--- OUTSIDE RECORDS SUMMARY | 2024-08-25 08:21 | XMS_ITS | Encounter Summary ---
Author Organization [facility] Address [address] [place] [address] Care Team Providers Care Senior Security Engineer Name Role Phone Dimas Mcnair MD Primary Care Provider [phone] Vel Merino PA-C Unavailable [phone] Reason for Visit * Reason Onset Date Comments TEST RESULTS 09/18/2022 Encounter Details Date Type Department Care Team Description 09/18/2022 Telephone Adult Medicine [address] [phone] Js Melissa PA-C [address] [place] [address] TEST RESULTS Social History Tobacco Use Types [...] filedocumented in this encounter Care Teams Senior Security Engineer Relationship Specialty Start Date End Date Dimas Mcnair MD [address] [place] [address] PCP - General Internal Medicine 04/01/19 Vel Merino PA-C [address] [place] [phone] Specialist Thoracic Surgery 04/09/24 documented as of this encounter
--- OUTSIDE RECORDS SUMMARY | 2024-08-25 08:21 | XMS_ITS | Encounter Summary ---
Author Organization [facility] Address [address] [place] [address] Care Team Providers Care Fibre Optics Jointer Name Role Phone Dimas Mcnair MD Primary Care Provider [phone] Vel Merino PA-C Unavailable [phone] Reason for Visit * Reason Comments E-prescribe Rx Request Verapamil Encounter Details Date Type Department Care Team Description 09/02/2022 Refill Cardio PVC POC [address] [address] Vel Rivers MD [address] [address] E-prescribe Rx Request (Verapamil ) Social History [...] on filedocumented in this encounter Care Teams Fibre Optics Jointer Relationship Specialty Start Date End Date Dimas Mcnair MD [address] [place] [address] PCP - General Internal Medicine 04/01/19 Vel Merino PA-C [address] [place] [phone] Specialist Thoracic Surgery 04/09/24 documented as of this encounter
--- OUTSIDE RECORDS SUMMARY | 2024-08-25 08:21 | XMS_ITS | Encounter Summary ---
Author Organization [facility] Address [address] [place] [address] Care Team Providers Care Campus Safety Officer Name Role Phone Dimas Mcnair MD Primary Care Provider [phone] Vel Merino PA-C Unavailable [phone] Encounter Details Date Type Department Care Team Description 09/03/2020 SCAN Medical Records [address] [place] [address] Abstract, Provider Social History Tobacco Use Types [...] on filedocumented in this encounter Care Teams Campus Safety Officer Relationship Specialty Start Date End Date Dimas Mcnair MD [address] [place] [address] PCP - General Internal Medicine 04/01/19 Vel Merino PA-C [address] [phone] Specialist Thoracic Surgery 04/09/24 documented as of this encounter
--- OUTSIDE RECORDS SUMMARY | 2024-08-25 08:21 | XMS_ITS | Encounter Summary ---
Author Organization [facility] Address [address] [place] [address] Care Team Providers Care Signing Agent Name Role Phone Dimas Mcnair MD Primary Care Provider [phone] Vel Merino PA-C Unavailable [phone] Encounter Details Date Type Department Care Team Description 12/22/2022 Lifestyle Block Farmer Report Medical Records [address] [place] [address] Hammad Alanis PA-C Social History Tobacco Use [...] on filedocumented in this encounter Care Teams Signing Agent Relationship Specialty Start Date End Date Dimas Mcnair MD [address] [place] [address] PCP - General Internal Medicine 04/01/19 Vel Merino PA-C [address] [place] [phone] Specialist Thoracic Surgery 04/09/24 documented as of this encounter
--- OUTSIDE RECORDS SUMMARY | 2024-08-25 08:21 | XMS_ITS | Encounter Summary ---
Author Organization [facility] Address [address] [place] [address] Care Team Providers Care Car Stereo Installer Name Role Phone Dimas Mcnair MD Primary Care Provider [phone] Reason for Visit * Reason Onset Date Comments Referral 08/22/2024 Pre-operative Clearance 08/22/2024 Encounter Details Date Type Department Care Team (Late st Contact Info) Description 08/22/2024 Telephone [facility] - [facility] [address] [facility] [address] [place] [address] Vel Rivers MD 300 [facility] [address] [place] [address] Referral; Pre-operative Clearance Social History Tobacco Use Types Packs/Day Years [...] as of this encounter Progress Notes * Rik Fan - 08/22/2024 1:19 PM EST Left message for Janelle to call back. Looking to see when surgery is being done. documented in this encounter Plan of Treatment Upcoming Encounters Date Type Department Care Team (Late st Contact Info) Description 11/03/2024 1:30 PM EDT Consult Vascular Surgery - [place] [address] [facility] [address] [place] [address] Areli Petty PA 300 [facility] [address] [place] [address] documented as of this encounter Visit Diagnoses Not on filedocumented in this encounter Care Teams Car Stereo Installer Relationship Specialty Start Date End Date Dimas Mcnair MD [address] [place] [address] PCP - General Internal Medicine 05/17/24 documented as of this encounter
--- OUTSIDE RECORDS SUMMARY | 2024-08-25 08:21 | XMS_ITS | Encounter Summary ---
Author Organization [facility] [place] [address] Care Team Providers Care Unscrambler Name Role Phone Dimas Mcnair MD Primary Care Provider Reason for Visit * Reason Onset Date Comments Results 08/19/2024 Encounter Details Date Type Department Care Team ([facility] st Contact Info) Description 08/19/2024 Telephone Adult Medicine [address] [phone] Dimas Mcnair MD [address] [place] [address] Results Social History Tobacco Use Types Packs/Day Years [...] as of this encounter Progress Notes * Leonie Mercado LPN - 08/19/2024 3:02 PM EST Requested info faxed to [facility] Cardiology * Sulaiman Gonzalez - 08/19/2024 2:49 PM EST Requesting Cardiac stress stress - [facility] Cardiovascular documented in this encounter Plan of Treatment Upcoming Encounters Date Type Department Care Team (Late st Contact Info) Description 11/03/2024 1:30 PM EDT Consult Vascular Surgery - [place] [address] [place] [address] Areli Petty PA [address] [place] [address] documented as of this encounter Visit Diagnoses Not on filedocumented in this encounter Care Teams Unscrambler Relationship Specialty Start Date End Date Dimas Mcnair MD [address] [place] [address] PCP - General Internal Medicine 05/17/24 documented as of this encounter
== END 2024-08-25 08:08 | disposition home or self-care (01) ==
LOC: HO.HOSX 08:07
PROVIDERS: Visit Provider Physician Assistant
DX: Z13.89 Encounter for screening for other disorder (principal)

== ENCOUNTER 2024-09-01 10:12 | Outpatient (REF) | payer MEDICARE, SELFPAY ==
[2024-07-22 12:35] VITALS: BP 167/87; PULSE 90; RESP 18; O2SAT 98; BMI 21.3
--- NOTE | 2024-07-22 13:00 | P.CONAN_ITS ---
HPI - Anesthesia Eval Consult details Narrative: Patient cx'd self 64yo F for Left Hip Total Replacement Cardiac optimized. Seen by [facility] Cardiology after abnormal stress ([place]) and echo ([facility]). Cath done 08/2024 and nml. s/p Lumbar decompression 11/2023 with GA-ETT 7 - no issues with anesthesia No recent illness No CP/SOB within limits of pain COPD: <1 x monthly +Utox 2023: Obtain DOS. States no cocaine >1month PMFSH Active Problems Active Problems: All Active Problems Arthritis of left hip (Acute) Synovial cyst of lumbar facet joint (Acute) Back pain of lumbar region with sciatica (Acute) Past Medical History Medical History (Updated 08/19/24 @ 14:50 by Osiel Long MD) Hypercholesteremia Vitamin D deficiency Trochanteric bursitis of left hip Subclinical hyperthyroidism Mild emphysema Thyroid nodule History of headache Skin lesion Psoriasis Bacterial vaginosis Left groin pain Cocaine use Tubular adenoma of breast Pulmonary nodules Back pain Depression Arthritis Palpitations Bursitis IBS (irritable bowel syndrome) Hypothyroid Chronic headaches COPD (chronic obstructive pulmonary disease) Family History Family History (Updated 08/19/24 @ 14:12 by Aicha Fulton) Brother Heart attack Mother High blood pressure Father Lung cancer Family history of problems with anesthesia: No Surgical History Surgical History History of lumbar surgery History of esophagogastroduodenoscopy (EGD) H/O colonoscopy Hx of tonsillectomy History of Problems with Anesthesia: No Social History Social History (Updated 08/19/24 @ 14:12 by Aicha Fulton) Are you a primary respiratory care practitioner to a significant other at home: No Do you presently have visiting nurse or other home services: No Alcohol intake: current Alcohol intake frequency: holidays/special occasions only Patient Tobacco Use Status: Current someday Tobacco user Tobacco use type: Cigarette Cigarettes Per Day: 3 Years Smoked: 46 Second Hand Smoke Exposure: No Meds Allergies Allergy/AdvReac Type Severity Reaction Status Date / Time No Known Allergies Allergy Verified 08/07/24 10:30 Home Medications ?Medication ?Instructions ?Recorded ?Confirmed ?Last Taken ?Type albuterol sulfate 90 mcg/actuation 2 puff inhalation Q4H PRN wheezing 05/31/22 08/19/24 Unknown History aerosol inhaler verapamil 100 mg capsule 24hr 100 mg PO BEDTIME 11/08/22 08/19/[address],ext.release oxycodone-acetaminophen 5 mg-325 1 tab PO QID PRN Pain 11/09/22 08/19/24 Unknown History mg tablet Exam Height,Weight and Vital Signs: Height 5 ft 3 in Weight 54.431 kg Last Vital Signs Pulse 90 07/22/24 12:35 Resp 18 07/22/24 12:35 BP 167/87 H 07/22/24 12:35 Pulse Ox 98 07/22/24 12:35 O2 Del Method Room Air 07/22/24 12:35 Pertinent Lab Results Pertinent Lab Results: CBC and BMP from PCP 06/2024 WNL Narrative Narrative: Cardiac Cath 08/2024 Normal left main. Distal LAD with 60% stenosis. First obtuse marginal, 40% stenosis. Distal circumflex, 50% stenosis. RCA with mild irregularities. Overall, intermediate cardiac risk for planned surgery. EKG 08/2024 EKG Details: EKG with underlying sinus rhythm at 95/Min; inferior as well as anterolateral ST depression; normal [place] and corrected QT. ECHO 07/2024 Conclusions: - The left ventricular systolic function is normal. The calculated ejection fraction is 57% by biplane method. - The basal inferior segment is hypokinetic. - No obvious valvular pathology seen on this study. In the nuclear stress from [place], there is description of LAD calcification; small size, moderate intensity reversible basal inferior defect. In the Lexiscan portion, horizontal ST depression in inferior leads. Airway Mallampati Class: II TM Dist: >3cm Neck ROM: Full Loose/Missing/Broken Teeth: No Heart: RRR Lungs: CTAB Assessment and Plan Assessment Anesthesia Assessment: Anesthesia Plan Discussed, Smoking Cess. Discussed and PAT Visit Final Anesthetic Review Family History of Problems with Anesthesia: No History of Problems with Anesthesia: No
[2024-07-22 14:56] LABS: MRSA Nasal PCR NEGATIVE (Negative); SA Nasal PCR POSITIVE (Negative)
--- OUTSIDE RECORDS SUMMARY | 2024-09-01 10:16 | XMS_ITS | Encounter Summary ---
Author Organization [employer] Address [address] [place] [address] Care Team Providers Care Mobile Electronics Installer Name Role Phone Dimas Mcnair MD Primary Care Provider [phone] Reason for Referral * Consultation (Routine) - Authorized Specialty Diagnoses / Procedures Referred By Johnei t Referred To Contact Cardiology Diagnoses Chest pain, unspecified type Abnormal stress test Dimas Mcnair MD [address] [place] [address] Phone: tel: fax: [facility] - [facility] [address] [facility] [address] [place] [address] Phone: tel: fax: Referral ID Status Reason Start Date Expiration Date Visits Requested Visits Authorized [id number] Authorized Specialty Services Required 08/21/2024 08/21/2025 1 1 * Cardiac Stress Testing (Routine) - Authorized Specialty Diagnoses / Procedures Referred By Contac t Referred To Contact Cardiology Diagnoses Chest pain, unspecified type Procedures Nuclear stress test with myocardial perfusion NH MYOCARDIAL PERFUSION IMAGING TOMOGRAPHIC MULTI STUDIES AT REST OR STRESS NH MYOCARDIAL PERFUSION IMAGING TOMOGRAPHIC SINGLE STUDY AT REST OR STRESS NH CARDIOVASCULAR STRESS TEST GLOBAL NH CV TMST/BIKE MAX/SUBMAX CONTINUOUS ECG MON/PHARM STRESS SUPVSR ONLY NH CV STRESS TEST/BIKE CONT ECG MON/PHARM STRESS INTERP & REPORT ONLY NH TEST STRESS CARDIOVASCULAR TRACING ONLY Dimas Mcnair MD [address] [place] [address] Phone: tel: fax: [facility] Referral ID Status Reason Start Date Expiration Date V isits Requested Visits Authorized [id number] Authorized 07/02/2024 12/29/2024 3 3 Reason for Visit * Reason Comments Pre-op Exam dr. juanita porras sd 08/12 left total hip arthroplasty Encounter Details Date Type Department Care Team (Late st Contact Info) Description 06/19/2024 10:00 AM EST Consult Adult Medicine [facility] [address] [place] [address] Dimas Mcnair MD [address] [place] [address] Preop examination (Primary Dx); Urinary frequency; Chest [...] Care Team (Late st Contact Info) Description 09/11/2024 9:40 AM EST Consult [facility] [address] [place] [address] [address] [place] [address] Yuly Marques NP [address] [place] [address] [address] [place] [address] 11/03/2024 1:30 PM EDT Consult Vascular Surgery - [place] [address] [place] [address] Areli Petty PA [address] [place] [address] Scheduled Orders Name Type Priority Associated Diagnoses [...] Urine No growth 06/20/2024 11:28 AM EST [facility] Urine Urine specimen / Unknown Non-blood Collection / Unknown 06/19/2024 11:17 AM EST 06/19/2024 11:17 AM EST us Dimas Mcnair MD LAB MICROBIOLOGY - [facility] Final Result [facility] [address] [place] [address], documented in this encounter Visit Diagnoses Diagnosis Preop examination- Primary Unspecified pre-operative examination Urinary frequency Chest pain, unspecified type Sore throat Acute pharyngitis Closed fracture of tooth, initial encounter Post-nasal drip Postnasal drip Abnormal stress test Other nonspecific abnormal cardiovascular system function study Chest pain, unspecified type documented in this encounter Care Teams Mobile Electronics Installer Relationship Specialty Start Date End Date Dimas Mcnair MD [address] [place] [address] PCP - General Internal Medicine 05/17/24 documented as of this encounter
--- OUTSIDE RECORDS SUMMARY | 2024-09-01 10:16 | XMS_ITS | Clinical Summary ---
Author Organization [facility] Address [address] [place] [address] Care Team Providers Care Sleeve Setter Lockstitch Name Role Phone Dimas Mcnair MD Primary Care Provider [phone] Allergies No known active allergies Medications Medication [...] age to complete this topic Care Teams Sleeve Setter Lockstitch Relationship Specialty Start Date End Date Dimas Mcnair MD PCP - General Internal Medicine 10/28/21
--- OUTSIDE RECORDS SUMMARY | 2024-09-01 10:16 | XMS_ITS | Encounter Summary ---
Author Organization [facility] Address [address] [place] [address] Care Team Providers Care Supply Analyst Name Role Phone Dimas Mcnair MD Primary Care Provider [phone] Reason for Visit * Reason Onset Date Comments Medical Records 07/22/2024 Encounter Details Date Type Department Care Team (Late st Contact Info) Description 07/22/2024 Telephone [facility] Cardiology [facility] [address] [facility] [address] [place] [phone] Dimas Mcnair MD [address] [place] [address] Medical Records Social History Tobacco Use Types [...] EST Faxed 02/06/2023 Office Note to Elle [place] Stay Att: Brielle at [phone] on 07/22/2023 documented in this encounter Plan of Treatment Upcoming Encounters Date Type Department Care Team (Late st Contact Info) Description 09/11/2024 9:40 AM EST Consult [facility] [address] [place] [address] Yuly Marques NP [address] [place] [address] [address] [place] [address] 11/03/2024 1:30 PM EDT Consult Vascular Surgery - [place] [address] [place] [phone] Areli Petty PA [address] [place] [address] documented as of this encounter Visit Diagnoses Not on filedocumented in this encounter Care Teams Supply Analyst Relationship Specialty Start Date End Date Dimas Mcnair MD [address] [place] [address] PCP - General Internal Medicine 05/17/24 documented as of this encounter
--- OUTSIDE RECORDS SUMMARY | 2024-09-01 10:16 | XMS_ITS | Encounter Summary ---
Author Organization [facility] [place] [address] Care Team Providers Care Engineering Programmer Name Role Phone Dimas Mcnair MD Primary Care Provider [phone] Reason for Visit * Reason Onset Date Comments Results 08/19/2024 Encounter Details Date Type Department Care Team ([facility] Contact Info) Description 08/19/2024 Telephone Adult Medicine [address] [phone] Dimas Mcnair MD [address] [place] [address] Results Social History Tobacco Use Types Packs/Day [...] 3:02 PM EST Requested info faxed to [facility] Cardiology * Sulaiman Gonzalez - 08/19/2024 2:49 PM EST Requesting Cardiac stress stress - [facility] Cardiovascular documented in this encounter Plan of Treatment Upcoming Encounters Date Type Department Care Team (Late st Contact Info) Description 09/11/2024 9:[address] [facility] - [facility] [address] [place] [address] [place] [address] Yuly Marques NP [address] [place] [address] [address] [place] [address] 11/03/2024 1:30 PM EDT Consult Vascular Surgery - [place] [address] [place] [phone] Areli Petty PA [address] [place] [address] documented as of this encounter Visit Diagnoses Not on filedocumented in this encounter Care Teams Engineering Programmer Relationship Specialty Start Date End Date Dimas Mcnair MD [address] [place] [address] PCP - General Internal Medicine 05/17/24 documented as of this encounter
--- OUTSIDE RECORDS SUMMARY | 2024-09-01 10:16 | XMS_ITS | Encounter Summary ---
Author Organization [facility] Address [address] [place] [address] Care Team Providers Care Manager Plant Name Role Phone Dimas Mcnair MD Primary Care Provider [phone] Reason for Visit * Reason Onset Date Comments Referral 08/22/2024 Pre-operative Clearance 08/22/2024 Encounter Details Date Type Department Care Team (Late st Contact Info) Description 08/22/2024 Telephone [facility] - [facility] [address] [facility] [address] [place] [address] Vel Rivers MD [address] [facility] [address] [place] [address] Referral; Pre-operative Clearance Social History Tobacco Use [...] as of this encounter Progress Notes * Avis Lizama - 08/25/2024 4:10 PM EST Janelle called back, the patient is having a left total hip arthroplasty. I scheduled the pre op appointment for 09/11/23 with Yuly Marques. * Rik Fan - 08/22/2024 1:19 PM EST Left message for Janelle to call back. Looking to see when surgery is being done. documented in this encounter Plan of Treatment Upcoming Encounters Date Type Department Care Team (Late st Contact Info) Description 09/11/2024 9:40 AM EST Consult [facility] Associates [facility] [address] [place] [address] [address] [place] [address] Yuly Marques NP [address] [place] [address] [address] [place] [address] 11/03/2024 1:30 PM EDT Consult Vascular Surgery - [place] [address] [place] [address] Areli Petty PA [address] [place] [address] documented as of this encounter Visit Diagnoses Not on filedocumented in this encounter Care Teams Manager Plant Relationship Specialty Start Date End Date Dimas Mcnair MD [address] [place] [address] PCP - General Internal Medicine 05/17/24 documented as of this encounter
--- OUTSIDE RECORDS SUMMARY | 2024-09-01 10:17 | XMS_ITS | Clinical Summary ---
Author Organization [facility] [address] [facility] Address [address] [place], [place] Phone Care Team Providers Care Renal Dietitian Name Role Phone Dimas Mcnair MD Primary Care Provider [phone] Allergies No known active allergies Medications albuterol [...] TAKE BY MOUTH ONCE DAILY 4 Active Active Problems Problem Noted Date Diagnosed [...] her arthritis. There is no evidence of Automotive Quality Engineer etiology of her pain. I recommended she [...] Type Department Care Team Description 08/22/2024 Telephone [facility] Cardiology [facility] [address] [place] [address] Vel Rivers MD Referral; Pre-operative Clearance 08/19/2024 Telephone Adult Medicine [address] [address] Dimas Mcnair MD Results 08/11/2024 Telephone Adult Medicine [address] [address] Dimas Mcnair MD doctors ([facility]) 07/29/2024 12:00 PM EST Ancillary Procedure [facility] - [facility] [address] [place] [address] 07/23/2024 12:00 PM EST Ancillary Procedure [facility] [address] [place] [address] Chest pain, unspecified type 07/22/[address] [place] [address] Dimas Mcnair MD Medical Records 06/19/2024 10:00 AM EST Consult Adult Medicine [address] [address] Dimas Mcnair MD Preop examination (Primary Dx); Urinary frequency; Chest pain, unspecified type; Sore throat; Closed fracture of tooth, initial encounter; Post-nasal drip; Abnormal stress test 06/03/2024 11:18 AM EST - 06/03/2024 11:59 PM EST Hospital Encounter [facility] Ultrasound [address] [place] [phone] Thyroid nodule Discharge Disposition: Home or Self [...] erosive gastritis, small hiatal hernia COLONOSCOPY 01/27 [facility] PROCEDURE: HISTORICAL COLONOSCOPY; COMMENT: adenoma and poor bowel prep; tics and hemorrhoids COLONOSCOPY 04/26/2017 PROCEDURE: HISTORICAL COLONOSCOPY; COMMENT: normal; repeat in 5 yrs ESOPHAGOGASTRODUODENOSCOPY 01/27 [facility] PROCEDURE: AR ESOPHAGOGASTRODUODENOSCOPY TRANSORAL DIAGNOSTIC; COMMENT: HH [...] Info) Description 09/11/2024 9:40 AM EST Consult [facility] - [facility] [address] [place] [address] Yuly Marques NP [address] [place] [address] [place] [address] 11/03/2024 1:30 PM EDT Consult Vascular Surgery - [place] [address] [facility] [address] [place] [phone] Areli Petty PA 300 [facility] [address] [place] [address] Health Maintenance Due Date Last Done Comments [...] PANEL Routine 08/30/2022 HM HPV Routine 12/20/2021 COLONOSCOPY Routine 04/26/2017 HEPATITIS [...] Modality Radiographic Sarah ging us Provider Onbase MD [facility] XR PROCEDURES Final Resul t * Urinalysis with reflex microscopic (06/19/2024 11:17 AM EST) Specific [place] Urine 1.025 1.003 - 1.030 LAB URINALYSIS - AUTOMATED METHOD 06/19/2024 2:18 PM [facility] pH, Urine 6.0 5.0 - 8.0 pH LAB URINALYSIS - AUTOMATED METHOD 06/19/2024 2:18 PM [facility] Leukocytes, Urine Negative Negative LAB URINALYSIS - AUTOMATED METHOD 06/19/2024 2:18 PM [facility] Nitrite, Urine Negative Negative LAB URINALYSIS - AUTOMATED METHOD 06/19/2024 2:18 PM [facility] Protein, Urine Negative <=Trace mg/dL LAB URINALYSIS - AUTOMATED METHOD 06/19/2024 2:18 PM [facility] Glucose, Urine Negative Negative mg/dL LAB URINALYSIS - AUTOMATED METHOD 06/19/2024 2:18 PM [facility] Ketones, Urine Negative Negative mg/dL LAB URINALYSIS - AUTOMATED METHOD 06/19/2024 2:18 PM [facility] Urobilinogen, Urine 1.0 0.2 - 1.0 mg/dL LAB URINALYSIS - AUTOMATED METHOD 06/19/2024 2:18 PM [facility] Bilirubin, Urine Negative Negative LAB URINALYSIS - AUTOMATED METHOD 06/19/2024 2:18 PM [facility] Blood, Urine Negative Negative LAB URINALYSIS - AUTOMATED METHOD 06/19/2024 2:18 PM [facility] Urine Urine specimen obtained by clean catch procedure / Unknown Non-blood Collection / Unknown 06/19/2024 11:17 AM EST 06/19/2024 11:17 AM EST us Dimas Mcnair MD LAB URINE ORDERABLES Final Resu lt [facility] [address] [place] [address], * (ABNORMAL) CBC auto differential (06/19/2024 11:17 AM EST) WBC 9.9 4.8 - 10.8 K/mcL LAB HEMETOLOGY METHOD 06/19/2024 2:27 PM [facility] RBC 4.30 3.80 - 4.80 M/mcL LAB HEMETOLOGY METHOD 06/19/2024 2:27 PM [facility] Hemoglobin 13.0 11.5 - 16.0 g/dL LAB HEMETOLOGY METHOD 06/19/2024 2:27 PM [facility] Hematocrit 40.9 35.0 - 47.0 % LAB HEMETOLOGY METHOD 06/19/2024 2:27 PM [facility] MCV 94.9 79.0 - 98.0 FL LAB HEMETOLOGY METHOD 06/19/2024 2:27 PM [facility] MCH 30.2 27.0 - 32.0 pcg LAB HEMETOLOGY METHOD 06/19/2024 2:27 PM [facility] MCHC 31.8(L) 32.0 - 37.0 g/dL LAB HEMETOLOGY METHOD 06/19/2024 2:27 PM [facility] RDW 11.9 11.0 - 15.0 % LAB HEMETOLOGY METHOD 06/19/2024 2:27 PM [facility] Platelets 310 130 - 400 K/mcL LAB HEMETOLOGY METHOD 06/19/2024 2:27 PM [facility] MPV 11.9(H) 7.0 - 11.0 FL LAB HEMETOLOGY METHOD 06/19/2024 2:27 PM [facility] NRBC 0.0 <1.0 % LAB HEMETOLOGY METHOD 06/19/2024 2:27 PM [facility] NRBC Absolute 0.00 <0.10 K/mcL LAB HEMETOLOGY METHOD 06/19/2024 2:27 PM [facility] Neutrophils Relative 72.5 % LAB HEMETOLOGY METHOD 06/19/2024 2:27 PM [facility] Lymphocytes Relative 20.8 % LAB HEMETOLOGY METHOD 06/19/2024 2:27 PM [facility] Monocytes Relative 5.1 % LAB HEMETOLOGY METHOD 06/19/2024 2:27 PM [facility] Eosinophils Relative 0.7 % LAB HEMETOLOGY METHOD 06/19/2024 2:27 PM [facility] Basophils Relative 0.5 % LAB HEMETOLOGY METHOD 06/19/2024 2:27 PM [facility] Immature Granulocytes Relative 0.4 % LAB HEMETOLOGY METHOD 06/19/2024 2:27 PM [facility] Neutrophils Absolute 7.18(H) 1.50 - 7.00 K/mcL LAB HEMETOLOGY METHOD 06/19/2024 2:27 PM [facility] Lymphocytes Absolute 2.06 1.00 - 5.00 K/mcL LAB HEMETOLOGY METHOD 06/19/2024 2:27 PM [facility] Monocytes Absolute 0.51 0.20 - 1.00 K/mcL LAB HEMETOLOGY METHOD 06/19/2024 2:27 PM [facility] Eosinophils Absolute 0.07 0.00 - 0.50 K/mcL LAB HEMETOLOGY METHOD 06/19/2024 2:27 PM [facility] Basophils Absolute 0.05 0.00 - 0.20 K/mcL LAB HEMETOLOGY METHOD 06/19/2024 2:27 PM EST [facility] Immature Granulocytes Absolute 0.04(H) 0.00 - 0.03 K/mcL LAB HEMETOLOGY METHOD 06/19/2024 2:27 PM EST [facility] Blood Venous blood specimen / Unknown Venipuncture / Unknown 06/19/2024 11:17 AM EST 06/19/2024 11:17 AM EST us Dimas Mcnair MD LAB BLOOD ORDERABLES Final Resu lt [facility] [address] [place] [address], [place] [phone] * Prothrombin time with INR (06/19/2024 11:17 AM EST) Protime 11.8 10.6 - 13.9 sec LAB COAGULATION METHOD 06/19/2024 2:41 PM EST [facility] INR 0.9 LAB COAGULATION METHOD 06/19/2024 2:41 PM EST [facility] Blood Venous blood specimen / Unknown Venipuncture / Unknown 06/19/2024 11:17 AM EST 06/19/2024 11:17 AM EST us Dimas Mcnair MD LAB BLOOD ORDERABLES Final Resu lt Performing Organization Address City/[facility]/ZIP Co de Phone Number [facility] [address] [place] [address], [place] [phone] * Culture urine (06/19/2024 11:17 AM EST) Culture, Urine No growth 06/20/2024 11:28 AM EST [facility] Urine Urine specimen / Unknown Non-blood Collection / Unknown 06/19/2024 11:17 AM EST 06/19/2024 11:17 AM EST us Dimas Mcnair MD LAB MICROBIOLOGY - [facility]AL [facility] Final Result [facility] [address] [place] [address], * Basic metabolic panel (06/19/2024 11:17 AM EST) Sodium 142 133 - 145 mmol/L LAB CHEMISTRY METHOD 06/19/2024 3:01 PM [facility] Potassium 4.2 3.5 - 5.5 mmol/L LAB CHEMISTRY METHOD 06/19/2024 3:01 PM [facility] Chloride 108 96 - 110 mmol/L LAB CHEMISTRY METHOD 06/19/2024 3:01 PM [facility] CO2 29 21 - 32 mmol/L LAB CHEMISTRY METHOD 06/19/2024 3:01 PM [facility] Anion Gap 5 3 - 11 LAB CHEMISTRY METHOD 06/19/2024 3:01 PM [facility] Glucose 75 70 - 100 mg/dL LAB CHEMISTRY METHOD 06/19/2024 3:01 PM [facility] BUN 16 5 - 25 mg/dL LAB CHEMISTRY METHOD 06/19/2024 3:01 PM [facility] Creatinine 0.69 0.50 - 1.10 mg/dL LAB CHEMISTRY METHOD 06/19/2024 3:01 PM [facility] eGFR 98 >=60 mL/min/1. 73m2 LAB CHEMISTRY METHOD 06/19/2024 3:01 PM [facility] Comment:Calculation based on the??Chronic Kidney Disease Epidemiology Collaboration (CKD-EPI) equation refit??without adjustment for race. BUN/Creatinine Ratio 23.2 LAB CHEMISTRY METHOD 06/19/2024 3:01 PM [facility] Calcium 9.7 8.5 - 10.5 mg/dL LAB CHEMISTRY METHOD 06/19/2024 3:01 PM [facility] Blood Venous blood specimen / Unknown Venipuncture / Unknown 06/19/2024 11:17 AM EST 06/19/2024 11:17 AM EST us Dimas Mcnair MD LAB BLOOD ORDERABLES Final Resu lt [facility] [address] [place] [address], [place] [phone] * US Head Neck Soft Tissue (06/03/2024 [...] Signed Date: 06/05/2024 12:56 ET Workstation ID: [id number] Transcribed By: Self Edit Transcribed Date: 06/05/2024 [...] Signed Date: 06/05/2024 12:56 ET Workstation ID: [id number] Transcribed By: Self Edit Transcribed Date: 06/05/2024 12:49 ET us Dimas Mcnair MD IM US PROCEDURES Final Result * Depression Screening (05/05/2024) Depression Screening abstracted Historical Provider [facility] Final Result * DIAGNOSTIC MAMMOGRAPHY WITH CAD [...] Final Result * (ABNORMAL) Lipid panel (08/30/2022) [facility] LDL/HDL Ratio 4 0 - 4 Triglycerides 204(A) 0 - 150 mg/dL Cholesterol 210(A) 0 - 200 mg/dL HDL 51 >=40 mg/dL LDL Cholesterol 119(A) 0 - 100 mg/dL Blood Venous blood specimen / Unknown Historical Provider LAB BLOOD ORDERABLES Carol l Result * Cervical Cancer Screening: HPV (12/20/2021) [facility] Cervical Cancer Screening: HPV Abstracted ,negative Historical Provider HEALTH MAINTENANCE Final Result * Colonoscopy (04/26/2017) Colonoscopy No interpreta tion,abstr acted Anatomical Region Laterality Modality Other Historical Provider HEALTH MAINTENANCE Final Result * Hepatitis C Screening (12/18/2016) Hepatitis C Screening abstracted Historical Provider HEALTH MAINTENANCE Final Result from Last 3 Months or Most Recently Relevant to Health Maintenance Insurance [employer] MED[employer]ARE [employer]VANTAGE Care Teams Renal Dietitian Relationship Specialty Start Date End Date Dimas Mcnair MD [address] [place] [id number] PCP - General Internal Medicine 05/17/24
--- OUTSIDE RECORDS SUMMARY | 2024-09-01 10:17 | XMS_ITS | Encounter Summary ---
Author Organization [facility] Address [address] [place] [address] Care Team Providers Care Traffic Court Referee Name Role Phone Dimas Mcnair MD Primary Care Provider [phone] Reason for Visit * Reason Onset Date Comments doctors 08/11/2024 [facility] calling Encounter Details Date Type Department Care Team ([facility] Contact Info) Description 08/11/2024 Telephone Adult Medicine [address] [address] Dimas Mcnair MD [address] [place] [id number] doctors ([facility] calling) Social History Tobacco Use Types [...] Progress Notes * Janelle Hall RN - 08/25/2024 4:08 PM EST Called and spoke to Avis at [facility]. A pre op appointment was scheduled for the pt to be seen in the office on 09/11/24 at 9:40 am. She requested I call and inform the pt. She states she will also mail a letter. If pt need to reschedule she can call their office directly. Called pt and she states her surgery has been postponed due to a family emergency. She was provided with the contact information for [facility], , and was instructed to call to reschedule. She is in agreement with this plan. * Janelle Hall RN - 08/22/2024 8:55 AM EST Called [facility] at and spoke to a job spotter who forwarded the call to Doreen, the new ptcoordinator. Per Doreen pt is an established pt at [facility]. Her housekeeping/laundry supervisor is Dr. Rivers. Her referral was sent to [facility] who processes referrals for established pts. Doreen will contact [facility]. Doreen was given my direct number to provide to [facility] regarding this pt. * Janelle Hall RN [...] diagnostic for ischemia. Josiane, a nurse from [facility] is requesting an addendum from PCP stating that pt is clear for surgery or is not r/t stress test results. * Giuliano Diaz LPN - 08/11/2024 10:00 AM EST [facility] called see message * Angella Baltazar - 08/11/2024 8:44 AM EST [facility] CALL Which [facility] office is calling? [facility] Full name of caller: josiane The caller is A nurse Is the caller at the patients home?: no Reason for call: Nurse from [facility] is calling stating they need and addendum from Provider stating that patient is clear for surgery or isn't per her stress test results. Does caller need an urgent call back? yes Was CONTACT Telephone # obtained above?: yes Fax #: [phone] documented in this encounter Plan of Treatment Upcoming Encounters Date Type Department Care Team (Late st Contact Info) Description 09/11/2024 9:40 AM EST Consult [facility] [address] [facility] [address] [place] [address] Yuly Marques NP [address] [place] [address] [address] [place] [address] 11/03/2024 1:30 PM EDT Consult Vascular Surgery - [place] [address] [place] [phone] Areli Petty PA [address] [facility] [address] [place] [address] documented as of this encounter Visit Diagnoses Not on filedocumented in this encounter Care Teams Traffic Court Referee Relationship Specialty Start Date End Date Dimas Mcnair MD [address] [place] [phone] PCP - General Internal Medicine 05/17/24 documented as of this encounter
== END 2024-09-01 10:13 | disposition home or self-care (01) ==
LOC: HO.PAT 10:12
PROVIDERS: Physician Assistant; PCP Internal Medicine; Visit Provider Orthopaedic Surgery
DX: Z01.818 Encounter for other preprocedural examination (principal); M16.12 Unilateral primary osteoarthritis, left hip
CPT/HCPCS: 86850; 86900; 86901; 87640; 87641

== ENCOUNTER 2024-09-16 14:00 | Outpatient (AMB) | payer MEDICARE, SELFPAY ==
[2024-09-16 14:04] VITALS: BP 122/64; PULSE 72; BMI 21.5
--- NOTE | 2024-09-16 14:04 | A.OFFVIS_ITS ---
Vital Signs 09/16/24 14:04 Height 5 ft 3 in Weight 121 lb 4.068 oz BMI 21.5 BP 122/64 Blood Pressure Location Lt brachial Position Sitting Pulse 72 Pulse Source Pulse Oximeter Intake Visit Reasons: F/U CTA Allergies No Known Allergies Allergy (Verified 08/07/24 10:30) Medication List - Last Reconciled 09/16/24 by Osiel Long MD albuterol sulfate 90 mcg/actuation 2 puffs inhalation Q4H PRN oxycodone-acetaminophen 5-325 mg 1 tab PO QID PRN walker Folding Front wheeled walker DURATION 99 DAYS HPI Comments Details: Marielos returns for follow-up. Recently seen in consultation regarding an abnormal stress test. She needed preoperative risk stratification for hip surgery. Subsequently, arrange cardiac catheterization and that shows no more than moderate coronary disease. She states she otherwise feels okay. It seems that she has a history of palpitations for which she has been on verapamil for a few years but decided that she will stop it herself as she felt better without it. Otherwise, no clear-cut angina or any other cardiac complaints. She states that she has decided to postpone the hip surgery as her boyfriend is ill with cancer. In her social habits, history of smoking and she still smokes a few cigarettes a day. Intermittent cocaine use. Walks with a cane. COUNT INCLUDES THE [facility] Medical History (Updated 09/16/24 @ 14:24 by Osiel Long MD) Atherosclerotic cardiovascular disease Hypercholesteremia Vitamin D deficiency Trochanteric bursitis of left hip Subclinical hyperthyroidism Mild emphysema Thyroid nodule History of headache Skin lesion Psoriasis Bacterial vaginosis Left groin pain Cocaine use Tubular adenoma of breast Pulmonary nodules Back pain Depression Arthritis Palpitations Bursitis IBS (irritable bowel syndrome) Hypothyroid Chronic headaches COPD (chronic obstructive pulmonary disease) Surgical History History of lumbar surgery History of esophagogastroduodenoscopy (EGD) H/O colonoscopy Hx of tonsillectomy Family History (Updated 08/19/24 @ 14:12 by Aicha Fulton) Brother Heart attack Mother High blood pressure Father Lung cancer Social History (Updated 08/19/24 @ 14:12 by Aicha Fulton) Are you a primary district manager primary care sales to a significant other at home: No Do you presently have visiting nurse or other home services: No Alcohol intake: current Alcohol intake frequency: holidays/special occasions only Patient Tobacco Use Status: Current someday Tobacco user Tobacco use type: Cigarette Cigarettes Per Day: 3 Years Smoked: 46 Second Hand Smoke Exposure: No Review of Systems Const Denies weakness ENT Denies dizziness Card Denies chest pain, Denies chest pain with activity, Denies syncope, Denies rapid heart rate, Denies pedal edema, Denies edema, Denies leg edema, Denies lig htheadedness, Denies palpitations, Denies dyspnea, Denies dyspnea on exertion and Denies orthopnea Resp Denies cough, Denies dyspnea and Denies dyspnea on exertion GI Denies hematochezia and Denies change in stool character Musc Denies abnormal gait, Denies muscle cramps, Denies muscle weakness, Denies numbness, Denies radiating pain into limb and Denies tingling Neuro Denies abnormal gait, Denies dizziness, Denies syncope, Denies numbness, Denies tingling and Denies weakness Endo Denies palpitations Physical Exam Vital Signs: Last Vital Signs Pulse 72 09/16/24 14:04 BP 122/64 09/16/24 14:04 BMI result Body Mass Index 21.5 Const General: comfortable and no acute distress Orientation/consciousness: patient oriented x3 HEENT Other: Unremarkable Head: Yes normal to inspection Neck Neck: Yes normal visual inspection Chest Chest palpation & inspection: normal inspection of the chest Resp Auscultation: clear to auscultation bilaterally Cardio Palpation: normal PMI Heart sounds: S1 normal heart sound present, S2 normal heart sound present, no gallops, no murmurs and no rubs GI Palpation (GI): Soft to palpation Back/Spine/Pelvis Other: unremarkable Skin General skin exam: no rashes or lesions noted Neuro General: patient oriented x3 Extrem General: Yes normal to inspection Psych Mental Status: mental status grossly normal Assessment & Plan Assessment & Plan (1) Preoperative cardiovascular examination: Code(s): Z01.810 - Encounter for preprocedural cardiovascular examination Category: Medical (2) Atherosclerotic cardiovascular disease: Code(s): I25.10 - Atherosclerotic heart disease of [place] coronary artery without angina pectoris Category: Medical Plan EKG shows sinus rhythm and inferior/anterolateral ST depression. Unclear etiology. In the echocardiogram, LVEF 57%. Basal inferior hypokinesis. In the nuclear stress from [place], there is description of LAD calcification; small size, moderate intensity reversible basal inferior defect. In the Lexiscan portion, horizontal ST depression in inferior leads. Cardiac catheterization with 60% distal LAD stenosis; 50% distal circumflex stenosis; 40% OM1 stenosis; mild irregularities in the right coronary artery with 50% RV marginal branch stenosis. Overall, treat for stable coronary disease. Take aspirin. Check lipids and start statins. With regard to hip surgery, it seems she wants to postpone it for now but it would be considered intermediate risk. Abstinence from smoking, substance abuse. Orders: Orders Lipid Panel Today E78.5 - Hyperlipidemia, unspecified Liver Panel Today I25.10 - Atherosclerotic heart disease of [place] coronary artery without angina pectoris Coding Level of Care Code Est Pt Level 4 (31469) Complex EM visit Add On G2211 Diagnoses Preoperative cardiovascular examination Z01.810 Atherosclerotic cardiovascular disease I25.10
--- OUTSIDE RECORDS SUMMARY | 2024-09-16 17:42 | XMS_ITS | Clinical Summary ---
Author Organization [facility] [address] [facility] Address [address] [place], [place] Phone Care Team Providers Care Hospital Coder Name Role Phone Dimas Mcnair MD Primary Care Provider [phone] Allergies No known active allergies Medications albuterol [...] her arthritis. There is no evidence of Channel Process Supervisor etiology of her pain. I recommended she [...] Encounters Date Type Department Care Team Description 09/04/2024 Telephone [facility] [address] [facility] [address] [place] [address] Dimas Mcnair MD Medical Records 08/22/2024 Telephone [facility] [address] [facility] [address] [place] [address] Vel Rivers MD Referral; Pre-operative Clearance 08/19/2024 Telephone Adult Medicine [address] [phone] Dimas Mcnair MD Results 08/11/2024 Telephone Adult Medicine [address] [phone] Dimas Mcnair MD doctors ([facility]) 07/29/2024 12:00 PM EST Ancillary Procedure [facility] [address] [place] [address] 07/23/2024 12:00 PM EST Ancillary Procedure [facility] [address] [place] [address] Chest pain, unspecified type 07/22/2024 Telephone [facility] [address] [place] [address] Dimas Mcnair MD Medical Records 06/19/2024 10:00 AM EST Consult Adult Medicine [address] [phone] Dimas Mcnair MD Preop examination (Primary Dx); Urinary frequency; Chest pain, unspecified type; Sore throat; Closed fracture of tooth, initial encounter; Post-nasal drip; Abnormal stress test from Last 3 Months Immunizations Name Administration [...] erosive gastritis, small hiatal hernia COLONOSCOPY 01/27 [facility] PROCEDURE: HISTORICAL COLONOSCOPY; COMMENT: adenoma and poor bowel prep; tics and hemorrhoids COLONOSCOPY 04/26/2017 PROCEDURE: HISTORICAL COLONOSCOPY; COMMENT: normal; repeat in 5 yrs ESOPHAGOGASTRODUODENOSCOPY 01/27 [facility] PROCEDURE: [place] ESOPHAGOGASTRODUODENOSCOPY TRANSORAL DIAGNOSTIC; COMMENT: HH and erosive gastritis and H. pylori ESOPHAGOGASTRODUODENOSCOPY 04/26/2017 PROCEDURE: [place] EGD TRANSORAL BIOPSY SINGLE/MULTIPLE; COMMENT: Normal esophagus [...] 1:30 PM EDT Consult Vascular Surgery - [place] [address] [facility] [address] [place] [phone] Areli Petty PA [address] [facility] [address] [place] [address] Health Maintenance Due Date Last Done Comments [...] 03/14/2023 03/14/2022, 10/01/2008 COVID-19 Vaccine ( - 2023- season) 2024 12/16/2020, 11/16/2020 Influenza Vaccine (#1) [...] Routine 06/19/2024 11:17 AM EST Urinary frequency HM DEPRESSION SCREENING Routine 05/05/2024 DIAGNOSTIC MAMMOGRAPHY [...] reflex microscopic (06/19/2024 11:17 AM EST) Specific [place] Urine 1.025 1.003 - 1.030 LAB URINALYSIS - AUTOMATED METHOD 06/19/2024 2:18 PM EST [facility] pH, Urine 6.0 5.0 - 8.0 pH LAB URINALYSIS - AUTOMATED METHOD 06/19/2024 2:18 PM [facility] Leukocytes, Urine Negative Negative LAB URINALYSIS - AUTOMATED METHOD 06/19/2024 2:18 PM [facility] Nitrite, Urine Negative Negative LAB URINALYSIS - AUTOMATED METHOD 06/19/2024 2:18 PM [facility] Protein, Urine Negative <=Trace mg/dL LAB URINALYSIS - AUTOMATED METHOD 06/19/2024 2:18 PM [facility] Glucose, Urine Negative Negative mg/dL LAB URINALYSIS - AUTOMATED METHOD 06/19/2024 2:18 PM [facility] Ketones, Urine Negative Negative mg/dL LAB URINALYSIS - AUTOMATED METHOD 06/19/2024 2:18 PM [facility] Urobilinogen, Urine 1.0 0.2 - 1.0 mg/dL LAB URINALYSIS - AUTOMATED METHOD 06/19/2024 2:18 PM [facility] Bilirubin, Urine Negative Negative LAB URINALYSIS - AUTOMATED METHOD 06/19/2024 2:18 PM [facility] Blood, Urine Negative Negative LAB URINALYSIS - AUTOMATED METHOD 06/19/2024 2:18 PM [facility] Urine Urine specimen obtained by clean catch procedure / Unknown Non-blood Collection / Unknown 06/19/2024 11:17 AM EST 06/19/2024 11:17 AM EST us Dimas Mcnair MD LAB URINE ORDERABLES Final Resu lt [facility] [address] [place] [address], * (ABNORMAL) CBC auto differential (06/19/2024 11:17 AM EST) WBC 9.9 4.8 - 10.8 K/mcL LAB HEMETOLOGY METHOD 06/19/2024 2:27 PM [facility] RBC 4.30 3.80 - 4.80 M/mcL LAB HEMETOLOGY METHOD 06/19/2024 2:27 PM [facility] Hemoglobin 13.0 11.5 - 16.0 g/dL LAB HEMETOLOGY METHOD 06/19/2024 2:27 PM [facility] Hematocrit 40.9 35.0 - 47.0 % LAB HEMETOLOGY METHOD 06/19/2024 2:27 PM [facility] MCV 94.9 79.0 - 98.0 FL LAB HEMETOLOGY METHOD 06/19/2024 2:27 PM [facility] MCH 30.2 27.0 - 32.0 pcg LAB HEMETOLOGY METHOD 06/19/2024 2:27 PM [facility] MCHC 31.8(L) 32.0 - 37.0 g/dL LAB HEMETOLOGY METHOD 06/19/2024 2:27 PM [facility] RDW 11.9 11.0 - 15.0 % LAB HEMETOLOGY METHOD 06/19/2024 2:27 PM [facility] Platelets 310 130 - 400 K/mcL LAB HEMETOLOGY METHOD 06/19/2024 2:27 PM [facility] MPV 11.9(H) 7.0 - 11.0 FL LAB HEMETOLOGY METHOD 06/19/2024 2:27 PM [facility] NRBC 0.0 <1.0 % LAB HEMETOLOGY METHOD 06/19/2024 2:27 PM [facility] NRBC Absolute 0.00 <0.10 K/mcL LAB HEMETOLOGY METHOD 06/19/2024 2:27 PM [facility] Neutrophils Relative 72.5 % LAB HEMETOLOGY METHOD 06/19/2024 2:27 PM [facility] Lymphocytes Relative 20.8 % LAB HEMETOLOGY METHOD 06/19/2024 2:27 PM [facility] Monocytes Relative 5.1 % LAB HEMETOLOGY METHOD 06/19/2024 2:27 PM [facility] Eosinophils Relative 0.7 % LAB HEMETOLOGY METHOD 06/19/2024 2:27 PM [facility] Basophils Relative 0.5 % LAB HEMETOLOGY METHOD 06/19/2024 2:27 PM [facility] Immature Granulocytes Relative 0.4 % LAB HEMETOLOGY METHOD 06/19/2024 2:27 PM [facility] Neutrophils Absolute 7.18(H) 1.50 - 7.00 K/mcL LAB HEMETOLOGY METHOD 06/19/2024 2:27 PM [facility] Lymphocytes Absolute 2.06 1.00 - 5.00 K/mcL LAB HEMETOLOGY METHOD 06/19/2024 2:27 PM [facility] Monocytes Absolute 0.51 0.20 - 1.00 K/mcL LAB HEMETOLOGY METHOD 06/19/2024 2:27 PM [facility] Eosinophils Absolute 0.07 0.00 - 0.50 K/mcL LAB HEMETOLOGY METHOD 06/19/2024 2:27 PM [facility] Basophils Absolute 0.05 0.00 - 0.20 K/mcL LAB HEMETOLOGY METHOD 06/19/2024 2:27 PM [facility] Immature Granulocytes Absolute 0.04(H) 0.00 - 0.03 K/mcL LAB HEMETOLOGY METHOD 06/19/2024 2:27 PM [facility] Blood Venous blood specimen / Unknown Venipuncture / Unknown 06/19/2024 11:17 AM EST 06/19/2024 11:17 AM EST us Dimas Mcnair MD LAB BLOOD ORDERABLES Final Resu lt Performing Organization Address [facility]/ZIP Co de Phone Number [facility] [address] [place] [address], [place] [phone] * Prothrombin time with INR (06/19/2024 11:17 AM EST) [facility] Protime 11.8 10.6 - 13.9 sec LAB COAGULATION METHOD 06/19/2024 2:41 PM EST [facility] INR 0.9 LAB COAGULATION METHOD 06/19/2024 2:41 PM EST [facility] Blood Venous blood specimen / Unknown Venipuncture / Unknown 06/19/2024 11:17 AM EST 06/19/2024 11:17 AM EST us Dimas Mcnair MD LAB BLOOD ORDERABLES Final Resu lt Performing Organization Address [facility]/ZIP Co de Phone Number [facility] [address] [place] [address], [place] [phone] * Culture urine (06/19/2024 11:17 AM EST) [facility] Culture, Urine No growth 06/20/2024 11:28 AM EST [facility] Urine Urine specimen / Unknown Non-blood Collection / Unknown 06/19/2024 11:17 AM EST 06/19/2024 11:17 AM EST us Dimas Mcnair MD LAB MICROBIOLOGY - GENERAL JOEY DE LA ROSA Final Result Performing Organization Address [facility]/ZIP Co de Phone Number [facility] [address] [place] [address], [place] [phone] * Basic metabolic panel (06/19/2024 11:17 AM EST) [facility] Sodium 142 133 - 145 mmol/L LAB CHEMISTRY METHOD 06/19/2024 3:01 PM EST [facility] Potassium 4.2 3.5 - 5.5 mmol/L LAB CHEMISTRY METHOD 06/19/2024 3:01 PM [facility] Chloride 108 96 - 110 mmol/L LAB CHEMISTRY METHOD 06/19/2024 3:01 PM [facility] CO2 29 21 - 32 mmol/L LAB CHEMISTRY METHOD 06/19/2024 3:01 PM [facility] Anion Gap 5 3 - 11 LAB CHEMISTRY METHOD 06/19/2024 3:01 PM [facility] Glucose 75 70 - 100 mg/dL LAB CHEMISTRY METHOD 06/19/2024 3:01 PM [facility] BUN 16 5 - 25 mg/dL LAB CHEMISTRY METHOD 06/19/2024 3:01 PM [facility] Creatinine 0.69 0.50 - 1.10 mg/dL LAB CHEMISTRY METHOD 06/19/2024 3:01 PM [facility] eGFR 98 >=60 mL/min/1. 73m2 LAB CHEMISTRY METHOD 06/19/2024 3:01 PM [facility] Comment:Calculation based on the??Chronic Kidney Disease Epidemiology Collaboration (CKD-EPI) equation refit??without adjustment for race. BUN/Creatinine Ratio 23.2 LAB CHEMISTRY METHOD 06/19/2024 3:01 PM [facility] Calcium 9.7 8.5 - 10.5 mg/dL LAB CHEMISTRY METHOD 06/19/2024 3:01 PM [facility] Blood Venous blood specimen / Unknown Venipuncture / Unknown 06/19/2024 11:17 AM EST 06/19/2024 11:17 AM EST us Dimas Mcnair MD LAB BLOOD ORDERABLES Final Resu lt [facility] [address] [place] [address], * Depression Screening (05/05/2024) HM Depression Screening abstracted us Historical Provider HEALTH MAINTENANCE Final Result * DIAGNOSTIC MAMMOGRAPHY WITH [...] Final Result * (ABNORMAL) Lipid panel (08/30/2022) [facility] LDL/HDL Ratio 4 0 - 4 Triglycerides 204(A) 0 - 150 mg/dL Cholesterol 210(A) 0 - 200 mg/dL HDL 51 >=40 mg/dL LDL Cholesterol 119(A) 0 - 100 mg/dL Blood Venous blood specimen / Unknown Result [facility] LAB BLOOD ORDERABLES Carol l Result * Cervical Cancer Screening: HPV (12/20/2021) [facility] Cervical Cancer Screening: HPV Abstracted ,negative Result [facility] Edvin [employer] Final Result * Colonoscopy (04/26/2017) [facility] Colonoscopy No interpreta tion,abstr acted Anatomical Region Laterality Modality Other Result [facility] [employer] Final Result * Hepatitis C Screening (12/18/2016) [facility] Hepatitis C Screening abstracted Result [facility] [employer] Final Result from Last 3 Months or Most Recently Relevant to Health Maintenance Insurance [employer] MED[employer]ARE ADVANTAGE Care Teams Hospital Coder Relationship Specialty Start Date End Date Dimas Mcnair MD [address] [place] [address] PCP - General Internal Medicine 05/17/24
--- OUTSIDE RECORDS SUMMARY | 2024-09-16 17:42 | XMS_ITS | Encounter Summary ---
Author Organization [facility] Address [address] [place] [address] Care Team Providers Care Receiving Checker Name Role Phone Dimas Mcnair MD Primary Care Provider [phone] Reason for Visit * Reason Onset Date Comments Medical Records 09/04/2024 Encounter Details Date Type Department Care Team (Late st Contact Info) Description 09/04/2024 Telephone [facility] Associates [facility] [address] [facility] [address] [place] [address] Dimas Mcnair MD [address] [place] [id number] Medical Records Social History Tobacco Use Types [...] encounter Progress Notes * Jena Calderon - 09/04/2024 4:08 PM EST Faxed 07/23/2024 Nuclear Stress Test to [facility] Att: Leonie at [phone] on 08/20/2024 documented in this encounter Plan of Treatment Upcoming Encounters Date Type Department Care Team (Late st Contact Info) Description 11/03/2024 1:30 PM EDT Consult Vascular Surgery - [place] [address] [place] [address] Areli Petty PA [address] [facility] [address] [place] [address] documented as of this encounter Visit Diagnoses Not on filedocumented in this encounter Care Teams Receiving Checker Relationship Specialty Start Date End Date Dimas Mcnair MD [address] [place] [phone] PCP - General Internal Medicine 05/17/24 documented as of this encounter
--- OUTSIDE RECORDS SUMMARY | 2024-09-16 17:42 | XMS_ITS | Encounter Summary ---
Author Organization [facility] Address [address] [place] [address] Care Team Providers Care Molasses Coloring Operator Name Role Phone Dimas Mcnair MD Primary Care Provider [phone] Reason for Visit * Reason Onset Date Comments Medical Records 07/22/2024 Encounter Details Date Type Department Care Team (Late st Contact Info) Description 07/22/2024 Telephone [facility] Cardiology [facility] [address] [facility] [address] [place] [phone] Dimas Mcnair MD [address] [place] [address] Medical Records Social History Tobacco Use Types [...] EST Faxed 02/06/2023 Office Note to [facility] [place] Stay Att: Brielle at [phone] on 07/22/2023 documented in this encounter Plan of Treatment Upcoming Encounters Date Type Department Care Team (Late st Contact Info) Description 11/03/2024 1:30 PM EDT Consult Vascular Surgery - [place] [address] [place] [address] Areli Petty PA [address] [facility] [address] [place] [address] documented as of this encounter Visit Diagnoses Not on filedocumented in this encounter Care Teams Molasses Coloring Operator Relationship Specialty Start Date End Date Dimas Mcnair MD [address] [place] [address] PCP - General Internal Medicine 05/17/24 documented as of this encounter
--- OUTSIDE RECORDS SUMMARY | 2024-09-16 17:42 | XMS_ITS | Encounter Summary ---
Author Organization [facility] [place] [address] Care Team Providers Care Ict Educator Name Role Phone Dimas Mcnair MD Primary Care Provider [phone] Reason for Visit * Reason Onset Date Comments Results 08/19/2024 Encounter Details Date Type Department Care Team ([facility] st Contact Info) Description 08/19/2024 Telephone Adult Medicine [address] [phone] Dimas Mcnair MD [address] [place] [address] Results Social History Tobacco Use Types Packs/Day [...] 3:02 PM EST Requested info faxed to [facility] Cardiology * Sulaiman Gonzalez - 08/19/2024 2:49 PM EST Requesting Cardiac stress stress - [facility] Cardiovascular documented in this encounter Plan of Treatment Upcoming Encounters Date Type Department Care Team (Late st Contact Info) Description 11/03/2024 1:30 PM EDT Consult Vascular Surgery - [place] [address] [place] [address] Areli Petty PA [address] [place] [address] documented as of this encounter Visit Diagnoses Not on filedocumented in this encounter Care Teams Ict Educator Relationship Specialty Start Date End Date Dimas Mcnair MD [address] [place] [address] PCP - General Internal Medicine 05/17/24 documented as of this encounter
--- OUTSIDE RECORDS SUMMARY | 2024-09-16 17:42 | XMS_ITS | Encounter Summary ---
Author Organization [employer] Address [address] [place] [address] Care Team Providers Care Direct Customer Service Representative Name Role Phone Dimas Mcnair MD Primary Care Provider [phone] Reason for Referral * Consultation (Routine) - Authorized Specialty Diagnoses / Procedures Referred By Johnie t Referred To Contact Cardiology Diagnoses Chest pain, unspecified type Abnormal stress test Dimas Mcnair MD [address] [place] [address] Phone: tel: fax: [facility] - [facility] [address] [facility] [address] [place] [address] Phone: tel: fax: Referral ID Status Reason Start Date Expiration Date Visits Requested Visits Authorized [id number] Authorized Specialty Services Required 08/21/2024 08/21/2025 1 1 * Cardiac Stress Testing (Routine) - Authorized Specialty Diagnoses / Procedures Referred By Contac t Referred To Contact Cardiology Diagnoses Chest pain, unspecified type Procedures Nuclear stress test with myocardial perfusion WV MYOCARDIAL PERFUSION IMAGING TOMOGRAPHIC MULTI STUDIES AT REST OR STRESS WV MYOCARDIAL PERFUSION IMAGING TOMOGRAPHIC SINGLE STUDY AT REST OR STRESS WV CARDIOVASCULAR STRESS TEST GLOBAL WV CV TMST/BIKE MAX/SUBMAX CONTINUOUS ECG MON/PHARM STRESS SUPVSR ONLY W[place] CV STRESS TEST/BIKE CONT ECG MON/PHARM STRESS INTERP & REPORT ONLY [place] TEST STRESS CARDIOVASCULAR TRACING ONLY Dimas Mcnair MD [address] [place] [address] Phone: tel: fax: [facility] Referral ID Status Reason Start Date Expiration Date V isits Requested Visits Authorized [id number] Authorized 07/02/2024 12/29/2024 3 3 Reason for Visit * Reason Comments Pre-op Exam dr. juanita porras sd 08/12 left total hip arthroplasty Encounter Details Date Type Department Care Team (Late st Contact Info) Description 06/19/2024 10:00 AM EST Consult Adult Medicine [facility] [address] [place] [address] Dimas Mcnair MD [address] [place] [address] Preop examination (Primary Dx); Urinary frequency; Chest [...] 1:30 PM EDT Consult Vascular Surgery - [place] [address] [place] [address] Areli Petty PA [address] [place] [address] Scheduled Orders Name Type Priority Associated Diagnoses [...] Final Result [facility] [address] [place] [address], [place] [phone] documented in this encounter Visit Diagnoses Diagnosis Preop examination- Primary Unspecified pre-operative examination Urinary frequency Chest pain, unspecified type Sore throat Acute pharyngitis Closed fracture of tooth, initial encounter Post-nasal drip Postnasal drip Abnormal stress test Other nonspecific abnormal cardiovascular system function study Chest pain, unspecified type documented in this encounter Care Teams Direct Customer Service Representative Relationship Specialty Start Date End Date Dimas Mcnair MD [address] [place] [address] PCP - General Internal Medicine 05/17/24 documented as of this encounter
--- OUTSIDE RECORDS SUMMARY | 2024-09-16 17:42 | XMS_ITS | Clinical Summary ---
Author Organization [facility] Address [address] [place] [address] Care Team Providers Care Systems Analyst Engineer Name Role Phone Dimas Mcnair MD Primary Care Provider [phone] Allergies No known active allergies Medications Medication [...] age to complete this topic Care Teams Systems Analyst Engineer Relationship Specialty Start Date End Date Dimas Mcnair MD PCP - General Internal Medicine 10/28/21
--- OUTSIDE RECORDS SUMMARY | 2024-09-16 17:42 | XMS_ITS | Clinical Summary ---
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) Social History Tobacco Use Types Packs/Day [...] Imm-Pneumococcal (2 of 2 - PCV) 03/14/2023 [id number] (3 - 2023- season) 2024 021, 11/16/2020 [...] EST) CHOLESTEROL 189 0 - 200 mg/dL [facility] TRIGLYCERIDES 195(H) 0 - 150 mg/dL [facility] HDL CHOLESTEROL 48 >40 mg/dL [facility] LDL CALCULATED 102(H) 0 - 100 mg/dL [facility] TC-HDLC RATIO 3.9 0 - 4.4 mg/dL [facility] Blood specimen (specimen) Blood / Unknown 07/17/2014 11:43 AM EST 07/17/2014 3:31 PM EST Narrative [facility] - 07/17/2014 6:10 PM EST [employer] [address] [place] [address] PT ID [id number] ORD# [id number] Shaila Arredondo NP LAB - BLOOD DRAW Final Result [facility] [address] [place] [address], * COMPRE METAB PANEL (07/17/2014 11:43 AM EST) GLUCOSE 90 70 - 100 mg/dL [facility] Comment:Reference range appl icable to fasting specimens only BUN 16 5 - 25 mg/dL [facility] CREAT 0.67 0.5 - 1.1 mg/dL [facility] GLOMERULAR FILTRATION RATE > 60 [facility] Comment: If patient is -Omani, multiply result by 1.21 Chronic Kidney Disease: < 60 ml/min/1.73 square meters Kidney Failure: < 15 ml/min/1.73 square meters SODIUM 143 133 - 145 mEq/L [facility] POTASSIUM 4.1 3.5 - 5.5 mEq/L [facility] CHLORIDE 109 96 - 110 mEq/L [facility] CO2 29 21 - 32 mEq/L [facility] ANION GAP 5 3 - 11 [facility] CALCIUM 9.7 8.5 - 10.5 mg/dL [facility] TOTAL PROTEIN 6.6 6.0 - 8.0 G/dL [facility] ALBUMIN 4.4 3.2 - 5.0 G/dL [facility] BILI, TOTAL 0.4 0.0 - 1.4 mg/dL [facility] SGOT 19 10 - 42 U/L [facility] SGPT 15 10 - 60 U/L [facility] ALK PHOS 65 42 - 121 U/L [facility] Blood specimen (specimen) Blood / Unknown 07/17/2014 11:43 AM EST 07/17/2014 3:[address] [facility] - 07/17/2014 6:10 PM EST [employer] [address] [place] [address] PT ID [id number] ORD# [id number] Shaila Arnulfo JULIO LAB - BLOOD DRAW Final Result [facility] [address] [place] [address], from Last 3 Months or Most Recently Relevant to Health Maintenance Insurance [place] - [place] [facility]
--- OUTSIDE RECORDS SUMMARY | 2024-09-16 17:42 | XMS_ITS | Encounter Summary ---
Author Organization [facility] Address [address] [place] [address] Care Team Providers Care Spare Hand Name Role Phone Dimas Mcnair MD Primary Care Provider [phone] Reason for Visit * Reason Onset Date Comments doctors 08/11/2024 [facility] calling Encounter Details Date Type Department Care Team ([facility] Contact Info) Description 08/11/2024 Telephone Adult Medicine [address] [phone] Dimas Mcnair MD [address] [place] [address] doctors ([facility] calling) Social History Tobacco Use [...] EST Called and spoke to Avis at [facility]. A pre op appointment was scheduled for [...] was provided with the contact information for [facility], , and was instructed to call to reschedule. She is in agreement with this plan. * Janelle Hall RN - 08/22/2024 8:55 AM EST Called [facility] at and spoke to a acute care physician who forwarded the call to Doreen, the new ptcoordinator. Per Doreen pt is an established pt at [facility]. Her proof sorter is Dr. Rivers. Her referral was sent to [facility] who processes referrals for established pts. Doreen will contact [facility]. Doreen was given my direct number to provide to [facility] regarding this pt. * Janelle Hall RN [...] diagnostic for ischemia. Josiane, a nurse from [facility] is requesting an addendum from PCP stating that pt is clear for surgery or is not r/t stress test results. * Giuliano Diaz LPN - 08/11/2024 10:00 AM EST [facility] called see message * Angella Baltazar - 08/11/2024 8:44 AM EST [facility] CALL Which [facility] office is calling? [facility] Full name of caller: josiane The caller is A nurse Is the caller at the patients home?: no Reason for call: Nurse from [facility] is calling stating they need and addendum from Provider stating that patient is clear for surgery or isn't per her stress test results. Does caller need an urgent call back? yes Was CONTACT Telephone # obtained above?: yes Fax #: [phone] documented in this encounter Plan of Treatment Upcoming Encounters Date Type Department Care Team (Late st Contact Info) Description 11/03/2024 1:30 PM EDT Consult Vascular Surgery - [place] [address] [place] [phone] Areli Petty PA [address] [place] [address] documented as of this encounter Visit Diagnoses Not on filedocumented in this encounter Care Teams Spare Hand Relationship Specialty Start Date End Date Dimas Mcnair MD [address] [place] [address] PCP - General Internal Medicine 05/17/24 documented as of this encounter
--- OUTSIDE RECORDS SUMMARY | 2024-09-16 17:42 | XMS_ITS | Encounter Summary ---
Author Organization [facility] Address [address] [place] [address] Care Team Providers Care Form Setter Name Role Phone Dimas Mcnair MD Primary Care Provider Reason for Visit * Reason Onset Date Comments Referral 08/22/2024 Pre-operative Clearance 08/22/2024 Encounter Details Date Type Department Care Team (Late st Contact Info) Description 08/22/2024 Telephone [facility] - [facility] [address] [facility] [address] [place] [address] Vel Rivers MD [address] [facility] [address] [place] [address] Referral; Pre-operative Clearance Social History Tobacco Use [...] PM EDT Consult Vascular Surgery - [place] [address] [facility] [address] [place] [phone] Areli Petty PA [address] [facility] [address] [place] [address] documented as of this encounter Visit Diagnoses Not on filedocumented in this encounter Care Teams Form Setter Relationship Specialty Start Date End Date Dimas Mcnair MD [address] [place] [address] PCP - General Internal Medicine 05/17/24 documented as of this encounter
== END 2024-09-16 14:23 | disposition home or self-care (01) ==
PROVIDERS: PCP Internal Medicine; Visit Provider Internal Medicine
DX: Z01.810 Encounter for preprocedural cardiovascular examination (principal); I25.10 Atherosclerotic heart disease of native coronary artery without angina pectoris
CPT/HCPCS: 99214; G2211

== ENCOUNTER → 2024-09-16 14:00 | Outpatient (BNVA) | payer MEDICARE, SELFPAY | PROVIDERS: PCP Internal Medicine; Visit Provider Internal Medicine | DX: Z01.810 Encounter for preprocedural cardiovascular examination (principal); I25.10 Atherosclerotic heart disease of native coronary artery without angina pectoris | CPT/HCPCS: 99212 ==

== ENCOUNTER 2025-02-05 14:00 | Outpatient (REF) | payer MEDICARE, MEDICAID, SELFPAY ==
--- NOTE | ~2025-02-05 | XR_ITS ---
EXAMINATION: XR PELVIS CLINICAL INFORMATION: M25.559 - Pain in unspecified hip COMPARISON: July 22, 2024. TECHNIQUE: AP view of the pelvis. FINDINGS: Subchondral cyst formation sclerosis along the articular surface and asymmetric joint space narrowing, left coxofemoral joint. Mild sclerosis along the articular surface of the right acetabulum. No acute cortical disruption or malalignment. Spina bifida occulta, S1. Spondylosis at L4-5 and L5-S1. XR/XR pelvis 1-2V IMPRESSION: Moderate to severe osteoarthrosis, left hip. Mild osteoarthrosis, right hip. Electronically signed by: Nishant Barreto MD 02/05/2025 02:51 PM EDT
--- OUTSIDE RECORDS SUMMARY | 2025-02-05 14:06 | XMS_ITS ---
Author Name [facility] Organization Unknown Encounters Encounter Type Encounter Reason Primary Diagnosis Location Date Ambulatory [facility] 04/25/2024 Care Team Organization Name Specialty Phone Email Start Date End Da te [facility] 11/08/2024 [facility] Rosie Stevens Primary Care 03/22/2023 03/03/2024
--- OUTSIDE RECORDS SUMMARY | 2025-02-05 14:06 | XMS_ITS | Clinical Summary ---
Author Organization [facility] [address] [facility] Address [address] [place] [address] Phone Care Team Providers Care Crew Manager Name Role Phone Dimas Mcnair MD Primary Care Provider [phone] Allergies No known active allergies Medications oxyCODONE-aceta minophen (PERCOCET) 5-325 mg per tablet TAKE ONE TABLET BY MOUTH FOUR TIMES A DAY FOR 7 DAYS 3 Active meclizine (ANTIVERT) 25 mg tablet Take 1 tablet (25 mg total) by mouth 3 (three) times a day if needed for dizziness. 30 tablet 5 10/10/19 26 Active albuterol HFA (PROAIR HFA ; PROVENTIL HFA ; VENTOLIN HFA) 90 mcg/actuation inhaler Inhale 2 puffs by mouth every 6 (six) hours if needed for wheezing. 6.7 g 5 5 Active polyethylene glycol (MIRALAX) 17 gram packet MIX 17 GRAMS IN BEVERAGE DIRECTED AND TAKE BY MOUTH ONCE DAILY 100 each 1 5 Active betamethasone valerate (VALISONE) 0.1 % ointment Apply topically 1 (one) time each day. 30 g 5 5 Active Active Problems Problem Noted Date Diagnosed Date Lumbar spinal stenosis 11/04/2024 Alcohol abuse 11/03/2024 Calculus of kidney 11/03/2024 Cocaine use 05/12/2024 Tubular adenoma 10/25/2023 Psoriasis 12/20/2021 Overview (11/03/2024): Palpitations 10/06/2020 Pulmonary nodules 02/12/2020 Overview (05/12/2024): Follows with thoracic surgery. CT chest 02-25-21 showed no malignancy. Chronic headache disorder 05/06/2019 Overview (05/12/2024): Childhood onset. Thyroid nodule 02/25/2019 Overview (05/12/2024): Repeat US for follow up 02/2020 Mild emphysema (CMS/HCC V24, CMS/HCC V28) 2018 Overview (05/12/2024): S/p LDCT 10/2018 Subclinical hyperthyroidism 10/24/2018 OA (osteoarthritis) of hip 09/24/2018 Overview (05/12/2024): Left; follows with physiatry Trochanteric bursitis of left hip 09/24/2018 Overview (05/12/2024): Follows with physiatry s/p corticosteroid injections IBS (irritable bowel syndrome) 02/13/2017 Overview (05/12/2024): Childhood onset, alternating C/D. Vitamin D deficiency 12/29/2016 Hypercholesteremia 12/19/2016 Carpal tunnel syndrome 04/21/2014 Resolved Problems Problem Noted Date Diagnosed Date Resolved Date Bacterial vaginosis 12/28/2022 11/04/19 25 Overview (05/12/2024): Last Assessment & Plan: Rx for Flagyl ePrescribed to pharmacy. RTO if symptoms do not improve following treatment. GC/CT collected, will treat as indicated Left groin pain 06/01/2022 11/03/2024 Overview (05/12/2024): Last Assessment & Plan: I explained that based on her exam, this pain represents pain in the area of her inguinal ligament. It could be related to progression of her arthritis. There is no evidence of [place] etiology of her pain. I recommended she follow up with her PCP for imaging or other recommendations and consider NSAIDs in the meantime. She agreed. Low back pain 06/01/2022 11/03/2024 Overview (05/12/2024): Last Assessment & Plan: I referred her to her PCP for further evaluation. Skin lesion 12/20/2021 11/03/2024 Overview (05/12/2024): Last Assessment & Plan: Referral placed to dermatology Encounters Date Type Department Care Team Description 12/01/2024 12:00 PM EDT Evaluation Outpatient Rehabilitation - [address] [phone] Tee Meyers, ELAINE Benign paroxysmal positional vertigo of right ear (Primary Dx) 11/25/2024 2:00 PM EDT Consult Vascular Surgery - [place] [address] [place] [address] Kristin Rainey PA Renal artery aneurysm ([facility] V24) (Primary Dx); PAD (peripheral artery disease) ([facility] V24) from Last 3 Months Immunizations Name Administration Dates Next Due Diptheria & Tetanus, 6wks to less than 7yo 12/14 Pneumococcal polysaccharide 23 valent (Pneumovax 23) 2yo and older 03/14/2022,10/01/2008 Tdap Tetanus diptheria acell ular pertussis (Boostrix; Adacel) 7yo and older 03/14/2022,01/17/2014 Surgical History Surgery Date Site/Laterality Comments TONSILLECTOMY COLONOSCOPY 01/2015 tubular adenoma OTHER SURGICAL HISTORY 01/2015 active erosive gastritis, small hiatal hernia COLONOSCOPY 01/27 [facility] : adenoma and poor bowel prep; tics and hemorrhoids COLONOSCOPY 04/26/2017 normal; repeat in 5 yrs ESOPHAGOGASTRODUODENOSCOPY 01/27 [facility] HH and erosive gastritis and H. pylori ESOPHAGOGASTRODUODENOSCOPY 04/26/2017 : Normal esophagus with normal esoph. bxys; foveolar gastric hyperplasia with focal intestinal metaplasia; no H. pylori; nl duodenal bxys Medical History Medical History Date Comments Tobacco abuse Vitamin D deficiency 12/29/2016 IBS (irritable bowel syndrome) 02/13/2017 History of cocaine use Hypercholesteremia 12/19/2016 History of Helicobacter pylo ri infection Normal EGD 04/2017 OA (osteoarthritis) of hip 09/24/2018 : Lef t; follows with physiatry Trochanteric bursitis of left hip 09/24/2018 Follows with physiatry s/p corticosteroid injections Subclinical hyperthyroidism 10/24/2018 Mild emphysema (CMS/HCC V24, CMS/HCC V28) 11/20/2018 : S/p LDCT 10/2018 Thyroid nodule 02/25/2019 : Repeat US for follow up 02/2020 Lumbar spinal stenosis 11/04/2024 Family History Medical History Relation Name Comments [...] Sign Reading Time Taken Comments Blood Pressure 127/75 11/25/2024 1:54 PM EDT Pulse 91 11/25/2024 1:54 PM EDT Temperature 36.7 C (98 F) 11/04/2024 10:26 AM EDT Respiratory Rate 14 11/04/2024 10:26 AM EDT Oxygen Saturation 98% 11/04/2024 10:26 AM EDT Inhaled Oxygen Concentration - - Weight 57.2 kg (126 lb) 11/25/2024 1:54 PM EDT Height 160 cm (5' 3 ) 11/25/2024 1:54 PM EDT Body Mass Index 22.32 11/25/2024 1:54 PM EDT Plan of Treatment Upcoming Encounters Date Type Department Care Team (Late st Contact Info) Description 02/10/2025 1:00 PM EDT Appointment [facility] Ultrasound [address] [place] [phone] 02/23/2025 4:15 PM EDT Appointment [facility] CT Scan [address] [place] [address] 04/03/2025 1:00 PM EDT Office Visit Vascular Surgery - [place] [address] [place] [address] Kristin Rainey PA [address] [place] [address] 04/30/2025 1:00 PM EDT Office Visit Adult Medicine [facility] [address] [place] [address] Young Hurley PA [address] [place] [address] [phone] Health Maintenance Due Date Last Done Comments Hepatitis A Vaccines (1 of 2 - Risk 2-dose series) 1980 Zoster Vaccines (1 of 2) 2011 RSV Immunization Adult Patients (1 - Risk 60-74 years 1-dose series) 2021 Colorectal Cancer Screening: Colonoscopy 06/24/2022 04/26/2017 HIV Screening 06/24/2022 Medicare Annual Wellness Visit 06/24/2022 Social Influencers of Health Screening 06/24/2022 Pneumococcal Vaccine: 50+ Years (2 of 2 - PCV) 03/14/2023 03/14/2022, 10/01/2008 COVID-19 Vaccine ( - season) 2024 12/16/2020, 11/16/2020 Depression Screening 07/16/2024 05/05/2024 Breast Cancer Screening 01/02/2025 01/03/20 23, 12/07/2022, 11/09/2021, Additional history exists Influenza Vaccine (#1) 2025 Cervical Cancer Screening: HPV 12/20/2026 12/20/2021 Cholesterol Screening (Lipid Panel) 11/04/2029 11/04/2024, 08/30/2022, 07/17/2014 DTaP,Tdap,and Td Vaccines (4 - [...] age to complete this topic Meningococcal B Vaccine Aged Out No l onger eligible based on patient's age to complete this topic RSV Immunization Patients Under 20 months Aged Out No longer eligible based on patient's age to complete this topic Varicella Vaccines Aged Out No longer eligible based on patient's age to complete this topic Goals Goal Patient Goal Type Associated Problems Recent Progress Patient-Stated? Author STG 6 visits General Yes Tee Meyers, PT Note: Pt will report a 90% or better decrease in dizziness during functional movements. Pt will be I and compliant w/ HEP of self- Wade maneuver for management of dizziness at home. Procedures Procedure Name Priority Date/Time Associated Diagnosis Comments LIPID PANEL WITH REFLEX TO DIRECT LDL Routine 11/04/2024 11:08 AM EDT Hypercholesteremia DEPRESSION SCREENING Routine 05/05/2024 DIAGNOSTIC MAMMOGRAPHY WITH CAD UNILATERAL Routine 01/02/2023 3:05 PM EDT Other abnormal and inconclusive findings on diagnostic imaging of breast HPV Routine 12/20/2021 COLONOSCOPY Routine 04/26/2017 HEPATITIS C SCREENING Routine 12/18/2016 from Last 3 Months or Most Recently Relevant to Health Maintenance Results * (ABNORMAL) Lipid panel with reflex to direct LDL (11/04/2024 11:08 AM EDT) Cholesterol 214(H) 0 - 200 mg/dL LAB CHEMISTRY METHOD 11/04/2024 2:50 PM EDT [facility] Triglycerides 70 0 - 150 mg/dL LAB CHEMISTRY METHOD 11/04/2024 2:50 PM EDT [facility] HDL 72 >=40 mg/dL LAB CHEMISTRY METHOD 11/04/2024 2:50 PM EDT [facility] LDL Calculated 128(H) 0 - 100 mg/dL LAB CHEMISTRY METHOD 11/04/2024 2:50 PM EDT [facility] VLDL Cholesterol Hernandez 14 mg/dL LAB CHEMISTRY METHOD 11/04/2024 2:50 PM EDT [facility] Non HDL Chol. (LDL+VLDL) 142 <145 mg/dL LAB CHEMISTRY METHOD 11/04/2024 2:50 PM EDT [facility] Chol/HDL Ratio 3.0 0.0 - 4.4 LAB CHEMISTRY METHOD 11/04/2024 2:50 PM EDT [facility] Blood Venous blood specimen / Unknown Venipuncture / Unknown 11/04/2024 11:08 AM EDT 11/04/2024 11:08 AM EDT us Doreen Low MD LAB BLOOD ORDERABLES Final Resul t [facility] [address] [place] [address], [place] [phone] * Depression Screening (05/05/2024) Pathologist [facility] Depression Screening abstracted us Historical Provider HEALTH [...] Right breast mammogram, additional views. Limited right breast ultrasound. Tomosynthesis straight lateral and spot compression views of the right breast in CC and MLO projections were obtained to follow 12/07/2022 exam. Breast tissue is dense limiting sensitivity of mammography. The densitiy of concern in the medial right breast was noted confirmed on the spot compression views. No new suspicious abnormalities were identified. Limited ultrasound of the right breast was performed with attention to the medial breast, approached from the upper inner and lower inner quadrants. No cystic or solid masses or acoustic shadowing identified. There are regions of fibroglandular tissues as well as prominent ducts. Conclusions: No evidence of malignancy in the right breast. Findings were explained to the patient. Follow-up examination at the time of the next [...] MD IMG BI PROCEDURES Final Result * Cervical Cancer Screening: HPV (12/20/2021) Cervical Cancer Screening: HPV Abstracted ,negative Historical Provider HEALTH MAINTENANCE Final Result * Colonoscopy (04/26/2017) Colonoscopy No interpreta tion,abstr acted Anatomical Region Laterality Modality Other [facility] Provider HEALTH MAINTENANCE Final Result * Hepatitis C Screening (12/18/2016) Pathologist [facility] Hepatitis C Screening abstracted [facility] Provider HEALTH MAINTENANCE Final Result from Last 3 Months or Most Recently Relevant to Health Maintenance Insurance [employer] MEDICARE ADVANTAGE MEDICAID - [place] Care Teams Crew Manager Relationship Specialty Start Date End Date Dimas Mcnair MD [address] [place] [address] [phone] PCP - General Internal Medicine 01/07/25
--- OUTSIDE RECORDS SUMMARY | 2025-02-05 14:06 | XMS_ITS | Clinical Summary ---
Author Organization [facility] Address [address] [place] [address] Care Team Providers Care Community Service Specialist Name Role Phone Dimas Mcnair MD Primary Care Provider Allergies No known active allergies Medications Medication [...] 82 11/14/2021 11:38 AM EDT Temperature 36.5 C (97.7 F) 11/14/2021 11:38 AM EDT Respiratory Rate - - Oxygen Saturation 98% [...] (1 of 2) 2011 Influenza Vaccine (#1) 2025 RSV Adult > 60+ Yrs or Pregn ant (1 - 1-dose 75+ series) 2036 Hepatitis B Vaccines Aged Out No long er eligible based on patient's age to complete this topic RSV Ped < 20 months Aged Out No longe r eligible based on patient's age to complete this topic Care Teams Community Service Specialist Relationship Specialty Start Date End Date Dimas Mcnair MD PCP - General Internal Medicine 10/28/21
--- OUTSIDE RECORDS SUMMARY | 2025-02-05 14:06 | XMS_ITS | Clinical Summary ---
Author Organization [facility] Address [address] [place] [address] Care Team Providers Care Elementary School Teacher Name Role Phone Unavailable Primary Care Provider [...] syndrome 04/21/2014 Alcohol abuse Opiate abuse, episodic ([facility]) Social History Tobacco Use Types [...] 90 03/25/2021 1:09 PM EDT Temperature 36.7 C (98.1 F) 03/25/2021 1:09 PM EDT Respiratory Rate 16 03/25/2021 1:09 PM EDT Oxygen Saturation 98% 03/25/2021 1:09 PM EDT Inhaled Oxygen Concentration - - Weight 50.3 kg (111 lb) 03/25/2021 1:09 PM EDT Height 160 cm (5' 3 ) 03/25/2021 1:09 PM EDT Body Mass Index 19.66 03/25/2021 1:09 PM EDT Plan of Treatment Health Maintenance Due Date Last Done Comments Anxiety Screening 1961 HPV Screening 1961 Hepatitis C Screening 1961 Pap + HPV 1961 Tobacco Cessation Counseling (#1) 1961 Tobacco Screening 1961 HIV Screening 1976 Medicare Annual Wellness Visit 1979 CT Colonography 2006 Colonoscopy 2006 Colorectal Cancer Screening 2006 FIT/gFOBT 2006 Fecal DNA 2006 Flexible Sigmoidoscopy 2006 Imm-Zoster, Recombinant (1 of 2) 2011 Breast Cancer Screening (Mammogram) 09/01/2015 09/01/2014, 08/20/2014 (Managed by Outside Provider) Cervical Cancer Screening 12/18/2017 Pap Smear 12/18/2017 12/18/2014 Lipid Screening 07/17/2019 07/17/2014 Hypertension Screening (#1) 03/25/2022 Imm-Pneumococcal 50+ (2 of 2 - PCV) 03/14/2023 03/14/2022 Diabetes Screening 03/11/2024 03/11/2021, 0 03/25/2019, 10/23/2018, Additional history exists [id number] (3 - season) 2024 021, 11/16/2020 Alcohol and Drug Screen 07/16/2024 03/25/20 21, 11/26/2015, 11/26/2015 Depression Annual Screen 07/16/2024 11/26/2015 Imm-Influenza (#1) 2025 Imm-DTaP/Tdap/Td (2 - Td or Tdap) 03/14/2032 [...] EST) CHOLESTEROL 189 0 - 200 mg/dL [facility] TRIGLYCERIDES 195(H) 0 - 150 mg/dL [facility] HDL CHOLESTEROL 48 >40 mg/dL [facility] LDL CALCULATED 102(H) 0 - 100 mg/dL [facility] TC-HDLC RATIO 3.9 0 - 4.4 mg/dL [facility] Blood specimen (specimen) Blood / Unknown 07/17/2014 11:43 AM EST 07/17/2014 3:31 PM EST Narrative [facility] - 07/17/2014 6:10 PM EST [facility] [address] [place] [address] [place] ID [id number] ORD# [id number] Shaila Arnulfo JULIO LAB - BLOOD DRAW Final Result [address] [address], * COMPRE METAB PANEL (07/17/2014 11:43 AM EST) GLUCOSE 90 70 - 100 mg/dL [facility] Comment:Reference range appl icable to fasting specimens only BUN 16 5 - 25 mg/dL [facility] CREAT 0.67 0.5 - 1.1 mg/dL [facility] GLOMERULAR FILTRATION RATE > 60 [facility] Comment: If patient is -Syrian, multiply result by 1.21 Chronic Kidney Disease: < 60 ml/min/1.73 square meters Kidney Failure: < 15 ml/min/1.73 square meters SODIUM 143 133 - 145 mEq/L [facility] POTASSIUM 4.1 3.5 - 5.5 mEq/L [facility] CHLORIDE 109 96 - 110 mEq/L [facility] CO2 29 21 - 32 mEq/L [facility] ANION GAP 5 3 - 11 [facility] CALCIUM 9.7 8.5 - 10.5 mg/dL [facility] TOTAL PROTEIN 6.6 6.0 - 8.0 G/dL [facility] ALBUMIN 4.4 3.2 - 5.0 G/dL [facility] BILI, TOTAL 0.4 0.0 - 1.4 mg/dL [facility] SGOT 19 10 - 42 U/L [facility] SGPT 15 10 - 60 U/L [facility] ALK PHOS 65 42 - 121 U/L [facility] Blood specimen (specimen) Blood / Unknown 07/17/2014 11:43 AM EST 07/17/2014 3:31 PM EST [facility] - 07/17/2014 6:10 PM EST [facility] [address] [place] [address] PT ID [id number] ORD# [id number] Shaila Arredondo NP LAB - BLOOD DRAW Final Result [facility] [address] [place] [address], [place] [phone] from Last 3 Months or Most Recently Relevant to Health Maintenance Insurance [place] [facility]
== END 2025-02-05 14:01 | disposition home or self-care (01) ==
LOC: HO.HOSX 14:00
PROVIDERS: Visit Provider Orthopaedic Surgery
DX: M16.12 Unilateral primary osteoarthritis, left hip (principal); M25.552 Pain in left hip
CPT/HCPCS: 72170; 99212

== ENCOUNTER 2025-02-05 14:29 | Outpatient (AMB) | payer MEDICARE, MEDICAID, SELFPAY ==
[2025-02-05 14:34] VITALS: BMI 21.4
--- NOTE | 2025-02-05 14:34 | A.OFFVIS_ITS ---
Vital Signs 02/05/25 14:34 Height 5 ft 3 in Weight 121 lb BMI 21.4 Intake Visit Reasons: NE Request: Jacqueline BUDDY Talk About Planning Intake Note: Marielos is a 64 year old female who presents today for a follow up of her Left Hip OA. She was previously booked for Left BUDDY 08/12/24 but surgery was canceled due to Ill family member. Today she presents today re-discuss BUDDY and formulate a plan. Allergies No Known Allergies Allergy (Verified 02/05/25 14:43) HPI HPI NE Request: Jacqueline BUDDY Talk About Planning: Details: 64-year-old woman who has severe osteoarthritis of the left hip. This has been longstanding and is severely disabling. She was scheduled for surgery in the winter but had to postpone because her partner was diagnosed with cancer. He has since been treated and done well and she is looking to have her left hip surgery. Now she describes inability to engage in daily activities without difficulty. She can not walk comfortably. She can not get into a car comfortably. She has difficulty getting into and out of a chair or engaging in a of daily activities. Her pain localizes to the groin and lateral hip. She safe extends down into the medial aspect of her femur. She does have some back pain and has had history of radicular lower symptoms and these are occasionally present as well. [facility] Medical History (Updated 09/16/24 @ 14:24 by Osiel Long MD) Atherosclerotic cardiovascular disease Hypercholesteremia Vitamin D deficiency Trochanteric bursitis of left hip Subclinical hyperthyroidism Mild emphysema Thyroid nodule History of headache Skin lesion Psoriasis Bacterial vaginosis Left groin pain Cocaine use Tubular adenoma of breast Pulmonary nodules Back pain Depression Arthritis Palpitations Bursitis IBS (irritable bowel syndrome) Hypothyroid Chronic headaches COPD (chronic obstructive pulmonary disease) Surgical History History of lumbar surgery History of esophagogastroduodenoscopy (EGD) H/O colonoscopy Hx of tonsillectomy Family History (Updated 08/19/24 @ 14:12 by Aicha Fulton) Brother Heart attack Mother High blood pressure Father Lung cancer Social History (Updated 08/19/24 @ 14:12 by Aicha Fulton) Are you a primary long term acute care registered nurse to a significant other at home: No Do you presently have visiting nurse or other home services: No Alcohol intake: current Alcohol intake frequency: holidays/special occasions only Patient Tobacco Use Status: Current someday Tobacco user Tobacco use type: Cigarette Cigarettes Per Day: 3 Years Smoked: 46 Second Hand Smoke Exposure: No Physical Exam Vital Signs: BMI result Body Mass Index 21.4 Extrem Other: Gait antalgia with positive Trendelenburg gait. She walks with a cane. Impingement test positive on the left. Her range of motion is restricted internally on the left with reproducible groin pain. Her skin is intact to light touch in her left lower extremity and dorsalis pedis pulse is palpable with brisk capillary refill. She has normal skin in her left leg with no sores or unusual swelling. She is firing her EHL/gastrocs/tibialis anterior. Results Reviewed Results Reviewed: Left hip osteoarthritis, severe Assessment & Plan Assessment & Plan (1) Arthritis of left hip: Code(s): M16.12 - Unilateral primary osteoarthritis, left hip Category: Medical Plan: This is a 64-year-old woman with osteoarthritis of the left hip. She is unable to engage in rotational activities and has pain in the groin with ambulation, getting into and out of car, stairs, getting into bed, getting into out of a chair. This decreases the quality of her life and she is and excellent candidate for left hip replacement. I recommend this and I discussed this with her and she is in agreement. We had a long discussion regarding alternatives, I he nonoperative management, we also discussed the risk of the surgery including, but not limited to, the risk of infection, dislocation, fracture, leg length discrepancy, aseptic loosening, need further surgery, persistent pain, medical complications associated with surgery such as blood clots and cardiopulmonary c omplications. I also discussed that there may be a portion of her symptoms that are radicular in nature and may not resolve completely with surgery. She understands this. She would like to proceed forward. We will schedule surgery and begin the preoperative clearance process. Orders: Orders XR pelvis 1-2V 02/05/25 M25.559 - Pain in unspecified hip Coding Level of Care Code Est Pt Level 4 (09945) Diagnoses Arthritis of left hip M16.12
== END 2025-02-05 15:10 | disposition home or self-care (01) ==
LOC: HO.HOS 14:30
PROVIDERS: PCP Internal Medicine; Visit Provider Orthopaedic Surgery
DX: M16.12 Unilateral primary osteoarthritis, left hip (principal)
CPT/HCPCS: 99214

== ENCOUNTER → 2025-02-05 14:33 | Outpatient (BNV) | payer MEDICARE, MEDICAID, SELFPAY | PROVIDERS: Visit Provider Radiology Diagnostic Radiology | DX: M16.0 Bilateral primary osteoarthritis of hip (principal) | CPT/HCPCS: 72170 ==

== ENCOUNTER 2025-04-21 10:41 | Outpatient (AMB) | payer MEDICARE, MEDICAID, SELFPAY ==
--- NOTE | 2025-04-21 10:48 | MHC.OFFVIS ---
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 Originally, seen in consultation regarding an abnormal stress test. She needed preoperative risk stratification for hip surgery. Subsequently, we had arranged cardiac catheterization and that shows no more than moderate coronary disease. With regard to the hip surgery itself, she is not still headed. It seems she also missed the reason preop appointment but she states she has rescheduled everything and plans to go ahead. From the cardiac standpoint, she has got no symptoms like chest pains or in fact anything of cardiac nature. Unfortunately, she is still smoking. Last cocaine use was about a week ago. Walks with a cane. [facility] Medical History PAD (peripheral artery disease) Atherosclerotic cardiovascular disease Hypercholesteremia Vitamin D deficiency Trochanteric bursitis of left hip Subclinical hyperthyroidism Thyroid nodule Psoriasis Cocaine use Pulmonary nodules Back pain Depression Arthritis Palpitations Bursitis IBS (irritable bowel syndrome) Hypothyroid Chronic headaches COPD (chronic obstructive pulmonary disease) Surgical History History of lumbar surgery History of esophagogastroduodenoscopy (EGD) H/O colonoscopy Hx of tonsillectomy Family History Brother Heart attack Mother High blood pressure Father Lung cancer Social History Are you a primary child care giver to a significant other at home: No Do you presently have visiting nurse or other home services: No Alcohol intake: current Alcohol intake frequency: holidays/special occasions only Patient Tobacco Use Status: Current someday Tobacco user Tobacco use type: Cigarette Cigarettes Per Day: 3 Years Smoked: 46 Second Hand Smoke Exposure: No Review of Systems Const Denies chills, Denies fatigue, Denies fever(s), Denies frequent falls, Denies weakness, Denies weight gain and Denies weight loss ENT Denies dizziness Card Denies chest pain, Denies leg edema, Denies lightheadedness, Denies palpitations, Denies dyspnea and Denies dyspnea on exertion Resp Denies cough, Denies dyspnea and Denies dyspnea on exertion GI Denies hematochezia Musc Denies abnormal gait, Denies muscle weakness, Denies numbness, Denies radiating pain into limb and Denies tingling Neuro Denies abnormal gait, Denies dizziness, Denies frequent falls, Denies numbness, Denies tingling and Denies weakness Endo Denies fatigue and Denies palpitations Physical Exam Vital Signs: Last Vital Signs Pulse 89 04/21/25 10:51 BP 124/66 04/21/25 10:51 BMI result Body Mass Index 21.8 Const General: comfortable and no acute distress Orientation/consciousness: patient oriented x3 HEENT Other: Unremarkable Head: Yes normal to inspection Neck Neck: Yes normal visual inspection Chest Chest palpation & inspection: normal inspection of the chest Resp Auscultation: clear to auscultation bilaterally Cardio Palpation: normal PMI Heart sounds: S1 normal heart sound present, S2 normal heart sound present, no gallops, no murmurs and no rubs GI Palpation (GI): Soft to palpation Back/Spine/Pelvis Other: unremarkable Skin General skin exam: no rashes or lesions noted Neuro General: patient oriented x3 Extrem General: Yes normal to inspection Psych Mental Status: mental status grossly normal Office Procedures EKG Details: EKG with underlying sinus rhythm at 89/Min; nonspecific ST-T changes; [place]. [id number], Complete Assessment & Plan Assessment & Plan (1) Atherosclerotic cardiovascular disease: Comment: cardiac cath 09/2024-aggressive risk modification, no stent-follows w/HCS Code(s): I25.10 - Atherosclerotic heart disease of elim ira coronary artery without angina pectoris Category: Medical (2) Preoperative cardiovascular examination: Code(s): Z01.810 - Encounter for preprocedural cardiovascular examination Category: Medical Plan Cardiac studies reviewed. In the echocardiogram, LVEF 57%. Basal inferior hypokinesis. In the nuclear stress from [place], there is description of LAD calcification; small size, moderate intensity reversible basal inferior defect. In the Lexiscan portion, horizontal ST depression in inferior leads. Cardiac catheterization with 60% distal LAD stenosis; 50% distal circumflex stenosis; 40% OM1 stenosis; mild irregularities in the right coronary artery with 50% RV marginal branch stenosis. With regard to the coronary disease itself, she has got no symptoms. Continue aspirin. Lipid profile requested in the past but never performed. Advised her to do it and we can start statins after that. With regard to hip surgery, previously cleared as intermediate risk but not pursued. Risk remains the same. Strongly advised to not use cocaine especially in the setting of upcoming surgery. She states she will do that. Cut back on smoking; ideally stop. Discussion Notes I discussed with the patient the need for blood work to assess cholesterol levels due to her coronary artery disease. We talked about starting statin therapy after obtaining the blood work results. I advised her on the importance of abstaining from cocaine use, especially before surgery, and encouraged her to continue reducing tobacco use. Patient was informed and verbally consented to the use of an ambient scribe for clinic note documentation during this visit. Patient Instructions: - Get blood work done to check cholesterol levels. - Stop using cocaine. - Continue reducing tobacco use and aim to quit before surgery. Coding Level of Care Code Est Pt Level 4 (79963) Complex EM visit Add On G2211 Diagnoses Atherosclerotic cardiovascular disease I25.10 Preoperative cardiovascular examination Z01.810 CPT Codes EKG - CPT: 38753-[id number], Complete ([id number])
[2025-04-21 10:51] VITALS: BP 124/66; PULSE 89; BMI 21.8
--- OUTSIDE RECORDS SUMMARY | 2025-04-21 12:59 | XMS_ITS | Clinical Summary ---
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 Alcohol abuse Opiate abuse, episodic Social History Tobacco Use Types Packs/Day Years [...] 03/11/2021, 0 03/25/2019, 10/23/2018, Additional history exists Alcohol and Drug Screen 07/16/2024 03/25/20 21, 11/26/2015, 11/26/2015 Depression Annual Screen 07/16/2024 11/26/2015 [id number] ( season) 2025 021, 11/16/2020 Imm-Influenza (#1) 2025 Imm-DTaP/Tdap/Td (2 - Td [...] EST) CHOLESTEROL 189 0 - 200 mg/dL [facility] TRIGLYCERIDES 195(H) 0 - 150 mg/dL [facility] HDL CHOLESTEROL 48 >40 mg/dL [facility] LDL CALCULATED 102(H) 0 - 100 mg/dL [facility] TC-HDLC RATIO 3.9 0 - 4.4 mg/dL [facility] Blood specimen (specimen) Blood / Unknown 07/17/2014 11:43 AM EST 07/17/2014 3:31 PM EST Narrative [facility] 07[facility]17/2014 6:10 PM EST [employer] [address] [place] [address] PT ID [id number] ORD# [id number] Shaila Arredondo NP LAB - BLOOD DRAW Final Result [facility] [address] [place] [address], * COMPRE METAB PANEL (07/17/2014 11:43 AM EST) GLUCOSE 90 70 - 100 mg/dL [facility] Comment:Reference range appl icable to fasting specimens only BUN 16 5 - 25 mg/dL [facility] CREAT 0.67 0.5 - 1.1 mg/dL [facility] GLOMERULAR FILTRATION RATE > 60 [facility] Comment: If patient is -Pakistani, multiply result by 1.21 Chronic Kidney Disease: < 60 ml/min/1.73 square meters Kidney Failure: < 15 ml/min/1.73 square meters SODIUM 143 133 - 145 mEq/L [facility] POTASSIUM 4.1 3.5 - 5.5 mEq/L [facility] CHLORIDE 109 96 - 110 mEq/L [facility] CO2 29 21 - 32 mEq/L [facility] ANION GAP 5 3 - 11 [facility] CALCIUM 9.7 8.5 - 10.5 mg/dL [facility] TOTAL PROTEIN 6.6 6.0 - 8.0 G/dL [facility] ALBUMIN 4.4 3.2 - 5.0 G/dL [facility] BILI, TOTAL 0.4 0.0 - 1.4 mg/dL [facility] SGOT 19 10 - 42 U/L [facility] SGPT 15 10 - 60 U/L [facility] ALK PHOS 65 42 - 121 U/L [facility] Blood specimen (specimen) Blood / Unknown 07/17/2014 11:43 AM EST 07/17/2014 3:31 PM EST Narrative [facility] - 07/17/2014 6:10 PM EST [facility] [employer] [address] [place] [address] PT ID [id number] ORD# [id number] Shaila Arredondo NP LAB - BLOOD DRAW Final Result [facility] [address] [place] [address], [place] [phone] from Last 3 Months or Most Recently Relevant to Health Maintenance Insurance [place] [facility]
--- OUTSIDE RECORDS SUMMARY | 2025-04-21 12:59 | XMS_ITS | Clinical Summary ---
Author Organization [facility] Address [address] [place] [address] Care Team Providers Care Working Supervisor Name Role Phone Dimas Mcnair MD Primary Care Provider [phone] Allergies No known active allergies Medications Medication [...] age to complete this topic Care Teams Working Supervisor Relationship Specialty Start Date End Date Dimas Mcnair MD PCP - General Internal Medicine 10/28/21
--- OUTSIDE RECORDS SUMMARY | 2025-04-21 12:59 | XMS_ITS | Clinical Summary ---
Author Organization [facility] [address] [facility] Address [address] [place] [address] Phone Care Team Providers Care Varnisher Plasticoater Name Role Phone Dimas Mcnair MD Primary Care Provider [phone] Allergies No known active allergies Medications oxyCODONE-aceta [...] her arthritis. There is no evidence of Features Reporter etiology of her pain. I recommended she [...] Encounters Date Type Department Care Team Description 04/13/2025 11:26 AM EDT - 04/13/2025 11:59 PM EDT Hospital Encounter [facility] CT Scan [address] [place] [address] Encounter for screening for malignant neoplasm of respiratory organs; Nicotine dependence, cigarettes, uncomplicated Discharge Disposition: Home or Self Care 03/26/2025 Telephone Lung Screening Program - [place] [address] [facility] [address] [place] [address] Anali Carvalho [place] 02/23/2025 4:15 PM EDT - 02/23/2025 11:59 PM EDT Hospital Encounter [facility] CT Scan [address] [place] [address] Renal artery aneurysm ([facility] V24) Discharge Disposition: Home or Self Care 02/10/2025 12:42 PM EDT - 02/10/2025 11:59 PM EDT Hospital Encounter [facility] Ultrasound [address] [place] [address] PAD (peripheral artery disease) ([facility] V24) Discharge Disposition: Home or Self Care from Last 3 Months Immunizations Immunization Administration Dates Next Due Diptheria & Tetanus, 6wks to less than 7yo 12/14 Pneumococcal polysaccharide 23 valent (Pneumovax 23) 2yo and older 03/14/2022,10/01/2008 Tdap Tetanus diptheria acell ular pertussis (Boostrix; Adacel) 7yo and older 03/14/2022,01/17/2014 Surgical History Surgery Date Site/Laterality Comments TONSILLECTOMY COLONOSCOPY 01/2015 tubular adenoma OTHER SURGICAL HISTORY 01/2015 active erosive gastritis, small hiatal hernia COLONOSCOPY 01/27 [facility] : adenoma and poor bowel prep; tics and hemorrhoids COLONOSCOPY 04/26/2017 normal; repeat in 5 yrs ESOPHAGOGASTRODUODENOSCOPY 01/27 [facility] HH and erosive gastritis and H. pylori [...] Care Team (Late st Contact Info) Description 04/30/2025 1:00 PM EDT Office Visit Adult Medicine [address] [address] Young Hurley PA [address] [place] [address] 06/19/2025 1:00 PM EST Office Visit Vascular Surgery - [place] [facility] [address] [place] [address] Kritsin Rainey PA [address] [place] [address] Health Maintenance Due Date Last Done Comments Hepatitis A Vaccines (1 of 2 - Risk 2-dose series) 1980 Zoster Vaccines (1 of 2) 2011 RSV Immunization Adult Patients (1 - Risk 60-74 years 1-dose series) 2021 Colorectal Cancer Screening: Colonoscopy 04/26/2022 04/26/2017 HIV Screening 06/24/2022 Medicare Annual Wellness Visit 06/24/2022 Social Influencers of Health Screening 06/24/2022 Pneumococcal Vaccine: 50+ Years (2 of 2 - PCV) 03/14/2023 03/14/2022, 10/01/2008 Depression Screening 07/16/2024 05/05/2024 Breast Cancer Screening 01/02/2025 01/03/20 23, 12/07/2022, 11/09/2021, Additional history exists COVID-19 Vaccine (3 - season) 2025 12/16/2020, 11/16/2020 Influenza Vaccine (#1) 2025 Cervical Cancer Screening: [...] Name Priority Date/Time Associated Diagnosis Comments CT ANGIO ABDOMEN PELVIS WO AND/OR W CONTRAST Routine 02/23/2025 4:45 PM EDT Renal artery aneurysm (CMS/HCC V24) VAS US DUPLEX LOWER EXT ARTERIES BILAT WITH WANDA Routine 02/10/2025 1:44 PM EDT PAD (peripheral artery disease) (CMS/HCC V24) LIPID PANEL WITH REFLEX TO DIRECT LDL Routine 11/04/2024 11:08 AM EDT Hypercholesteremia DEPRESSION SCREENING Routine 05/05/2024 DIAGNOSTIC MAMMOGRAPHY WITH CAD UNILATERAL Routine 01/02/2023 3:05 PM EDT Other abnormal and inconclusive findings on diagnostic imaging of breast HPV Routine 12/20/2021 COLONOSCOPY Routine 04/26/2017 HEPATITIS C SCREENING Routine 12/18/2016 from Last 3 Months or Most Recently Relevant to Health Maintenance Results * CT Angio Abdomen Pelvis wo and/or w Contrast (02/23/2025 4:45 PM EDT) Anatomical Region Laterality Modality Body Computed Tomogra phy 02/26/2025 6:47 AM EDT Impressions 02/26/2025 7:08 AM EDT 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 No evidence of renal infarct or hemorrhage. -------- FINAL REPORT -------- Dictated By: Hamilton Dickens Dictated Date: 02/26/2025 06:47 ET Assigned Physician: Hamilton Dickens Reviewed and Electronically Signed By: Hamilton Dickens Signed Date: 02/26/2025 07:08 ET Workstation ID: [id number] Transcribed By: Self Edit Transcribed Date: 02/26/2025 06:47 ET Narrative 02/26/2025 7:08 AM EDT EXAM: CT ANGIO ABDOMEN PELVIS WO AND/OR W CONTRAST INDICATION: Left renal artery aneurysm. COMPARISON: Selected portions of CT without contrast 07/28/10 TECHNIQUE: CT angiography of the abdomen and pelvis was performed using contiguous helical images of the abdomen and pelvis, during intravenous injection of 90 ml of ISOVUE-370. 0.625 mm axial images were reconstructed. Sagittal and coronal reformatted images were rendered. Maximum intensity projections were created. Contemporaneous supervision by the radiologist Postprocessing was performed. DLP: 571 mGy-cm FINDINGS: ABDOMINAL AORTA: There are calcified and noncalcified plaques throughout the abdominal aorta. There is no dissection, aneurysm or intramural hematoma. CELIAC AXIS: The celiac axis is widely patent. The proximal aspect of the hepatic artery and splenic artery are patent. There is mild dilation of the distal splenic artery (0.7 cm; 2/111). SMA: The SMA is widely patent. ESTELA: The inferior mesenteric artery is widely patent. RIGHT RENAL: There is calcified plaque at the origin of the right renal artery. I suspect moderate luminal stenosis. There is no poststenotic dilation. LEFT RENAL: The main left renal artery is patent. There is calcified plaque proximally. This causes mild luminal narrowing. There is a rim calcified main left renal artery in the hilum of the left kidney. This is partially thrombosed. 02/23/25-0.8 cm (2/180) 02/25/21-0.8 cm (3/239) 07/28/10-no definite calcified aneurysm. There is a 0.2 cm upper pole left renal artery. RIGHT LOWER: COMMON ILIAC ARTERY: The right common iliac artery is widely patent. There is mild calcified plaque with no luminal stenosis. EXTERNAL ILIAC ARTERY: The right external iliac artery is widely patent. INTERNAL ILIAC ARTERY: The right internal iliac artery is widely patent. COMMON FEMORAL ARTERY: The right common femoral artery demonstrates some calcified and noncalcified plaque with no significant luminal stenosis. SUPERFICIAL FEMORAL ARTERY: The proximal right SFA and profunda femoral arteries are patent. LEFT LOWER COMMON ILIAC ARTERY: There is calcified and noncalcified plaque in the left common iliac artery which is widely patent. EXTERNAL ILIAC ARTERY: The left external iliac artery is widely patent with a smooth contour. INTERNAL ILIAC ARTERY: The left internal iliac artery is widely patent. COMMON FEMORAL ARTERY: The left common femoral artery is widely patent. SUPERFICIAL FEMORAL ARTERY: The proximal left SFA and profunda femoral artery are widely patent. NONVASCULAR Solid viscera are examined during the early arterial phase of enhancement. LIVER: The liver contour is smooth. No suspicious focal liver lesion no early enhancing abnormality. BILIARY TRACT: There is no opaque calculus. There is no biliary dilation. SPLEEN: No suspicious abnormality. PANCREAS: Normal; no mass or surrounding fluid. ADRENAL GLANDS: Normal; no mass. KIDNEYS: There is no dilation of the intrarenal collecting system on either side. The kidneys enhance symmetrically. No suspicious mass. GASTROINTESTINAL TRACT: No localized bowel wall thickening. No localized fat stranding. The stomach is nearly empty. URINARY BLADDER: The bladder is not well distended. No suspicious abnormality PELVIC VISCERA: No suspicious abnormality. ABDOMINAL WALL: No significant hernia is appreciated. LYMPHOVASCULAR STRUCTURES AND FLUID: There are no measurably enlarged lymph nodes. There is no free intraperitoneal fluid. MUSCULOSKELETAL: No acute or suspicious osseous abnormality. There is extensive abnormality around the left femoral acetabular joint. There is joint space narrowing. There are marginal osteophytes. There is subchondral cystic and erosive changes. The left femoral head contour is irregular. There is likely some joint fluid. Minimal anterolisthesis of L4 relative to L5. VISUALIZED LOWER CHEST: No suspicious abnormality. There are some nonspecific mild dependent lung base opacities. Procedure Note Hamilton Dickens MD - 02/26/2025 EXAM: CT ANGIO ABDOMEN PELVIS WO AND/OR W CONTRAST INDICATION: Left renal artery aneurysm. COMPARISON: Selected portions of CT without contrast 07/28/10 TECHNIQUE: CT angiography of the abdomen and pelvis was performed usingcontiguous helical images of the abdomen and pelvis, during intravenousinjection of 90 ml of ISOVUE-370. 0.625 mm axial images werereconstructed. Sagittal and coronal reformatted images were rendered.Maximum intensity projections were created. Contemporaneous supervision bythe radiologist Postprocessing was performed. DLP: 571 mGy-cm FINDINGS: ABDOMINAL AORTA: There are calcified and noncalcified plaques throughoutthe abdominal aorta. There is no dissection, aneurysm or intramuralhematoma. CELIAC AXIS: The celiac axis is widely patent. The proximal aspect ofthe hepatic artery and splenic artery are patent. There is mild dilationof the distal splenic artery (0.7 cm; 2/111). SMA: The SMA is widely patent. ESTELA: The inferior mesenteric artery is widely patent. RIGHT RENAL: There is calcified plaque at the origin of the right renalartery. I suspect moderate luminal stenosis. There is no poststenoticdilation. LEFT RENAL: The main left renal artery is patent. There is calcifiedplaque proximally. This causes mild luminal narrowing. There is a rim calcified main left renal artery in the hilum of the leftkidney. This is partially thrombosed. 02/23/25-0.8 cm (2/180) 02/25/21-0.8 cm (3/239) 07/28/10-no definite calcified aneurysm. There is a 0.2 cm upper pole left renal artery. RIGHT LOWER: COMMON ILIAC ARTERY: The right common iliac artery is widely patent.There is mild calcified plaque with no luminal stenosis. EXTERNAL ILIAC ARTERY: The right external iliac artery is widelypatent. INTERNAL ILIAC ARTERY: The right internal iliac artery is widelypatent. COMMON FEMORAL ARTERY: The right common femoral artery demonstrates somecalcified and noncalcified plaque with no significant luminal stenosis. SUPERFICIAL FEMORAL ARTERY: The proximal right SFA and profunda femoralarteries are patent. LEFT LOWER COMMON ILIAC ARTERY: There is calcified and noncalcified plaque in theleft common iliac artery which is widely patent. EXTERNAL ILIAC ARTERY: The left external iliac artery is widely patentwith a smooth contour. INTERNAL ILIAC ARTERY: The left internal iliac artery is widely patent. COMMON FEMORAL ARTERY: The left common femoral artery is widely patent. SUPERFICIAL FEMORAL ARTERY: The proximal left SFA and profunda femoralartery are widely patent. NONVASCULAR Solid viscera are examined during the early arterial phase ofenhancement. LIVER: The liver contour is smooth. No suspicious focal liver lesion noearly enhancing abnormality. BILIARY TRACT: There is no opaque calculus. There is no biliarydilation. SPLEEN: No suspicious abnormality. PANCREAS: Normal; no mass or surrounding fluid. ADRENAL GLANDS: Normal; no mass. KIDNEYS: There is no dilation of the intrarenal collecting system oneither side. The kidneys enhance symmetrically. No suspicious mass. GASTROINTESTINAL TRACT: No localized bowel wall thickening. No localizedfat stranding. The stomach is nearly empty. URINARY BLADDER: The bladder is not well distended. No suspiciousabnormality PELVIC VISCERA: No suspicious abnormality. ABDOMINAL WALL: No significant hernia is appreciated. LYMPHOVASCULAR STRUCTURES AND FLUID: There are no measurably enlargedlymph nodes. There is no free intraperitoneal fluid. MUSCULOSKELETAL: No acute or suspicious osseous abnormality. There isextensive abnormality around the left femoral acetabular joint. There isjoint space narrowing. There are marginal osteophytes. There issubchondral cystic and erosive changes. The left femoral head contour isirregular. There is likely some joint fluid. Minimal anterolisthesis of L4 relative to L5. VISUALIZED LOWER CHEST: No suspicious abnormality. There are somenonspecific mild dependent lung base opacities. IMPRESSION: 0.8 cm peripherally calcified partially thrombosed left renal arteryaneurysm within the central sinus of the left kidney. No evidence of renal infarct or hemorrhage. -------- FINAL REPORT -------- Dictated By: Hamilton Dickens Dictated Date: 02/26/2025 06:47 ET Assigned Physician: Hamilton Dickens Reviewed and Electronically Signed By: Hamilton Dickens Signed Date: 02/26/2025 07:08 ET Workstation ID: [id number] Transcribed By: Self Edit Transcribed Date: 02/26/2025 06:47 ET us Kristin HEATH IMG CT PROCEDURES Final Result * Vascular US duplex lower extremity arteries bilateral with WANDA (02/10/2025 1:44 PM EDT) Anatomical Region Laterality Modality Vascular, Abdomen Ultrasound 02/17/2025 4:19 PM EDT Impressions 02/17/2025 4:22 PM EDT Normal study. Right leg: Normal study. Left leg: Normal study. -------- FINAL REPORT -------- Dictated By: Ketan Piper Dictated Date: 02/17/2025 16:19 ET Assigned Physician: Ketan Piper Reviewed and Electronically Signed By: Ketan Piper Signed Date: 02/17/2025 16:22 ET Workstation ID: [id number] Transcribed By: Self Edit Transcribed Date: 02/17/2025 16:19 ET Narrative 02/17/2025 4:22 PM EDT INDICATION: Peripheral arterial disease TECHNIQUE: Bilateral ankle to brachial indices obtained. Arterial duplex imaging obtained of both lower extremities. Prior relevant imaging studies: None Right posterior tibial index 0.97 Right dorsalis pedis index 1.01 Right digital index 0.80 Left posterior tibial index 0.96 Left dorsalis pedis index 1.05 Left digital index toes 0.92 Normal Doppler waveforms as well as pulse volume recordings. Right leg: Common femoral artery: Normal velocities and waveform. Superficial femoral artery: Normal velocities and waveform. Popliteal artery: Normal velocities and waveform. Posterior tibial artery: Normal velocities and waveform. Anterior tibial artery: Normal velocities and waveform. Left leg: Common femoral artery: Normal velocities and waveform. Superficial femoral artery: Normal velocities and waveform. Popliteal artery: Normal velocities and waveform.. Posterior tibial artery: Normal velocities and waveform. Anterior tibial artery: Normal velocities and waveform. Procedure Note Ketan Piper MD - 02/17/2025 INDICATION: Peripheral arterial disease TECHNIQUE: Bilateral ankle to brachial indices obtained. Arterial dupleximaging obtained of both lower extremities. Prior relevant imaging studies: None Right posterior tibial index 0.97 Right dorsalis pedis index 1.01 Right digital index 0.80 Left posterior tibial index 0.96 Left dorsalis pedis index 1.05 Left digital index toes 0.92 Normal Doppler waveforms as well as pulse volume recordings. Right leg: Common femoral artery: Normal velocities and waveform. Superficial femoral artery: Normal velocities and waveform. Popliteal artery: Normal velocities and waveform. Posterior tibial artery: Normal velocities and waveform. Anterior tibial artery: Normal velocities and waveform. Left leg: Common femoral artery: Normal velocities and waveform. Superficial femoral artery: Normal velocities and waveform. Popliteal artery: Normal velocities and waveform.. Posterior tibial artery: Normal velocities and waveform. Anterior tibial artery: Normal velocities and waveform. IMPRESSION: Normal study. Right leg: Normal study. Left leg: Normal study. -------- FINAL REPORT -------- Dictated By: Ketan Piper Dictated Date: 02/17/2025 16:19 ET Assigned Physician: Ketan Piper Reviewed and Electronically Signed By: Ketan Piper Signed Date: 02/17/2025 16:22 ET Workstation ID: [id number] Transcribed By: Self Edit Transcribed Date: 02/17/2025 16:19 ET Kristin HEATH CV VASCULAR PROCEDURES Final R esult * (ABNORMAL) Lipid panel with reflex to direct LDL (11/04/2024 11:08 AM EDT) [facility] Signature Cholesterol 214(H) 0 - 200 mg/dL LAB CHEMISTRY METHOD 11/04/2024 2:50 PM EDT [facility] Triglycerides 70 0 - 150 mg/dL LAB CHEMISTRY METHOD 11/04/2024 2:50 PM EDT [facility] HDL 72 >=40 mg/dL LAB CHEMISTRY METHOD 11/04/2024 2:50 PM EDT [facility] LDL Calculated 128(H) 0 - 100 mg/dL LAB CHEMISTRY METHOD 11/04/2024 2:50 PM EDT [facility] VLDL Cholesterol Hernandez 14 mg/dL LAB CHEMISTRY METHOD 11/04/2024 2:50 PM EDT [facility] Non HDL Chol. (LDL+VLDL) 142 <145 mg/dL LAB CHEMISTRY METHOD 11/04/2024 2:50 PM EDT [facility] Chol/HDL Ratio 3.0 0.0 - 4.4 LAB CHEMISTRY METHOD 11/04/2024 2:50 PM EDT [facility] Blood Venous blood specimen / Unknown Venipuncture / Unknown 11/04/2024 11:08 AM EDT 11/04/2024 11:08 AM EDT Doreen Low MD LAB BLOOD ORDERABLES Final Resul t [facility] [address] [place] [address], * Depression Screening (05/05/2024) Depression Screening abstracted Hugo Provider HEALTH MAINTENANCE Final Result * DIAGNOSTIC [...] Result * Cervical Cancer Screening: HPV (12/20/2021) Pathologist [facility] Cervical Cancer Screening: HPV Abstracted ,negative Historical [...] MEDICARE ADVANTAGE [place]ICA[place] - [place] Care Teams Varnisher Plasticoater Relationship Specialty Start Date End Date Dimas Mcnair MD [address] [place] [phone] PCP - General Internal Medicine 01/07/25
== END 2025-04-21 11:05 | disposition home or self-care (01) ==
PROVIDERS: PCP Internal Medicine; Visit Provider Internal Medicine
DX: I25.10 Atherosclerotic heart disease of native coronary artery without angina pectoris (principal); Z01.810 Encounter for preprocedural cardiovascular examination
CPT/HCPCS: 93010; 99214; G2211

== ENCOUNTER 2025-04-21 10:41 | Outpatient (REF) | payer MEDICARE, MEDICAID, SELFPAY ==
[2025-04-21 11:56] LABS: Hematocrit 39.5 % (37.0-47.0); Hemoglobin 12.9 g/dl (12.0-16.0); Mean Corpuscular HGB Conc 32.7 g/dl (31.0-35.0); Mean Corpuscular Hemoglobin 30.5 pg (27.0-33.0); Mean Corpuscular Volume 93.4 fL (80.0-98.0); NRBC Abs Auto 0.000 X10*3/uL (0.0-0.012); NRBC Pct Auto 0.0 /100WBC (0.0-0.2); Platelet Count 280 X10*3/uL (160-400); Red Blood Count 4.23 X10*6/uL (4.20-5.50); White Blood Count 7.1 X10*3/uL (4.8-10.8)
[2025-04-21 11:59] LABS: INTERNATIONAL NORM RATIO 1.0 (0.9-1.1); Prothrombin Time 11.1 SEC (10.9-12.4)
[2025-04-21 12:31] LABS: Alanine Aminotransferase 16 U/L (0-31); Albumin Level 4.7 g/dL (3.5-5.0); Alkaline Phosphatase 66 U/L (39-117); Aspartate Amino Transferase 22 U/L (5-31); Cholesterol 205 mg/dL (<200); HDL Cholesterol 52 mg/dL (>40); Total Protein 7.0 g/dL (6.5-8.0); Triglycerides 122 mg/dL (<150)
== END 2025-04-21 10:42 | disposition home or self-care (01) ==
LOC: HO.LAB 10:41
PROVIDERS: PCP Internal Medicine; Visit Provider Internal Medicine
DX: Z01.810 Encounter for preprocedural cardiovascular examination (principal); I25.10 Atherosclerotic heart disease of native coronary artery without angina pectoris; E78.5 Hyperlipidemia, unspecified; F14.90 Cocaine use, unspecified, uncomplicated; F17.210 Nicotine dependence, cigarettes, uncomplicated; Z79.82 Long term (current) use of aspirin; Z71.6 Tobacco abuse counseling
CPT/HCPCS: 36415; 80061; 80076; 85027; 85610; 93005; 99212